=== PATIENT | female | born 1990 | race Caucasian/White ===

== ENCOUNTER → 2018-02-27 07:48 | Outpatient (CLI) | payer SELFPAY ==
--- NOTE | 2018-02-27 07:55 | US_ITS ---
STUDY: ULTRASOUND OF THE FEMALE PELVIS - COMPLETE REASON FOR EXAM: Female, 27 years old. Pelvic pain, history of prior LMP: 02/16/2018 TECHNIQUE: Transabdominal imaging initially performed with subsequent endovaginal imaging for better characterization of the endometrial complex. TECHNICAL QUALITY: Adequate. COMPARISON: None. FINDINGS: The uterus is anteverted and is in a midline position. The uterus measures 7.4 x 6.0 x 4.2 cm. Normal uterine cervix. The endometrium measures 4.0 mm in thickness, and is hyperechoic. There is no demonstrated endometrial mass. There is no demonstrated myometrial mass. I.U.D. - The patient does not have an I.U.D. The right ovary is visualized. The right ovary measures 2.6 x 3.0 x 2.1 cm. There are multiple follicles of the right ovary without a dominant cyst. There is no visualized right adnexal mass or complex lesion. There is normal arterial and normal venous vascularity. The left ovary is visualized. The left ovary measures 3.0 x 2.1 x 1.7 cm. There are multiple follicles of the left ovary without a dominant cyst. There is no visualized left adnexal mass or complex lesion. There is normal arterial and normal venous vascularity. There is minimal fluid in the cul-de-sac. There is a 1.5 x 1.1 x 1.2 cm triangular isoechoic solid-appearing structure in the posterior, inferior urinary bladder with no Doppler flow identified. US/Transvaginal Non- IMPRESSION: 1. 1.5 x 1.1 x 1.2 cm posterior, inferior urinary bladder wall nodule that could represent tumefactive debris (infectious/hemorrhagic debris) or localized urinary bladder wall thickening (neoplasm or localized cystitis). Correlation with urinalysis is suggested for initial evaluation. 2. No uterine fibroids or adnexal masses. Electronically Signed: Pradip Wright MD at 15:44 EDT , Service support ,
--- NOTE | 2018-02-27 07:55 | US_ITS ---
STUDY: ULTRASOUND OF THE FEMALE PELVIS - COMPLETE REASON FOR EXAM: Female, 27 years old. Pelvic pain, history of prior LMP: 02/16/2018 TECHNIQUE: Transabdominal imaging initially performed with subsequent endovaginal imaging for better characterization of the endometrial complex. TECHNICAL QUALITY: Adequate. COMPARISON: None. FINDINGS: The uterus is anteverted and is in a midline position. The uterus measures 7.4 x 6.0 x 4.2 cm. Normal uterine cervix. The endometrium measures 4.0 mm in thickness, and is hyperechoic. There is no demonstrated endometrial mass. There is no demonstrated myometrial mass. I.U.D. - The patient does not have an I.U.D. The right ovary is visualized. The right ovary measures 2.6 x 3.0 x 2.1 cm. There are multiple follicles of the right ovary without a dominant cyst. There is no visualized right adnexal mass or complex lesion. There is normal arterial and normal venous vascularity. The left ovary is visualized. The left ovary measures 3.0 x 2.1 x 1.7 cm. There are multiple follicles of the left ovary without a dominant cyst. There is no visualized left adnexal mass or complex lesion. There is normal arterial and normal venous vascularity. There is minimal fluid in the cul-de-sac. There is a 1.5 x 1.1 x 1.2 cm triangular isoechoic solid-appearing structure in the posterior, inferior urinary bladder with no Doppler flow identified. US/Pelvic (Non ) IMPRESSION: 1. 1.5 x 1.1 x 1.2 cm posterior, inferior urinary bladder wall nodule that could represent tumefactive debris (infectious/hemorrhagic debris) or localized urinary bladder wall thickening (neoplasm or localized cystitis). Correlation with urinalysis is suggested for initial evaluation. 2. No uterine fibroids or adnexal masses. Electronically Signed: Pradip Wright MD at 15:44 EDT , Service support ,
== END ==
PROVIDERS: Family Provider Family Medicine; PCP Family Medicine; Referring Provider Nurse Practitioner Women's Health; Visit Provider Nurse Practitioner Women's Health
DX: R10.2 Pelvic and perineal pain (principal)
CPT/HCPCS: 76830; 76856; 93976

== ENCOUNTER → 2018-02-28 18:18 | Outpatient (CLI) | payer SELFPAY ==
[2018-02-28 19:25] LABS: Color, Urine Yellow (Yellow); Glucose, Dipstick Normal (Normal); Ketone-Dipstick Negative (Negative); Leukocyte Esterase-Dipstick Negative /ul (Negative); Nitrite-Dipstick Negative (Negative); Occult Blood-Urine Negative /ul (Negative); Protein-Dipstick Negative (Negative); Specific Gravity, Urine 1.005 (1.002-1.030); Urine Bilirubin Dipstick Negative (Negative); Urine Clarity Sl. Cloudy (Clear); Urine Urobilinogen Normal (Normal); Urine pH 6.5 (5.0 - 8.0)
== END ==
PROVIDERS: Family Provider Family Medicine; PCP Family Medicine; Referring Provider Nurse Practitioner Women's Health; Visit Provider Nurse Practitioner Women's Health
DX: R10.2 Pelvic and perineal pain (principal); R30.0 Dysuria
CPT/HCPCS: 81002; 87086

== ENCOUNTER → 2018-04-29 12:45 | Outpatient (CLI) | payer SELFPAY ==
--- NOTE | 2018-04-29 12:48 | CT_ITS ---
STUDY: CT ABDOMEN AND PELVIS WITH CONTRAST REASON FOR EXAM: Female, 27 years old. Bladder nodule found on ultrasound. RADIATION DOSAGE (If Supplied By Facility): CTDIvol = ( 13.01 ) mGy, DLP = ( 984.24 ) mGycm TECHNIQUE: Transaxial images were obtained from the dome of the diaphragm to the symphysis pubis without oral contrast. 100CC ml of Isovue 300 contrast was administered. Sagittal and coronal images were reconstructed. Individualized dose optimization techniques were used for this CT. COMPARISON: Ultrasound dated February 27, 2018 FINDINGS: The visualized lung bases are unremarkable. The visualized portions of the heart are within normal limits. Normal liver. Normal gallbladder and extrahepatic biliary system. Normal spleen. Normal pancreas. Normal bilateral adrenal glands. Normal right kidney. The left kidney has a lobulated contour with focal cortical thinning, this appears chronic; there is a indeterminate low-attenuation focus within the upper pole the left kidney which may reflect an atypical cyst or a remnant of a duplicated collecting system. Normal visualized stomach. Normal small intestine. Normal colon. The appendix is visualized and appears normal. Normal abdominal aorta. Normal inferior vena cava. Normal retroperitoneum. Within the posterior urinary bladder there is a 1.0 x 1.1 cm filling defect (image 79 series 4). Normal abdominal wall. Normal osseous structures. CT/Abdomen/Pelvis WITH Contrast IMPRESSION: 1.0 x 1.1 cm filling defect within the posterior urinary bladder, recommend direct visualization for cannot exclude underlying neoplastic process. Chronic atrophic appearing left kidney with foci of cortical thinning. Electronically Signed: Maria Del Carmen Garcia MD at 8:31 EST Tel , Service support ,
--- OUTSIDE RECORDS SUMMARY | 2018-06-15 15:20 | XMS RPT_ITS ---
:1990 Author Organization OHIP Support Name Relationship Address Phone FELECIATRAVIS Unavailable [address] + [place] [address] UE Unavailable Unavailable Unavailable COMER, SANNA Unavailable [address] + [place] [address] TRAVIS EMMANUEL Unavailable [address] + [place] [address] UE Unavailable Unavailable Unavailable COMRE, SANNA Unavailable [address] + [place] [address] TRAVIS EMMANUEL Unavailable [address] + [place] [address] UE Unavailable Unavailable Unavailable COMER, SANNA Unavailable [address] + [place] [address] TRAVIS EMMANUEL Unavailable [address] + [place] [address] UE Unavailable Unavailable Unavailable COMER, SANNA Unavailable [address] + [place] [address] TRAVIS EMMANUEL Unavailable [address] + [place] [address] UE Unavailable Unavailable Unavailable COMER, SANNA Unavailable [address] + [place] [address] NOT GIVEN Unavailable Unavailable Unavailable TRAVIS EMMANUEL Unavailable Unavailable Unavailable COMER, SANNA Unavailable [address] + [place], [place] [id number] Care Team Providers Name Role Phone Narendra De La Torre Attending Unavailable Narendra De La Torre Referring Unavailable Violet Dickson Primary Care Unavailable Mari Fischer Attending Unavailable Violet Dickson Primary Care Unavailable Mari Fischer Referring Unavailable Dara Phillips Attending Unavailable Violet Dickson Referring Unavailable Mari Fischer Attending Unavailable Mari Fischer Referring Unavailable Violet Dickson Primary Care Unavailable Mari Fiscehr Attending Unavailable Violet Dickson Referring Unavailable GATO DICKSON MD Admitting Unavailable GATO DICKOSN MD Attending Unavailable GATO DICKSON MD Primary Care Unavailable GATO DICKSON MD Consulting Unavailable PROVIDER, UNKNOWN Consulting Unavailable PROVIDER, UNKNOWN Consulting Unavailable PROVIDER, UNKNOWN Consulting Unavailable MUTSCHELKNAUS, DORIS N.P. Attending Unavailable MUTSCHELEMIGDIO, DORIS N.P. Attending Unavailable MUTSCHELEMIGDIO, DORIS N.P. Attending Unavailable REJI PENG Attending Unavailable PROBLEMS PROBLEMS DATE TYPE CONDITION / CODE ATTENDING STATUS SOURCE 03/03/2018 Admitting Unknown / MUTSCHELKNAUS, Active [facility] diagnosis UNK(Unknown) DORIS N.P. Hospital Repository 02/28/2018 Unknown R30.0 - Dysuria / Marcanthony, Active [place] R30.0(ICD-10) [facility] Repository 03/10/2018 Unknown R10.2 - Pelvic CoffeyMari Active [place] and perineal pain [facility] / R10.2(ICD-10) Hospital Repository 12/19/2017 Admitting Generalized GATO DICKSON MD Active [facility] Diagnosis abdominal pain / [facility] R1084(ICD-10) Hospital Repository 12/19/2017 Principle Generalized GATO DICKSON MD Active [facility] [place] Diagnosis abdominal pain / [facility] R1084(ICD-10) Hospital Repository PROCEDURES PROCEDURES No Procedure Records FoundRESULTS RESULTS PROGRESS Observed: 05/22/2018 Status: COMPLETED Source: [place] 10:20 AM [facility] [place] REPOSITORY HNO ID: [id number] Author: Reji Peng Service: (none) Author Type: Physician Type: Progress Notes Filed: 05/22/2018 11:04 AM Note Text: H AND P Date: May 22, 2018 Chief Complaint: Patient presents with: Follow Up: Had CT done HPI: Mana Emmanuel is a 27 year old female. Patient is complaining of pain below her right breast radiating to her back pain is localized on the ribs in cartilage. Pain is worse with movement. She has had 2 HIDA scans that were normal and a CT scan which revealed no abnormality in the area. ALLERGIES Allergen Reactions - Pollen Itching PAST MEDICAL HISTORY Diagnosis Date - Abdominal pain - Asthma - Biliary dyskinesia - Dysmenorrhea PAST SURGICAL HISTORY Procedure Laterality Date - DELIVERY ONLY 12/25/2016 - REMOVAL OF TONSILS,<11 Y/O age 4 Tonsillectomy FAMILY HISTORY Problem Relation Age of Onset - None Mother - None Father - None Sister - Asthma Maternal Grandmother - other (Macular degeneration) Maternal Grandmother - other (colitis) Maternal Grandmother - Cancer Maternal Grandfather - Diabetes Paternal Grandmother - Heart Paternal Grandmother - Heart Paternal Grandfather Social History Marital status: Spouse name: Travis Years of education: Number of children: 0 Occupational History Occupation Employer Comment [employer] Social History Main Topics Smoking status: Never Smoker Smokeless tobacco: Never Used Alcohol use: No Drug use: No Sexual activity: Yes Partners with: Male control/protection: Pill Current Outpatient Prescriptions: traZODone (DESYREL) 50 mg tablet TAKE 1/2 TO 1 TABLET BY MOUTH 45 minutes BEFORE bedtime sertraline (ZOLOFT) 50 mg tablet Take 50 mg by mouth once daily. senna-docusate (MAURICE-COLACE) 8.6-50 mg per tablet No current facility-administered medications for this visit. Review of Systems Constitutional: Negative for appetite change, chills, fatigue, fever and unexpected weight change. Respiratory: Negative for cough, chest tightness, shortness of breath and wheezing. Cardiovascular: Negative for chest pain, palpitations and leg swelling. Gastrointestinal: Negative for abdominal pain, anal bleeding, blood in stool, constipation, diarrhea, nausea, rectal pain and vomiting. Ht 162.6 cm (5' 4) Wt 70.3 kg (155 lb) BMI 26.61 kg/m? Physical Exam Right inframammary crease and Costal margin is tender, abdomen itself is soft no Almanza sign No masses or hernias appreciated ASSESSMENT/PLAN: 1. Costochondritis - ICD9: 733.6, ICD10: M94.0 Patient was advised to stop wearing an underwire bras ,Try some anti-inflammatories, I would not recommend surgery, I do not think her symptoms are consistent with cholecystitis or biliary dyskinesia Reji Peng MD CNOV Observed: 05/22/2018 Status: COMPLETED Source: [place] 10:15 AM [facility] REPOSITORY Office Visit (GENUPD) MANA EMMANUEL ([id number]) 1990 F T Date Time Provider Department 05/22/18 10:15 AM REJI PENG During your visit today, we recorded the following information about you: Weight Height 70.3 kg 1.626 m Reji Peng MD 05/22/2018 11:04 AM Signed H AND P Date: May 22, 2018 Chief Complaint: Patient presents with: Follow Up: Had CT done HPI: Mana Emmanuel is a 27 year old female. Patient is complaining of pain below her right breast radiating to her back pain is localized on the ribs in cartilage. Pain is worse with movement. She has had 2 HIDA scans that were normal and a CT scan which revealed no abnormality in the area. ALLERGIES Allergen Reactions - Pollen Itching PAST MEDICAL HISTORY Diagnosis Date - Abdominal pain - Asthma - Biliary dyskinesia - Dysmenorrhea PAST SURGICAL HISTORY Procedure Laterality Date - DELIVERY ONLY 12/25/2016 - REMOVAL OF TONSILS,<11 Y/O age 4 Tonsillectomy FAMILY HISTORY Problem Relation Age of Onset - None Mother - None Father - None Sister - Asthma Maternal Grandmother - other (Macular degeneration) Maternal Grandmother - other (colitis) Maternal Grandmother - Cancer Maternal Grandfather - Diabetes Paternal Grandmother - Heart Paternal Grandmother - Heart Paternal Grandfather Social History Marital status: Spouse name: Travis Years of education: Number of children: 0 Occupational History Occupation Employer Comment [employer] Social History Main Topics Smoking status: Never Smoker Smokeless tobacco: Never Used Alcohol use: No Drug use: No Sexual activity: Yes Partners with: Male control/protection: Pill Current Outpatient Prescriptions: traZODone (DESYREL) 50 mg tablet TAKE 1/2 TO 1 TABLET BY MOUTH 45 minutes BEFORE bedtime sertraline (ZOLOFT) 50 mg tablet Take 50 mg by mouth once daily. senna-docusate (MAURICE-COLACE) 8.6-50 mg per tablet No current facility-administered medications for this visit. Review of Systems Constitutional: Negative for appetite change, chills, fatigue, fever and unexpected weight change. Respiratory: Negative for cough, chest tightness, shortness of breath and wheezing. Cardiovascular: Negative for chest pain, palpitations and leg swelling. Gastrointestinal: Negative for abdominal pain, anal bleeding, blood in stool, constipation, diarrhea, nausea, rectal pain and vomiting. Ht 162.6 cm (5' 4) Wt 70.3 kg (155 lb) BMI 26.61 kg/m? Physical Exam Right inframammary crease and Costal margin is tender, abdomen itself is soft no Almanza sign No masses or hernias appreciated ASSESSMENT/PLAN: 1. Costochondritis - ICD9: 733.6, ICD10: M94.0 Patient was advised to stop wearing an underwire bras ,Try some anti-inflammatories, I would not recommend surgery, I do not think her symptoms are consistent with cholecystitis or biliary dyskinesia Reji Peng MD Referring Provider: SELF [200] Allergies As of Date: 05/22/2018 Noted Allergy Reaction POLLEN 08/27/2012 9 - Itching Date Reviewed: 05/22/2018 Reviewed by: Reji Peng - Fully Assessed Reason for Visit: Follow Up [171] Cmt: Had CT done Visit Diagnosis:Costochondritis [M94.0] Prescriptions as of 05/22/2018 Sig: TRAZODONE 50 MG TABLET TAKE 1/2 TO 1 TABLET BY MOUTH* SERTRALINE 50 MG TABLET Take 50 mg by mouth once ann marie* SENNOSIDES 8.6 MG-DOCUSATE SO* Problem List As Of Date 05/22/2018 Noted Resolved Nausea [R11.0] 08/27/2012 Dysmenorrhea [N94.6] INVALID FOR*01/04/2017 Asthma [J45.909] 01/04/2017 Family history of defects [Z82.79] INVALID FOR*01/04/2017 More... Family history of cystic fibrosis [Z83.49] INVALID FOR*01/04/2017 More... Patient requested diagnostic testing [Z01.89] INVALID FOR*10/03/2016 More... Encounter for test, result positive [*INVALID FOR*05/29/2016 More... 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 Biliary dyskinesia [K82.8] Abdominal pain [R10.9] Costochondritis [M94.0] Medications Discontinued During This Encounter enteric contrast (will be provided w* 1 Ea* 0 04/28/2018 05/22/2018 Class: In Office Sig: For CT ABD/PEL W IVCON Routine order Administer, As Directed One Time Only, via Oral, Rectal, both Oral and Rectal, Enteric Tube, Stoma or Indwelling Catheter, Enteric Contrast as designated per enteric contrast guidelines Disc: Reason for discontinue is not on file. iv contrast (will be provided with r* 1 Ea* 0 04/28/2018 05/22/2018 Class: In Office Sig: CT ABD/PEL -Inject, intravenously, once for 1 dose.No IV access, insert saline lock prior to the beginning of sedation, infusion, injection of imaging exam. Discontinue saline lock post exam. If Pt. has a central line or IVAD, may access for administration according to line specific nursing protocol. Once exam is complete flush line and de-access according to line specific nursing protocol in the CT contrast administration guidelines link. Disc: Reason for discontinue is not on file. Encounter Status:Closed by REJI PENG MD on 05/22/18 CT ABD/PEL W CONTRAST Observed: 05/01/2018 Status: F Source: [place] 3:30 PM [facility] [place] RE[place]IT[place] [id number] Name: FELECIAHAYDEEMANA Phys: REJI PENG M.D. : [birth year] Age: 27 Sex: F Acct: [id number] Loc: RAD CT Exam Date: 05/01/18 Status: REG CLI Radiology No.: [id number] Unit Number: [id number] Exam # Type/Exam [id number] CT / CT ABD/PEL W CONTRAST CT abdomen and pelvis with enteric and IV contrast History: Nausea, right upper quadrant abdominal pain Comparison: None No osseous abnormality is identified. The lung bases are unremarkable. Areas of left renal scarring are present, and there is left renal atrophy. Minimal calyceal clubbing is evident at the upper pole as well. The findings are most compatible with left-sided reflux nephropathy. There is mild compensatory hypertrophy of the right kidney. The upper abdominal solid organs are otherwise unremarkable. There is no adenopathy, free air or free fluid seen. No GI tract abnormality seen. No additional contributory abnormality. Impression: #1 no acute process identified. 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 This exam was performed according to our departmental dose optimization program, and includes the following measures where applicable: automated exposure control, adjustment of the mAs and/or kVp according to patient size and/or exam, and an iterative reconstruction algorithm. Professional interpretation provided by [facility], [place] on [employer]-27. Thank you for this referral. <<Signature on File>> Reported By: PENNY HILLIARD M.D. Signed In Nova[employer] By: PENNY HILLIARD M.D. << Signature on File>> Reported By: PENNY HILLIARD M.D. Signed By: PENNY HILLIARD M.D. Tests performed at: [address] [address] ABDOMEN/PELVIS WITH Observed: 04/29/2018 Status: F Source: [place] CONTRAST 12:48 PM [facility] [place] REPOSITORY [facility] Imaging Services [address] [place] [id number] Abdomen/Pelvis WITH Contrast MR#: [id number] Acct: [id number] Name: MANA EMMANUEL Rep #: [id number] : 1990 F 27 From: Maria Del Carmen Garcia MD PCP: Violet Dickson MD Status: REG CLI Study: Abdomen/Pelvis WITH Contrast Date of Exam: 04/29/18 Exam# [id number] Ordering Dr: Narendra De La Torre MD STUDY: CT ABDOMEN AND PELVIS WITH CONTRAST REASON FOR EXAM: Female, 27 years old. Bladder nodule found on ultrasound. RADIATION DOSAGE (If Supplied By Facility): CTDIvol = ( 13.01 ) mGy, DLP = ( 984.24 ) mGycm TECHNIQUE: Transaxial images were obtained from the dome of the diaphragm to the symphysis pubis without oral contrast. 100CC ml of Isovue 300 contrast was administered. Sagittal and coronal images were reconstructed. Individualized dose optimization techniques were used for this CT. COMPARISON: Ultrasound dated February 27, 2018 FINDINGS: The visualized lung bases are unremarkable. The visualized portions of the heart are within normal limits. Normal liver. Normal gallbladder and extrahepatic biliary system. Normal spleen. Normal pancreas. Normal bilateral adrenal glands. Normal right kidney. The left kidney has a lobulated contour with focal cortical thinning, this appears chronic; there is a indeterminate low-attenuation focus within the upper pole the left kidney which may reflect an atypical cyst or a remnant of a duplicated collecting system. Normal visualized stomach. Normal small intestine. Normal colon. The appendix is visualized and appears normal. Normal abdominal aorta. Normal inferior vena cava. Normal retroperitoneum. Within the posterior urinary bladder there is a 1.0 x 1.1 cm filling defect (image 79 series 4). Normal abdominal wall. Normal osseous structures. CT/Abdomen/Pelvis WITH Contrast IMPRESSION: 1.0 x 1.1 cm filling defect within the posterior urinary bladder, recommend direct visualization for cannot exclude underlying neoplastic process. Chronic atrophic appearing left kidney with foci of cortical thinning. Electronically Signed: Maria Del Carmen Garcia MD at 8:31 EST Tel , Service support , CC: Violet Dickson MD; Narendra De La Torre MD Chemistry Technician: Signed CNOV Observed: 04/24/2018 Status: COMPLETED Source: [place] 11:00 AM [facility] REPOSITORY Office Visit (GENUPD) MANA EMMANUEL ([id number]) 1990 F T Date Time Provider Department 12/6/18 11:00 AM REJI PENG During your visit today, we recorded the following information about you: Weight Height 70.3 kg 1.626 m Reji Peng MD 04/28/2018 5:30 PM Signed H AND P Date: April 24, 2018 Chief Complaint: Patient presents with: Consult: Had EGD at [facility] normal , then 2 hida scans, referred by Dr. Contreras HPI: Mana Emmanuel is a 27 year old female. Patient has had multiple upper GI symptoms including abdominal pain in the right upper quadrant and this has been occurring on a daily basis for 6 months now getting worse she has had persistent nausea and vomiting She had an ultrasound that was negative an EGD that was negative she also has had fatty food intolerance she had a HIDA scan 2 months ago which revealed ejection fraction of 84% and a repeat the repeat HIDA scan which revealed an ejection fraction of 46% she did have pain and symptoms were reproduced with CCK she has been treated with proton- pump inhibitor and add antacids with no relief. ALLERGIES Allergen Reactions - Pollen Itching PAST MEDICAL HISTORY Diagnosis Date - Asthma - Dysmenorrhea PAST SURGICAL HISTORY Procedure Laterality Date - DELIVERY ONLY 12/25/2016 - REMOVAL OF TONSILS,<11 Y/O age 4 Tonsillectomy FAMILY HISTORY Problem Relation Age of Onset - None Mother - None Father - None Sister - Asthma Maternal Grandmother - other (Macular degeneration) Maternal Grandmother - other (colitis) Maternal Grandmother - Cancer Maternal Grandfather - Diabetes Paternal Grandmother - Heart Paternal Grandmother - Heart Paternal Grandfather Social History Marital status: Spouse name: Travis Years of education: Number of children: 0 Occupational History Occupation Employer Comment customer service [employer] Social History Main Topics Smoking status: Never Smoker Smokeless tobacco: Never Used Alcohol use: No Drug use: No Sexual activity: Yes Partners with: Male control/protection: Pill Current Outpatient Prescriptions: traZODone (DESYREL) 50 mg tablet TAKE 1/2 TO 1 TABLET BY MOUTH 45 minutes BEFORE bedtime sertraline (ZOLOFT) 50 mg tablet Take 50 mg by mouth once daily. senna-docusate (MAURICE-COLACE) 8.6-50 mg per tablet Norethindrone, Contraceptive, (ORTHO MICRONOR) 0.35 mg tablet Take 1 tablet by mouth once daily. (Patient not taking: Reported on 04/24/2018 ) ferrous sulfate (IRON, FERROUS SULFATE,) 325 mg (65 mg iron) tablet Take 325 mg by mouth daily with breakfast. Hiumyrxp-Md-Bux-Fe-FA ( VITAMIN) tab Take 1 tablet by mouth. fluticasone-salmeterol (ADVAIR DISKUS) 100-50 mcg/dose dsdv Inhale 1 Puff as instructed twice daily. Levocetirizine (XYZAL) 2.5 mg/5 mL ORAL solution Take one(1) tablet daily at bedtime. No current facility-administered medications for this visit. Review of Systems Constitutional: Negative for appetite change, chills, fatigue, fever and unexpected weight change. Respiratory: Negative for cough, chest tightness, shortness of breath and wheezing. Cardiovascular: Negative for chest pain, palpitations and leg swelling. Gastrointestinal: Negative for abdominal pain, anal bleeding, blood in stool, constipation, diarrhea, nausea, rectal pain and vomiting. Ht 162.6 cm (5' 4) Wt 70.3 kg (155 lb) BMI 26.61 kg/m? Physical Exam Constitutional: She is oriented to person, place, and time. Neck: No tracheal tenderness present. No thyroid mass present. Cardiovascular: Normal rate, regular rhythm and normal heart sounds. No murmur heard. Pulmonary/Chest: Effort normal and breath sounds normal. Abdominal: Soft. There is no tenderness. Mild right upper quadrant tenderness Musculoskeletal: She exhibits no tenderness. Lymphadenopathy: She has no axillary adenopathy. Neurological: She is alert and oriented to person, place, and time. No sensory deficit. Gait normal. Skin: No lesion noted. ASSESSMENT/PLAN: 1. Biliary dyskinesia - ICD9: 575.8, ICD10: K82.8 I discussed laparoscopic cholecystectomy I would estimate about 75% chance that the patient's symptoms may improve post cholecystectomy but there is certainly no guarantee 2. Right upper quadrant abdominal pain - ICD9: 789.01, ICD10: R10.11 - CT ABD/PEL W IVCON - IV CONTRAST (RADIOLOGY PROCEDURE) - ENTERIC CONTRAST (RADIOLOGY PROCEDURE) 3. Nausea - ICD9: 787.02, ICD10: R11.0 - CT ABD/PEL W IVCON - IV CONTRAST (RADIOLOGY PROCEDURE) - ENTERIC CONTRAST (RADIOLOGY PROCEDURE) Reji Peng MD Referring Provider: GATO DICKSON [[id number]] Allergies As of Date: 04/24/2018 Noted Allergy Reaction POLLEN 08/27/2012 9 - Itching Date Reviewed: 04/24/2018 Reviewed by: Reji Peng - Fully Assessed Reason for Visit: Consult [173] Cmt: Had EGD at [facility] normal , then 2 hida scans, referred by Dr. Contreras Reason For Visit History Recorded Visit Diagnoses:Biliary dyskinesia [K82.8] Right upper quadrant abdominal pain [R10.11] Nausea [R11.0] Order(s):CT ABD/PEL W IVCON [[id number]] Order #: [id number] FUTURE iv contrast (will be provided with radiology test)CT ABD/PEL -Inject, intravenously, once for 1 dose.No IV access, insert saline lock prior to the beginning of sedation, infusion, injection of imaging exam. Discontinue saline lock post exam. If Pt. has a central line or IVAD, may access for administration according to line specific nursing protocol. Once exam is complete flush line and de- access according to line specific nursing protocol in the CT contrast administration guidelines link.Disp: 1 EachRfl: 0 enteric contrast (will be provided with radiology test)For CT ABD/PEL W IVCON Routine order Administer, As Directed One Time Only, via Oral, Rectal, both Oral and Rectal, Enteric Tube, Stoma or Indwelling Catheter, Enteric Contrast as designated per enteric contrast guidelinesDisp: 1 EachRfl: 0 Prescriptions as of 04/24/2018 Sig: TRAZODONE 50 MG TABLET TAKE 1/2 TO 1 TABLET BY MOUTH* SERTRALINE 50 MG TABLET Take 50 mg by mouth once ann marie* SENNOSIDES 8.6 MG-DOCUSATE SO* IV CONTRAST (RADIOLOGY PROCED* CT ABD/PEL -Inject, intraveno* ENTERIC CONTRAST (RADIOLOGY P* For CT ABD/PEL W IVCON Routin* Problem List As Of Date 04/24/2018 Noted Resolved Nausea [R11.0] 08/27/2012 Dysmenorrhea [N94.6] INVALID FOR*01/04/2017 Asthma [J45.909] 01/04/2017 Family history of defects [Z82.79] INVALID FOR*01/04/2017 More... Family history of cystic fibrosis [Z83.49] INVALID FOR*01/04/2017 More... Patient requested diagnostic testing [Z01.89] INVALID FOR*10/03/2016 More... Encounter for test, result positive [*INVALID FOR*05/29/2016 More... 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 Prescriptions ordered this encounter Disp Refills Start End IV CONTRAST (RADIOLOGY PROCEDURE) 1 Ea* 0 04/28/2018 Class: In Office Sig: CT ABD/PEL -Inject, intravenously, once for 1 dose.No IV access, insert saline lock prior to the beginning of sedation, infusion, injection of imaging exam. Discontinue saline lock post exam. If Pt. has a central line or IVAD, may access for administration according to line specific nursing protocol. Once exam is complete flush line and de-access according to line specific nursing protocol in the CT contrast administration guidelines link. ENTERIC CONTRAST (RADIOLOGY PROCEDUR* 1 Ea* 0 04/28/2018 Class: In Office Sig: For CT ABD/PEL W IVCON Routine order Administer, As Directed One Time Only, via Oral, Rectal, both Oral and Rectal, Enteric Tube, Stoma or Indwelling Catheter, Enteric Contrast as designated per enteric contrast guidelines Medications Discontinued During This Encounter Fohcstat-Po-Dfg-Fe-FA (PREN* 04/24/2018 Class: Historical Med Route: ORAL Sig: Take 1 tablet by mouth. Disc: Reason for discontinue is not on file. Norethindrone, Contraceptive, (ORTHO* 3 Pa* 2 03/05/2017 04/24/2018 Route: ORAL Sig: Take 1 tablet by mouth once daily. Patient not taking: Reported on 04/24/2018 Disc: Reason for discontinue is not on file. Levocetirizine (XYZAL) 2.5 mg/5 mL O* 12 06/01/2010 04/24/2018 Class: Med Update Route: ORAL Sig: Take one(1) tablet daily at bedtime. Disc: Reason for discontinue is not on file. fluticasone-salmeterol (ADVAIR DISKU* 04/24/2018 Class: Historical Med Route: INHALATION Sig: Inhale 1 Puff as instructed twice daily. Disc: Reason for discontinue is not on file. ferrous sulfate (IRON, FERROUS SULFA* 04/24/2018 Class: Historical Med Route: ORAL Sig: Take 325 mg by mouth daily with breakfast. Disc: Reason for discontinue is not on file. Disposition: Return in about 2 weeks (around 05/08/2018). Follow-up and Disposition History Recorded Encounter Status:Closed by REJI PENG MD on 04/28/18 PROGRESS Observed: 04/24/2018 Status: COMPLETED Source: [place] 9:14 AM [facility] REPOSITORY HNO ID: [id number] Author: Reji Peng Service: (none) Author Type: Physician Type: Progress Notes Filed: 04/28/2018 5:30 PM Note Text: H AND P Date: April 24, 2018 Chief Complaint: Patient presents with: Consult: Had EGD at [facility] normal , then 2 hida scans, referred by Dr. Contreras HPI: Mana Emmanuel is a 27 year old female. Patient has had multiple upper GI symptoms including abdominal pain in the right upper quadrant and this has been occurring on a daily basis for 6 months now getting worse she has had persistent nausea and vomiting She had an ultrasound that was negative an EGD that was negative she also has had fatty food intolerance she had a HIDA scan 2 months ago which revealed ejection fraction of 84% and a repeat the repeat HIDA scan which revealed an ejection fraction of 46% she did have pain and symptoms were reproduced with CCK she has been treated with proton-pump inhibitor and add antacids with no relief. ALLERGIES Allergen Reactions - Pollen Itching PAST MEDICAL HISTORY Diagnosis Date - Asthma - Dysmenorrhea PAST SURGICAL HISTORY Procedure Laterality Date - DELIVERY ONLY 12/25/2016 - REMOVAL OF TONSILS,<11 Y/O age 4 Tonsillectomy FAMILY HISTORY Problem Relation Age of Onset - None Mother - None Father - None Sister - Asthma Maternal Grandmother - other (Macular degeneration) Maternal Grandmother - other (colitis) Maternal Grandmother - Cancer Maternal Grandfather - Diabetes Paternal Grandmother - Heart Paternal Grandmother - Heart Paternal Grandfather Social History Marital status: Spouse name: Travis Years of education: Number of children: 0 Occupational History Occupation Employer Comment customer service [employer] Social History Main Topics Smoking status: Never Smoker Smokeless tobacco: Never Used Alcohol use: No Drug use: No Sexual activity: Yes Partners with: Male control/protection: Pill Current Outpatient Prescriptions: traZODone (DESYREL) 50 mg tablet TAKE 1/2 TO 1 TABLET BY MOUTH 45 minutes BEFORE bedtime sertraline (ZOLOFT) 50 mg tablet Take 50 mg by mouth once daily. senna-docusate (MAURICE-COLACE) 8.6-50 mg per tablet Norethindrone, Contraceptive, (ORTHO MICRONOR) 0.35 mg tablet Take 1 tablet by mouth once daily. (Patient not taking: Reported on 04/24/2018 ) ferrous sulfate (IRON, FERROUS SULFATE,) 325 mg (65 mg iron) tablet Take 325 mg by mouth daily with breakfast. Kdmswksv-Iu-Lbu-Fe-FA ( VITAMIN) tab Take 1 tablet by mouth. fluticasone-salmeterol (ADVAIR DISKUS) 100-50 mcg/dose dsdv Inhale 1 Puff as instructed twice daily. Levocetirizine (XYZAL) 2.5 mg/5 mL ORAL solution Take one(1) tablet daily at bedtime. No current facility-administered medications for this visit. Review of Systems Constitutional: Negative for appetite change, chills, fatigue, fever and unexpected weight change. Respiratory: Negative for cough, chest tightness, shortness of breath and wheezing. Cardiovascular: Negative for chest pain, palpitations and leg swelling. Gastrointestinal: Negative for abdominal pain, anal bleeding, blood in stool, constipation, diarrhea, nausea, rectal pain and vomiting. Ht 162.6 cm (5' 4) Wt 70.3 kg (155 lb) BMI 26.61 kg/m? Physical Exam Constitutional: She is oriented to person, place, and time. Neck: No tracheal tenderness present. No thyroid mass present. Cardiovascular: Normal rate, regular rhythm and normal heart sounds. No murmur heard. Pulmonary/Chest: Effort normal and breath sounds normal. Abdominal: Soft. There is no tenderness. Mild right upper quadrant tenderness Musculoskeletal: She exhibits no tenderness. Lymphadenopathy: She has no axillary adenopathy. Neurological: She is alert and oriented to person, place, and time. No sensory deficit. Gait normal. Skin: No lesion noted. ASSESSMENT/PLAN: 1. Biliary dyskinesia - ICD9: 575.8, ICD10: K82.8 I discussed laparoscopic cholecystectomy I would estimate about 75% chance that the patient's symptoms may improve post cholecystectomy but there is certainly no guarantee 2. Right upper quadrant abdominal pain - ICD9: 789.01, ICD10: R10.11 - CT ABD/PEL W IVCON - IV CONTRAST (RADIOLOGY PROCEDURE) - ENTERIC CONTRAST (RADIOLOGY PROCEDURE) 3. Nausea - ICD9: 787.02, ICD10: R11.0 - CT ABD/PEL W IVCON - IV CONTRAST (RADIOLOGY PROCEDURE) - ENTERIC CONTRAST (RADIOLOGY PROCEDURE) Reji Peng MD NM HIDA SCAN WITH Observed: 04/11/2018 Status: F Source: [place] 12:30 PM [facility] REPOSITORY [facility] [address] [place], [place] [address] Name: MANA EMMANUEL Phys: DORIS DAO NKarmaPKarma : [birth year] Age: 27 Sex: F Acct: [id number] Loc: RAD NM Exam Date: 04/11/18 Status: REG CLI Radiology No.: [id number] Unit Number: [id number] Exam # Type/Exam [id number] NM / NM HIDA SCAN WITH INTERVENTION NM HEPATOBILIARY Scan with fatty meal stimulation Clinical Statement: Right upper quadrant abdominal pain Comparison: 03/03/18 Technique: Radiopharmaceutical: Tc-99m Mebrofenin Dose: 6.5 mCi IV Dynamic anterior imaging of the liver Fatty meal stimulation with 8 oz of Ensure Plus (CCK not available due to national shortage) 60 minute additional dynamic study and GBEF calculation Report: There is prompt normal hepatic uptake. No apparent focal cold defect is seen in the liver. The biliary tree, common bile duct, gallbladder, and small bowel are all visualized within the normal time range. The gallbladder contracts adequately to fatty meal stimulation. The calculated gallbladder ejection fraction is 46 percent (normal = or > than 35%). IMPRESSION: Normal gallbladder filling. The gallbladder ejection fraction is 46 percent, which is within normal limits, but below the mean (70%) and has worsened since the prior study of 03/01/18 (previously 84 percent). Typically, most normal studies show ejection fraction greater than 50%, but the ejection fraction between 35% and 50% is still defined as the lower limits of normal. Depending on symptom progression, another interval followup study may be considered to demonstrate further worsening and possible gallbladder dyskinesia. Professional interpretation provided by [facility], [place] on RAC-PC-65. Thank you for this referral. <<Signature on File>> Reported By: SHERIF HER D.O. Signed In NovaPro By: SHERIF HER D.O. << Signature on File>> Reported By: SHERIF HER D.O. Signed By: SHERIF HER D.O. Tests performed at: [place] [address] NM HIDA SCAN WITH Observed: 03/03/2018 Status: F Source: [place] INTERVENTION 7:00 AM [facility] REPOSITORY [place] [address] Name: MANA EMMANUEL Phys: DORIS DAO N.PKarma : [birth year] Age: 27 Sex: F Acct: [id number] Loc: RAD NM Exam Date: 03/03/18 Status: REG [facility] Radiology No.: [id number] Unit Number: [id number] Exam # Type/Exam [id number] NM / NM HIDA SCAN WITH INTERVENTION NM HEPATOBILIARY Scan with Fatty Meal stimulation Clinical Statement: Abdominal pain Comparison: None available Technique: Radiopharmaceutical: Tc-99m Mebrofenin Dose: 6.2 mCi IV Multiple planar views of the liver for 60 minutes Fatty Meal Stimulation with Ensure Plus 8 oz 30 minute dynamic study and GBEF calculation Report: There is prompt normal hepatic uptake. No apparent focal cold defect is seen in the liver. The biliary tree, common bile duct, gallbladder, and small bowel are all visualized within the normal time range. The gallbladder contracts normally to fatty meal stimulation. The calculated gallbladder ejection fraction is 84% (normal = or > than 33%). IMPRESSION: Normal examination. The cystic duct is patent, which essentially excludes the diagnosis of acute cholecystitis. There is normal gallbladder contractility. Professional interpretation provided by [facility], [place] on RAC-PC-49. Thank you for this referral. <<Signature on File>> Reported By: ANEL SULTANA M.D. Signed In NovaPro By: ANEL SULTANA M.D. << Signature on File>> Reported By: ANEL SULTANA M.D. Signed By: ANEL SULTANA M.D. Tests performed at: [place] [id number] OFFICE VISIT REPORT Observed: 03/02/2018 Status: F Source: [place] 6:15 AM [facility] [place] [address] OFFICE VISIT Date of Service: 02/28/18 MR#: [id number] Acct: [id number] Patient: MANA EMMANUEL Rep #: [id number] : 1990 Provider: Dara Phillips MD Age/Sex: 27/F Location: [facility] Status: Signed Intake Vital Signs02/28/18 Height 5 ft 5 in 02/28/18 Weight: 155 lb 6 oz 02/28/18 Body Mass Index (BMI) 25.8 Intake Visit Reasons: uti? Chief Complaint: UTI Manager Non Profit Required: No Allergies No Known Allergies Allergy (Verified 02/13/18 11:23) Medications docusate sodium 100 mg capsule 100 mg PO DAILY 02/13/18 [History Confirmed 02/28/18] omeprazole magnesium 20 mg tablet,delayed release 20 mg PO DAILY 02/13/18 [History Confirmed 02/28/18] ondansetron HCl 4 mg tablet 4 mg PO BID-TID PRN 02/13/18 [History Confirmed 02/28/18] sertraline 50 mg tablet 50 mg PO DAILY 02/13/18 [History Confirmed 02/28/18] trazodone 50 mg tablet 50 mg PO DAILY 02/13/18 [History Confirmed 02/28/18] sulfamethoxazole 800 mg-trimethoprim 160 mg tablet 1 tab PO BID 3 Days #6 tab 02/28/18 [Rx Confirmed 02/28/18] Is last menstrual period known: No Post menopausal: No Patient : No Results BMSUA Office Urine Color Straw Last Edit by Alexandra Bolden on 02/28/18 15:29 Office Urine Clarity Clear Last Edit by Alexandra Bolden on 02/28/18 15:29 Assessment AND Plan Orders Orders: Medications New: 03/02/18 0615 <Electronically signed by Dara Phillips MD> Date Dara Marcanthony MD Cosign Signature: Date (if applicable) CC: URINALYSIS, ROUTINE Collected: 02/28/2018 Status: F Source: [place] (DIPSTICK) 12:00 AM [facility] REPOSITORY Order Comment: How was Urine Obtained? ROLL FORGER TO SPECIFY TYPE CODE TESTS RESULT OUT OF RANGE REFERENCE UNITS LAB L400.3000 Yellow COLOR Normal Yellow LAB L400.3050 Clear Normal CLARITY Sl. Cloudy LAB L400.3200 Normal mg/dl Normal GLUCOSE, UR Normal LAB L400.3300 Negative mg/dL Normal BILIRUBIN URINE Negative LAB L400.3400 Negative mg/dl Normal KETONE UR Negative LAB L400.3465 1.002-1.030 Normal SP.GR. DIPSTX 1.005 LAB L400.3550 5.0 - 8.0 pH UR Normal 6.5 LAB L400.3600 Negative mg/dl PROT Normal DIPSTX Negative LAB L400.3700 Normal mg/dl Normal UROBILI Normal LAB L400.3750 Negative Normal NITRITE UR Negative LAB L400.3780 Negative /ul Normal OCCULT BLOOD-UR Negative LAB L400.3800 Negative /ul LEUK Normal ESTERASE Negative Performed By: #### L400.2010 #### [facility] [address] [facility]. [place], [place], [address] Observed: 02/28/2018 Status: F Source: [place] CULTURE, URINE 12:00 AM [facility] REPOSITORY Urine Culture Culture exhibits no growth. Performed By: #### M100.0650 #### [facility] [address] [facility] [place], [place], [address] TRANSVAGINAL Observed: 02/27/2018 Status: F Source: [place] NON- 7:55 AM [facility] REPOSITORY [facility] Imaging Services [address] [address] Transvaginal Non- MR#: [id number] Acct: [id number] Name: MANA EMMANUEL Rep #: [id number] : 1990 F 27 From: Pradip Wright MD PCP: Violet Dickson MD Status: REG CLI Study: Transvaginal Non- Date of Exam: 02/27/18 Exam# [id number] Ordering Dr: Mari Fischer DONKEY DOCTOR-C STUDY: ULTRASOUND OF THE FEMALE PELVIS - COMPLETE REASON FOR EXAM: Female, 27 years old. Pelvic pain, history of prior LMP: 02/16/2018 TECHNIQUE: Transabdominal imaging initially performed with subsequent endovaginal imaging for better characterization of the endometrial complex. TECHNICAL QUALITY: Adequate. COMPARISON: None. FINDINGS: The uterus is anteverted and is in a midline position. The uterus measures 7.4 x 6.0 x 4.2 cm. Normal uterine cervix. The endometrium measures 4.0 mm in thickness, and is hyperechoic. There is no demonstrated endometrial mass. There is no demonstrated myometrial mass. I.U.D. - The patient does not have an I.U.D. The right ovary is visualized. The right ovary measures 2.6 x 3.0 x 2.1 cm. There are multiple follicles of the right ovary without a dominant cyst. There is no visualized right adnexal mass or complex lesion. There is normal arterial and normal venous vascularity. The left ovary is visualized. The left ovary measures 3.0 x 2.1 x 1.7 cm. There are multiple follicles of the left ovary without a dominant cyst. There is no visualized left adnexal mass or complex lesion. There is normal arterial and normal venous vascularity. There is minimal fluid in the cul-de-sac. There is a 1.5 x 1.1 x 1.2 cm triangular isoechoic solid-appearing structure in the posterior, inferior urinary bladder with no Doppler flow identified. US/Transvaginal Non- IMPRESSION: 1. 1.5 x 1.1 x 1.2 cm posterior, inferior urinary bladder wall nodule that could represent tumefactive debris (infectious/hemorrhagic debris) or localized urinary bladder wall thickening (neoplasm or localized cystitis). Correlation with urinalysis is suggested for initial evaluation. 2. No uterine fibroids or adnexal masses. Electronically Signed: Pradip Wright MD at 15:44 EDT , Service support , CC: ANA Fischer; Violet Dickson MD Chemistry Technician: Signed PELVIC (NON ) Observed: 02/27/2018 Status: F Source: [place] 7:55 AM [facility] REPOSITORY [facility] Imaging Services [address] [place] [address] Pelvic (Non ) MR#: [id number] Acct: [id number] Name: MANA EMMANUEL Rep #: [id number] : 1990 F 27 From: Pradip Wright MD PCP: Violet Dickson MD Status: REG CLI Study: Pelvic (Non ) Date of Exam: 02/27/18 Exam# [id number] Ordering Dr: Mari Fischer DONKEY DOCTOR-C STUDY: ULTRASOUND OF THE FEMALE PELVIS - COMPLETE REASON FOR EXAM: Female, 27 years old. Pelvic pain, history of prior LMP: 02/16/2018 TECHNIQUE: Transabdominal imaging initially performed with subsequent endovaginal imaging for better characterization of the endometrial complex. TECHNICAL QUALITY: Adequate. COMPARISON: None. FINDINGS: The uterus is anteverted and is in a midline position. The uterus measures 7.4 x 6.0 x 4.2 cm. Normal uterine cervix. The endometrium measures 4.0 mm in thickness, and is hyperechoic. There is no demonstrated endometrial mass. There is no demonstrated myometrial mass. I.U.D. - The patient does not have an I.U.D. The right ovary is visualized. The right ovary measures 2.6 x 3.0 x 2.1 cm. There are multiple follicles of the right ovary without a dominant cyst. There is no visualized right adnexal mass or complex lesion. There is normal arterial and normal venous vascularity. The left ovary is visualized. The left ovary measures 3.0 x 2.1 x 1.7 cm. There are multiple follicles of the left ovary without a dominant cyst. There is no visualized left adnexal mass or complex lesion. There is normal arterial and normal venous vascularity. There is minimal fluid in the cul-de-sac. There is a 1.5 x 1.1 x 1.2 cm triangular isoechoic solid-appearing structure in the posterior, inferior urinary bladder with no Doppler flow identified. US/Pelvic (Non ) IMPRESSION: 1. 1.5 x 1.1 x 1.2 cm posterior, inferior urinary bladder wall nodule that could represent tumefactive debris (infectious/hemorrhagic debris) or localized urinary bladder wall thickening (neoplasm or localized cystitis). Correlation with urinalysis is suggested for initial evaluation. 2. No uterine fibroids or adnexal masses. Electronically Signed: Pradip Wright MD at 15:44 EDT , Service support , CC: ANA Fischer; Violet Dickson MD Chemistry Technician: Signed CMP Collected: 02/26/2018 Status: F Source: [facility] 12:00 AM HOSPITAL REPOSITORY TYPE CODE TESTS RESULT OUT OF RANGE REFERENCE UNITS LAB L100.0060 74-106 mg/dL GLUCOSE Normal 88 LAB L100.0110 6-20 mg/dL BUN Normal 13 LAB L100.0131 0.50-0.90 mg/dL Normal CREATININE 0.70 LAB L100.0140 8.6-10.0 mg/dL CALCIUM Normal 9.7 LAB L100.0150 135-145 mmol/L SODIUM Normal 140 LAB L100.0160 3.5-5.0 mmol/L Normal POTASSIUM 4.3 LAB L100.0170 98-107 mmol/L CHLORIDE Normal 103 LAB L100.0180 22-29 mmol/L TCO2 Normal 26 LAB L100.0185 15-22 mmol/L ANION Normal GAP 15.3 LAB L100.0200 6.4-8.3 g/dL TOTAL Normal PROTEIN 7.1 LAB L100.0210 3.5-5.2 g/dL ALBUMIN Normal 5.0 LAB L100.0220 0.2-1.2 mg/dL TOTAL Normal BILIRUBIN 0.6 LAB L100.0240 5-32 U/L AST Normal 17 LAB L100.0250 5-33 U/L ALT Normal 5 LAB L100.0260 35-105 U/L ALK. Normal PHOS 73 LAB L100.0262 1.5-4.5 g/dL Normal GLOBULIN,CALC 2.1 LAB L100.0264 1.1-2.5 A:G Normal RATIO 2.38 LAB L100.0274 eGFR Normal nonAFR Shreya > 60 ml/Min/1.73m 2 LAB L100.0275 eGFR if Normal AFR SHREYA > 60 ml/min/1.73m 2 Result Comment: eGFR >= 60 Indicates normal kidney function. * eGFR IS AN ESTIMATE * (AFR SHREYA = ) (non-AFR AM = NON-) MDRD calculation used in the eGFR should not be used to dose medications. For further limitations of the eGFR please refer to the Physician Website or the National Kidney Disease Education Program website (www.nkdep.nih.gov). Performed By: #### L100.0005, L100.0340, L100.0350 #### [facility] [address] [place] [address] AMYLASE Collected: 02/26/2018 Status: F Source: [place] 12:00 [facility] REPOSITORY TYPE CODE TESTS RESULT OUT OF RANGE REFERENCE UNITS LAB L100.0340 28-100 U/L Normal AMYLASE 62 Performed By: #### L100.0005, L100.0340, L100.0350 #### [facility] [address] [place] [address] LIPASE Collected: 02/26/2018 Status: F Source: [facility] 12:00 AM HOSPITAL REPOSITORY TYPE CODE TESTS RESULT OUT OF RANGE REFERENCE UNITS LAB L100.0350 13-60 U/L Normal LIPASE 32 Performed By: #### L100.0005, L100.0340, L100.0350 #### [facility] [address] [place] [address] CBC Collected: 02/26/2018 Status: F Source: [facility] 12:00 AM HOSPITAL REPOSITORY TYPE CODE TESTS RESULT OUT OF RANGE REFERENCE UNITS LAB L200.0100 4.5-10.0 x10(3) Normal WBC 6.1 LAB L200.0200 3.30-5.00 x10(6) Normal RBC 4.45 LAB L200.0210 12.0-16.0 g/dL Normal HGB 13.7 LAB L200.0220 36.0-48.0 % Normal HCT 40.6 LAB L200.0230 80.0-99.0 fl Normal MCV 91.1 LAB L200.0240 28.5-32.9 pg Normal MCH 30.7 LAB L200.0250 33.0-36.0 g/dL Normal MCHC 33.7 LAB L200.0260 12.5-15.7 % Normal RDW 12.9 LAB L200.0270 150-450 X10(3) Normal PLT 245 LAB L200.0290 7.5-9.5 fl Normal MPV 9.4 LAB L200.0300 45.0-73.0 % Normal NEUT% 58.1 LAB L200.0310 16.0-48.0 % Normal LYMPH% 35.2 LAB L200.0320 4.3-11.2 % Normal MONO% 5.1 LAB L200.0330 0.5-4.9 % Normal EOS% 0.8 LAB L200.0340 0.0-1.0 % Normal BASO% 0.8 LAB L200.0350 1.40-6.50 x10(3) Normal NEUT# 3.50 LAB L200.0360 1.00-3.50 x10(3) Normal LYMPH# 2.10 LAB L200.0370 0.30-0.80 x10(3) Normal MONO# 0.30 LAB L200.0380 0.00-0.54 x10(3) Normal EOS# 0.10 LAB L200.0390 0.00-0.10 x10(3) Normal BASO# 0.00 Performed By: #### L200.0010 #### [facility] [address] [address] MANAGER ENTRY OFFICE VISIT Observed: 02/13/2018 Status: F Source: [place] REPORT 11:56 AM [facility] [place] [address] [place] [address] OFFICE VISIT Date of Service: 02/13/18 MR#: [id number] Acct: [id number] Name: MANA EMMANUEL Rep #: [id number] : 1990 Provider: ANA Fischer Age/Sex: 27/F Location: [facility] Status: Signed Intake Vital Signs02/13/18 Height 5 ft 5 in 02/13/18 Weight: 158 lb 02/13/18 Body Mass Index (BMI) 26.2 02/13/18 Blood Pressure 122/84 H Intake Visit Reasons: DISCUSS ONGOING PELVIC PAIN Manager Non Profit Required: No Is patient in pain?: Yes Pain scale (1-10): 2 Allergies No Known Allergies Allergy (Verified 02/13/18 11:23) Medications Al hyd-Mg tr-alg ac-sod bicarb 80 mg-14.2 mg chewable tablet tab PO tab 02/13/18 [History Confirmed 02/13/18] cephalexin 500 mg capsule 500 mg PO BID 02/13/18 [History Confirmed 02/13/18] docusate sodium 100 mg capsule 100 mg PO DAILY 02/13/18 [History Confirmed 02/13/18] omeprazole magnesium 20 mg tablet,delayed release 20 mg PO DAILY 02/13/18 [History Confirmed 02/13/18] ondansetron HCl 4 mg tablet 4 mg PO BID-TID PRN 02/13/18 [History Confirmed 02/13/18] sertraline 50 mg tablet 50 mg PO DAILY 02/13/18 [History Confirmed 02/13/18] trazodone 50 mg tablet 50 mg PO DAILY 02/13/18 [History Confirmed 02/13/18] Is last menstrual period known: Yes Last Menstral Period: 01/18/18 Post menopausal: No Patient : No PFSH Medical History Insomnia (Acute) Acid reflux (Acute) Depression (Acute) Surgical History History of tonsillectomy (Resolved) S/P (Resolved) Family History Grandmother Diabetes Breast cancer Grandfather Diabetes Myocardial infarction Cancer Uncle Myocardial infarction Father Diabetes Other Cystic fibrosis Social History Smoking Status: Never smoker alcohol intake: current details: occasionally substance use type: does not use caffeine: No what type of physical activity do you participate in: none seatbelt use: always do you feel safe at home: Yes additional social history: - Travis- efw-suhl Patient is stay at home mom HPI DISCUSS ONGOING PELVIC PAIN : Details: MANA EMMANUEL is a 27 year old who presents for low pelvic pain X 2 months. She has seen PCP and acupressurist. Patient had seen me 2 year ago at [facility]. She did have baby last year delivered CS for breech by Dr. Barcenas. She is using condoms for contraception. Menses are regular but heavier since pain started. Female Reproductive History Last Menstral Period: 01/18/18 Pregancy History 1 Elective abortions Hx Para 1 Spontaneous abortions Past Pregnancies Del. DateName GA/Weeks Outcome Route Bth WeighInfant GeLabor LgtAnesthesiDel LocatProvider FOB t n h a n Delivery Date: 12/25/16 On 02/13/18 @ 11:32 [employer] Few weeks of high blood pressure during . Baby breech ROS Const Constitutional: Reports system reviewed and no additional complaints, except as docu GI GI: Denies abdominal pain or change in bowel habits Exam General: bladder normal to palpation External Female Exam: normal external appearance, normal appearance of the urethra Urethra: normal appearance of the urethra Speculum Exam - Vagina: normal appearance of the vagina, normal vaginal discharge, nontender, no lesions Speculum Exam - Cervix: normal appearance of the cervix, other (smooth, nonfriable) Bimanual Exam- Vagina AND Uterus: bladder normal to palpation, uterine size normal, uterine shape normal, uterine mobility normal, uterus tender (upper anterior side) Bimanual Exam- Adnexa, other: no adnexal masses, adnexal tenderness on the right Assessment AND Plan Problems 1. Pelvic pain in female R10.2 Plan Ultrasound Would consider OCP if ovarian cyst confirmed. RTO prn Orders Orders: Coding Level of Care Code Off vis,est,level 3 Diagnoses Pelvic pain in female R10.2 02/13/18 1156 <Electronically signed by Mari RODRIGUEZ> Date Mari RODRIGUEZ Cosigner Signature: Date (if applicable) CC: RUQ (GB/PANCREAS) Observed: 12/19/2017 Status: F Source: [facility] 8:44 AM [place] [address] Patient: MANA EMMANUEL Phone#: : [phone] Age: 27 Gender: F Pt. Type: Out Account: [id number] Location: Ordering: GATO DICKSON Exam Date: 12/19/2017/8:15 Family Phys: Charge Code: 379457 Physician: [place] Order #: [id number] DLP Dose#: PROCEDURE: RUQ (GB) ULTRASOUND COMPARISON: None. INDICATIONS: Epigastric Pain FINDINGS: LIVER: Normal. Normal size and echotexture. No significant masses. BILIARY: Normal appearing gallbladder. Common bile duct diameter 6.2 mm. and is mildly dilated. PANCREAS: Normal. No visible mass, abnormal atrophy, or ductal dilatation. RIGHT KIDNEY: Normal. No mass or obstruction. OTHER: Negative. CONCLUSION: 1. The common bile duct is mildly dilated at 6.2 mm. There is no evidence of intraductal calculi. DICTATED BY: MEERA RING MD ON 12/19/2017 AT 8:56 APPROVED BY: MEERA RING MD ON 12/19/2017 AT 8:56 ALLERGIES ALLERGIES DATE TYPE / CODE NAME / CODE REACTION SEVERITY SOURCE 02/13/2018 Drug No Known Unknown [facility] Allergy/4160 Allergies/F00 Hospital 62886(SNOMED [id number](RXNOR Repository CT) M) ENCOUNTERS ENCOUNTERS ADMIT/DISCHARGE ACCOUNT ADMITTING ENCOUNTER LOCATION SOURCE NUMBER CLASS 05/01/2018 [id number] Ambulatory UNIBuilding:[place] [address] [facility] Repository 04/29/2018 [id number] Ambulatory [place] [facility] ing:CT Repository 04/11/2018 [id number] Ambulatory UNIBuilding:R [place] 1 AD [facility] Hospital Repository 03/03/2018 [id number] Ambulatory UNIBuilding:R [place] 6 AD [facility] Hospital Repository 02/28/2018 [id number] Ambulatory [place] 1 [facility] ing:LABSPEC Repository 02/28/2018/ [id number] Ambulatory BMSBuilding:B [place] 8 3 [place] Repository 02/27/2018 [id number] Ambulatory [place] 4 [facility] ing:OPUS Repository 02/26/2018 [id number] Ambulatory OUTREACHBuild [place] 1 ing:NPT [facility] Repository 02/13/2018/ [id number] Ambulatory BMSBuilding:B [place] 8 5 [facility] Repository 12/19/2017/ [id number] GATO DICKSON [facility] Repository PAYERS PAYERS ENCOUNTER GUARANTOR PAYER SUBSCRIBER SOURCE 05/01/2018 MANA Primary [facility]3359 Insurance:SELF PAY [address], Number: Effective [place] [id number]: Date: () 04/29/2018 MANA Alarcon Primary [facility]3359 Insurance:SELF PAY [address] [address]Ooa: Number: Effective Repository Date:2018-04-17 () 04/11/2018 [facility]:SELF [facility] [address] Number: Effective [place] [id number]: Date: () 03/03/2018 [facility] [id number] Insurance:SELF PAY [address], Number: Effective [place] [address]Txi: Date: () 02/28/2018 MANA E Primary NOT GIVENUNK [place] [id number] TR Insurance:SELF PAY [address] [place] [address]Qfe: Number: Effective Repository Date:2018-02-28 () 02/28/2018 MANA E Primary NOT GIVENUNK [place] [id number] TR Insurance:SELF PAY [address] [place] [address]Bit: Number: Effective Repository Date:2018-02-28 () 02/27/2018 MANA E Primary Insurance:[facility] MANA Alarcon [place] [id number] TR PACKAGE PLANPolicy SCHROCKDOB: [address], Number: [id number] [address]Jki: [id number] Repository Date:2018-02-13 () 02/27/2018 Secondary NOT GIVENUNK [place] Insurance:SELF PAY [facility] Number: Effective Repository Date:2018-02-13 02/26/2018 [facility] [id number] Insurance:SELF PAY [address], Number: Effective [place] [address]Egr: Date: () 02/13/2018 MANA E Primary NOT GIVENUNK [place] [id number] Insurance:SELF PAY [address], Number: Effective Repository [place] [address]Pbo: Date:2018-02-13 () 12/19/2017 MANA E Primary MANA Goodson SCHROTIMOTHYDOB: Insurance:RADIOLOGY SCHROCKDOB: [facility] [id number] PACKAGEPolicy Number: [id number] [facility] TR Effective Date: Repository [address] [place] [id number]: [place] [id number] ()
== END ==
PROVIDERS: Family Provider Family Medicine; PCP Family Medicine; Referring Provider Urology; Visit Provider Urology
DX: Q62.63 Anomalous implantation of ureter (principal)
CPT/HCPCS: 74177; Q9967

== ENCOUNTER → 2019-07-02 | Outpatient (CLI) | payer SELFPAY ==
[2019-07-02 13:02] VITALS: BMI 25.8
[2019-07-02 16:55] LABS: Amphetamine Urine VISTA NEGATIVE (<1000 ng/mL); Barbiturate Urine VISTA NEGATIVE (< 200 ng/mL); Benzodiazepine Urine VISTA NEGATIVE (< 200 ng/mL); Cocaine Urine VISTA NEGATIVE (< 300 ng/mL); Ecstacy Urine VISTA NEGATIVE (< 500 ng/mL); Methadone Urine VISTA NEGATIVE (< 300 ng/mL); PCP Urine VISTA NEGATIVE (< 25 ng/mL); THC Urine VISTA NEGATIVE (< 50 ng/mL); Vista UDS pH Range 6
[2019-07-02 19:50] LABS: Chlamydia Trachomatis by PCR Negative (Negative); Neisserai gonorrhoeae by PCR Negative (Negative); Probe Check PASS; Sample Adequacy Control PASS; Specimen Processing Control PASS
[2019-07-07 15:18] LABS: HPV Reflexed? NOT INDICATED
== END | disposition home or self-care (01) ==
LOC: LABSPEC 15:49
PROVIDERS: PCP Family Medicine; Referring Provider Obstetrics & Gynecology; Visit Provider Obstetrics & Gynecology
DX: Z12.4 Encounter for screening for malignant neoplasm of cervix (principal); Z34.80 Encounter for supervision of other normal pregnancy, unspecified trimester
CPT/HCPCS: 80307; 87086; 87088; 87491; 87591; 88175; G0145

== ENCOUNTER → 2019-07-31 14:16 | Outpatient (CLI) | payer SELFPAY ==
[2019-07-31 13:49] VITALS: BMI 25.8
[2019-07-31 15:35] LABS: Absolute Lymphocyte Count 2.26 X10^3/uL (0.83-4.51); Absolute Neutrophil Count 7.3 X10^3/uL (2.0-7.7); Basophil# 0.04 X10^3/uL; Basophil% 0.4 % (0-1); Eosinophil# 0.05 X10^3/uL; Eosinophils% 0.5 % (0-5); Hematocrit 34.5 % (37-47); Hemoglobin 11.5 g/dL (12.0-15.0); Lymphocyte # 2.26 X10^3/ul (4.0); Lymphocyte % 21.9 % (19-41); Mean Corp Hgb Conc 33.3 g/dL (32-36); Mean Corpuscular Hgb 31.1 pg (27.0-32.0); Mean Corpuscular Volume 93.2 fL (81-99); Mean Platelet Vol. 11.6 fl (6.2-12.0); Monocyte# 0.52 X10^3/uL; NRBC Flagged by Analyzer 0 % (0-5); Neutrophil # 7.31 X10^3/uL (2.7-7.7); Platelet Count 207 K/mm3 (150-450); RBC Distribution Width CV 13.4 % (11.6-14.6); RBC Distribution Width SD 45.5 fl (35.1-43.9); White Blood Count 10.3 K/mm3 (4.4-11.0)
[2019-08-03 11:31] LABS: HIV - WCH Non-Reactive (Nonreactive); Hepatitis B Surface Antigen Non-Reactive (Nonreactive); Hepatitis C Antibody Non-Reactive (Nonreactive); Rubella IgG 199.7 IU/mL
[2019-08-06 02:25] LABS: Rapid Plasmin Reagin (RPR) NONREACTIVE (NONREACTIVE)
== END ==
PROVIDERS: PCP Family Medicine; Referring Provider Obstetrics & Gynecology; Visit Provider Obstetrics & Gynecology
DX: Z34.80 Encounter for supervision of other normal pregnancy, unspecified trimester (principal)
CPT/HCPCS: 36415; 85025; 86592; 86703; 86762; 86803; 86850; 86900; 86901; 87340

== ENCOUNTER → 2019-09-04 08:27 | Outpatient (CLI) | payer SELFPAY ==
[2019-07-02 13:02] VITALS: BMI 25.8
[2019-07-31 13:49] VITALS: BMI 25.8
--- NOTE | 2019-09-04 08:28 | US_ITS ---
STUDY: SECOND AND THIRD TRIMESTER OBSTETRICAL ULTRASOUND REASON FOR EXAM: Female, 29 years old. Anatomy screening. LMP: April 20, 2019. TECHNIQUE: The TECHNICAL QUALITY: Adequate. PRIOR ULTRASOUND: None. FINDINGS: There is a single intrauterine fetus. The fetus is in a variable presentation. There is demonstrated cardiac activity with a heart rate of 147 bpm. There is a normal amniotic fluid volume. The largest amniotic fluid pocket measures 4.3 cm. The placenta is right lateral with a marginal previa. There are Grade 0 placental changes. The cervix measures 3.26 cm in length. The bilateral adnexal regions are normal. BIOMETRY: BPD: 4.7 cm: 20 weeks, 1 days HC: 17.25 cm: 19 weeks, 5 days AC: 15.63 cm: 20 weeks, 5 days FL: 3.15 cm: 19 weeks, 5 days CI: 78.88 FL/BPD: 67 FL/HC: 18.26 FL/AC: 20.15 HC/AC: 1.10 age by current US: 20 weeks, 0 days. NATALI by current US: January 22, 2020. Estimated weight: 343 grams, +/- 51 grams, 82 %. Age by LMP: 19 weeks, 4 days. NATALI by LMP: January 25, 2020. ANATOMY: Gender: Female Cranium: Normal lateral ventricles. Normal choroid plexus. Normal cerebellum. Normal cisterna magna. Normal face, nose and lips. Chest: Normal 4-chamber heart. Abdomen/Pelvis: Normal diaphragm. Normal stomach. Normal abdominal wall. Normal cord insertion. Normal 3 vessel cord. Normal kidneys. Normal bladder. Spine: Normal cervical spine. Normal thoracic spine. Normal lumbar spine. Normal sacrum. Extremities: Normal bilateral upper extremities. Normal bilateral lower extremities. US/OB Anatomy Scan IMPRESSION: 1. Live single intrauterine at 20 weeks, 0 days. NATALI is January 22, 2020. 2. EFW of 343 g. 3. Adequate amniotic fluid. 4. Right lateral grade 0 placenta is marginal previa. 5. Variable presentation. 6. No visualized anatomic abnormality. Electronically Signed: Norbert Chris DO at 21:30 EDT Tel [phone], Service support ,
== END ==
PROVIDERS: PCP Family Medicine; Referring Provider Obstetrics & Gynecology; Visit Provider Obstetrics & Gynecology
DX: Z34.80 Encounter for supervision of other normal pregnancy, unspecified trimester (principal)
CPT/HCPCS: 76805; 76817

== ENCOUNTER → 2019-09-28 12:06 | Outpatient (CLI) | payer SELFPAY ==
[2019-09-28 11:03] VITALS: BMI 25.8
[2019-09-28 12:43] LABS: Hematocrit 31.3 % (37-47); Hemoglobin 10.3 g/dL (12.0-15.0); Mean Corp Hgb Conc 32.9 g/dL (32-36); Mean Corpuscular Volume 97.2 fL (81-99); Mean Platelet Vol. 10.8 fl (6.2-12.0); POSITIVE COUNT YES; POSITIVE MORPHOLOGY YES; Platelet Count 184 K/mm3 (150-450); RBC Distribution Width SD 49.4 fl (35.1-43.9); Red Blood Count 3.22 M/mm3 (4.2-5.4); White Blood Count 11.9 K/mm3 (4.4-11.0)
[2019-09-28 12:44] LABS: Differential Indicated MANUAL DIFF
[2019-09-28 13:03] LABS: ALB/GLOB Ratio 0.8 RATIO (0.9-2.4); AST(SGOT) 17 U/L (15-37); Alanine Aminotransfer ALT/SGPT 17 U/L (13-56); Alkaline Phosphatase 55 U/L (45-117); Anion Gap 5 (5-15); BUN 8 mg/dL (7-18); BUN/Creat Ratio 16.1 RATIO (10-20); Calcium,Total 9.1 mg/dL (8.5-10.1); Chloride 108 mmol/L (98-107); EST Glomerular Filtration Rate 155 mL/min (>60); Est Glom Filt Rate - Afr Amer 187 mL/min (>60); Globulin 3.6 g/dL (2.2-4.2); Glucose 96 mg/dL (74-106); Potassium 4.1 mmol/L (3.5-5.1); Protein, Total 6.6 g/dL (6.4-8.2); Sodium Level 139 mmol/L (136-145)
[2019-09-28 13:18] LABS: Eosinophil 1 % (0-5); Lymphocyte 15 % (19-41); Metamyelocyte 2 % (0-1); Monocyte 7 % (0-10); Neutrophil-Band 2 % (0-5); Neutrophil-Segmented 73 % (47-70); Total Cells Counted 100 (MANUAL DIFF)
[2019-09-28 13:19] LABS: Anisocytosis 1+; Platelet Estimate ADEQUATE (ADEQ); Red Cell Morphology N CHROM NORMAL (NORM C&C)
[2019-09-28 13:21] LABS: Absolute Lymphocyte Count 1.79 X10^3/uL (0.83-4.51); Absolute Neutrophil Count 8.9 X10^3/uL (2.0-7.7)
[2019-09-28 14:00] LABS: Protein, Urine (Random) < 6.0 mg/dL (<11.9)
[2019-09-29 10:57] LABS: Pathologist Review Reviewed
--- OUTSIDE RECORDS SUMMARY | 2020-03-01 08:32 | XMS RPT_ITS | CCD ---
:1990 External Reference #:[id number] Author Organization [facility] Care Team Providers Name Role Phone DORIS DAO N.P. Unavailable Unavailable MUTSCHELKNAUS, N.P. Unavailable Unavailable MUTSCHELKNAUS, N.P. Unavailable Unavailable Shannon PENG Unavailable Unavailable MD RANDOLPH Admitting Unavailable MD RANDOLPH Attending Unavailable MD RANDOLPH Primary Care Unavailable MD RANDOLPH Consulting Unavailable PROVIDER Consulting Unavailable PROVIDER Consulting Unavailable PROVIDER Consulting Unavailable RANDOLPH Admitting Unavailable RANDOLPH Attending Unavailable RANDOLPH Primary Care Unavailable MD RANDOLPH Consulting Unavailable PROVIDER Consulting Unavailable PROVIDER Consulting Unavailable PROVIDER Consulting Unavailable RANDOLPH Admitting Unavailable RANDOLPH Attending Unavailable MD RANDOLPH Referring Unavailable RANDOLPH Primary Care Unavailable MD RANDOLPH Consulting Unavailable PROVIDER Consulting Unavailable PROVIDER Consulting Unavailable PROVIDER Consulting Unavailable Problems Category Problem Name Status Date Location Abdominal pain Abdominal pain Active 12-19-2017 - [facility] ([id number]) Unclassified Unknown / UNK(Unknown) Active 03-03-2018 - [facility] ([id number]) Results Result Name Value Range Unit Interpretation Flag Date Location urine on 2018-07-07 EXTERNAL QC DONE? YES Normal 07-07-2018 [facility] ([id number]) Comment: Performed By: #### [id number] ## ## [facility],[address] [place] [address] HCG.beta subunit NEGATIVE NEGATIVE Normal 07-07-2018 [facility] ( test) [facility] ([id number]) Comment: Performed By: #### [id number] ## ## [facility],[address] [place] [address] INTERNAL QC PASS Normal 07-07-2018 [facility] ([id number]) Comment: Performed By: #### [id number] ## ## [facility],[address] [place], [place] [id number] chest 2 views on 08-07-[address] [facility] Normal 06-27-19 [facility] [address] [place], [place] [address] ([id number]) Patient: MANA EMMANUEL Phone#: : 1990 Age: 27 Gender: F Pt. Type: OP Account: [id number] Location: Ordering: JOSSE DICKSON Exam Date: 06/26/2018/12:31 Family Phys: Charge Code: [id number] Physician: [place] Order #: [id number] DLP Dose#: PROCEDURE: X-RAY CHEST 2 VIEWS COMPARISON: None. INDICATIONS: Abdominal pain FINDINGS: LUNGS: Normal. No significant pulmonary parenchymal abnormal ities. VASCULATURE: Normal. Unremarkable pulmonary vasculature. CARDIAC: Normal. No cardiac silhouette abnormality or cardio megaly. MEDIASTINUM: Normal. No visible mass or adenopathy. PLEURA: Normal. No effusion or pleural thickening. BONES: Normal. No fracture or visible bony lesion. OTHER: Negative. CONCLUSION: No acute disease. Dictated by: Meera Ring MD on 06/26/2018 at 12:49 Approved by: Meera Ring MD on 06/26/2018 at 12:49 progress on 2018-05 Protein mass HNO ID: [id number]: Reji Shannon No rmal 05-22-2018 [facility] ZemisService: (none)Author Type: Clinic PhysicianType: Progress NotesFiled: Norton 05/22/2018 11:04 AMNote Text:H AND ([id number]) PDate: May 22, 2018Chief Complaint: Patient presents with:Follow Up: Had CT doneHPI:Mana Emmanuel is a 27 year old female. Patient is complaining of painbelow her right breast radiating to her back pain is localized on the ribsin cartilage. Pain is worse with movement. She has had 2 HIDA scans thatwere normal and a CT scan which revealed no abnormality in the area.ALLERGIESAllergen Reactions- Pollen ItchingPAST MEDICAL HISTORYDiagnosis Date- Abdominal pain- Asthma- Biliary dyskinesia- DysmenorrheaPAST SURGICAL HISTORYProcedure Laterality Date- DELIVERY ONLY 12/25/2016- REMOVAL OF TONSILS,<11 Y/O age 4 TonsillectomyFAMILY HISTORYProblem Relation Age of Onset- None Mother- None Father- None Sister- Asthma Maternal Grandmother- other (Macular degeneration) Maternal Grandmother- other (colitis) Maternal Grandmother- Cancer Maternal Grandfather- Diabetes Paternal Grandmother- Heart Paternal Grandmother- Heart Paternal GrandfatherSocial History Marital status: Spouse name: Travis Years of education: Number of children: 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 [employer] History Main Topics Smoking status: Never Smoker Smokeless tobacco: Never Used Alcohol use: No Drug use: No Sexual activity: Yes Partners with: Male control/protection: PillCurrent Outpatient Prescriptions:traZODone (DESYREL) 50 mg tablet TAKE 1/2 TO 1 TABLET BY MOUTH 45 minutesBEFORE bedtimesertraline (ZOLOFT) 50 mg tablet Take 50 mg by mouth once daily.senna-docusate (MAURICE-COLACE) 8.6-50 mg per tabletNo current facility-administered medications for this visit.Review of SystemsConstitutional: Negative for appetite change, chills, fatigue, fever andunexpected weight change.Respiratory: Negative for cough, chest tightness, shortness of breath andwheezing.Cardiovascular: Negative for chest pain, palpitations and leg swelling.Gastrointestinal: Negative for abdominal pain, anal bleeding, blood instool, constipation, diarrhea, nausea, rectal pain and vomiting.Ht 162.6 cm (5' 4) Wt 70.3 kg (155 lb) BMI 26.61 kg/m?Physical ExamRight inframammary crease and Costal margin is tender, abdomen itself issoft no Almanza sign No masses or hernias appreciatedASSESSMENT/PLAN:1. Costochondritis - ICD9: 733.6, ICD10: M94.0Patient was advised to stop wearing an underwire bras ,Try someanti-inflammatories, I would not recommend surgery, I do not think hersymptoms are consistent with cholecystitis or biliary dyskinesiaJozaina Peng MD cnov on 2018-05-22 CNOV Office Visit Normal 05-22-2018 [facility] (GENUPD) --------MANA EMMANUEL ([id number]) 1990 F CHTD ate Time Provider Department05/22/18 10:15 AM REJI PENG During [place] your visit today, we recorde d the following information about you: Weight Height 70.3 kg 1.626 mJoseph ([id number]) Shannon Peng MD 05/22/2018 11:04 A M SignedAlec AND PDate: May 22, 2018Chief Complaint: Patient presents with:Follow Up: Had CT doneH PI:Mana Emmanuel is a 27 year old female. Patient is complaining of pain belowher right breast radiat ing to her back pain is localized on the ribs incartilage. Pain is worse with movement. She has had 2 HIDA scans that werenormal and a CT scan which revealed no abnormality in the area.ALLERGIESAllergen R eactions- Pollen ItchingPAST MEDICAL HISTORYDiagnosis Date- Abdominal pain- Asthma- Biliary dyskinesia- DysmenorrheaPAST SURGICAL HISTORYProcedure Laterality Date- DELIVERY ONLY 12/25/2016- RE MOVAL OF TONSILS,<11 Y/O age 4 TonsillectomyFAMILY HISTORYProblem Relation Age of Onset- None Mother- N one Father- None Sister- Asthma Maternal Grandmother- other (Macular degeneration) Maternal Grand mother- other (colitis) Maternal Grandmother- Cancer Maternal Grandfather- Diabetes Paternal Grandmothe r- Heart Paternal Grandmother- Heart Paternal GrandfatherSocial History Marital status: Spou se name: Travis Years of education: Number of children: 0Occupational HistoryOccupation Employer C ommentcustomer service [employer] History Main Topics Smoking status: Never Smoker Smokele ss tobacco: Never Used Alcohol use: No Drug use: No Sexual activity: Yes Partners with: Male co ntrol/protection: PillCurrent Outpatient Prescriptions:traZODone (DESYREL) 50 mg tablet TAKE 1/2 TO 1 T ABLET BY MOUTH 45 minutesBEFORE bedtimesertraline (ZOLOFT) 50 mg tablet Take 50 mg by mouth once ramos ly.senna-docusate (MAURICE-COLACE) 8.6-50 mg per tabletNo current facility-administered medica tions for this visit.Review of SystemsConstitutional: Negative for appetite change, chills, fatigue, fev er andunexpected weight change.Respiratory: Negative for cough, chest tightness, shortness of triny th andwheezing.Cardiovascular: Negative for chest pain, palpitations and leg swelling.Gastrointestina l: Negative for abdominal pain, anal bleeding, blood in stool,constipation, diarrhea, nausea, rectal viral n and vomiting.Ht 162.6 cm (5' 4) Wt 70.3 kg (155 lb) BMI 26.61 kg/m?Physical ExamRight infr amammary crease and Costal margin is tender, abdomen itself is softno Almanza sign No masses or her nias appreciatedASSESSMENT/PLAN:1. Costochondritis - ICD9: 733.6, ICD10: M94.0Patient was advised to stop wearing an underwire bras ,Try someanti- inflammatories, I would not recommend surgery, I do not think hersymptoms are consistent with cholecystitis or biliary dyskinesiaJozaina Peng MD Referring Provider: SELF [[id number]]Allergies As of Date: 05/22/2018 Noted Allergy ReactionPOLLEN 08/27 9 - ItchingDate Reviewed: 05/22/2018Reviewed by: Reji Peng - Fully AssessedReason for Vis it: Follow Up [171] Cmt: Had CT doneVisit Diagnosis:Costochondritis [M94.0]Prescriptions as of 0 05/22/2018 Sig: TRAZODONE 50 MG TABLET TAKE 1/2 TO 1 TABLET BY MOUTH* SERTRALINE 50 MG TABLET Take 50 mg by mouth once ann marie* SENNOSIDES 8.6 MG- DOCUSATE SO*Problem List As Of Date 05/22/2018 Noted Resolv ed Nausea [R11.0] 08/27/2012 Dysmenorrhea [N94.6] INVALID FOR*01/04/2017 Asthma [J45.909] 01/04/2017 Family history of defects [Z82.79] INVALID FOR*01/04/2017 More... Family history of cystic fib rosis [Z83.49] INVALID FOR*01/04/2017 More... Patient requested diagnostic testing [Z01.89] INVALID FOR *10/03/2016 More... Encounter for test, result positive [*INVALID FOR*05/29/2016 More... Cysti c fibrosis carrier in first trimester, ant*INVALID FOR*01/04/2017 More... Biliary dyskinesia [K82.8] A bdominal pain [R10.9] Costochondritis [M94.0]Medications Discontinued During This Encounter enteri c contrast (will be provided w* 1 Ea* 0 04/28/2018 05/22/2018 Class: In Office Sig: For CT ABD/PEL W IVCON Routine order Administer, As Directed One Time Only, via Oral, Rectal, both Oral and Rectal , Enteric Tube, Stoma or Indwelling Catheter, Enteric Contrast as designated per enteric contr ast guidelines Disc: Reason for discontinue is not on file. iv contrast (will be provided with r* 1 Ea* 0 04/28/2018 05/22/2018 Class: In Office Sig: CT ABD/PEL -Inject, intravenously, once for 1 do se.No IV access, insert saline lock prior to the beginning of sedation, infusion, injection of imagi ng exam. Discontinue saline lock post exam. If Pt. has a central line or IVAD, may access for adminis tration according to line specific nursing protocol. Once exam is complete flush line and de-access acc ording to line specific nursing protocol in the CT contrast administration guidelines link. Disc: Reaso n for discontinue is not on file. Status:Closed by REJI PENG MD on 05/22/18 ct abd/pel w contrast on 2018-05-01 CT ABD/PEL W [facility] Drea l 05-01-2018 Replaced By [facility] CONTRAST [id number] [facility] ([id number]) [place] [id number]: Janine EMMANUEL: REJI PENG M.D.: [birth year] Age: 27 Sex: FAcct: [id number] Loc: RAD CTExam Date: 05/01/18 Status: REG CLIRadiology No.: [id number] Number: [id number] # [id number] CT / CT ABD/PEL W CONTRASTCT abdomen and pelvis with enteric and IV contrastHistory: Nausea, right upper quadrant abdominal painComparison: NoneNo osseous abnormality is identified. The lung bases are unremarkable. Areasof left renal scarring are present, and there is left renal atrophy. Minimalcalyceal clubbing is evident at the upper pole as well. The findings are mostcompatible with left-sided reflux nephropathy. There is mild compensatoryhypertrophy of the right kidney. The upper abdominal solid organs areotherwise unremarkable. There is no adenopathy, free air or free fluid seen.No GI tract abnormality seen. No additional contributory abnormality.Impression: #1 no acute process identified. 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 << Signature on File>> Reported By: PENNY HILLIARD M.D. Signed By: PENNY HILLIARD M.D.Tests performed at:[address] [phone] progress on 2018-04 Protein mass HNO ID: [id number]: Reji Ortega No [facility] 04-24-2018 [facility] ZemisService: (none)Author Type: Clinic PhysicianType: Progress NotesFiled: Norton 04/28/2018 5:30 PMNote Text:H AND ([id number]) PDate: April 24, 2018Chief Complaint: Patient presents with:Consult: Had EGD at [facility] normal , then 2 hida scans, referred by :Mana Emmanuel is a 27 year old female. Patient has had multiple upperGI symptoms including abdominal pain in the right upper quadrant and thishas been occurring on a daily basis for 6 months now getting worse she hashad persistent nausea and vomiting She had an ultrasound that was negativean EGD that was negative she also has had fatty food intolerance she had aHIDA scan 2 months ago which revealed ejection fraction of 84% and arepeat the repeat HIDA scan which revealed an ejection fraction of 46% shedid have pain and symptoms were reproduced with CCK she has been treatedwith proton-pump inhibitor and add antacids with no relief.ALLERGIESAllergen Reactions- Pollen ItchingPAST MEDICAL HISTORYDiagnosis Date- Asthma- DysmenorrheaPAST SURGICAL HISTORYProcedure Laterality Date- DELIVERY ONLY 12/25/2016- REMOVAL OF TONSILS,<11 Y/O age 4 TonsillectomyFAMILY HISTORYProblem Relation Age of Onset- None Mother- None Father- None Sister- Asthma Maternal Grandmother- other (Macular degeneration) Maternal Grandmother- other (colitis) Maternal Grandmother- Cancer Maternal Grandfather- Diabetes Paternal Grandmother- Heart Paternal Grandmother- Heart Paternal GrandfatherSocial History Marital status: Spouse name: Travis Years of education: Number of children: 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 (Patient not taking: Reported on 04/24/2018)ferrous sulfate (IRON, FERROUS SULFATE,) 325 mg (65 mg iron) tablet [id number] mg by mouth daily with breakfast. Aeuonbuq-Pt-Hic-Fe-FA ( VITAMIN) tab Take 1 tablet bymouth.fluticasone-salmeterol (ADVAIR DISKUS) 100-50 mcg/dose dsdv Inhale 1 Puffas instructed twice daily.Levocetirizine (XYZAL) 2.5 mg/5 mL ORAL solution Take one(1) tablet dailyat bedtime.No current facility-administered medications for this visit.Review of SystemsConstitutional: Negative for appetite change, chills, fatigue, fever andunexpected weight change.Respiratory: Negative for cough, chest tightness, shortness of breath andwheezing.Cardiovascular: Negative for chest pain, palpitations and leg swelling.Gastrointestinal: Negative for abdominal pain, anal bleeding, blood instool, constipation, diarrhea, nausea, rectal pain and vomiting.Ht 162.6 cm (5' 4) Wt 70.3 kg (155 lb) BMI 26.61 kg/m?Physical ExamConstitutional: She is oriented to person, place, and time.Neck: No tracheal tenderness present. No thyroid mass present.Cardiovascular: Normal rate, regular rhythm and normal heart sounds.No murmur heard.Pulmonary/Chest: Effort normal and breath sounds normal.Abdominal: Soft. There is no tenderness.Mild right upper quadrant tendernessMusculoskeletal: She exhibits no tenderness.Lymphadenopathy: She has no axillary adenopathy.Neurological: She is alert and oriented to person, place, and time. Nosensory deficit. Gait normal.Skin: No lesion noted.ASSESSMENT/PLAN:1. Biliary dyskinesia - ICD9: 575.8, ICD10: K82.8I discussed laparoscopic cholecystectomy I would estimate about 75% chancethat the patient's symptoms may improve post cholecystectomy but there iscertainly no guarantee2. Right upper quadrant abdominal pain - ICD9: 789.01, ICD10: R10.11- CT ABD/PEL W IVCON- IV CONTRAST (RADIOLOGY PROCEDURE)- ENTERIC CONTRAST (RADIOLOGY PROCEDURE)3. Nausea - ICD9: 787.02, ICD10: R11.0- CT ABD/PEL W IVCON- IV CONTRAST (RADIOLOGY PROCEDURE)- ENTERIC CONTRAST (RADIOLOGY PROCEDURE)Reji Peng MD cnov on 2018-04-24 CNOV Office Visit Normal 04-24-2018 [facility] (GENUPD) --------MANA EMMANUEL ([id number]) 1990 F CHTDate Time Provider Cvzumbyldd63/6/18 11:00 AM REJI PENG During your visit today, we recorded the following information about you: Weight Height 70.3 kg 1.626 (68600) Michael Peng MD 04/28/20 5:30 PM SignedH AND PDate: April 24, 2018Chief Complaint: Patient presents with:Consult: Brionna DAS at [facility] normal , then 2 hida scans, referred by Dr. Prajapati:Mana Emmanuel is a 27 year old fem michaela. Patient has had multiple upper GIsymptoms including abdominal pain in the right upper quadrant and this has beenoccurring on a daily basis for 6 months now getting worse she has hadpersistent nausea and vomiting She had an ultrasound that was negative an EGDthat was negative she also has had fatty food intolerance she had a HIDA scan 2months ago which revealed ejection fraction of 84% and a repeat the repeat HIDAscan which revealed an ejection fraction of 46% she did have pain and symptomswere r eproduced with CCK she has been treated with proton-pump inhibitor andadd antacids with no relief.SHADI RGIESAllergen Reactions- Pollen ItchingPAST MEDICAL HISTORYDiagnosis Date- Asthma- DysmenorrheaPAST FAMILIA GICAL HISTORYProcedure Laterality Date- DELIVERY ONLY 12/25/2016- REMOVAL OF TONSILS,<11 Y/O a ge 4 TonsillectomyFAMILY HISTORYProblem Relation Age of Onset- None Mother- None Father- None Sister- As thma Maternal Grandmother- other (Macular degeneration) Maternal Grandmother- other (colitis) Maternal Grandmother- Cancer Maternal Grandfather- Diabetes Paternal Grandmother- Heart Paternal Grandmother- Heart Paternal GrandfatherSocial History Marital status: Spouse name: Travis Noel ears of education: Number of children: 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 (Patient not taking: Reported on 04/24/2018)ferrous sulfate (I MAXIMO, FERROUS SULFATE,) 325 mg (65 mg iron) tablet Take 325 mgby mouth daily with breakfast. Mult cigf-Hl-Pre-Fe-FA ( VITAMIN) tab Take 1 tablet by mouth.fluticasone-salmeterol (ADVAIR DISKUS) 100-50 mcg/dose dsdv Inhale 1 Puff asinstructed twice daily.Levocetirizine (XYZAL) 2.5 mg/5 mL ORAL solution Take one(1) tablet daily atbedtime.No current facility-administered medica tions for this visit.Review of SystemsConstitutional: Negative for appetite change, chills, fatigue, fev er andunexpected weight change.Respiratory: Negative for cough, chest tightness, shortness of triny th andwheezing.Cardiovascular: Negative for chest pain, palpitations and leg swelling.Gastrointestina l: Negative for abdominal pain, anal bleeding, blood in stool,constipation, diarrhea, nausea, rectal viral n and vomiting.Ht 162.6 cm (5' 4) Wt 70.3 kg (155 lb) BMI 26.61 kg/m?Physical ExamConstituti onal: She is oriented to person, place, and time.Neck: No tracheal tenderness present. No thyro id mass present.Cardiovascular: Normal rate, regular rhythm and normal heart sounds.No murmur heard .Pulmonary/Chest: Effort normal and breath sounds normal.Abdominal: Soft. There is no tenderness.Mild right upper quadrant tendernessMusculoskeletal: She exhibits no tenderness.Lymphadenopathy: She has no axillary adenopathy.Neurological: She is alert and oriented to person, place, and time. No sensorydeficit. Gait normal.Skin: No lesion noted.ASSESSMENT/PLAN:1. Biliary dyskinesia - ICD9: 5 75.8, ICD10: K82.8I discussed laparoscopic cholecystectomy I would estimate about 75% chance thatthe pat ient's symptoms may improve post cholecystectomy but there is certainlyno guarantee2. Right upper quad rant abdominal pain - ICD9: 789.01, ICD10: R10.11- CT ABD/PEL W IVCON- IV CONTRAST (RADIOLOGY PROCEDUR E)- ENTERIC CONTRAST (RADIOLOGY PROCEDURE)3. Nausea - ICD9: 787.02, ICD10: R11.0- CT ABD/PEL W IVCON- I V CONTRAST (RADIOLOGY PROCEDURE)- ENTERIC CONTRAST (RADIOLOGY PROCEDURE)Reji Peng MD Referring Provider: GATO DICKSON [[id number]]Allergies As of Date: 04/24/2018 Noted Allergy Mckittrick ctionPOLLEN 08/27/2012 9 - ItchingDate Reviewed: 04/24/2018Reviewed by: Reji Peng - Savi Spicer for Visit: Consult [173] Cmt: Had EGD at [facility] normal , then 2 hida scans, referred by Dr. Chan For Visit History RecordedVisit Diagnoses:Biliary dyskinesia [K82.8] Right upper quadrant abdominal pain [R10.11] Nausea [R11.0]Order(s):CT ABD/PEL W IVCON [[id number]] Order #: [id number] 6 FUTURE iv contrast (will be provided with radiology test)CT ABD/PEL -Inject, intravenously, once for 1 dose.No IV access, insert saline lock prior to the beginning of sedation, infusion, injectio n of imaging exam. Discontinue saline lock post exam. If Pt. has a central line or IVAD, may access for administration according to line specific nursing protocol. Once exam is complete flush line and de-a ccess according to line specific nursing protocol in the CT contrast administration guidelines aida nk.Disp: 1 EachRfl: 0 enteric contrast (will be provided with radiology test)For CT ABD/PEL W IVCON Routine order Administer, As Directed One Time Only, via Oral, Rectal, both Oral and Rectal, Enteric Tub e, Stoma or Indwelling Catheter, Enteric Contrast as designated per enteric contrast guidelinesDisp: 1 E achRfl: 0Prescriptions as of 04/24/2018 Sig: TRAZODONE 50 MG TABLET TAKE 1/2 TO 1 TABLET BY MOUTH* SE RTRALINE 50 MG TABLET Take 50 mg by mouth once ann marie* SENNOSIDES 8.6 MG-DOCUSATE SO* IV CONTRAST (RADIOLOGY PROCED* CT ABD/PEL -Inject, intraveno* ENTERIC CONTRAST (RADIOLOGY P* For CT ABD/PEL W IVCON Routin*Problem List As Of Date 04/24/2018 Noted Resolved Nausea [R11.0] 08/27/2012 Dysmenorr hea [N94.6] INVALID FOR*01/04/2017 Asthma [J45.909] 01/04/2017 Family history of defects [Z8 2.79] INVALID FOR*01/04/2017 More... Family history of cystic fibrosis [Z83.49] INVALID FOR* 017 More... Patient requested diagnostic testing [Z01.89] INVALID FOR*10/03/2016 More... Encou nter for test, result positive [*INVALID FOR*05/29/2016 More... Cystic fibrosis carrier in f irst trimester, ant*INVALID FOR*01/04/2017 More...Prescriptions ordered this encounter Disp Refills Start End IV CONTRAST (RADIOLOGY PROCEDURE) 1 Ea* 0 04/28/2018 Class: In Office Sig: CT ABD/PEL -Inje ct, intravenously, once for 1 dose.No IV access, insert saline lock prior to the beginning of sedation , infusion, injection of imaging exam. Discontinue saline lock post exam. If Pt. has a central line or IVAD, may access for administration according to line specific nursing protocol. Once exam is compl ete flush line and de-access according to line specific nursing protocol in the CT contrast administrati on guidelines link. ENTERIC CONTRAST (RADIOLOGY PROCEDUR* 1 Ea* 0 04/28/2018 Class: In Office Sig: For CT ABD/PEL W IVCON Routine order Administer, As Directed One Time Only, via Oral, Rectal, both Oral and Rectal, Enteric Tube, Stoma or Indwelling Catheter, Enteric Contrast as designated per e nteric contrast guidelinesMedications Discontinued During This Encounter Iztorviy-Jl-Xoe-Fe- FA (PREN* 04/24/2018 Class: Historical Med Route: ORAL Sig: Take 1 tablet by mouth. Disc: Reason for disc ontinue is not on file. Norethindrone, Contraceptive, (ORTHO* 3 Pa* 2 03/05/2017 04/24/2018 Route: ORAL Sig: Take 1 tablet by mouth once daily. Patient not taking: Reported on 04/24/2018 Disc: Reason fo r discontinue is not on file. Levocetirizine (XYZAL) 2.5 mg/5 mL O* 12 06/01/2010 04/24/2018 Class: M ed Update Route: ORAL Sig: Take one(1) tablet daily at bedtime. Disc: Reason for discontinue is no t on file. fluticasone-salmeterol (ADVAIR DISKU* 04/24/2018 Class: Historical Med Route: INHALA TION Sig: Inhale 1 Puff as instructed twice daily. Disc: Reason for discontinue is not on file. ferrous sulfate (IRON, FERROUS SULFA* 04/24/2018 Class: Historical Med Route: ORAL Sig: Take 325 mg by mouth daily with breakfast. Disc: Reason for discontinue is not on file.Disposition: Return in about 2 weeks (around 05/08/2018).Follow-up and Disposition History RecordedEncounter Number: [id number] Status:Closed by REJI PENG MD on 04/28/18 nm hida scan with intervention on 2018-04-11 NM HIDA SCAN [facility] 04-11-2018 [place] WITH [address] INTERVENTION [id number]: Janine EMMANUEL: [facility]OR[facility] NDanny: 89 ([id number]) Age: 27 Sex: FAcct: [id number] Loc: RAD NMExam Date: 04/11/18 Status: REG CLIRadiology No.: [id number] Number: [id number] # Type/[id number] NM / NM HIDA SCAN WITH INTERVENTIONNM HEPATOBILIARY Scan with fatty meal stimulationClinical Statement: Right upper quadrant abdominal painComparison: 03/03/18Technique:Radiopharmaceutical: Tc-99m Mebrofenin Dose: 6.5 mCi IVDynamic anterior imaging of the liverFatty meal stimulation with 8 oz of Ensure Plus (CCK not available due tonational shortage)60 minute additional dynamic study and GBEF calculationReport: There is prompt normal hepatic uptake. No apparent focal cold defectis seen in the liver. The biliary tree, common bile duct, gallbladder, andsmall bowel are all visualized within the normal time range. The gallbladdercontracts adequately to fatty meal stimulation. The calculated gallbladderejection fraction is 46 percent (normal = or > than 35%).IMPRESSION:Normal gallbladder filling.The gallbladder ejection fraction is 46 percent, which is within normallimits, but below the mean (70%) and has worsened since the prior study of03/01/18 (previously 84 percent). Typically, most normal studies show ejectionfraction greater than 50%, but the ejection fraction between 35% and 50% isstill defined as the lower limits of normal. Depending on symptom progression,another interval followup study may be considered to demonstrate furtherworsening and possible gallbladder dyskinesia.Professional interpretation provided by [facility] [place] [address].Thank you for this referral.< >Reported By: SHERIF HER D.O.Signed In NovaPro By: SHERIF HER D.O. << Signature on File>> Reported By: SHERIF HER D.O. Signed By: SHERIF HER D.O.Tests performed at:[address] [phone] nm hida scan with intervention on 2018-03-03 NM HIDA SCAN [facility] D[place] 03-03-[address] [place] INTERVENTION [id number]: Janine EMMANUEL: [facility] N.P.: 89 ([id number]) Age: 27 Sex: FAcct: [id number] Loc: RAD NMExam Date: 03/03/18 Status: REG CLIRadiology No.: [id number] Number: [id number] # Type/[id number] NM / NM HIDA SCAN WITH INTERVENTIONNM HEPATOBILIARY Scan with Fatty Meal stimulationClinical Statement: Abdominal painComparison: None availableTechnique:Radiopharmaceutical: Tc-99m Mebrofenin Dose: 6.2 mCi IVMultiple planar views of the liver for 60 minutesFatty Meal Stimulation with Ensure Plus 8 oz30 minute dynamic study and GBEF calculationReport: There is prompt normal hepatic uptake. No apparent focal cold defectis seen in the liver. The biliary tree, common bile duct, gallbladder, andsmall bowel are all visualized within the normal time range. The gallbladdercontracts normally to fatty meal stimulation. The calculated gallbladderejection fraction is 84% (normal = or > than 33%).IMPRESSION: Normal examination. The cystic duct is patent, which essentiallyexcludes the diagnosis of acute cholecystitis. There is normal gallbladdercontractility.Professional interpretation provided by [facility].Thank you for this referral.< >Reported By: ANEL SULTANA M.D.Signed In NovaPro By: ANEL SULTANA M.D. << Signature on File>> Reported By: ANEL SULTANA M.D. Signed By: ANEL SULTANA M.D.Tests performed at:[address] [phone] lipase on 2018-02-17 0 Lipase enzyme act/vol 32 13-60 U/L Normal 02-27-20 [facility] (58750) Comment: Performed By: #### L100.0005 , L100.0340, L100.0350 ####ML - [id number] [place] [address] cmp on 2018-02-26 A:G RATIO 2.38 1.1-2.5 Normal 02-26-2018 Count includes the [facility] (38559) Comment: Performed By: #### L100.0005 , L100.0340, L100.0350 ####ML - [facility] ANKUOGMREY459 [place] [address] Albumin mass conc 5.0 3.5-5.2 g/dL Normal 02-26-2018 [facility] (08830) Comment: Performed By: #### L100.0005 , L100.0340, L100.0350 #### - [id number] [place] [address] ALK. PHOS 73 35-105 U/L Normal 02-26-2018 Count includes the [facility] (30807) Comment: Performed By: #### L100.0005 , L100.0340, L100.0350 ####[facility] FWJEVERUNK462 [place] [address] ALT enzyme act/vol 5 5-33 U/L Normal 02-26-2018 [facility] (17208) Comment: Performed By: #### L100.0005 , L100.0340, L100.0350 ####[facility] JFQBWYPDCO501 [place] [address] Anion gap 3 molar conc 15.3 15-22 mmol/L Normal [address] [place] [address] ([address]) Comment: Performed By: #### L100.0005 , L100.0340, L100.0350 ####[facility] K[address] [place] [address] [place] [address] AST enzyme act/vol 17 5-32 U/L Normal 02-26-2018 [facility] (18279) Comment: Performed By: #### L100.0005 , L100.0340, L100.0350 ####[facility] JMBXFNOQRK822 [facility] [place] [address] Bilirubin Ql (U) 0.6 0.2-1.2 mg/dL Normal 02-26-2018 [facility] (54552) Comment: Performed By: #### L100.0005 , L100.0340, L100.0350 ####ML - [id number] [place] [address] Calcium mass conc 9.7 8.6-10.0 mg/dL Normal 02-26-2018 [facility] (46761) Comment: Performed By: #### L100.0005 , L100.0340, L100.0350 ####[facility] PZSDMUAMUX561 [place] [address] Chloride molar conc 103 98-107 mmol/L Normal 02-26-2018 [facility] (48639) Comment: Performed By: #### L100.0005 , L100.0340, L100.0350 #### - ZCJXKWAQZQ032 [place] [address] Creatinine mass conc 0.70 0.50-0.90 mg/dL Normal 8 [facility] (98506) Comment: Performed By: #### L100.0005 , L100.0340, L100.0350 ####[facility] DXKVNKFDIZ598 [place] [address] eGFR if AFR SHREYA > 60 ml/min/1.73m2 Normal 02-26 [facility] (31041) Comment: Result Comment: eGFR >= 60 I ndicates normal kidney function. * eGFR IS AN ESTIMATE * (AFR SHREYA = KARLIE N IVORIAN) (non-AFR AM = NON-) MDRD calculation used in the eGFR should not be used to dose medications. For further limitations of the e GFR please refer to the Physician Website or the National Kidney Disease Education Program website (www.nkdep.nih.gov). Performed By: #### L100.0005 , L100.0340, L100.0350 ####[facility] PTNDZJUNTP890 [place] [address] eGFR nonAFR Shreya > 60 ml/Min/1.73m2 Normal 02-26 [facility] (79472) Comment: Performed By: #### L100.0005 , L100.0340, L100.0350 ####[facility] EDQZELKBSD048 [place] [address] Globulin Calculated mass 2.1 1.5-4.5 g/dL Normal 02-26 [facility] conc (S) (62377) Comment: Performed By: #### L100.0005 , L100.0340, L100.0350 ####[facility] WMPZSUMQTR994 [place] [address] Glucose mass conc 88 74-106 mg/dL Normal 02-26-2018 [facility] (57300) Comment: Performed By: #### L100.0005 , L100.0340, L100.0350 ####ML - MQXLGALZGH608 [facility] [place] [address] Potassium molar conc 4.3 3.5-5.0 mmol/L Normal [address] [place] [address] (51180) Comment: Performed By: #### L100.0005 , L100.0340, L100.0350 ####ML - XLAXZZQVNT577 [place] [address] Protein mass conc 7.1 6.4-8.3 g/dL Normal 02-26-2018 [facility] (68888) Comment: Performed By: #### L100.0005 , L100.0340, L100.0350 ####ML - RVBLAXDYYZ[address] [place] [address] [place] [address] Sodium molar conc 140 135-145 mmol/L Normal 02-26-2018 [facility] (23781) Comment: Performed By: #### L100.0005 , L100.0340, L100.0350 ####ML - ZDAVSDOGGL496 [facility] [place] [address] TCO2 26 22-29 mmol/L Normal 02-26-2018 Count includes the [facility] (90079) Comment: Performed By: #### L100.0005 , L100.0340, L100.0350 ####ML - WOXESADUIZ795 [facility] [place] [address] Urea nitrogen mass conc 13 6-20 mg/dL Normal 2017 [facility] (93930) Comment: Performed By: #### L100.0005 , L100.0340, L100.0350 ####ML - DXFQSWBWKA748 [place] [address] cbc on 2018-02-26 Basophils Auto #/vol 0.00 0.00-0.10 x10(3) Normal [address] [place] [address] ([facility]) [facility] ( 91294) Comment: Performed By: #### L200.0010 ####[facility] QRLYBSBUYZ[address] [place] [address] Basophils/100 WBC Auto (d) 0.8 0.0-1.0 % Normal 1 [facility] (16619) Comment: Performed By: #### L200.0010 ####[facility] NRFAOBCKFK[address] [place] [address] Eosinophils Auto #/vol 0.10 0.00-0.54 x10(3) Normal [address] [place] [address] ([facility]) [facility] ( 24736) Comment: Performed By: #### L200.0010 ####[address] [address] Eosinophils/100 WBC Auto (d) 0.8 0.5-4.9 % Normal 02-26-2018 [facility] ( 87317) Comment: Performed By: #### L200.0010 ####ML [address] [address] Erythrocyte distribution 12.9 12.5-15.7 % Normal 02-26 Replaced By [facility] width Auto Ratio ([facility]) [facility] (82907) Comment: Performed By: #### L200.0010 ####[address] [address] Hematocrit Auto Volume 40.6 36.0-48.0 % Normal [address] [place] [address] Fraction ([facility]) (0000 0) Comment: Performed By: #### L200.0010 ####[facility] R[address] [place] [address] Hemoglobin mass conc 13.7 12.0-16.0 g/dL Normal [address] [place] [address] ([facility]) [facility] ( 14490) Comment: Performed By: #### L200.0010 ####[facility] GPLXPXEBLI[address] [place] [address] Lymphocytes Auto #/vol 2.10 1.00-3.50 x10(3) Normal 018 [facility] ( 21356) Comment: Performed By: #### L200.0010 ####ML [facility] [id number] [place] [address] Lymphocytes/100 WBC Auto 35.2 16.0-48.0 % Normal 02-26 Replaced By [facility] ([facility] ( 18637) Comment: Performed By: #### L200.0010 ####ML [facility] [address] [place] [address] MCH Auto Entitic mass 30.7 28.5-32.9 pg Normal 02-27-20 18 [facility] (RBC) (64179) Comment: Performed By: #### L200.0010 ####ML - QWEAXCOIFQ[address] [place] [address] MCHC Auto mass conc 33.7 33.0-36.0 g/dL Normal 02-26-2018 [facility] (RBC) (93422) Comment: Performed By: #### L200.0010 ####ML [facility] HVMBFGQPPV[address] [place] [address]42 MCV Auto Entitic volume 91.1 80.0-99.0 fl Normal 2017 [facility] (RBC) (42982) Comment: Performed By: #### L200.0010 ####ML - QWFJPVHPRQ[address] [place] [address] Monocytes Auto #/vol 0.30 0.30-0.80 x10(3) Normal 8 Replaced By [facility] ([facility]) [facility] ( 53240) Comment: Performed By: #### L200.0010 ####ML [facility] FDX[address]KEQ[address] [place] [address] Monocytes/100 WBC Auto ([facility]) 5.1 4.3-11.2 % Normal 1 [facility] (41461) Comment: Performed By: #### L200.0010 ####ML - CNYGWLLEEA[address] [place] [address] Neutrophils Auto #/vol 3.50 1.40-6.50 x10(3) Normal [address] [place] [address] ( 27756) Comment: Performed By: #### L200.0010 ####[facility] HCMKRDRJTQ[address] [place] [address] Neutrophils/100 WBC Auto 58.1 45.0-73.0 % Normal 02-26 [facility] ( 05543) Comment: Performed By: #### L200.0010 ####[address] [address] Platelet mean volume Auto 9.4 7.5-9.5 fl Normal 02-17 [facility] Entitic volume ([facility]) (18272) Comment: Performed By: #### L200.0010 ####[address] [address] Platelets Auto #/vol 245 150-450 X10(3) Normal 8 [facility] ([facility]) (21258) Comment: Performed By: #### L200.0010 ####[address] [address] RBC Auto #/vol (d) 4.45 3.30-5.00 x10(6) Normal 8 [facility] (48627) Comment: Performed By: #### L200.0010 ####[facility] LDQQLYEZEN[address] [place] [address] WBC Auto #/vol ([facility]) 6.1 4.5-10.0 x10(3) Normal [address] [place] [address] (41141) Comment: Performed By: #### L200.0010 ####[facility] DSVBUPKPLO[address] [place] [address]451 amylase on Amylase enzyme act/vol 62 28-100 U/L Normal [address] [place] [address] (13308) Comment: Performed By: #### L100.0005 , L100.0340, L100.0350 ####[facility] IKOZQMEKNL[address] [place] [address] us ruq (gb/pancreas) on 2017-12-19 RUQ (GB/PANCREAS) [facility] Normal 0 12-19-2017 [facility]ital [address] [address] ([id number]) Patient: MANA EMMANUEL Phone#: : 1990 Age: 27 Gender: F Pt. Type: Out Account: [id number] Location: Ordering: [facility] Exam Date: 12/19/2017/8:15 Family Phys: Charge Code: 037760 Physician: [place] Order #: [id number] DLP Dose#: PROCEDURE: RUQ (GB) ULTRASOUND COMPARISON: None. INDICATIONS: Epigastric Pain FINDINGS: LIVER: Normal. Normal size and echotexture. No significant m asses. BILIARY: Normal appearing ga llbladder. Common bile duct diameter 6.2 mm. and is mildly dilated. PANCREAS: Normal. No visible mass, abnormal atrophy, or duct al dilatation. RIGHT KIDNEY: Normal. No mass or obstruction. OTHER: Negative. CONCLUSION: 1. The common bile duct is m ildly dilated at 6.2 mm. There is no evidence of intraductal calculi. DICTATED BY: MEERA RING MD ON 12/19/2017 AT 8:56 APPROVED BY: MEERA RING MD ON 12/19/2017 AT 8:56 Encounters Date Type Reason Provider Location 02-26-2018 Patient encounter DORIS N.P. Facility:[facility] MUTSCHELKNAUS 07-07-2018 - Patient encounter JOSSE Whitmore omerene 07-07-2018 procedure RANDOLPH HOSKINS MD [facility] JOSSE HOSKINS [facility] (14474) [place] UNKNOWN PROVIDER UNKNOWN PROVIDER UNKNOWN PROVIDER 06-26-2018 - Patient encounter JOSSE Whitmore omerene 06-26-2018 procedure RANDOLPH HOSKINS MD [facility] (000 00) UNKNOWN PROVIDER UNKNOWN PROVIDER UNKNOWN PROVIDER 05-01-2018 Patient encounter REJI PENG Facility :[facility] procedure 04-11-2018 Patient encounter DORIS N.P. Facility:[facility] procedure MUTSCHELKNAUS 03-03-2018 Patient encounter Abdominal pain DORIS N.P. Facility :[facility] procedure MUTSCHELKNAUS 12-19-2017 - Patient encounter Generalized GATO Abadmel Goodson 12-19-2017 procedure abdominal pain [place] [facility] ([address]) UNKNOWN PROVIDER UNKNOWN PROVIDER UNKNOWN PROVIDER Payers Payer Name Policy Number Location [employer] [place] ([id number]) SELF PAY INSURANCE Replaced By [facility] ([id number]) [id number] Replaced By [facility] ([id number]) [id number] Replaced By [facility] ital ([id number]) [id number] [facility] ital ([id number]) [id number] [facility] ([phone]) [id number] [place] (39922) [id number] [place] (72493) The following information is from the original human readable contentNo Payer Records Found Summary Purpose Family History No Family History Records FoundNo Family History Records FoundNo Family History Records FoundNo Family History Records Found Advance Directives No Advanced Directives Records FoundNo Advanced Directives Records FoundNo Advanced Directives Records FoundNo Advanced Directives Records Found Additional Source Comments FOR RECORDS PERTAINING TO PATIENTS WHO ARE OR HAVE BEEN ENROLLED IN A CHEMICAL DEPENDENCY/SUBSTANCE ABUSE PROGRAM, SOME INFORMATION MAY BE OMITTED. This clinical summary was aggregated from multiple sources. Caution should be exercised in using it in the provision of clinical care. This summary normalizes information from multiple sources, and as a consequence, information in this document may materially changethe coding, format and clinical context of patient data. In addition, data may be omittedin some cases. CLINICAL DECISIONS SHOULD BE BASED ON THE PRIMARY CLINICAL RECORDS. [facility] provides no warranty or guarantee of the accuracy or completeness of information in this document. UNRECOGNIZED CONTENT PROVIDED BELOW FOR UNRECOGNIZED SECTION INFORMATION SOURCE DATE CREATED AUTHOR AUTHOR'S ORGANIZATIO N 04/08/2018 [facility] ital DATE CREATED AUTHOR AUTHOR'S ORGANIZATIO N 05/12/2018 [facility] ital DATE CREATED AUTHOR AUTHOR'S ORGANIZATIO N 05/22/2018 [facility] DATE CREATED AUTHOR AUTHOR'S ORGANIZATIO N 07/08/2018 [place]
== END ==
PROVIDERS: PCP Family Medicine; Referring Provider Obstetrics & Gynecology; Visit Provider Obstetrics & Gynecology
DX: O16.2 Unspecified maternal hypertension, second trimester (principal); Z3A.00 Weeks of gestation of pregnancy not specified
CPT/HCPCS: 36415; 80053; 82570; 84156; 85025

== ENCOUNTER 2019-10-08 10:50 | Outpatient (CLI) | payer SELFPAY ==
[2019-09-28 11:03] VITALS: BMI 25.8
--- NOTE | 2019-10-08 11:10 | US_ITS ---
STUDY: SECOND AND THIRD TRIMESTER OBSTETRICAL ULTRASOUND - LIMITED REASON FOR EXAM: Female, 29 years old. Spotting. LMP: 04/20/2019 PRIOR ULTRASOUND: 09/04/2019 TECHNIQUE: Transabdominal ultrasound evaluation was performed. FINDINGS: There is a single intrauterine fetus. The fetus is in an transverse lie with the head on the maternal left side. There is demonstrated cardiac activity with a heart rate of 155 bpm. There is a normal amniotic fluid volume. The placenta is right lateral. Again noted is marginal previa. There is no evidence of placental abruption. The cervix measures 3.2 cm and is closed. US/OB Limited (No Biometrics) IMPRESSION: Single live intrauterine gestation. No evidence of placental abruption. Electronically Signed: Mikey Carnes, at 12:51 EDT Tel , Service support ,
[2019-10-08] MEDS: Lactated Ringers 1,000 ML 999 ML IV (11:25)
[2019-10-08 11:33] VITALS: BMI 32.5
[2019-10-08 11:42] LABS: Absolute Lymphocyte Count 1.53 X10^3/uL (0.83-4.51); Absolute Neutrophil Count 6.8 X10^3/uL (2.0-7.7); Basophil# 0.03 X10^3/uL; Basophil% 0.3 % (0-1); Eosinophil# 0.06 X10^3/uL; Eosinophils% 0.6 % (0-5); Hematocrit 30.8 % (37-47); Lymphocyte # 1.53 X10^3/ul (4.0); Lymphocyte % 16.5 % (19-41); Mean Corp Hgb Conc 32.5 g/dL (32-36); Mean Corpuscular Hgb 31.5 pg (27.0-32.0); Mean Corpuscular Volume 97.2 fL (81-99); Mean Platelet Vol. 10.8 fl (6.2-12.0); Monocyte# 0.39 X10^3/uL; Monocyte% 4.2 % (0-10); NRBC Flagged by Analyzer 0 % (0-5); Neutrophil # 6.79 X10^3/uL (2.7-7.7); Neutrophil % 73.4 % (47-70); Platelet Count 173 K/mm3 (150-450); RBC Distribution Width CV 14.3 % (11.6-14.6); RBC Distribution Width SD 50.5 fl (35.1-43.9); Red Blood Count 3.17 M/mm3 (4.2-5.4); White Blood Count 9.3 K/mm3 (4.4-11.0)
[2019-10-08 12:09] LABS: Fibrinogen 481 mg/dl (203-444)
--- NOTE | 2019-10-10 23:43 | OB.TRI.PN ---
Progress Notes Date of Service: 10/08/19 Progress Note: patient seen for spotting, repeat US shows no new significant abnormality, bloodwork WNL FHT present bloo type positive dc home labor and bleeding precautions vaginal bleeding in Laboratory Studies: Laboratory Tests 10/08/19 10/08/19 10/08/19 Range/Units 11:25 11:25 11:25 WBC 9.3 (4.4-11.0) K/mm3 RBC 3.17 L (4.2-5.4) M/mm3 Hgb 10.0 L (12.0-15.0) g/dL Hct 30.8 L (37-47) % MCV 97.2 (81-99) fL MCH 31.5 (27.0-32.0) pg MCHC 32.5 (32-36) g/dL RDW Std Deviation 50.5 H (35.1-43.9) fl RDW Coeff of Sebas 14.3 (11.6-14.6) % Plt Count 173 (150-450) K/mm3 MPV 10.8 (6.2-12.0) fl Immature Gran % (Auto) 5.000 H (0.0-0.9) % Neut % (Auto) 73.4 H (47-70) % Lymph % (Auto) 16.5 L (19-41) % Throckmorton % (Auto) 4.2 (0-10) % Eos % (Auto) 0.6 (0-5) % Baso % (Auto) 0.3 (0-1) % Absolute Neuts (auto) 6.8 (2.0-7.7) X10^3/uL Absolute Lymphs (auto) 1.53 (0.83-4.51) X10^3/uL Nucleated RBC % 0 (0-5) % Fibrinogen 481 H (203-444) mg/dl Blood Type O POSITIVE Antibody Screen NEGATIVE Multi Select Codes - Urinary/Genital Urinary/Genital CPT Codes: No Charge
--- OUTSIDE RECORDS SUMMARY | 2020-03-01 15:19 | XMS RPT_ITS | CCD ---
:1990 External Reference #:[id number] Author Organization [facility] Care Team Providers Name Role Phone [...] Abdominal pain Abdominal pain Active 12-19-2017 - [facility] (25533) Unclassified Unknown / UNK(Unknown) Active 03-03-2018 - [facility] (20177) Results Result Name Value Range Unit Interpretation Flag Date Location urine on 2018-07-07 EXTERNAL QC DONE? YES Normal 07-07-2018 [facility] (40448) Comment: Performed By: #### [id number] ## ## [facility],[address] [place] [address] HCG.beta subunit NEGATIVE NEGATIVE Normal 07-07-2018 [facility] ( test) [facility] (67959) Comment: Performed By: #### [id number] ## ## [facility],[address] [place] [address] INTERNAL QC PASS Normal 07-07-2018 [facility] (00378) Comment: Performed By: #### [id number] ## ## [facility],[address] [place], [place] [address] chest 2 views on 08-07-07 CHEST 2 VIEWS [facility] Normal 06-27-19 [facility] [address] [place], [place] [address] ([address]) Patient: MANA EMMANUEL Phone#: : 1990 Age: 27 Gender: F Pt. Type: OP Account: [id number] Location: Ordering: JOSSE DICKSON Exam Date: 06/26/2018/12:31 Family Phys: Charge Code: 917082 Physician: Terry Order #: [id number] DLP Dose#: PROCEDURE: X-RAY CHEST 2 VIEWS [...] progress on 2018-05 Protein mass HNO ID: [id number]: Reji Shannon No rmal [facility]-22-2018 [facility]Author Type: Clinic PhysicianType: Progress NotesFiled: [place] 05/22/2018 11:04 AMNote Text:H AND ([id number]) PDate: May 22, 2018Chief Complaint: Patient presents [...] Normal 05-22-2018 [facility] (GENUPD) --------MANA EMMANUEL ([id number]) 1990 F CHTD ate Time Provider Department05/22/18 10:15 AM REJI PENG During [place] your visit today, we recorde d the following information about you: Weight Height 70.3 kg 1.626 mJoseph (71047) Shannon Peng MD 05/22/2018 11:04 A M [...] w contrast on 2018-05-01 CT ABD/PEL W [facility] Drea l 05-01-2018 [facility] CONTRAST [id number] [facility] (33285) [place] [address]Nkxo: Janine EMMANUEL: REJI PENG M.D.: [birth year] Age: 27 Sex: FAcct: [id number] Loc: RAD CTExam Date: 05/01/18 Status: REG CLIRadiology No.: [id number] Number: [id number] # Type/[id number] CT / CT ABD/PEL W CONTRASTCT abdomen [...] algorithm.Professional interpretation provided by [facility] [place] [address].Thank you for this referral.< >Reported By: PENNY HILLIARD M.D.Signed In NovaPro By: PENNY HILLIARD M.D. << Signature on File>> Reported By: PENNY HILLIARD M.D. Signed By: PENNY HILLIARD M.D.Tests performed at:[address] [phone] progress on 2018-04 Protein mass HNO ID: [id number]: Reji Ortega No [facility] 04-24-2018 [facility] (none)Author Type: Clinic PhysicianType: Progress NotesFiled: [place] 04/28/2018 5:30 PMNote Text:H AND ([id number]) PDate: April 24, 2018Chief Complaint: Patient presents with:Consult: Had EGD at [facility] normal , then 2 hida scans, referred [...] Paternal GrandfatherSocial History Marital status: Spouse name: Travsi Years of education: Number of children: 0Occupational [...] SULFATE,) 325 mg (65 mg iron) tablet Flrj268 mg by mouth daily with breakfast. Uoykscsm-Bs-Fav-Fe-FA ( VITAMIN) tab Take 1 tablet bymouth.fluticasone-salmeterol [...] Normal 04-24-2018 [facility] (GENUPD) --------MANA EMMANUEL ([id number]) 1990 F CHTDate Time Provider Ytjxzoxgzg14/6/18 11:00 AM REJI PENG During your visit today, we recorded the following information about you: Weight Height 70.3 kg 1.626 (01835) Michael Peng MD 04/28/20 5:30 PM SignedH AND PDate: April 24, 2018Chief Complaint: Patient presents with:Consult: Brionna DAS at [facility] normal , then 2 hida scans, referred [...] 325 mgby mouth daily with breakfast. Mult qmsg-Nk-Egw-Fe-FA ( VITAMIN) tab Take 1 tablet by [...] PROCEDURE)Reji Peng MD Referring Provider: GATO DICKSON [[id number]]Allergies As of Date: 04/24/2018 Noted Allergy [place] ctionPOLLEN 08/27/2012 9 - ItchingDate Reviewed: 04/24/2018Reviewed by: Reji Peng - Savi Spicer for Visit: Consult [173] Cmt: Had EGD at [facility] normal , then 2 hida scans, referred by Dr. Chan For Visit History RecordedVisit Diagnoses:Biliary dyskinesia [K82.8] Right upper quadrant abdominal pain [R10.11] Nausea [R11.0]Order(s):CT ABD/PEL W IVCON [7844131] Order #: [id number] FUTURE iv contrast (will be provided [...] nteric contrast guidelinesMedications Discontinued During This Encounter Icklrddq-Gw-Rpt-Fe- FA (PREN* 04/24/2018 Class: Historical Med Route: [...] 05/08/2018).Follow-up and Disposition History RecordedEncounter Number: [id number] Status:Closed by REJI PENG MD on 04/28/18 nm hida scan with intervention on 2018-04-11 NM HIDA SCAN [facility] 04-11-2018 [facility] [address] INTERVENTION [address]Hcgi: Janine [facility]MMANUEL: [facility] Center[facility]ORIS NDanny: [birth year] ([id number]) Age: 27 Sex: FAcct: [id number] Loc: RAD NMExam Date: 04/11/18 Status: REG CLIRadiology No.: [id number] Number: [id number] # Type/[id number] NM / NM HIDA SCAN WITH INTERVENTIONNM [...] dyskinesia.Professional interpretation provided by [facility] [place] [address].Thank you for this referral.< >Reported By: SHERIF HER D.O.Signed In NovaPro By: SHERIF HER D.O. << Signature on File>> Reported By: SHERIF HER D.O. Signed By: SHERIF HER D.O.Tests performed at:[address] [phone] nm hida scan with intervention on 2018-03-03 NM HIDA SCAN [facility] Drea 03-03-[address] [place] INTERVENTION [address]Vdwb: Janine EMMANUEL: [facility] Center[facility]IS N.P.: [birth year] ([id number]) Age: 27 Sex: FAcct: [id number] Loc: RAD NMExam Date: 03/03/18 Status: REG CLIRadiology No.: [id number] Number: [id number] # Type/[id number] NM / NM HIDA SCAN WITH INTERVENTIONNM [...] gallbladdercontractility.Professional interpretation provided by [facility].Thank you for this referral.< >Reported By: ANEL SULTANA M.D.Signed In NovaPro By: ANEL SULTANA M.D. << Signature on File>> Reported By: ANEL SULTANA M.D. Signed By: ANEL SULTANA M.D.Tests performed at:[address] [phone] lipase on 2018-02-17 0 Lipase enzyme act/vol 32 13-60 U/L Normal 02-27-20 [facility] (98553) Comment: Performed By: #### L100.0005 , L100.0340, L100.0350 ####ML - AWOYKQHHFP[address] [place] [address] cmp on 2018-02-26 A:G RATIO 2.38 1.1-2.5 Normal 02-26-2018 [facility] (19923) Comment: Performed By: #### L100.0005 , L100.0340, L100.0350 ####ML - UH MLOWOFZJBY065 [place] [address] Albumin mass conc 5.0 3.5-5.2 g/dL Normal 02-26-2018 [facility] (32871) Comment: Performed By: #### L100.0005 , L100.0340, L100.0350 #### - UXFBWUCEGL253 [facility] [place] [address] ALK. PHOS 73 35-105 U/L Normal 02-26-2018 [facility] (93885) Comment: Performed By: #### L100.0005 , L100.0340, L100.0350 ####[facility] HSQZSDCOKW190 [facility] [place] [address] ALT enzyme act/vol 5 5-33 U/L Normal 02-26-2018 [facility] (54836) Comment: Performed By: #### L100.0005 , L100.0340, L100.0350 ####[facility] TGJUHSHRIK154 [place] [address] Anion gap 3 molar conc 15.3 15-22 mmol/L Normal [address] [place] [address] (45381) Comment: Performed By: #### L100.0005 , L100.0340, L100.0350 ####[facility] AGT[address]YINPA[address] [place] [address] [place] [address] AST enzyme act/vol 17 5-32 U/L Normal 02-26-2018 [facility] (87181) Comment: Performed By: #### L100.0005 , L100.0340, L100.0350 ####[facility] EVKJTGBHQT336 [place] [address] Bilirubin Ql (U) 0.6 0.2-1.2 mg/dL Normal 02-26-2018 [facility] (99878) Comment: Performed By: #### L100.0005 , L100.0340, L100.0350 ####ML - EHJNPZODMA052 [facility] [place] [address] Calcium mass conc 9.7 8.6-10.0 mg/dL Normal 02-26-2018 [facility] (89929) Comment: Performed By: #### L100.0005 , L100.0340, L100.0350 ####[facility] SQTIWDHSWU985 [place] [address] Chloride molar conc 103 98-107 mmol/L Normal 02-26-2018 [facility] (46921) Comment: Performed By: #### L100.0005 , L100.0340, L100.0350 #### - UUIQFBOWVO293 [place] [address] Creatinine mass conc 0.70 0.50-0.90 mg/dL Normal 8 [facility] (85820) Comment: Performed By: #### L100.0005 , L100.0340, L100.0350 ####[facility] GNZINWNDHI907 [place] [address] eGFR if AFR SHREYA > 60 ml/min/1.73m2 Normal 02-26 [facility] (55883) Comment: Result Comment: eGFR >= 60 I ndicates normal kidney function. * eGFR IS AN ESTIMATE * (AFR SHREYA = KARLIE N IRAQI) (non-AFR AM = NON-) MDRD calculation used in the eGFR should not be used to dose medications. For further limitations of the e GFR please refer to the Physician Website or the National Kidney Disease Education Program website (www.nkdep.nih.gov). Performed By: #### L100.0005 , L100.0340, L100.0350 ####[facility] CTBGGKTGHT483 [place] [address] eGFR nonAFR Shreya > 60 ml/Min/1.73m2 Normal 02-26 [facility] (91584) Comment: Performed By: #### L100.0005 , L100.0340, L100.0350 ####[facility] XTIHDXIEAN248 [place] [address] Globulin Calculated mass 2.1 1.5-4.5 g/dL Normal 02-26 [facility] conc (S) (30235) Comment: Performed By: #### L100.0005 , L100.0340, L100.0350 ####[facility] ASHEBFBTJM641 [facility] [address] Glucose mass conc 88 74-106 mg/dL Normal 02-26-2018 [facility] (65061) Comment: Performed By: #### L100.0005 , L100.0340, L100.0350 ####ML - GLWCEWJKJI556 [place] [address] Potassium molar conc 4.3 3.5-5.0 mmol/L Normal [address] [place] [address] (85118) Comment: Performed By: #### L100.0005 , L100.0340, L100.0350 ####ML - JVBSJFLAJZ634 [place] [address] Protein mass conc 7.1 6.4-8.3 g/dL Normal 02-26-2018 [facility] (89443) Comment: Performed By: #### L100.0005 , L100.0340, L100.0350 ####ML - MJVKUMHZBY[address] [place] [address] [place] [address] Sodium molar conc 140 135-145 mmol/L Normal 02-26-2018 [facility] (26226) Comment: Performed By: #### L100.0005 , L100.0340, L100.0350 ####ML - EIWRMQVUAT616 [place] [address] TCO2 26 22-29 mmol/L Normal 02-26-2018 [facility] (31521) Comment: Performed By: #### L100.0005 , L100.0340, L100.0350 ####ML - ZIJOFVGODT635 [place] [address] Urea nitrogen mass conc 13 6-20 mg/dL Normal 2017 [facility] (42619) Comment: Performed By: #### L100.0005 , L100.0340, L100.0350 ####ML - CPBMSOQZDN110 [place] [address] cbc on 2018-02-26 Basophils Auto #/vol 0.00 0.00-0.10 x10(3) Normal [address] [place] [address] ([facility]) [facility] ( 96108) Comment: Performed By: #### L200.0010 ####[facility] CODFZQMBOX[address] [place] [address] Basophils/100 WBC Auto (d) 0.8 0.0-1.0 % Normal 1 [facility] (88458) Comment: Performed By: #### L200.0010 ####[facility] JDQOFBBKZW[address] [place] [address] Eosinophils Auto #/vol 0.10 0.00-0.54 x10(3) Normal [address] [place] [address] ([facility]) [facility] ( 54069) Comment: Performed By: #### L200.0010 ####[address] [address] Eosinophils/100 WBC Auto (d) 0.8 0.5-4.9 % Normal 02-26-2018 [facility] ( 57420) Comment: Performed By: #### L200.0010 ####ML [address] [address] Erythrocyte distribution 12.9 12.5-15.7 % Normal 02-26 [facility] width Auto Ratio ([facility]) [facility] (71406) Comment: Performed By: #### L200.0010 ####[address] [address] Hematocrit Auto Volume 40.6 36.0-48.0 % Normal [address] [place] [address] Fraction ([facility]) (0000 0) Comment: Performed By: #### L200.0010 ####[facility] XVV[address]CS[address] [place] [address] Hemoglobin mass conc 13.7 12.0-16.0 g/dL Normal [address] [place] [address] ([facility]) [facility] ( 63088) Comment: Performed By: #### L200.0010 ####[facility] GBTQXWMUDS[address] [place] [address] Lymphocytes Auto #/vol 2.10 1.00-3.50 x10(3) Normal 018 [facility] ( 67370) Comment: Performed By: #### L200.0010 ####ML [facility] PEVIDDBRYB218 [place] [address] Lymphocytes/100 WBC Auto 35.2 16.0-48.0 % Normal 02-26 [facility] ([facility] ( 65770) Comment: Performed By: #### L200.0010 ####ML [facility] KRICZKFPYU[address] [place] [address] MCH Auto Entitic mass 30.7 28.5-32.9 pg Normal 02-27-20 18 [facility] (RBC) (72152) Comment: Performed By: #### L200.0010 ####ML - UBFXBLONVA[address] [place] [address] MCHC Auto mass conc 33.7 33.0-36.0 g/dL Normal 02-26-2018 [facility] (RBC) (73005) Comment: Performed By: #### L200.0010 ####ML [facility] UHPLCYJWGV[address] [place] [address] MCV Auto Entitic volume 91.1 80.0-99.0 fl Normal 2017 [facility] (RBC) (69307) Comment: Performed By: #### L200.0010 ####ML - ZGAERPYYLF[address] [place] [address] Monocytes Auto #/vol 0.30 0.30-0.80 x10(3) Normal 8 [facility] ([facility]) [facility] ( 88913) Comment: Performed By: #### L200.0010 ####ML [facility] LSPFVIBCGY[address] [place] [address] Monocytes/100 WBC Auto ([facility]) 5.1 4.3-11.2 % Normal 1 [facility] (03868) Comment: Performed By: #### L200.0010 ####ML - IIGBWQGQVN[address] [place] [address] Neutrophils Auto #/vol 3.50 1.40-6.50 x10(3) Normal [address] [place] [address] ( 93803) Comment: Performed By: #### L200.0010 ####[facility] JQUMZDXGUK[address] [place] [address] Neutrophils/100 WBC Auto 58.1 45.0-73.0 % Normal 02-26 [facility] ( 55461) Comment: Performed By: #### L200.0010 ####[address] [address] Platelet mean volume Auto 9.4 7.5-9.5 fl Normal 02-17 [facility] Entitic volume ([facility]) (43450) Comment: Performed By: #### L200.0010 ####[address] [address] Platelets Auto #/vol 245 150-450 X10(3) Normal 8 [facility] ([facility]) (02634) Comment: Performed By: #### L200.0010 ####[address] [address] RBC Auto #/vol (d) 4.45 3.30-5.00 x10(6) Normal 8 [facility] (37243) Comment: Performed By: #### L200.0010 ####[facility] NDUFJHKPTT[address] [place] [address] WBC Auto #/vol ([facility]) 6.1 4.5-10.0 x10(3) Normal [address] [place] [address] (10206) Comment: Performed By: #### L200.0010 ####[facility] SYTPWLGTUP[address] [place] [address] amylase on Amylase enzyme act/vol 62 28-100 U/L Normal [address] [place] [address] (60485) Comment: Performed By: #### L100.0005 , L100.0340, L100.0350 ####[facility] NWYWJELBLZ[address] [place] [address] us ruq (gb/pancreas) on 2017-12-19 RUQ (GB/PANCREAS) [facility] Normal 0 12-19-2017 [facility]ital [address] [place] [address] ([address]) Patient: MANA EMMANUEL Phone#: : 1990 Age: 27 Gender: F Pt. Type: Out Account: [id number] Location: Ordering: [facility] Exam Date: 12/19/2017/8:15 Family Phys: Charge Code: [id number] Physician: Terry Order #: [id number] DLP Dose#: PROCEDURE: RUQ (GB) ULTRASOUND COMPARISON: [...] Provider Location 02-26-2018 Patient encounter DORIS N.P. Facility:[facility] MUTSCHELKNAUS 07-07-2018 - Patient encounter JOSSE Whitmore omerene 07-07-2018 procedure RANDOLPH HOSKINS MD [facility] JOSSE HOSKINS [facility] (37335) JACKSON UNKNOWN PROVIDER UNKNOWN PROVIDER UNKNOWN PROVIDER 06-26-2018 - Patient encounter JOSSE Whitmore omerene 06-26-2018 procedure RANDOLPH HOSKINS MD [facility] (000 00) UNKNOWN PROVIDER UNKNOWN PROVIDER UNKNOWN PROVIDER 05-01-2018 Patient encounter REJI PENG [facility] procedure 04-11-2018 Patient encounter DORIS N.P. Facility:[facility] procedure MUTSCHELKNAUS 03-03-2018 Patient encounter Abdominal pain DORIS N.P. Facility :[facility] procedure MUTSCHELKNAUS 12-19-2017 - Patient encounter Generalized GATO Abadmel Goodson 12-19-2017 procedure abdominal pain MD [facility] DICK[facility] in (06713) UNKNOWN PROVIDER UNKNOWN PROVIDER UNKNOWN PROVIDER Payers Payer Name Policy Number Location RADIOLOGY PACKAGE [facility] ([id number]) SELF PAY INSURANCE [facility] ([id number]) [id number] [facility] ([id number]) [id number] [facility] ([id number]) [id number] [facility] ital ([id number]) [id number] [facility] ([id number]) [id number] [facility] ([id number]) [id number] [facility] (13615) The following information is from the original [...] BE BASED ON THE PRIMARY CLINICAL RECORDS. [facility] provides no warranty or guarantee of the accuracy or completeness of information in this document. UNRECOGNIZED CONTENT PROVIDED BELOW FOR UNRECOGNIZED SECTION INFORMATION SOURCE DATE CREATED AUTHOR AUTHOR'S ORGANIZATIO N 04/08/2018 [facility] ital DATE CREATED AUTHOR AUTHOR'S ORGANIZATIO N 05/12/2018 [facility] ital DATE CREATED AUTHOR AUTHOR'S ORGANIZATIO N 05/22/2018 [facility] DATE CREATED AUTHOR AUTHOR'S ORGANIZATIO N 07/08/2018 [facility]
== END 2019-10-08 12:50 | disposition home or self-care (01) ==
LOC: WPOUT 11:08 → OBT 11:10
PROVIDERS: PCP Family Medicine; Referring Provider Obstetrics & Gynecology; Visit Provider Obstetrics & Gynecology
DX: O46.90 Antepartum hemorrhage, unspecified, unspecified trimester (principal)
CPT/HCPCS: 96360; 59025; 59050; 76815; 76817; 85025; 85384; 86850; 86900; 86901; 99218; J7120; G0378

== ENCOUNTER → 2019-10-26 13:07 | Outpatient (CLI) | payer SELFPAY ==
[2019-10-15 12:23] VITALS: BMI 32.5
[2019-10-26 13:43] LABS: Absolute Lymphocyte Count 1.65 X10^3/uL (0.83-4.51); Absolute Neutrophil Count 7.2 X10^3/uL (2.0-7.7); Basophil# 0.03 X10^3/uL; Basophil% 0.3 % (0-1); Eosinophil# 0.08 X10^3/uL; Eosinophils% 0.8 % (0-5); Hematocrit 30.5 % (37-47); Lymphocyte # 1.65 X10^3/ul (4.0); Lymphocyte % 16.5 % (19-41); Mean Corp Hgb Conc 32.8 g/dL (32-36); Mean Corpuscular Hgb 31.6 pg (27.0-32.0); Mean Corpuscular Volume 96.5 fL (81-99); Mean Platelet Vol. 10.8 fl (6.2-12.0); Monocyte# 0.49 X10^3/uL; Monocyte% 4.9 % (0-10); NRBC Flagged by Analyzer 0 % (0-5); Neutrophil # 7.18 X10^3/uL (2.7-7.7); POSITIVE COUNT YES; POSITIVE MORPHOLOGY YES; Platelet Count 177 K/mm3 (150-450); RBC Distribution Width CV 14.5 % (11.6-14.6); RBC Distribution Width SD 50.1 fl (35.1-43.9); Red Blood Count 3.16 M/mm3 (4.2-5.4)
[2019-10-26 13:57] LABS: Glucose Challenge Gest 1H 50g 125 mg/dL (70-140)
[2019-10-26 14:15] LABS: Differential Indicated SCAN CRITERIA MET
--- OUTSIDE RECORDS SUMMARY | 2020-03-06 09:39 | XMS RPT_ITS | CCD ---
:1990 External Reference #:[id number] Author Organization [facility] Care Team Providers Name Role Phone DORIS [...] Abdominal pain Abdominal pain Active 12-19-2017 - [facility] ([id number]) Unclassified Unknown / UNK(Unknown) Active 03-03-2018 - Replaced By [facility] (51925) Results Result Name Value Range Unit Interpretation Flag Date Location urine on 2018-07-07 EXTERNAL QC DONE? YES Normal 07-07-2018 [facility] ([id number]) Comment: Performed By: #### [id number] ## ## [facility],[address] [place] [address] HCG.beta subunit NEGATIVE NEGATIVE Normal 07-07-2018 [facility] ( test) [facility] (19596) Comment: Performed By: #### [id number] ## ## [facility],[address] [place] [address] INTERNAL QC PASS Normal 07-07-2018 [facility] (71808) Comment: Performed By: #### [id number] ## ## [facility],[address] [place], [place] [id number] chest 2 views on 08-07-07 CHEST 2 VIEWS [facility] Normal 06-27-19 [facility] [address] [place], [place] [address] ([id number]) Patient: MANA EMMANUEL Phone#: : 1990 Age: 27 Gender: F Pt. Type: OP Account: [id number] Location: Ordering: JOSSE DICKSON Exam Date: 06/26/2018/12:31 Family Phys: Charge Code: 629723 Physician: Colbert Order #: [id number] DLP Dose#: PROCEDURE: X-RAY CHEST 2 VIEWS [...] progress on 2018-05 Protein mass HNO ID: [id number]: Reji Shannon No rmal 05-22-2018 [facility] ZemisService: (none)Author Type: Clinic PhysicianType: Progress NotesFiled: [place] 05/22/2018 11:04 AMNote Text:H AND ([id number]) PDate: May 22, 2018Chief Complaint: Patient presents [...] Normal 05-22-2018 [facility] and (GENUPD) --------MANA EMMANUEL ([id number]) 1990 F CHTD ate Time Provider Department05/22/18 10:15 AM REJI PENG During [place] your visit today, we recorde d the following information about you: Weight Height 70.3 kg 1.626 mJoseph ([id number]) Shannon Peng MD 05/22/2018 11:04 A M [...] w contrast on 2018-05-01 CT ABD/PEL W Drea l 05-01-2018 [facility] CONTRAST [id number] [facility] (77594) [place] [address]Hxjb: Janine EMMANUEL: REJI PENG M.D.: [birth year] Age: 27 Sex: FAcct: [id number] Loc: RAD CTExam Date: 05/01/18 Status: REG CLIRadiology No.: [id number] Number: [id number] # Type/[id number] CT / CT ABD/PEL W CONTRASTCT abdomen [...] algorithm.Professional interpretation provided by [facility] [place] [address].Thank you for this referral.< >Reported By: PENNY HILLIARD M.D.Signed In NovaPro By: PENNY HILLIARD M.D. << Signature on File>> Reported By: PENNY HILLIARD M.D. Signed By: PENNY HILLIARD M.D.Tests performed at:[address] [phone] progress on 2018-04 Protein mass HNO ID: [id number]: Reji Ortega No [facility] 04-24-2018 [facility] ZemisService: (none)Author Type: Clinic PhysicianType: Progress NotesFiled: [place] 04/28/2018 5:30 PMNote Text:H AND ([id number]) PDate: April 24, 2018Chief Complaint: Patient presents with:Consult: Had EGD at [facility] normal , then 2 hida scans, [...] SULFATE,) 325 mg (65 mg iron) tablet [id number] mg by mouth daily with breakfast. Axkvluag-Iq-Blh-Fe-FA ( VITAMIN) tab Take 1 tablet bymouth.fluticasone-salmeterol [...] Normal 04-24-2018 [facility] (GENUPD) --------MANA EMMANUEL ([id number]) 1990 F CHTDate Time Provider Nyjjtqedqm58/6/18 11:00 AM REJI PENG During your visit today, we recorded the following information about you: Weight Height 70.3 kg 1.626 ([id number]) Michael Peng MD 04/28/20 5:30 PM SignedH AND PDate: April 24, 2018Chief Complaint: Patient presents with:Consult: Brionna DAS at [facility] normal , then 2 hida scans, [...] 325 mgby mouth daily with breakfast. Mult ilct-Jx-Vro-Fe-FA ( VITAMIN) tab Take 1 tablet by [...] PROCEDURE)Reji Peng MD Referring Provider: GATO DICKSON [[id number]]Allergies As of Date: 04/24/2018 Noted Allergy [place] ctionPOLLEN 08/27/2012 9 - ItchingDate Reviewed: 04/24/2018Reviewed by: Reji Peng - Savi Spicer for Visit: Consult [173] Cmt: Had EGD at [facility] normal , then 2 hida scans, referred by Dr. Chan For Visit History RecordedVisit Diagnoses:Biliary dyskinesia [K82.8] Right upper quadrant abdominal pain [R10.11] Nausea [R11.0]Order(s):CT ABD/PEL W IVCON [2105523] Order #: [id number] FUTURE iv contrast (will be provided [...] nteric contrast guidelinesMedications Discontinued During This Encounter Kamxyovs-Ah-Tbd-Fe- FA (PREN* 04/24/2018 Class: Historical Med Route: [...] 05/08/2018).Follow-up and Disposition History RecordedEncounter Number: [id number] Status:Closed by REJI PENG MD on 04/28/18 nm hida scan with intervention on 2018-04-11 NM HIDA SCAN [facility] 04-11-2018 [place] WITH [address] INTERVENTION [id number]: Janine EMMANUEL[facility] MontgomeryGEMDORIS NDanny: [birth year] ([id number]) Age: 27 Sex: FAcct: [id number] Loc: RAD NMExam Date: 04/11/18 Status: REG CLIRadiology No.: [id number] Number: [id number] # Type/[id number] NM / NM HIDA SCAN WITH INTERVENTIONNM [...] dyskinesia.Professional interpretation provided by [facility] [place] [address].Thank you for this referral.< >Reported By: SHERIF HER D.O.Signed In NovaPro By: SHERIF HER D.O. << Signature on File>> Reported By: SHERIF HER D.O. Signed By: SHERIF HER D.O.Tests performed at:[address] [phone] nm hida scan with intervention on 2018-03-03 NM HIDA SCAN Drea 03-03-[address] [place] INTERVENTION [address]Lqku: Janine EMMANUEL: [facility] MontgomeryDORIS N.P.: [birth year] ([id number]) Age: 27 Sex: FAcct: [id number] Loc: RAD NMExam Date: 03/03/18 Status: REG CLIRadiology No.: [id number] Number: [id number] # Type/[id number] NM / NM HIDA SCAN WITH INTERVENTIONNM [...] gallbladdercontractility.Professional interpretation provided by [facility].Thank you for this referral.< >Reported By: ANEL SULTANA M.D.Signed In NovaPro By: ANEL SULTANA M.D. << Signature on File>> Reported By: ANEL SULTANA M.D. Signed By: ANEL SULTANA M.D.Tests performed at:[address] [phone] lipase on 2018-02-17 0 Lipase enzyme act/vol 32 13-60 U/L Normal 02-27-20 Replaced By [facility] (97018) Comment: Performed By: #### L100.0005 , L100.0340, L100.0350 ####ML - RATNAGUX[address] [place] [address] cmp on 2018-02-26 A:G RATIO 2.38 1.1-2.5 Normal 02-26-2018 [facility] (12097) Comment: Performed By: #### L100.0005 , L100.0340, L100.0350 ####ML - UH WRNOHXDAMR039 [place] [address] Albumin mass conc 5.0 3.5-5.2 g/dL Normal 02-26-2018 [facility] (23689) Comment: Performed By: #### L100.0005 , L100.0340, L100.0350 #### - JFWBILKBCR[address] [place] [address] ALK. PHOS 73 35-105 U/L Normal 02-26-2018 [facility] (21336) Comment: Performed By: #### L100.0005 , L100.0340, L100.0350 ####[facility] MAGNGHQEOC[address] [place] [address] ALT enzyme act/vol 5 5-33 U/L Normal 02-26-2018 Replaced By [facility] (79661) Comment: Performed By: #### L100.0005 , L100.0340, L100.0350 ####[facility] ABHUFLAURP011 [place] [address] Anion gap 3 molar conc 15.3 15-22 mmol/L Normal [address] [place] [address] (17603) Comment: Performed By: #### L100.0005 , L100.0340, L100.0350 ####[facility] LAKFGPVPD[address] [place] [address] [place] [address] AST enzyme act/vol 17 5-32 U/L Normal 02-26-2018 Replaced By [facility] (26634) Comment: Performed By: #### L100.0005 , L100.0340, L100.0350 ####[facility] XDLYYUQPGQ020 [place] [address] Bilirubin Ql (U) 0.6 0.2-1.2 mg/dL Normal 02-26-2018 [facility] (13523) Comment: Performed By: #### L100.0005 , L100.0340, L100.0350 ####ML - DOOFYHTGCM[address] [place] [address] Calcium mass conc 9.7 8.6-10.0 mg/dL Normal 02-26-2018 [facility] (39207) Comment: Performed By: #### L100.0005 , L100.0340, L100.0350 ####[facility] MIOFFSUIRT627 [place] [address] Chloride molar conc 103 98-107 mmol/L Normal 02-26-2018 Replaced By [facility] (63913) Comment: Performed By: #### L100.0005 , L100.0340, L100.0350 #### - BCMQKVSLGU761 [place] [address] Creatinine mass conc 0.70 0.50-0.90 mg/dL Normal 8 Replaced By [facility] (74239) Comment: Performed By: #### L100.0005 , L100.0340, L100.0350 ####[facility] AQBUWYZRUE068 [place] [address] eGFR if AFR SHREYA > 60 ml/min/1.73m2 Normal 02-26 Replaced By [facility] (39620) Comment: Result Comment: eGFR >= 60 I ndicates normal kidney function. * eGFR IS AN ESTIMATE * (AFR SHREYA = KARLIE N GUINEAN) (non-AFR AM = NON-) MDRD calculation used in the eGFR should not be used to dose medications. For further limitations of the e GFR please refer to the Physician Website or the National Kidney Disease Education Program website (www.nkdep.nih.gov). Performed By: #### L100.0005 , L100.0340, L100.0350 ####[facility] ULWWQUIKSF165 [place] [address] eGFR nonAFR Shreya > 60 ml/Min/1.73m2 Normal 02-26 Replaced By [facility] (49169) Comment: Performed By: #### L100.0005 , L100.0340, L100.0350 ####[facility] CHKVWGFBGE983 [place] [address] Globulin Calculated mass 2.1 1.5-4.5 g/dL Normal 02-26 Replaced By [facility] conc (S) (08600) Comment: Performed By: #### L100.0005 , L100.0340, L100.0350 ####[facility] XDWWOIXUAY[address] [place] [address] Glucose mass conc 88 74-106 mg/dL Normal 02-26-2018 [facility] (82108) Comment: Performed By: #### L100.0005 , L100.0340, L100.0350 ####ML - JPADKEITBY808 [place] [address] Potassium molar conc 4.3 3.5-5.0 mmol/L Normal [address] [place] [address] (09143) Comment: Performed By: #### L100.0005 , L100.0340, L100.0350 ####ML - SMOJLOLQAN441 [place] [address] Protein mass conc 7.1 6.4-8.3 g/dL Normal 02-26-2018 [facility] (87798) Comment: Performed By: #### L100.0005 , L100.0340, L100.0350 ####ML - YRRRSLVAPB[address] [place] [address] [place] [address] Sodium molar conc 140 135-145 mmol/L Normal 02-26-2018 [facility] (58702) Comment: Performed By: #### L100.0005 , L100.0340, L100.0350 ####ML - UHOUGQILWP504 [place] [address] TCO2 26 22-29 mmol/L Normal 02-26-2018 [facility] (82053) Comment: Performed By: #### L100.0005 , L100.0340, L100.0350 ####ML - NFJYNBTHOR014 [place] [address] Urea nitrogen mass conc 13 6-20 mg/dL Normal 2017 Replaced By [facility] (05031) Comment: Performed By: #### L100.0005 , L100.0340, L100.0350 ####ML - HJIBGECVWN830 [place] [address] cbc on 2018-02-26 Basophils Auto #/vol 0.00 0.00-0.10 x10(3) Normal [address] [place] [address] ([facility]) [facility] ( 38468) Comment: Performed By: #### L200.0010 ####[facility] GMVPIYBUL[address] [place] [address] Basophils/100 WBC Auto (d) 0.8 0.0-1.0 % Normal 1 Replaced By [facility] (48768) Comment: Performed By: #### L200.0010 ####[facility] R[address]ZQ[address] [place] [address] Eosinophils Auto #/vol 0.10 0.00-0.54 x10(3) Normal [address] [place] [address] ([facility]) [facility] ( 80326) Comment: Performed By: #### L200.0010 ####[address] [address] Eosinophils/100 WBC Auto (d) 0.8 0.5-4.9 % Normal 02-26-2018 Replaced By [facility] ( 79131) Comment: Performed By: #### L200.0010 ####ML [address] [address] Erythrocyte distribution 12.9 12.5-15.7 % Normal 02-26 [facility] width Auto Ratio ([facility]) [facility] (57201) Comment: Performed By: #### L200.0010 ####[address] [address] Hematocrit Auto Volume 40.6 36.0-48.0 % Normal [address] [place] [address] Fraction ([facility]) (0000 0) Comment: Performed By: #### L200.0010 ####[facility] F[address]QMRR[address] [place] [address] Hemoglobin mass conc 13.7 12.0-16.0 g/dL Normal [address] [place] [address] ([facility]) [facility] ( 45240) Comment: Performed By: #### L200.0010 ####[facility] PQETLPSIFL[address] [place] [address] Lymphocytes Auto #/vol 2.10 1.00-3.50 x10(3) Normal 018 [facility] ( 28803) Comment: Performed By: #### L200.0010 ####ML [facility] YKMPANTGNI532 [place] [address] Lymphocytes/100 WBC Auto 35.2 16.0-48.0 % Normal 02-26 [facility] ([facility] ( 47966) Comment: Performed By: #### L200.0010 ####ML [facility] JHICQDES[address] [place] [address] MCH Auto Entitic mass 30.7 28.5-32.9 pg Normal 02-27-20 18 Replaced By [facility] (RBC) (88199) Comment: Performed By: #### L200.0010 ####ML - YKUUIHUHMD[address] [place] [address] MCHC Auto mass conc 33.7 33.0-36.0 g/dL Normal 02-26-2018 Replaced By [facility] (RBC) (38664) Comment: Performed By: #### L200.0010 ####ML [facility] R[address]OSWUAGQ[address] [place] [address] MCV Auto Entitic volume 91.1 80.0-99.0 fl Normal 2017 Replaced By [facility] (RBC) (55305) Comment: Performed By: #### L200.0010 ####ML - SACVHCZKAZ[address] [place] [address] Monocytes Auto #/vol 0.30 0.30-0.80 x10(3) Normal 8 [facility] ([facility]) [facility] ( 24755) Comment: Performed By: #### L200.0010 ####ML [facility] MXKOKXVZKR[address] [place] [address] Monocytes/100 WBC Auto ([facility]) 5.1 4.3-11.2 % Normal 1 Replaced By [facility] (14984) Comment: Performed By: #### L200.0010 ####ML - ULYYZCNADV[address] [place] [address] Neutrophils Auto #/vol 3.50 1.40-6.50 x10(3) Normal [address] [place] [address] ( 03868) Comment: Performed By: #### L200.0010 ####[facility] L[address] [place] [address] Neutrophils/100 WBC Auto 58.1 45.0-73.0 % Normal 02-26 [facility] ( 85170) Comment: Performed By: #### L200.0010 ####[address] [address] Platelet mean volume Auto 9.4 7.5-9.5 fl Normal 02-17 Replaced By [facility] Entitic volume ([facility]) (09135) Comment: Performed By: #### L200.0010 ####[address] [address] Platelets Auto #/vol 245 150-450 X10(3) Normal 8 Replaced By [facility] ([facility]) (61966) Comment: Performed By: #### L200.0010 ####[address] [address] RBC Auto #/vol (d) 4.45 3.30-5.00 x10(6) Normal 8 Replaced By [facility] (16455) Comment: Performed By: #### L200.0010 ####[facility] DU[address]LD[address] [place] [address] WBC Auto #/vol ([facility]) 6.1 4.5-10.0 x10(3) Normal [address] [place] [address] (55521) Comment: Performed By: #### L200.0010 ####[facility] VIWPXQWIX[address] [place] [address] amylase on Amylase enzyme act/vol 62 28-100 U/L Normal [address] [place] [address] (65679) Comment: Performed By: #### L100.0005 , L100.0340, L100.0350 ####[facility] T[address]ID[address] [place] [address] us ruq (gb/pancreas) on 2017-12-19 RUQ (GB/PANCREAS) [facility] Normal 0 12-19-2017 [facility] ospital [address] [place] [address] ([id number]) Patient: MANA EMMANUEL Phone#: : 1990 Age: 27 Gender: F Pt. Type: Out Account: [id number] Location: Ordering: [facility] Exam Date: 12/19/2017/8:15 Family Phys: Charge Code: [id number] Physician: Colbert Order #: [id number] DLP Dose#: PROCEDURE: RUQ (GB) ULTRASOUND COMPARISON: [...] Provider Location 02-26-2018 Patient encounter DORIS N.P. Facility:[facility] MUTSCHELKNAUS 07-07-2018 - Patient encounter JOSSE Whitmore omerene 07-07-2018 procedure RANDOLPH HOSKINS MD [facility] JOSSE HOSKINS [facility] (19369) [employer] UNKNOWN PROVIDER UNKNOWN PROVIDER UNKNOWN PROVIDER 06-26-2018 - Patient encounter JOSSE Whitmore omerene 06-26-2018 procedure RANDOLPH HOSKINS MD [facility] (000 00) UNKNOWN PROVIDER UNKNOWN PROVIDER UNKNOWN PROVIDER 05-01-2018 Patient encounter REJI PENG [facility] procedure 04-11-2018 Patient encounter DORIS N.P. Facility:[facility] procedure MUTSCHELKNAUS 03-03-2018 Patient encounter Abdominal pain DORIS N.P. Facility :[facility] procedure MUTSCHELKNAUS 12-19-2017 - Patient encounter Generalized GATO Abadmel Goodson 12-19-2017 procedure abdominal pain [place] [facility]OLPH [facility]ICK[facility] (59720) UNKNOWN PROVIDER UNKNOWN PROVIDER UNKNOWN PROVIDER Payers Payer Name Policy Number Location [employer] [facility] ([id number]) SELF PAY INSURANCE [facility] ([id number]) [id number] [facility] ([id number]) [id number] [facility] ([id number]) [id number] [facility] ([id number]) [id number] [facility] ([id number]) [id number] [facility] (29795) [id number] [facility] (86099) The following information is from the original [...] BE BASED ON THE PRIMARY CLINICAL RECORDS. [facility] provides no warranty or guarantee of the accuracy or completeness of information in this document. UNRECOGNIZED CONTENT PROVIDED BELOW FOR UNRECOGNIZED SECTION INFORMATION SOURCE DATE CREATED AUTHOR AUTHOR'S ORGANIZATIO N 04/08/2018 [facility] ital DATE CREATED AUTHOR AUTHOR'S ORGANIZATIO N 05/12/2018 [facility] ital DATE CREATED AUTHOR AUTHOR'S ORGANIZATIO N 05/22/2018 [facility] DATE CREATED AUTHOR AUTHOR'S ORGANIZATIO N 07/08/2018 [facility]
== END ==
PROVIDERS: PCP Family Medicine; Referring Provider Obstetrics & Gynecology; Visit Provider Obstetrics & Gynecology
DX: Z34.80 Encounter for supervision of other normal pregnancy, unspecified trimester (principal)
CPT/HCPCS: 36415; 82950; 85025

== ENCOUNTER → 2019-10-28 13:28 | Outpatient (CLI) | payer SELFPAY ==
[2019-10-26 13:23] VITALS: BMI 32.5
[2019-10-28 13:39] VITALS: BP 134/61; PULSE 104; RESP 16; TEMP 36.6; O2SAT 96; BMI 33.3
[2019-10-28] MEDS: 0.9% NaCl Peripheral Flush Adult/Peds IV (13:43)
[2019-10-28] MEDS: 0.9% NaCl IVPB Med Flush (250 mL) 15 ML IV (13:46)
[2019-10-28 16:00] VITALS: BP 127/67; PULSE 78; RESP 16; TEMP 36.6; O2SAT 100
--- OUTSIDE RECORDS SUMMARY | 2020-03-06 11:09 | XMS RPT_ITS | CCD ---
:1990 External Reference #:[id number] Author Organization [facility] Care Team Providers Name Role Phone [...] pain Active 12-19-2017 - [facility] (78813) Unclassified Unknown / UNK(Unknown) Active 03-03-2018 - [facility] (70948) Results Result Name Value Range Unit Interpretation Flag Date Location urine on 2018-07-07 EXTERNAL QC DONE? YES Normal 07-07-2018 [facility] (22206) Comment: Performed By: #### [id number] ## ## [facility],[address] [place] [address] HCG.beta subunit NEGATIVE NEGATIVE Normal 07-07-2018 [facility] ( test) [facility] (66106) Comment: Performed By: #### [id number] ## ## [facility],[address] [place] [address] INTERNAL QC PASS Normal 07-07-2018 [facility] (75926) Comment: Performed By: #### [id number] ## ## [facility],[address] [place], [place] [id number] chest 2 views on 08-07-07 CHEST 2 VIEWS [facility] Normal 06-27-19 [facility] [address] [place], [place] [address] ([id number]) Patient: MANA EMMANUEL Phone#: : 1990 Age: 27 Gender: F Pt. Type: OP Account: [id number] Location: Ordering: JOSSE DICKSON Exam Date: 06/26/2018/12:31 Family Phys: Charge Code: 610547 Physician: Bracken Order #: [id number] DLP Dose#: PROCEDURE: X-RAY CHEST 2 VIEWS [...] progress on 2018-05 Protein mass HNO ID: [id number]: Reji Shannon No rmal 05-22-2018 [facility] ZemisService: (none)Author Type: Clinic PhysicianType: Progress NotesFiled: Stanley 05/22/2018 11:04 AMNote Text:H AND ([id number]) PDate: May 22, 2018Chief Complaint: Patient presents with:Follow Up: Had CT doneHPI:Maan Emmanuel is a 27 year old female. [...] Normal 05-22-2018 [facility] (GENUPD) --------MANA EMMANUEL ([id number]) 1990 F CHTD ate Time Provider Department05/22/18 10:15 AM REJI PENG During [place] your visit today, we recorde d the following information about you: Weight Height 70.3 kg 1.626 mJoseph (45980) Shannon Peng MD 05/22/2018 11:04 A M [...] is not on file. Status:Closed by REJI PNEG MD on 05/22/18 ct abd/pel w contrast on 2018-05-01 CT ABD/PEL W [facility] Drea l 05-01-2018 [facility] CONTRAST [id number] [facility] ([id number]) [place] [address]Jqzl: Janine EMMANUEL: REJI PENG M.D.: [birth year] Age: 27 Sex: FAcct: [id number] Loc: RAD CTExam Date: 05/01/18 Status: REG CLIRadiology No.: [id number] Number: [id number] # Type/[id number] CT / CT ABD/PEL W CONTRASTCT abdomen [...] algorithm.Professional interpretation provided by [facility] [place] [address].Thank you for this referral.< >Reported By: PENNY HILLIARD M.D.Signed In NovaPro By: PENNY HILLIARD M.D. << Signature on File>> Reported By: PENNY HILLIARD M.D. Signed By: PENNY HILLIARD M.D.Tests performed at:[address] [phone] progress on 2018-04 Protein mass HNO ID: [id number]: Reji Ortega No [facility] 04-24-2018 [facility] ZemisService: (none)Author Type: Clinic PhysicianType: Progress NotesFiled: Stanley 04/28/2018 5:30 PMNote Text:H AND ([id number]) PDate: April 24, 2018Chief Complaint: Patient presents with:Consult: Had EGD at [facility] normal , then 2 hida scans, referred [...] SULFATE,) 325 mg (65 mg iron) tablet Ikvx416 mg by mouth daily with breakfast. Hhdjjuvf-Db-Hvu-Fe-FA ( VITAMIN) tab Take 1 tablet bymouth.fluticasone-salmeterol [...] Normal 04-24-2018 [facility] (GENUPD) --------MANA EMMANUEL ([id number]) 1990 F CHTDate Time Provider Ssemwxicof38/6/18 11:00 AM REJI PENG During your visit today, we recorded the following information about you: Weight Height 70.3 kg 1.626 (78667) Michael Peng MD 04/28/20 5:30 PM SignedH AND PDate: April 24, 2018Chief Complaint: Patient presents with:Consult: Brionna DAS at [facility] normal , then 2 hida scans, referred [...] 325 mgby mouth daily with breakfast. Mult btjo-Bw-Qol-Fe-FA ( VITAMIN) tab Take 1 tablet by [...] PROCEDURE)Reji Peng MD Referring Provider: GATO DICKSON [[id number]]Allergies As of Date: 04/24/2018 Noted Allergy [place] ctionPOLLEN 08/27/2012 9 - ItchingDate Reviewed: 04/24/2018Reviewed by: Reji Peng - Savi Spicer for Visit: Consult [173] Cmt: Had EGD at [facility] normal , then 2 hida scans, referred by Dr. Chan For Visit History RecordedVisit Diagnoses:Biliary dyskinesia [K82.8] Right upper quadrant abdominal pain [R10.11] Nausea [R11.0]Order(s):CT ABD/PEL W IVCON [[id number]] Order #: [id number] FUTURE iv contrast (will be provided [...] nteric contrast guidelinesMedications Discontinued During This Encounter Nmgsehtv-Nf-Bct-Fe- FA (PREN* 04/24/2018 Class: Historical Med Route: [...] 05/08/2018).Follow-up and Disposition History RecordedEncounter Number: [id number] Status:Closed by REJI PENG MD on 04/28/18 nm hida scan with intervention on 2018-04-11 NM HIDA SCAN [facility] 04-11-2018 Holder WITH [address] INTERVENTION [address]Lwew: Janine EMMANUEL: [facility] NDanny: [birth year] ([id number]) Age: 27 Sex: FAcct: [id number] Loc: RAD NMExam Date: 04/11/18 Status: REG CLIRadiology No.: [id number] Number: [id number] # Type/[id number] NM / NM HIDA SCAN WITH INTERVENTIONNM [...] dyskinesia.Professional interpretation provided by [facility] [place] [address].Thank you for this referral.< >Reported By: SHERIF HER D.O.Signed In NovaPro By: SHERIF HER D.O. << Signature on File>> Reported By: SHERIF HER D.O. Signed By: SHERIF HER D.O.Tests performed at:[address] [phone] nm hida scan with intervention on 2018-03-03 NM HIDA SCAN [facility] Drea 03-03-[address] [facility] INTERVENTION [id number]: Janine EMMANUEL: [facility] [birth year] ([id number]) Age: 27 Sex: FAcct: [id number] Loc: RAD NMExam Date: 03/03/18 Status: REG CLIRadiology No.: [id number] Number: [id number] # Type/[id number] NM / NM HIDA SCAN WITH INTERVENTIONNM [...] gallbladdercontractility.Professional interpretation provided by [facility].Thank you for this referral.< >Reported By: ANEL SULTANA M.D.Signed In NovaPro By: ANEL SULTANA M.D. << Signature on File>> Reported By: ANEL SULTANA M.D. Signed By: ANEL SULTANA M.D.Tests performed at:[address] [phone] lipase on 2018-02-17 0 Lipase enzyme act/vol 32 13-60 U/L Normal 02-27-20 [facility] (31308) Comment: Performed By: #### L100.0005 , L100.0340, L100.0350 ####ML - GPHEBTQXFK[address] [place] [address] cmp on 2018-02-26 A:G RATIO 2.38 1.1-2.5 Normal 02-26-2018 [facility] (68695) Comment: Performed By: #### L100.0005 , L100.0340, L100.0350 ####ML - UH EEAKYTDZCJ783 [place] [address] Albumin mass conc 5.0 3.5-5.2 g/dL Normal 02-26-2018 [facility] (26202) Comment: Performed By: #### L100.0005 , L100.0340, L100.0350 #### - IIERMDOWRX861 [facility] [place] [address] ALK. PHOS 73 35-105 U/L Normal 02-26-2018 [facility] (79643) Comment: Performed By: #### L100.0005 , L100.0340, L100.0350 ####[facility] DVGUAFCNIB141 [facility] [place] [address] ALT enzyme act/vol 5 5-33 U/L Normal 02-26-2018 [facility] (02360) Comment: Performed By: #### L100.0005 , L100.0340, L100.0350 ####[facility] PGJAHFURMN109 [place] [address] Anion gap 3 molar conc 15.3 15-22 mmol/L Normal [address] [place] [address] ([address]91) Comment: Performed By: #### L100.0005 , L100.0340, L100.0350 ####[facility] MBRCOBYYIY[address] [place] [address] [place] [address] AST enzyme act/vol 17 5-32 U/L Normal 02-26-2018 [facility] (59126) Comment: Performed By: #### L100.0005 , L100.0340, L100.0350 ####[facility] XQALNAUCJW871 [facility] [place] [address] Bilirubin Ql (U) 0.6 0.2-1.2 mg/dL Normal 02-26-2018 [facility] (97634) Comment: Performed By: #### L100.0005 , L100.0340, L100.0350 ####ML - NFNGOAFYQK706 [facility] [place] [address] Calcium mass conc 9.7 8.6-10.0 mg/dL Normal 02-26-2018 [facility] (44987) Comment: Performed By: #### L100.0005 , L100.0340, L100.0350 ####[facility] EMWYPABNTI512 [place] [address] Chloride molar conc 103 98-107 mmol/L Normal 02-26-2018 [facility] (09562) Comment: Performed By: #### L100.0005 , L100.0340, L100.0350 #### - WHRZENRQGX748 [place] [address] Creatinine mass conc 0.70 0.50-0.90 mg/dL Normal 8 [facility] (94038) Comment: Performed By: #### L100.0005 , L100.0340, L100.0350 ####[facility] RCLKOPMIWP628 [place] [address] eGFR if AFR SHREYA > 60 ml/min/1.73m2 Normal 02-26 [facility] (20279) Comment: Result Comment: eGFR >= 60 I ndicates normal kidney function. * eGFR IS AN ESTIMATE * (AFR SHREYA = KARLIE N NICARAGUAN) (non-AFR AM = NON-) MDRD calculation used in the eGFR should not be used to dose medications. For further limitations of the e GFR please refer to the Physician Website or the National Kidney Disease Education Program website (www.nkdep.nih.gov). Performed By: #### L100.0005 , L100.0340, L100.0350 ####[facility] ZOURZESDZZ363 [place] [address] eGFR nonAFR Shreya > 60 ml/Min/1.73m2 Normal 02-26 [facility] (42606) Comment: Performed By: #### L100.0005 , L100.0340, L100.0350 ####[facility] CKAAVKPHWX710 [place] [address] Globulin Calculated mass 2.1 1.5-4.5 g/dL Normal 02-26 [facility] conc (S) (31805) Comment: Performed By: #### L100.0005 , L100.0340, L100.0350 ####[facility] TQLALTCKAE024 [facility] [address] Glucose mass conc 88 74-106 mg/dL Normal 02-26-2018 [facility] (53287) Comment: Performed By: #### L100.0005 , L100.0340, L100.0350 ####ML - APZLNMJQCD416 [facility] [place] [address] Potassium molar conc 4.3 3.5-5.0 mmol/L Normal [address] [place] [address] (33261) Comment: Performed By: #### L100.0005 , L100.0340, L100.0350 ####ML - IVYMENJHBD715 [place] [address] Protein mass conc 7.1 6.4-8.3 g/dL Normal 02-26-2018 [facility] (03154) Comment: Performed By: #### L100.0005 , L100.0340, L100.0350 ####ML - QIUJAMACDH[address] [place] [address] [place] [address] Sodium molar conc 140 135-145 mmol/L Normal 02-26-2018 [facility] (54619) Comment: Performed By: #### L100.0005 , L100.0340, L100.0350 ####ML - CIGTGOBDVV455 [facility] [place] [address] TCO2 26 22-29 mmol/L Normal 02-26-2018 [facility] (71236) Comment: Performed By: #### L100.0005 , L100.0340, L100.0350 ####ML - DFTODVJIEA507 [facility] [place] [address] Urea nitrogen mass conc 13 6-20 mg/dL Normal 2017 [facility] (41457) Comment: Performed By: #### L100.0005 , L100.0340, L100.0350 ####ML - ERXTLDIQTG433 [place] [address] cbc on 2018-02-26 Basophils Auto #/vol 0.00 0.00-0.10 x10(3) Normal [address] [place] [address] ([facility]) [facility] ( 52920) Comment: Performed By: #### L200.0010 ####[facility] RGJCWUPBDS[address] [place] [address] Basophils/100 WBC Auto (d) 0.8 0.0-1.0 % Normal 1 [facility] (98509) Comment: Performed By: #### L200.0010 ####[facility] KMGDENXETI[address] [place] [address] Eosinophils Auto #/vol 0.10 0.00-0.54 x10(3) Normal [address] [place] [address] ([facility]) [facility] ( 40125) Comment: Performed By: #### L200.0010 ####[address] [address] Eosinophils/100 WBC Auto (d) 0.8 0.5-4.9 % Normal 02-26-2018 [facility] ( 10766) Comment: Performed By: #### L200.0010 ####ML [address] [address] Erythrocyte distribution 12.9 12.5-15.7 % Normal 02-26 [facility] width Auto Ratio (RBC) Hospital (37418) Comment: Performed By: #### L200.0010 ####[address] [address] Hematocrit Auto Volume 40.6 36.0-48.0 % Normal [address] [place] [address] Fraction ([facility]) (0000 0) Comment: Performed By: #### L200.0010 ####[facility] NUYMFGLUHG[address] [place] [address] Hemoglobin mass conc 13.7 12.0-16.0 g/dL Normal [address] [place] [address] ([facility]) [facility] ( 89709) Comment: Performed By: #### L200.0010 ####[facility] VSNHJAWZUV[address] [place] [address] Lymphocytes Auto #/vol 2.10 1.00-3.50 x10(3) Normal 018 [facility] ( 37985) Comment: Performed By: #### L200.0010 ####ML [facility] JMAAOQIJQD313 [place] [address] Lymphocytes/100 WBC Auto 35.2 16.0-48.0 % Normal 02-26 [facility] ([facility] ( 47038) Comment: Performed By: #### L200.0010 ####ML [facility] WPZUUPRMNX[address] [place] [address] MCH Auto Entitic mass 30.7 28.5-32.9 pg Normal 02-27-20 18 [facility] (RBC) (07795) Comment: Performed By: #### L200.0010 ####ML - ARBSDWFPIN[address] [place] [address] MCHC Auto mass conc 33.7 33.0-36.0 g/dL Normal 02-26-2018 [facility] (RBC) (73911) Comment: Performed By: #### L200.0010 ####ML [facility] DXKMKCUDHT[address] [place] [address] MCV Auto Entitic volume 91.1 80.0-99.0 fl Normal 2017 [facility] (RBC) (87741) Comment: Performed By: #### L200.0010 ####ML - WWRBJBMAHP[address] [place] [address] Monocytes Auto #/vol 0.30 0.30-0.80 x10(3) Normal 8 [facility] ([facility]) [facility] ( 92151) Comment: Performed By: #### L200.0010 ####ML [facility] VXLSMZCJFR[address] [place] [address] Monocytes/100 WBC Auto ([facility]) 5.1 4.3-11.2 % Normal 1 [facility] (23919) Comment: Performed By: #### L200.0010 ####ML - HPLUSCFEBM[address] [place] [address] Neutrophils Auto #/vol 3.50 1.40-6.50 x10(3) Normal [address] [place] [address] ( [address]164) Comment: Performed By: #### L200.0010 ####[facility] VLOIIWYPVK[address] [place] [address] Neutrophils/100 WBC Auto 58.1 45.0-73.0 % Normal 02-26 [facility] ( 35088) Comment: Performed By: #### L200.0010 ####[address] [address] Platelet mean volume Auto 9.4 7.5-9.5 fl Normal 02-17 [facility] Entitic volume ([facility]) (58144) Comment: Performed By: #### L200.0010 ####[address] [address] Platelets Auto #/vol 245 150-450 X10(3) Normal 8 [facility] ([facility]) (40015) Comment: Performed By: #### L200.0010 ####[address] [address] RBC Auto #/vol (d) 4.45 3.30-5.00 x10(6) Normal 8 [facility] (75628) Comment: Performed By: #### L200.0010 ####[facility] OFRGOSHKNM[address] [place] [address] WBC Auto #/vol ([facility]) 6.1 4.5-10.0 x10(3) Normal [address] [place] [address] (06215) Comment: Performed By: #### L200.0010 ####[facility] UQPDMNZFZG[address] [place] [address] amylase on Amylase enzyme act/vol 62 28-100 U/L Normal [address] [place] [address] (78069) Comment: Performed By: #### L100.0005 , L100.0340, L100.0350 ####[facility] EOPYRSCETQ[address] [place] [address] us ruq (gb/pancreas) on 2017-12-19 RUQ (GB/PANCREAS) [facility] Normal 0 12-19-2017 [facility]spital [address] [place] [address] ([address]) Patient: MANA EMMANUEL Phone#: : 1990 Age: 27 Gender: F Pt. Type: Out Account: [id number] Location: Ordering: [facility] Exam Date: 12/19/2017/8:15 Family Phys: Charge Code: [id number] Physician: Bracken Order #: [id number] DLP Dose#: PROCEDURE: RUQ (GB) ULTRASOUND COMPARISON: [...] Provider Location 02-26-2018 Patient encounter DORIS N.P. Facility:[facility] MUTSCHELKNAUS 07-07-2018 - Patient encounter JOSSE Whitmore omerene 07-07-2018 procedure RANDOLPH HOSKINS MD [facility] JOSSE HOSKINS [facility] (71395) [place] UNKNOWN PROVIDER UNKNOWN PROVIDER UNKNOWN PROVIDER 06-26-2018 - Patient encounter JOSSE Whitmore omerene 06-26-2018 procedure RANDOLPH HOSKINS MD [facility] (000 00) UNKNOWN PROVIDER UNKNOWN PROVIDER UNKNOWN PROVIDER 05-01-2018 Patient encounter REJI PENG Facility :[facility] procedure 04-11-2018 Patient encounter DORIS N.P. Facility:[facility] procedure MUTSCHELKNAUS 03-03-2018 Patient encounter Abdominal pain DORIS N.P. Facility :[facility] procedure MUTSCHELKNAUS 12-19-2017 - Patient encounter Generalized GTAO Abadmle Goodson 12-19-2017 procedure abdominal pain MD [facility]OLPH DICKSON [facility] (05409) UNKNOWN PROVIDER UNKNOWN PROVIDER UNKNOWN PROVIDER Payers Payer Name Policy Number Location [employer] [facility] ([id number]) SELF PAY INSURANCE [facility] ([id number]) [id number] [facility] ([id number]) [id number] [facility] ([id number]) [id number] [facility] ital ([id number]) [id number] [facility] ([id number]) [id number] [facility] ([id number]) [id number] [facility] (95293) The following information is from the original [...] BE BASED ON THE PRIMARY CLINICAL RECORDS. [facility] provides no warranty or guarantee of the accuracy or completeness of information in this document. UNRECOGNIZED CONTENT PROVIDED BELOW FOR UNRECOGNIZED SECTION INFORMATION SOURCE DATE CREATED AUTHOR AUTHOR'S ORGANIZATIO N 04/08/2018 [facility] ital DATE CREATED AUTHOR AUTHOR'S ORGANIZATIO N 05/12/2018 [facility] ital DATE CREATED AUTHOR AUTHOR'S ORGANIZATIO N 05/22/2018 [facility] DATE CREATED AUTHOR AUTHOR'S ORGANIZATIO N 07/08/2018 [facility]
== END ==
PROVIDERS: PCP Family Medicine; Referring Provider Obstetrics & Gynecology; Visit Provider Obstetrics & Gynecology
DX: O99.019 Anemia complicating pregnancy, unspecified trimester (principal); Z3A.00 Weeks of gestation of pregnancy not specified
CPT/HCPCS: 96365; 96366; J1756; J7050; A4216

== ENCOUNTER → 2019-11-04 13:25 | Outpatient (CLI) | payer SELFPAY ==
[2019-10-26 13:23] VITALS: BMI 32.5
[2019-10-28 13:39] VITALS: BMI 33.3
[2019-11-04] MEDS: 0.9% NaCl Peripheral Flush Adult/Peds IV (14:03)
[2019-11-04] MEDS: 0.9% NaCl IVPB Med Flush (250 mL) 15 ML IV (14:04)
[2019-11-04 14:05] VITALS: BP 128/69; PULSE 103; RESP 16; TEMP 36.8; O2SAT 98; BMI 33.3
[2019-11-04 15:55] VITALS: BP 113/60; PULSE 104
--- OUTSIDE RECORDS SUMMARY | 2020-03-06 15:12 | XMS RPT_ITS | CCD ---
:1990 External Reference #:[id number] Author Organization [facility] Care [...] Abdominal pain Abdominal pain Active 12-19-2017 - [facility] (86602) Unclassified Unknown / UNK(Unknown) Active 03-03-2018 - [facility] (83596) Results Result Name Value Range Unit Interpretation Flag Date Location urine on 2018-07-07 EXTERNAL QC DONE? YES Normal 07-07-2018 [facility] (86499) Comment: Performed By: #### [id number] ## ## [facility],[address] [place] [address] HCG.beta subunit NEGATIVE NEGATIVE Normal 07-07-2018 [facility] ( test) [facility] (99033) Comment: Performed By: #### [id number] ## ## [facility],[address] [place] [address] INTERNAL QC PASS Normal 07-07-2018 [facility] (57020) Comment: Performed By: #### [id number] ## ## [facility],[address] [place], [place] [id number] chest 2 views on 08-07-07 CHEST 2 VIEWS [facility] Normal 06-27-19 [facility] [address] [place], [place] [address] ([id number]) Patient: MANA EMMANUEL Phone#: : 1990 Age: 27 Gender: F Pt. Type: OP Account: [id number] Location: Ordering: JOSSE DICKSON Exam Date: 06/26/2018/12:31 Family Phys: Charge Code: 574333 Physician: [place] Order #: [id number] DLP Dose#: PROCEDURE: X-RAY CHEST 2 VIEWS [...] progress on 2018-05 Protein mass HNO ID: [id number]: Reji Shannon No rmal 05-22-2018 [facility] ZemisService: (none)Author Type: Clinic PhysicianType: Progress NotesFiled: [place] 05/22/2018 11:04 AMNote Text:H AND ([id number]) PDate: May 22, 2018Chief Complaint: Patient presents [...] Normal 05-22-2018 [facility] and (GENUPD) --------MANA EMMANUEL ([id number]) 1990 F CHTD ate Time Provider Department05/22/18 10:15 AM REJI PENG During [place] your visit today, we recorde d the following information about you: Weight Height 70.3 kg 1.626 mJoseph (12849) Shannon Peng MD 05/22/2018 11:04 A M [...] w contrast on 2018-05-01 CT ABD/PEL W [facility] Drea l 05-01-2018 [facility] CONTRAST [id number] [facility] ([id number]) [place] [address]Ydme: Janine EMMANUEL: REJI PENG M.D.: [birth year] Age: 27 Sex: FAcct: [id number] Loc: RAD CTExam Date: 05/01/18 Status: REG CLIRadiology No.: [id number] Number: [id number] # Type/[id number] CT / CT ABD/PEL W CONTRASTCT abdomen [...] algorithm.Professional interpretation provided by [facility] [place] [address].Thank you for this referral.< >Reported By: PENNY HILLIARD M.D.Signed In NovaPro By: PENNY HILLIARD M.D. << Signature on File>> Reported By: PENNY HILLIARD M.D. Signed By: PENNY HILLIARD M.D.Tests performed at:[address] [phone] progress on 2018-04 Protein mass HNO ID: [id number]: Reji Ortega No [facility] 04-24-2018 [facility] ZemisService: (none)Author Type: Clinic PhysicianType: Progress NotesFiled: [place] 04/28/2018 5:30 PMNote Text:H AND ([id number]) PDate: April 24, 2018Chief Complaint: Patient presents with:Consult: Had EGD at [facility] normal , then 2 hida scans, referred [...] SULFATE,) 325 mg (65 mg iron) tablet Qscl595 mg by mouth daily with breakfast. Ascfrtfg-Fk-Spc-Fe-FA ( VITAMIN) tab Take 1 tablet bymouth.fluticasone-salmeterol [...] Normal 04-24-2018 [facility] (GENUPD) --------MANA EMMANUEL ([id number]) 1990 F CHTDate Time Provider Ukcajjzkju02/6/18 11:00 AM REJI PENG During your visit today, we recorded the following information about you: Weight Height 70.3 kg 1.626 (86405) Michael Peng MD 04/28/20 5:30 PM SignedH AND PDate: April 24, 2018Chief Complaint: Patient presents with:Consult: Brionna DAS at [facility] normal , then 2 hida scans, referred [...] 325 mgby mouth daily with breakfast. Mult yhcr-Xj-Tlv-Fe-FA ( VITAMIN) tab Take 1 tablet by [...] PROCEDURE)Reji Peng MD Referring Provider: GATO DICKSON [[id number]]Allergies As of Date: 04/24/2018 Noted Allergy Buford ctionPOLLEN 08/27/2012 9 - ItchingDate Reviewed: 04/24/2018Reviewed by: Reji Peng - Savi Spicer for Visit: Consult [173] Cmt: Had EGD at [facility] normal , then 2 hida scans, referred by Dr. Chan For Visit History RecordedVisit Diagnoses:Biliary dyskinesia [K82.8] Right upper quadrant abdominal pain [R10.11] Nausea [R11.0]Order(s):CT ABD/PEL W IVCON [0912614] Order #: [id number] FUTURE iv contrast (will be provided [...] nteric contrast guidelinesMedications Discontinued During This Encounter Mvitjldq-Rx-Iqq-Fe- FA (PREN* 04/24/2018 Class: Historical Med Route: [...] 05/08/2018).Follow-up and Disposition History RecordedEncounter Number: [id number] Status:Closed by REJI PENG MD on 04/28/18 nm hida scan with intervention on 2018-04-11 NM HIDA SCAN [facility] 04-11-2018 [place] WITH [address] INTERVENTION [address]Lupq: Janine EMMANUEL: [facility] HospitalGEMDORIS NDanny: [birth year] ([id number]) Age: 27 Sex: FAcct: [id number] Loc: RAD NMExam Date: 04/11/18 Status: REG CLIRadiology No.: [id number] Number: [id number] # Type/[id number] NM / NM HIDA SCAN WITH INTERVENTIONNM [...] dyskinesia.Professional interpretation provided by [facility] [place] [address].Thank you for this referral.< >Reported By: SHERIF HER D.O.Signed In NovaPro By: SHERIF HER D.O. << Signature on File>> Reported By: SHERIF HER D.O. Signed By: SHERIF HER D.O.Tests performed at:[address] [phone] nm hida scan with intervention on 2018-03-03 NM HIDA SCAN [facility] Drea 03-03-[address] [place] INTERVENTION [address]Rqpj: Janine EMMANUEL: [facility] HospitalDORIS N.P.: [birth year] ([id number]) Age: 27 Sex: FAcct: [id number] Loc: RAD NMExam Date: 03/03/18 Status: REG CLIRadiology No.: [id number] Number: [id number] # Type/[id number] NM / NM HIDA SCAN WITH INTERVENTIONNM [...] gallbladdercontractility.Professional interpretation provided by [facility].Thank you for this referral.< >Reported By: ANEL SULTANA M.D.Signed In NovaPro By: ANEL SULTANA M.D. << Signature on File>> Reported By: ANEL SULTANA M.D. Signed By: ANEL SULTANA M.D.Tests performed at:[address] [phone] lipase on 2018-02-17 0 Lipase enzyme act/vol 32 13-60 U/L Normal 02-27-20 [facility] (52114) Comment: Performed By: #### L100.0005 , L100.0340, L100.0350 ####ML - SZAUZYFTFB[address] [place] [address] cmp on 2018-02-26 A:G RATIO 2.38 1.1-2.5 Normal 02-26-2018 [facility] (69750) Comment: Performed By: #### L100.0005 , L100.0340, L100.0350 ####ML - [facility] OYSSCAYUVV905 [place] [address] Albumin mass conc 5.0 3.5-5.2 g/dL Normal 02-26-2018 [facility] (77595) Comment: Performed By: #### L100.0005 , L100.0340, L100.0350 #### - CRYNXXSBPG199 [facility] [address] ALK. PHOS 73 35-105 U/L Normal 02-26-2018 [facility] (41633) Comment: Performed By: #### L100.0005 , L100.0340, L100.0350 ####[facility] MVRFGGENFI801 [place] [address] ALT enzyme act/vol 5 5-33 U/L Normal 02-26-2018 [facility] (05641) Comment: Performed By: #### L100.0005 , L100.0340, L100.0350 ####[facility] ETIBGZBZWT326 [place] [address] Anion gap 3 molar conc 15.3 15-22 mmol/L Normal [address] [place] [address] (33980) Comment: Performed By: #### L100.0005 , L100.0340, L100.0350 ####[facility] IDXDDXVCS[address] [place] [address] [place] [address] AST enzyme act/vol 17 5-32 U/L Normal 02-26-2018 [facility] (09751) Comment: Performed By: #### L100.0005 , L100.0340, L100.0350 ####[facility] XLYERLDGDJ503 [place] [address] Bilirubin Ql (U) 0.6 0.2-1.2 mg/dL Normal 02-26-2018 [facility] (85687) Comment: Performed By: #### L100.0005 , L100.0340, L100.0350 ####ML - LOXMLOCKFE968 [place] [address] Calcium mass conc 9.7 8.6-10.0 mg/dL Normal 02-26-2018 [facility] (00935) Comment: Performed By: #### L100.0005 , L100.0340, L100.0350 ####[facility] DGWUSJBUVK513 [place] [address] Chloride molar conc 103 98-107 mmol/L Normal 02-26-2018 [facility] (71609) Comment: Performed By: #### L100.0005 , L100.0340, L100.0350 #### - HWMMXMOZMT053 [place] [address] Creatinine mass conc 0.70 0.50-0.90 mg/dL Normal 8 [facility] (29963) Comment: Performed By: #### L100.0005 , L100.0340, L100.0350 ####[facility] JODLBQQFTM741 [place] [address] eGFR if AFR SHREYA > 60 ml/min/1.73m2 Normal 02-26 [facility] (35081) Comment: Result Comment: eGFR >= 60 I ndicates normal kidney function. * eGFR IS AN ESTIMATE * (AFR SHREYA = KARLIE N [place]) (non-AFR AM = NON-) MDRD calculation used in the eGFR should not be used to dose medications. For further limitations of the e GFR please refer to the Physician Website or the National Kidney Disease Education Program website (www.nkdep.nih.gov). Performed By: #### L100.0005 , L100.0340, L100.0350 ####[facility] BNEBDNHIHV965 [place] [address] eGFR nonAFR Shreya > 60 ml/Min/1.73m2 Normal 02-26 [facility] (79433) Comment: Performed By: #### L100.0005 , L100.0340, L100.0350 ####[facility] ANGYAGJMYT813 [place] [address] Globulin Calculated mass 2.1 1.5-4.5 g/dL Normal 02-26 [facility] conc (S) (13239) Comment: Performed By: #### L100.0005 , L100.0340, L100.0350 ####[facility] CAQCYMSPXG872 [place] [address] Glucose mass conc 88 74-106 mg/dL Normal 02-26-2018 [facility] (71907) Comment: Performed By: #### L100.0005 , L100.0340, L100.0350 ####ML - WJDUEKXEFC329 [place] [address] Potassium molar conc 4.3 3.5-5.0 mmol/L Normal [address] [place] [address] (65953) Comment: Performed By: #### L100.0005 , L100.0340, L100.0350 ####ML - RMWCVUYPSP349 [place] [address] Protein mass conc 7.1 6.4-8.3 g/dL Normal 02-26-2018 [facility] (17091) Comment: Performed By: #### L100.0005 , L100.0340, L100.0350 ####ML - CZPONFTVIL[address] [place] [address] [place] [address] Sodium molar conc 140 135-145 mmol/L Normal 02-26-2018 [facility] (91752) Comment: Performed By: #### L100.0005 , L100.0340, L100.0350 ####ML - TDVMESANSE100 [place] [address] TCO2 26 22-29 mmol/L Normal 02-26-2018 [facility] (66749) Comment: Performed By: #### L100.0005 , L100.0340, L100.0350 ####ML - YYNOPAFSEY652 [place] [address] Urea nitrogen mass conc 13 6-20 mg/dL Normal 2017 [facility] (52964) Comment: Performed By: #### L100.0005 , L100.0340, L100.0350 ####ML - LPCKPCAIWF037 [place] [address] cbc on 2018-02-26 Basophils Auto #/vol 0.00 0.00-0.10 x10(3) Normal [address] [place] [address] ([facility]) [facility] ( 55782) Comment: Performed By: #### L200.0010 ####[facility] CPSDASJS[address] [place] [address] Basophils/100 WBC Auto (d) 0.8 0.0-1.0 % Normal 1 [facility] (68419) Comment: Performed By: #### L200.0010 ####[facility] WSOSAWNJMM[address] [place] [address] Eosinophils Auto #/vol 0.10 0.00-0.54 x10(3) Normal [address] [place] [address] ([facility]) [facility] ( 24891) Comment: Performed By: #### L200.0010 ####[address] [address] Eosinophils/100 WBC Auto (d) 0.8 0.5-4.9 % Normal 02-26-2018 [facility] ( 42600) Comment: Performed By: #### L200.0010 ####ML [address] [address] Erythrocyte distribution 12.9 12.5-15.7 % Normal 02-26 [facility] width Auto Ratio (RBC) Hospital (13652) Comment: Performed By: #### L200.0010 ####[address] [address] Hematocrit Auto Volume 40.6 36.0-48.0 % Normal [address] [place] [address] Fraction ([facility]) (0000 0) Comment: Performed By: #### L200.0010 ####[facility] LABBRJQXUE[address] [place] [address] Hemoglobin mass conc 13.7 12.0-16.0 g/dL Normal [address] [place] [address] ([facility]) [facility] ( 93505) Comment: Performed By: #### L200.0010 ####[facility] EILYZFGRZM[address] [place] [address] Lymphocytes Auto #/vol 2.10 1.00-3.50 x10(3) Normal 018 [facility] ( 44268) Comment: Performed By: #### L200.0010 ####ML [facility] NHATJYWSHV883 [place] [address] Lymphocytes/100 WBC Auto 35.2 16.0-48.0 % Normal 02-26 [facility] ([facility] ( 86516) Comment: Performed By: #### L200.0010 ####ML [facility] UDGVTTNRWC[address] [place] [address] MCH Auto Entitic mass 30.7 28.5-32.9 pg Normal 02-27-20 18 [facility] (RBC) (32755) Comment: Performed By: #### L200.0010 ####ML - PGWIHUMZTF[address] [place] [address] MCHC Auto mass conc 33.7 33.0-36.0 g/dL Normal 02-26-2018 [facility] (RBC) (45833) Comment: Performed By: #### L200.0010 ####ML [facility] IRGCMDMCXO[address] [place] [address]65 MCV Auto Entitic volume 91.1 80.0-99.0 fl Normal 2017 [facility] (RBC) (31148) Comment: Performed By: #### L200.0010 ####ML - EAQWGLSRDR04[address] [place] [address] Monocytes Auto #/vol 0.30 0.30-0.80 x10(3) Normal 8 [facility] ([facility]) [facility] ( 41952) Comment: Performed By: #### L200.0010 ####ML [facility] JWDRELCLMK[address] [place] [address] Monocytes/100 WBC Auto ([facility]) 5.1 4.3-11.2 % Normal 1 [facility] (97796) Comment: Performed By: #### L200.0010 ####ML - RVMXLQXFRO[address] [place] [address] Neutrophils Auto #/vol 3.50 1.40-6.50 x10(3) Normal [address] [place] [address] ( 50896) Comment: Performed By: #### L200.0010 ####[facility] CNLBXJSQPM[address] [place] [address] Neutrophils/100 WBC Auto 58.1 45.0-73.0 % Normal 02-26 [facility] ( 11833) Comment: Performed By: #### L200.0010 ####[address] [address] Platelet mean volume Auto 9.4 7.5-9.5 fl Normal 02-17 [facility] Entitic volume ([facility]) (81229) Comment: Performed By: #### L200.0010 ####[address] [address] Platelets Auto #/vol 245 150-450 X10(3) Normal 8 [facility] ([facility]) (21644) Comment: Performed By: #### L200.0010 ####[address] [address] RBC Auto #/vol (d) 4.45 3.30-5.00 x10(6) Normal 8 [facility] (82491) Comment: Performed By: #### L200.0010 ####[facility] O[address]FEJECIQH[address] [place] [address] WBC Auto #/vol ([facility]) 6.1 4.5-10.0 x10(3) Normal [address] [place] [address] (58165) Comment: Performed By: #### L200.0010 ####[facility] CJQBCKPIRW[address] [place] [address] amylase on Amylase enzyme act/vol 62 28-100 U/L Normal [address] [place] [address] (94789) Comment: Performed By: #### L100.0005 , L100.0340, L100.0350 ####[facility] KMRVOMRQ[address] [place] [address] us ruq (gb/pancreas) on 2017-12-19 RUQ (GB/PANCREAS) [facility] Normal 0 12-19-2017 [facility]ital [address] [place] [address] ([address]) Patient: MANA EMMANUEL Phone#: : 1990 Age: 27 Gender: F Pt. Type: Out Account: [id number] Location: Ordering: [facility] Exam Date: 12/19/2017/8:15 Family Phys: Charge Code: [id number] Physician: [place] Order #: [id number] DLP Dose#: PROCEDURE: RUQ (GB) ULTRASOUND COMPARISON: [...] Provider Location 02-26-2018 Patient encounter DORIS N.P. Facility:[facility] MUTSCHELKNAUS 07-07-2018 - Patient encounter JOSSE Whitmore omerene 07-07-2018 procedure RANDOLPH HOSKINS MD [facility] JOSSE HOSKINS [facility] (60164) [place] UNKNOWN PROVIDER UNKNOWN PROVIDER UNKNOWN PROVIDER 06-26-2018 - Patient encounter JOSSE [place] omerene 06-26-2018 procedure RANDOLPH HOSKINS MD [facility] (000 00) UNKNOWN PROVIDER UNKNOWN PROVIDER UNKNOWN PROVIDER 05-01-2018 Patient encounter REJI PENG Facility :[facility] procedure 04-11-2018 Patient encounter DORIS N.P. Facility:[facility] procedure MUTSCHELKNAUS 03-03-2018 Patient encounter Abdominal pain DORIS N.P. Facility :[facility] procedure MUTSCHELKNAUS 12-19-2017 - Patient encounter Generalized GATO Abadmel Goodson 12-19-2017 procedure abdominal pain [place] [facility] [place] [facility] [place] ([address]957) UNKNOWN PROVIDER UNKNOWN PROVIDER UNKNOWN PROVIDER Payers Payer Name Policy Number Location RADIOLOGY PACKAGE [facility] ([id number]) SELF PAY INSURANCE [facility] ([id number]) [id number] [facility] ([id number]) [id number] [facility] ([id number]) [id number] [facility] ([id number]) [id number] [facility] ([id number]) [id number] [facility] ([id number]) [id number] [facility] (75948) The following information is from the original [...] BE BASED ON THE PRIMARY CLINICAL RECORDS. [facility] provides no warranty or guarantee of the accuracy or completeness of information in this document. UNRECOGNIZED CONTENT PROVIDED BELOW FOR UNRECOGNIZED SECTION INFORMATION SOURCE DATE CREATED AUTHOR AUTHOR'S ORGANIZATIO N 04/08/2018 [facility] DATE CREATED AUTHOR AUTHOR'S ORGANIZATIO N 05/12/2018 [facility] DATE CREATED AUTHOR AUTHOR'S ORGANIZATIO N 05/22/2018 [facility] DATE CREATED AUTHOR AUTHOR'S ORGANIZATIO N 07/08/2018 [facility]
== END ==
PROVIDERS: PCP Family Medicine; Referring Provider Obstetrics & Gynecology; Visit Provider Obstetrics & Gynecology
DX: O99.019 Anemia complicating pregnancy, unspecified trimester (principal)
CPT/HCPCS: 96365; 96366; J1756; J7050; A4216

== ENCOUNTER → 2019-11-11 11:43 | Outpatient (CLI) | payer SELFPAY ==
[2019-10-26 13:23] VITALS: BMI 32.5
[2019-11-11 11:26] VITALS: BMI 33.3
[2019-11-11 12:16] LABS: Hematocrit 31.6 % (37-47); Hemoglobin 10.3 g/dL (12.0-15.0); Mean Corp Hgb Conc 32.6 g/dL (32-36); Mean Corpuscular Hgb 32.2 pg (27.0-32.0); Mean Corpuscular Volume 98.8 fL (81-99); Mean Platelet Vol. 10.4 fl (6.2-12.0); POSITIVE COUNT YES; POSITIVE MORPHOLOGY YES; Platelet Count 161 K/mm3 (150-450); RBC Distribution Width CV 15.3 % (11.6-14.6); RBC Distribution Width SD 54.3 fl (35.1-43.9); White Blood Count 11.1 K/mm3 (4.4-11.0)
[2019-11-11 12:17] LABS: Differential Indicated MANUAL DIFF
[2019-11-11 12:19] LABS: Protein, Urine (Random) 6.1 mg/dL (<11.9); Protein:Creat Ratio 191 mg/g CRE (0-200)
[2019-11-11 12:28] LABS: ALB/GLOB Ratio 0.8 RATIO (0.9-2.4); AST(SGOT) 11 U/L (15-37); Alanine Aminotransfer ALT/SGPT 12 U/L (13-56); Albumin, Serum 2.9 g/dL (3.2-5.0); Alkaline Phosphatase 68 U/L (45-117); Anion Gap 6 (5-15); BUN 7 mg/dL (7-18); BUN/Creat Ratio 12.9 RATIO (10-20); Chloride 106 mmol/L (98-107); Creatinine, Serum 0.54 mg/dL (0.55-1.02); EST Glomerular Filtration Rate 140 mL/min (>60); Est Glom Filt Rate - Afr Amer 169 mL/min (>60); Globulin 3.6 g/dL (2.2-4.2); Glucose 82 mg/dL (74-106); Potassium 4.1 mmol/L (3.5-5.1); Protein, Total 6.5 g/dL (6.4-8.2); Sodium Level 138 mmol/L (136-145)
[2019-11-11 13:03] LABS: Eosinophil 1 % (0-5); Lymphocyte 19 % (19-41); Metamyelocyte 2 % (0-1); Monocyte 4 % (0-10); Neutrophil-Segmented 74 % (47-70); Platelet Estimate ADEQUATE (ADEQ); Red Cell Morphology NORM C+C NORMAL (NORM C&C); Total Cells Counted 100 (MANUAL DIFF)
[2019-11-11 13:04] LABS: Absolute Neutrophil Count 8.1 X10^3/uL (2.0-7.7)
[2019-11-11] MEDS: 0.9% NaCl Peripheral Flush Adult/Peds IV (13:29)
[2019-11-11] MEDS: 0.9% NaCl IVPB Med Flush (250 mL) 15 ML IV (13:29)
[2019-11-11 13:31] VITALS: BP 129/67; PULSE 109; RESP 16; TEMP 36.6; O2SAT 99; BMI 33.3
[2019-11-11 15:43] VITALS: BP 128/70; TEMP 36.6
[2019-11-12 11:08] LABS: Pathologist Review Reviewed
== END ==
PROVIDERS: Nurse Practitioner Women's Health; PCP Family Medicine; Referring Provider Obstetrics & Gynecology; Visit Provider Obstetrics & Gynecology
DX: O99.019 Anemia complicating pregnancy, unspecified trimester (principal); Z3A.00 Weeks of gestation of pregnancy not specified
CPT/HCPCS: 96365; 96366; 36415; 80053; 82570; 84156; 85025; J1756; J7050; A4216

== ENCOUNTER → 2019-12-11 11:24 | Outpatient (CLI) | payer SELFPAY ==
[2019-12-11 11:14] VITALS: BMI 33.6
[2019-12-11 11:45] LABS: Absolute Lymphocyte Count 1.52 X10^3/uL (0.83-4.51); Absolute Neutrophil Count 6.3 X10^3/uL (2.0-7.7); Basophil# 0.03 X10^3/uL; Basophil% 0.3 % (0-1); Eosinophil# 0.05 X10^3/uL; Eosinophils% 0.6 % (0-5); Hematocrit 33.6 % (37-47); Hemoglobin 11.2 g/dL (12.0-15.0); Lymphocyte # 1.52 X10^3/ul (4.0); Lymphocyte % 17.3 % (19-41); Mean Corp Hgb Conc 33.3 g/dL (32-36); Mean Corpuscular Hgb 32.4 pg (27.0-32.0); Mean Corpuscular Volume 97.1 fL (81-99); Mean Platelet Vol. 10.9 fl (6.2-12.0); Monocyte% 6.8 % (0-10); NRBC Flagged by Analyzer 0 % (0-5); Neutrophil % 71.5 % (47-70); Platelet Count 156 K/mm3 (150-450); RBC Distribution Width SD 52.3 fl (35.1-43.9); Red Blood Count 3.46 M/mm3 (4.2-5.4); White Blood Count 8.8 K/mm3 (4.4-11.0)
== END ==
PROVIDERS: PCP Family Medicine; Referring Provider Obstetrics & Gynecology; Visit Provider Obstetrics & Gynecology
DX: O99.019 Anemia complicating pregnancy, unspecified trimester (principal); Z3A.00 Weeks of gestation of pregnancy not specified
CPT/HCPCS: 36415; 85025

== ENCOUNTER → 2020-01-08 | Outpatient (CLI) | payer SELFPAY ==
[2020-01-08 10:43] VITALS: BMI 33.6
== END | disposition home or self-care (01) ==
LOC: LABSPEC 15:05
PROVIDERS: PCP Family Medicine; Referring Provider Obstetrics & Gynecology; Visit Provider Obstetrics & Gynecology
DX: Z34.80 Encounter for supervision of other normal pregnancy, unspecified trimester (principal)
CPT/HCPCS: 87077; 87081; 87186

== ENCOUNTER → 2020-01-22 17:37 | Outpatient (CLI) | payer SELFPAY ==
[2020-01-22 11:03] VITALS: BMI 33.6
== END ==
PROVIDERS: PCP Family Medicine; Referring Provider Obstetrics & Gynecology; Visit Provider Obstetrics & Gynecology
DX: Z11.59 Encounter for screening for other viral diseases (principal)
CPT/HCPCS: 87635; C9803; U0003

== ENCOUNTER 2020-01-24 08:15 | Inpatient (IN) | payer SELFPAY ==
[2019-07-02 13:02] VITALS: BMI 25.8
[2019-10-08 11:02] VITALS: BP 134/74; PULSE 113; TEMP 36.6; O2SAT 98
[2020-01-22 11:03] VITALS: BMI 33.6
[2020-01-24] VITALS (51 sets, daily range): BP systolic 113–180; BP diastolic 57–90; PULSE 71–218; RESP 16; TEMP 36.8–37.3; O2SAT 97–100; BMI 34.7
[2020-01-24] MEDS: Lactated Ringers 1,000 ML 50 ML IV (08:35)
[2020-01-24] MEDS: Lactated Ringers 500 ML 999 ML IV ×2 (08:40→15:23)
[2020-01-24 08:55] LABS: Absolute Lymphocyte Count 1.37 X10^3/uL (0.83-4.51); Absolute Neutrophil Count 8.4 X10^3/uL (2.0-7.7); Basophil# 0.03 X10^3/uL; Basophil% 0.3 % (0-1); Eosinophil# 0.03 X10^3/uL; Eosinophils% 0.3 % (0-5); Hematocrit 37.5 % (37-47); Hemoglobin 12.7 g/dL (12.0-15.0); Lymphocyte # 1.37 X10^3/ul (4.0); Mean Corp Hgb Conc 33.9 g/dL (32-36); Mean Corpuscular Volume 94.5 fL (81-99); Mean Platelet Vol. 11.9 fl (6.2-12.0); Monocyte# 0.54 X10^3/uL; Monocyte% 5.1 % (0-10); NRBC Flagged by Analyzer 0 % (0-5); Neutrophil # 8.43 X10^3/uL (2.7-7.7); Neutrophil % 80.3 % (47-70); Platelet Count 167 K/mm3 (150-450); RBC Distribution Width CV 13.6 % (11.6-14.6); RBC Distribution Width SD 46.9 fl (35.1-43.9); Red Blood Count 3.97 M/mm3 (4.2-5.4); White Blood Count 10.5 K/mm3 (4.4-11.0)
[2020-01-24] MEDS: fentaNYL-bupivacaine (epidural) 100 ML BAG EPIDURAL ×2 (09:40→14:09)
--- NOTE | 2020-01-24 10:19 | HP.PCM_ITS ---
- Problem List (1) Depression Status: Acute Comment: on Zoloft in the past. asymptomatic. (2) Family history of cleft lip and palate Status: Acute Comment: Both sides. nl anatomy scan (3) GBS (group B Streptococcus carrier), +RV culture, currently Status: Acute Comment: plan PCN in labor (4) H/O section Status: Acute Comment: 71% chance success. plan TOLAC. h/o cs for breech. (5) Status: Acute Qualifiers: Weeks of gestation: 38 weeks Qualified Code(s): Z3A.38 - 38 weeks gestation of Comment: CF carrier, FOB negative. declines genetic and NTD screening. Anatomy US normal (6) Supervision of other normal Status: Acute Comment: PRR NATALI 01/25/20 surprise PC Emersyn Travis (7) White coat syndrome with high blood pressure but without hypertension Status: Acute Comment: have patient lay on exam table for 5 mins before taking blood pressure. nl bps at home. History and Physical Date of Admission: 01/24/20 Intake Vital Signs 01/22/20 BMI 33.6 01/22/20 Height 5 ft 5 in 01/22/20 Weight: 207 lb 01/22/20 BMI 34.4 01/22/20 BP 134/88 H Intake Visit Reasons: 38 WK OB Chief Complaint: est ob Vat Overhauler Required: No Is patient in pain?: No Allergies No Known Allergies Allergy (Verified 01/22/20 10:55) Medications promethazine 12.5 mg tablet 12.5 mg PO Q6H PRN #60 tab 06/17/19 [Rx Confirmed 01/22/20] multivitamin no.47-iron fum 27 mg-folate no.1 1 mg-dha 300 mg capsule 1 cap PO DAILY 07/02/19 [History Confirmed 01/22/20] ondansetron HCl 4 mg tablet 4 mg PO Q4H #60 tab 07/31/19 [Rx Confirmed 01/22/20] blood pressure test kit-medium See Rx Instructions .ROUTE .MEDSUPPLY #1 ea 09/28/19 [Rx Confirmed 01/22/20] famotidine 20 mg tablet 20 mg PO DAILY #30 tab 09/28/19 [Rx Confirmed 01/22/20] Last Menstral Period: 04/20/19 Zika: Zika virus screening: Negative : No PFSH PFSH Medical History Depression (Acute) Acid reflux (Acute) Insomnia (Acute) Surgical History FH: cholecystectomy (Acute) History of tonsillectomy (Resolved) S/P (Resolved) Family History Grandmother Diabetes Breast cancer Grandfather Diabetes Myocardial infarction Cancer Uncle Myocardial infarction Father Diabetes Other Cystic fibrosis Social History (Updated 01/22/20 @ 11:[address] Dara Phillips MD) adopted: No household members: family housing: house number of children: 1 current occupation: homemaker pets and animals: Yes sexually active: Yes Smoking Status: Never smoker second hand exposure: No alcohol intake: current alcohol intake frequency: holidays/special occasions only details: occasionally substance use type: does not use caffeine: No what type of physical activity do you participate in: none seatbelt use: always do you feel safe at home: Yes additional social history: - [place]- [employer] Patient is stay at home mom Pregancy History 2 Elective abortions Hx Para 1 Spontaneous abortions Hx # Term Pregnancies Ectopic pregnancies Hx # Pregnancies Multiple births # of living children Past Pregnancies Del. Date Name GA/Weeks Outcome Route Bth Weight Gen Labor Lgth Anesthesia Del Locatn Provider FOB 12/25/16 Emersyn 39 live - full term 7lbs 4oz Female spinal [facility] Dr. Jay Robles Delivery Date: 12/25/16 On 02/13/18 @ 11:32 [employer] Few weeks of high blood pressure during . Baby breech HPI 38 WK OB: Details: MANA IZQUIERDO is a 29 year old who presents at 39 and 6 in active labor desiring a trial of labor after . Patient is requesting epidural now. She has had bloody discharge with questionable loss of fluid but no obvious rupture of membranes. OB Visit NATALI Calculator Estimated Delivery Date Method Current WG Current Estimate 01/25/20 LMP (Certain) 39w 4d Expected Delivery Route/Plan tolac patient counseled regarding risks/benefits of trial of labor versus repeat . ACOG and uptodate education given to patient. 71 % likelihood of success per calculator TOLAC consent form signed: signed12/10 Labor Preferences- labor support person: Travis pain management options preferred: open to it but prefers minimal intervention, open to touch, massage, talking. cut cord/dad catch: maybe : yes PP control planned: pill discussed possible routes of delivery and associated risks: discussed possible delivery modalities and possible indications for each including R/B/A of , VAVD, and CS. questions answered. special requests: [] Specific Issue/Plans flu vaccine: given tdap vaccine: given rhogam: na LARC form signed: yes movement and labor precautions reviewed. Problem list reviewed and updated with the most current plan of care details and appropriate orders placed. Relevant counseling for the gestational age provided. Continue routine care and follow up unless otherwise noted in visit notes/problem list details Initial Weight: 175 lb Date EGA Weight BP Urine Prot Glucose FHR FuHt Pres Dilation Effaced St Visit Note 07/31/19 14w 4d 183 lb 8 oz (+8 lb 8 oz) 126/78 Negative Negative 145 SM- still nausea- adding zofran 09/28/19 23w 0d 194 lb 4 oz (+19 lb 4 oz) 142/72 Negative Negative 145 SM- no vb lof good fm no regular ctx. 10/15/19 25w 3d 197 lb (+22 lb) 138/86 Negative Negative 150 SM- no vb since evaluation. fu us scheduled SM- no vb since evaluation. fu us scheduled if needed, unclear if still previa 10/26/19 27w 0d 199 lb 8 oz (+24 lb 8 oz) 138/70 Negative Negative 145 28 SM- no vb lof SM- no vb lof, no previa, will not need repeta US. cbc gct discussed anemia treatment. tdap 11/11/19 29w 2d 201 lb 2 oz (+26 lb 2 oz) 138/74 Negative Negative 154 30 MH-No Vb, LOF, CTX. Had headache yesterday that responded to tylenol. Good FM. States home BPs WNL. Pre E labs. BP check with [facility] in 2 days. 11/27/19 31w 4d 202 lb (+27 lb) 138/78 Negative Negative 145 33 SM- no vb lof good fm no regular ctx 12/11/19 33w 4d 204 lb (+29 lb) 132/78 Negative Negative 140 34 SM- no vb lof good fm no regular ctx 12/21/19 35w 0d 206 lb (+31 lb) 114/80 Negative Negative 145 35 Cephalic SM- no vb lof good fm no regular ctx 01/08/20 37w 4d 206 lb (+31 lb) Negative Negative 140 37 Cephalic SM- no vb lof good fm no regular ctx 01/14/20 38w 3d 206 lb 6 oz (+31 lb 6 oz) 138/80 Negative Negative 140 39 Cephalic 0 50 40 -3 GP - no VB, LOF, DFM. Irr egular contractions. Discussed recommendation for delivery by 41 weeks. Still desires TOLAC. 01/22/20 39w 4d 207 lb (+32 lb) 134/88 Negative Negative 140 39 Cephalic 1.5 70 -3 SM- no vb lof good fm no regular SM- no vb lof good fm no regular ctx. discussed IOL if favorable at 41 weeks ACOG First Trimester First Trimester: Discussed Diagnostics Diagnostics Diagnostics Hgb 11.2 g/dL (12.0-15.0) L 12/11/19 Hct 33.6 % (37-47) L 12/11/19 Details: HIV: Urine Culture: Sequential Screen: NIPT Screen: ROS Const Reports system reviewed and no additional complaints, except as documented Card Reports system reviewed and no additional complaints, except as documented Resp Reports system reviewed and no additional complaints, except as documented GI Reports system reviewed and no additional complaints, except as documented, Reports nausea Reports system reviewed and no additional complaints, except as documented Musc Reports system reviewed and no additional complaints, except as documented all other systems reviewed and negative Exam Const General: cooperative, healthy appearing, comfortable [facility] Head: normal to inspection Nose: external nose normal Face and sinus: normal facial exam Neck Neck: normal visual inspection, full ROM, no lymphadenopathy Thyroid: thyroid normal Chest Chest palpation & inspection: normal inspection of the chest Resp Effort & Inspection: normal respiratory effort GI Inspection: normal to inspection Palpation: soft, other (gravid uterus) Other: infant vertex and appropriate size for gestational age Other: Cervical Exam: bloody show Extrem General: pedal edema Results POC Urinalysis 2 Dip (Clinic) Office Urine Glucose Negative Last Edit by Alexandra Bolden on 01/22/20 11:0 0 Office Urine Protein Negative Last Edit by Alexandra Bolden on 01/22/20 11:0 0 Assessment & Plan Assessment & Plan Problems 1. White coat syndrome with high blood pressure but without hypertension R03.0 have patient lay on exam table for 5 mins before taking blood pressure. nl bps at home. 2. H/O section Z98.891 71% chance success. plan TOLAC. h/o cs for breech. 3. Family history of cleft lip and palate Z82.79 Both sides. nl anatomy scan 4. 38 weeks gestation of Z3A.38 CF carrier, FOB negative. declines genetic and NTD screening. Anatomy US normal 5. Depression F32.9 on Zoloft in the past. asymptomatic. 6. Supervision of other normal Z34.80 PRR NATALI 01/25/20 surprise MARTA Wilson Travis Patient presents IAL, plan expectant management for , [pitocin/AROM if needed]. Pain management: [plans epidural]. GBS plan penicillin Management of any complications: [none] I have reviewed the [facility] and made any clinically relevant updates.
[2020-01-24] MEDS: Lactated Ringers 1,000 ML 200 ML IV (13:07)
[2020-01-24] MEDS: Oxytocin 30 units/NS 500 ml 30 UNITS/500 ML IV.SOLN IV (13:15)
--- NOTE | 2020-01-24 15:26 | PCM.OPRPT ---
Problem List (1) Depression Status: Acute Comment: on Zoloft in the past. asymptomatic. (2) Family history of cleft lip and palate Status: Acute Comment: Both sides. nl anatomy scan (3) GBS (group B Streptococcus carrier), +RV culture, currently Status: Acute Comment: plan PCN in labor (4) H/O section Status: Acute Comment: 71% chance success. plan TOLAC. h/o cs for breech. (5) Status: Acute Qualifiers: Weeks of gestation: 38 weeks Qualified Code(s): Z3A.38 - 38 weeks gestation of Comment: CF carrier, FOB negative. declines genetic and NTD screening. Anatomy US normal (6) Supervision of other normal Status: Acute Comment: PRR NATALI 01/25/20 surprise PC Emersyn Travis (7) White coat syndrome with high blood pressure but without hypertension Status: Acute Comment: have patient lay on exam table for 5 mins before taking blood pressure. nl bps at home. Vaginal Delivery Maternal Presentation: Active Labor ial tolac 39w6d Amniotic Fluid Description: Thick meconium Final NATALI: 01/25/20 Gestational age: 40 Weeks and 0 Days Date of Procedure: 01/24/20 Pre-Operative Diagnosis: tolac ial Post-Operative Diagnosis: same Surgery/ Procedure Performed: Spontaneous Vaginal Delivery Type of Anesthesia: Epidural Description of Procedure: Patient began pushing and delivered the head in the CASSIE presentation. The head was delivered atraumatically. The anterior and posterior shoulders delivered without complication followed by the rest of the infant and the infant was placed on the maternal abdomen. Delayed cord clamping was employed for approximately 60 seconds. Cord was clamped and cut and gentle traction was applied to the cord and the placenta delivered spontaneously immediately following it was noted to be intact with three-vessel cord. The perineum and vagina were inspected and noted to have a second-degree perineal laceration repaired in the usual fashion with 3-0 vicryl rapide and then it continued bleeding was noted and upon inspection a small anterior cervical laceration was noted which was repaired with 2 interrupted stitches of 2-0 Vicryl.. EBL was 400 cc. Patient and infant tolerated delivery well. Placental Delivery Description: Spontaneous Placenta Disposition: [facility] Estimated Blood Loss: 400 Infant A gender: Female Episiotomy Description: None Laceration: Perineal Extension/lac, Cervical Extension/lac, 2nd degree Medications given after delivery: IV Pitocin Complications: None Multi Select Codes - Urinary/Genital Urinary/Genital CPT Codes: 02877 delivery [facility]
[2020-01-24] MEDS: Oxytocin 30 units/NS 500 ml 30 UNITS/500 ML IV.SOLN 334 UNITS IV (15:48)
[2020-01-24] MEDS: Methylergonovine 0.2 MG/ML Ampul IM (15:56)
[2020-01-24] MEDS: Ondansetron 4 MG/2 ML Vial IV (17:29)
[2020-01-24] MEDS: 0.9% Saline Lock 10 ML Syringe IV (18:35)
--- NOTE | 2020-01-24 19:03 | NURSING ---
Dr Phillips notified of pt blood pressure running 140/60's with the last 2 being 152/85 and 157/90. Stated she has white coat syndrome and to continue to monitor her pressures. Pt voices that that is true my pressure where always elevated in the office but fine at home
[2020-01-24] MEDS: Naproxen 250 MG Tablet 500 MG PO (20:58)
[2020-01-25 03:44] VITALS: BP 119/68; PULSE 75
[2020-01-25 03:45] VITALS: BP 119/68; PULSE 75; RESP 18; TEMP 36.1
[2020-01-25] MEDS: Acetaminophen 500 MG Tablet 1000 MG PO (04:00)
[2020-01-25 07:47] VITALS: BP 122/76; PULSE 78
[2020-01-25 08:00] VITALS: BP 122/76; PULSE 78; RESP 15; TEMP 36.6
--- NOTE | 2020-01-25 12:12 | DCINST_ITS ---
Discharge Diet: No Restrictions Discharge Activity: Return to Normal Activity, May not drive while taking narcotic pain medications., May Shower May resume sexual activity in: 4-6 weeks Call your doctor if your incision/area has: Continuous Slow Oozing, Sudden Increased Bleeding, Increased Pain/ Swelling, Increased Redness, Foul Smelling Discharge Additional Instructions: If you experience any of the following, contact your healthcare provider. * Bleeding that soaks a pad every hour for 2 hours * Fever 100.4 or higher * Unrelieved incision or abdominal pain * Swelling, redness, discharge or bleeding from your incision or episiotomy site * Your incision begins to separate * Problems urinating (including inability to urinate or burning while urinating). * Visual changes * Severe headache * Flu-like symptoms * Pain or redness in one of both of your breasts * Pain, warmth, tenderness or swelling in your legs, especially the calf area * Frequent nausea and vomiting * Symptoms of depression or anxiety If you experience any of the following, call 911 or go to the nearest Emergency Room. * Chest pain * Problems breathing * Seizure activity * Partial or complete paralysis of a body part, slurred speech, weakness or drooping of the face, or a sudden inability to walk or hold your balance Allergies/Adverse Reactions: Allergies No Known Allergies Allergy (Verified 01/24/20 07:45) Medications to take at Discharge multivitamin no.47-iron fum 27 mg-folate no.1 1 mg-dha 300 mg capsule 1 cap PO DAILY 07/02/19 famotidine 20 mg tablet 20 mg PO DAILY #30 tab 09/28/19 Ferrous Sulfate [Iron] 325 mg PO DAILY 01/24/20 Naproxen [Naprosyn] 250 - 500 mg PO Q8H PRN PRN #30 tab 01/25/20 Oxycodone HCl/Acetaminophen [Percocet 5-325] 1 - 2 tab PO Q6H PRN PRN 7 Days #15 tab 01/25/20 The following prescriptions were given: Naproxen [Naprosyn] 250 - 500 mg PO Q8H PRN PRN #30 tab PRN Reason: MILD PAIN Prescription Printed Oxycodone HCl/Acetaminophen [Percocet 5-325] 1 - 2 tab PO Q6H PRN PRN 7 Days #15 tab PRN Reason: Pain Prescription Printed Please Follow Up With: Dara Phillips MD - [phone] When: Call to make an appointment with your doctor in 6 weeks. If you had elevated Blood pressure or 4th degree laceration you will need to be seen in 2 weeks. Primary Care Physician: Violet Mao MD [Primary Care Provider] - Test Results: Test results from this visit will be discussed in further detail at your follow- up appointment, if applicable.
[2020-01-25 12:16] VITALS: BP 120/58; PULSE 93; RESP 15; TEMP 36.9
[2020-01-25 12:37] VITALS: BP 120/58; PULSE 93
[2020-01-25] MEDS: Naproxen 250 MG Tablet 500 MG PO (13:53)
== END 2020-01-25 14:00 | disposition home or self-care (01) | DRG 768 ==
LOC: WPOUT 08:32 → WP 08:32
PROVIDERS: Admitting Provider Obstetrics & Gynecology; PCP Family Medicine; Visit Provider Obstetrics & Gynecology
DX: O34.219 Maternal care for unspecified type scar from previous cesarean delivery (principal); O99.824 Streptococcus B carrier state complicating childbirth; O71.3 Obstetric laceration of cervix; O70.1 Second degree perineal laceration during delivery; O77.0 Labor and delivery complicated by meconium in amniotic fluid; O99.52 Diseases of the respiratory system complicating childbirth; J45.909 Unspecified asthma, uncomplicated; K21.9 Gastro-esophageal reflux disease without esophagitis; R03.0 Elevated blood-pressure reading, without diagnosis of hypertension; Z3A.39 39 weeks gestation of pregnancy; Z37.0 Single live birth
CPT/HCPCS: 59025; 59050; 85025; 86850; 86900; 86901; 99218; J7120; A4216; G0378; J2405

== ENCOUNTER 2021-04-28 16:04 | Outpatient (CLI) | payer MEDICARE, SELFPAY ==
[2021-04-28 16:26] VITALS: BP 121/75; PULSE 84; RESP 18; TEMP 36.6; O2SAT 98; BMI 27.4
[2021-04-28] MEDS: 0.9% Saline Lock 10 ML Syringe IV (16:30)
[2021-04-28 17:18] VITALS: BP 108/61; PULSE 71; RESP 16; TEMP 37.1; O2SAT 99
[2021-04-28 18:07] VITALS: BP 116/68; PULSE 78; RESP 16; TEMP 37.2; O2SAT 100
== END 2021-04-28 18:18 | disposition home or self-care (01) ==
LOC: MS3OUT 16:04 → MS3 16:05
PROVIDERS: PCP Family Medicine; Referring Provider Nurse Practitioner Adult Health; Visit Provider Nurse Practitioner Adult Health
DX: Z23 Encounter for immunization (principal); U07.1 COVID-19
CPT/HCPCS: J7050; M0245; Q0245; A4216

== ENCOUNTER → 2022-04-06 | Outpatient (CLI) | payer SELFPAY ==
[2022-04-15 09:54] LABS: HPV APTIMA, High Risk Negative (Negative)
== END | disposition home or self-care (01) ==
PROVIDERS: PCP Family Medicine; Referring Provider Obstetrics & Gynecology; Visit Provider Obstetrics & Gynecology
DX: Z12.4 Encounter for screening for malignant neoplasm of cervix (principal)
CPT/HCPCS: 87624; 88175; G0145

== ENCOUNTER → 2023-05-01 | Outpatient (CLI) | payer OTHER, SELFPAY ==
--- NOTE | 2023-05-01 14:23 | US_ITS ---
STUDY: ULTRASOUND OF THE FEMALE PELVIS - COMPLETE REASON FOR EXAM: Female, 32 years old. dysmenorrhea -- PAINFUL HEAVY PERIODS -- MID PELVIC PAIN LMP: 04/24/2023 TECHNIQUE: Transabdominal and Transvaginal TECHNICAL QUALITY: Adequate. COMPARISON: None. FINDINGS: The uterus is retroverted and is in a midline position. The uterus measures 8.6 x 6.8 x 3.7 cm. Normal uterine cervix. The endometrium measures 9 mm in thickness, and is hyperechoic. There is no demonstrated endometrial mass. There is no demonstrated myometrial mass. I.U.D. - The patient does not have an I.U.D. The right ovary is visualized. The right ovary measures 3.8 x 2.9 x 2.5 cm. There is no right ovarian cyst or ovarian mass. There is no visualized right adnexal mass or complex lesion. There is normal arterial and normal venous vascularity. The left ovary is visualized. The left ovary measures 3.2 x 3.0 x 1.9 cm. There is no left ovarian cyst or ovarian mass. There is no visualized left adnexal mass or complex lesion. There is normal arterial and normal venous vascularity. There is no fluid in the cul-de-sac. The pre void volume of the bladder was 957 ml. The post void volume of the bladder was ml. There is a 1.4 cm echogenic focus in the left side of the base of bladder near the ureteral vesicle junction worrisome for mass. Cystoscopy would be useful. Polycystic ovary disease: No. US/Pelvic w/ Transvaginal IMPRESSION: Normal female pelvis. Suspect small bladder mass near the left ureterovesical junction and correlation with cystoscopy would be useful. Electronically Signed: Beka Kendrick MD at 22:43 EST ,
== END | disposition home or self-care (01) ==
PROVIDERS: PCP Family Medicine; Referring Provider Obstetrics & Gynecology; Visit Provider Obstetrics & Gynecology
DX: N94.6 Dysmenorrhea, unspecified (principal); N92.0 Excessive and frequent menstruation with regular cycle
CPT/HCPCS: 76830; 76856

== ENCOUNTER → 2024-02-21 | Outpatient (CLI) | payer OTHER, SELFPAY ==
[2024-02-26 19:07] LABS: PROLACTIN 14.4 ng/mL (4.8-33.4); Testosterone Free 0.4 pg/mL (0.0-4.2)
== END | disposition home or self-care (01) ==
LOC: LAB 10:03
PROVIDERS: PCP Family Medicine; Referring Provider Nurse Practitioner Women's Health; Visit Provider Nurse Practitioner Women's Health
DX: N97.9 Female infertility, unspecified (principal)
CPT/HCPCS: 82627; 84146; 84402; 84443; 82626

== ENCOUNTER → 2024-03-10 | Outpatient (CLI) | payer OTHER, SELFPAY ==
--- OUTSIDE RECORDS SUMMARY | 2024-03-10 11:53 | XMS RPT_ITS | CCD ---
Author Organization [facility] Care Team Providers Care Unhairer Name Role Phone MUTSCHELKNAUS, DORIS N.P. Unavailable Unav ailable MUTSCHELKNAUS, DORIS N.P. Unavailable Unav ailable MUTSCHELKNAUS, DORIS N.P. Unavailable Unav ailable JARADS, REJI N Unavailable Unavailable Jennifer FLORES Admitting Unavailable Jennifer FLORES Primary Care Unavailable Jennifer FLORES Attending Unavailable GATO DICKSON MD Admitting Unavailable GATO DICKSON MD Primary Care Unavailable GATO DICKSON MD Consulting Unavailable GATO DICKSON MD Attending Unavailable PROVIDER, UNKNOWN Consulting Unavailable PROVIDER, UNKNOWN Consulting Unavailable PROVIDER, UNKNOWN Consulting Unavailable SANJUANITA ROMAN, ARTHUR Tipton Unavailable [phone] [place] Unavailable Unavailable PENNY PIERCE Unavailable TATIANA GLYNN Unavailable GASTROENTEROLOGY, GENERAL Unavailable Ayaka GANN MD, ARDEN Alarcon Unavailable Ramona Duran RN Unavailable Unavailable BLANCA ROMAN, CONCEPCIÓN Sanchez Unavailable ALKA GRAHAM, ROBERT Unavailable Unavailable DANY JAMESON Unavailable Unavailable SARAH SOFT SUGAR SUPERVISOR-C, WILBER Otto Unavailable [phone] Jennifer FLORES MD Unavailable Dara Hill Unavailable Unavailable CLARA DICKSON Unavailable Unavailable RANDOLPH BURNS-SINAN, MICHAEL Rodriguez Unavailable Lyubov Dickson Unavailable Unavailable Karlene DICKSON MD Unavailable Irina Artis Unavailable Unavailable Yadira Way Unavailable Unavailable Marga Emmanuel Unavailable Unavailable KRIS CARMONA Unavailable Unavailable Dionne Flores Unavailable Unavailable Romi GRAHAM, Obdulia Unavailable Unavaila ELDA Nazario Unavailable Unavailable Clover GRAHAM, Kassy Unavailable Unavailable COMERCED RAMIREZELLE Unavailable Unavailable Unavailable Unavailable Medications Current Medications Medication Drug Class(es) Dates Sig (Normalized) Sig (Original) azithromycin 250 mg oral tablet (20 sources) Macrolide Antimicrobial Start: 02-01-2024 azithromycin 250 mg tablet ; 2 (two) Tablets on day one then 1 daily for 4 days for 5 days Quantity: 6 {Tablet} Refills: 0 Ordered: 01-Feb-2024 MD ARTHUR GANN Start: 01-Feb-2024 Comments: medication to be dispensed in office Start: 01-15-2023 End: 01-20-2023 azithromycin 250 mg tablet ; 2 (two) Tablets on day one then 1 daily for 4 days for 5 days Quantity: 6 {Tablet} Refills: 0 Ordered: 19-Feb-2023 SHAMAR DICKSON Start: 15-Jan-2023 End: 20-Jan-2023 Status: Inactive Comments: medication to be dispensed in office Start: 01-26-2022 End: 01-31-2022 Azithromycin 250 MG Oral Tab let ; 2 (two) Tablets on day one then 1 daily for 4 days for 5 days Quantity: 6 {Tablet} Refills: 0 Ordered: 02-Feb-2022 MD ARTHUR GANN Start: 26-Jan-2022 End: 31-Jan-2022 Status: Inactive Comments: medication to be dispensed in office Start: 04-25-2021 End: 04-30-2021 Azithromycin 250 MG Oral Tab let ; 2 (two) Tablet on day one, then 1 tablet daily for 4 days for 5 days Quantity: 6 {Tablet} Refills: 0 Ordered: 17-Oct-2021 MD Karlene DICKSON Start: 25-Apr-2021 End: 30-Apr-2021 Status: Inactive Start: 06-03-2020 End: 08-04-2020 Azithromycin 250 MG Oral Tab let ; 2 x 1 then 1 x 4 Tablet daily for 0 days Quantity: 6 {Tablet} Refills: 0 Ordered: 04-Aug-2020 GLADYS Galo Start: 03-Jun-2020 End: 04-Aug-2020 Status: Inactive Comments: take two tablets day one and then one tablet daily for 4 days Comment on above: medication to be dis pensed in office take two tablets day one and then one tablet daily for 4 days sertraline 25 mg oral tablet (12 sources) Serotonin Reuptake Inhibitor Start: 07-09-2023 sertraline 25 mg tablet ; 1 (one) Tablet daily for 30 days Quantity: 30 {Tablet} Refills: 11 Ordered: 09-Jul-2023 SHAMAR DICKSON Start: 09-Jul-2023 Start: 01-01-2023 sertraline 25 mg tablet ; 1 (one) Tablet daily for 30 days Quantity: 30 {Tablet} Refills: 11 Ordered: 01-Jan-2023 SHAMAR DICKSON Start: 01-Jan-2023 Start: 09-30-2018 End: 10-20-2018 take 1 tablet by mouth once daily, then take 0.5 tablet by mouth once daily, then take 0.5 tablet by mouth every other day Sertraline HCl 25 MG Oral Tablet ; 1 (one) Tablet daily for 20 days Quantity: 14 {Tablet} Refills: 0 Ordered: 30-Sep-2018 MD Karlene DICKSON Start: 30-Sep-2018 End: 20-Oct-2018 Status: Inactive Comments: 1 pill daily for 3 days then 1/2 pill daily for 3 days then 1/2 pill every other day Comment on above: 1 pill daily for 3 d ays then 1/2 pill daily for 3 days then 1/2 pill every other day Completed/Discontinued Medications Medication Drug Class(es) Dates Sig (Normalized) Sig (Original) acetaminophen 300 mg / codeine phosphate 30 mg oral tablet (6 sources) Opioid Agonist Start: 06-24-2012 End: 06-29-2012 take 1 tablet by mouth every six hours as needed for cough ACETAMINOPHEN-COD EINE #3, 300-30MG (Oral Tablet) ; 1 (one) Tablet every six hours, as needed for cough for 5 days Quantity: 15 {Tablet} Refills: 0 Ordered: 02-Jul-2012 MD Karlene DICKSON Start: 24-Jun-2012 End: 29-Jun-2012 Status: Inactive Comments: Medication taken as needed. Comment on above: Medication taken as needed. acetaminophen 325 mg / HYDROcodone bitartrate 5 mg oral tablet (6 sources) Opioid Agonist Start: 01-25-2015 End: 02-01-2015 take 1-2 tablets by mouth every four hours as needed HYDROCODONE-ACETA MINOPHEN, 5-325MG (Oral Tablet) ; 1-2 Tablet Tablet every four hours, as needed for 7 days Quantity: 30 {Tablet} Refills: 0 Ordered: 17-May-2015 GLADYS Duran Start: 25-Jan-2015 End: 01-Feb-2015 Status: Inactive Comments: Medication taken as needed. Comment on above: Medication taken as needed. [id number] 200 actuat albuterol 0.09 mg/actuat metered dose inhaler (6 sources) beta2-Adrenergic Agonist Start: 01-01-2023 End: 01-31-2023 albuterol sulfate HFA 90 mcg/actuation aerosol inhaler ; 2 (two) Puff every 4- 6 hours prn wheezing for 30 days Quantity: 1 {Each} Refills: 0 Ordered: 01-Jan-2023 SHAMAR DICKSON Start: 01-Jan-2023 End: 31-Jan-2023 Status: Inactive Comments: Please dispense the most cost-effective albuterol HFA Comment on above: Please dispense the most cost-effective albuterol HFA amoxicillin 500 mg oral capsule (20 sources) Penicillin-class Antibacterial Start: 04-06-2023 End: 04-13-2023 amoxicillin 500 mg capsule ; 1 (one) Capsule three times daily for 7 days Quantity: 21 {Capsule} Refills: 0 Ordered: 23-Apr-2023 MD ARTHUR GANN Start: 06-Apr-2023 End: 13-Apr-2023 Status: Inactive Comments: medication to be dispensed in office Start: 11-12-2022 End: 11-22-2022 amoxicillin 500 mg capsule ; 1 (one) Tablet three times daily for 10 days Quantity: 30 {Capsule} Refills: 0 Ordered: 27-Dec-2022 SHAMAR DICKSON Start: 12-Nov-2022 End: 22-Nov-2022 Status: Inactive Comments: medication to be dispensed in office Start: 02-01-2021 End: 02-08-2021 take 1 capsule by mouth three times daily Amoxicillin 500 MG Oral Capsule ; 1 (one) Capsule three times daily for 7 days Quantity: 21 {Capsule} Refills: 0 Ordered: 13-Mar-2021 MD Karlene DICKSON Start: 01-Feb-2021 End: 08-Feb-2021 Status: Inactive Start: 02-26-2019 End: 03-05-2019 take 1 capsule by mouth three times daily Amoxicillin 500 MG Oral Capsule ; 1 (one) Capsule three times daily for 7 days Quantity: 21 {Capsule} Refills: 0 Ordered: 05-Mar-2019 MD ARTHUR GANN Start: 26-Feb-2019 End: 05-Mar-2019 Status: Inactive Start: 10-05-2016 End: 10-12-2016 take 1 capsule by mouth three times daily Amoxicillin 500 MG Oral Capsule ; 1 (one) Capsule three times daily for 7 days Quantity: 21 {Capsule} Refills: 0 Ordered: 28-Dec-2016 MD ARTHUR GANN Start: 05-Oct-2016 End: 12-Oct-2016 Status: Inactive Comment on above: medication to be dis pensed in office amoxicillin 875 mg / clavulanate 125 mg oral tablet (20 sources) Penicillin-class Antibacterial Start: End: take 1 tablet by mouth twice daily amoxicillin-pot clavulanate 875-125 mg oral tablet ; 1 (one) tablet two times daily for 7 days Quantity: 14 {Tablet} Refills: 0 Ordered: 05-Sep-2022 JOSÉ ANTONIO SMITH Start: 16-Aug-2022 End: 23-Aug-2022 Status: Inactive Start: 02-02-2022 End: 02-09-2022 take 1 tablet by mouth twice daily Amoxicillin-Pot Clavulanate 875-125 MG Oral Tablet ; 1 Tablet two times daily for 7 days Quantity: 14 {Tablet} Refills: 0 Ordered: 04-Apr-2022 MD ARTHUR GANN Start: 02-Feb-2022 End: 09-Feb-2022 Status: Inactive Start: 10-17-2021 End: 10-27-2021 take 1 tablet by mouth twice daily Amoxicillin-Pot Clavulanate 875-125 MG Oral Tablet ; 1 (one) Tablet bid for 10 days Quantity: 20 {Tablet} Refills: 0 Ordered: 27-Oct-2021 MD Jennifer FLORES Start: 17-Oct-2021 End: 27-Oct-2021 Status: Inactive Start: 03-05-2019 End: 03-12-2019 take 1 tablet by mouth twice daily Augmentin 500-125 MG Oral Tablet ; 1 (one) Tablet two times daily for 7 days Quantity: 14 {Tablet} Refills: 0 Ordered: 08-May-2019 MD SANJUANITA ARTHUR Danuta Start: 05-Mar-2019 End: 12-Mar-2019 Status: Inactive Start: 02-09-2014 End: 02-19-2014 take 1 tablet by mouth twice daily AUGMENTIN, 875-125MG (Oral Tablet) ; 1 (one) Tablet bid for 10 days Quantity: 20 {Tablet} Refills: 0 Ordered: 17-May-2014 MD Jennifer FLORES Start: 09-Feb-2014 End: 19-Feb-2014 Status: Inactive amylase [id number] unt / lipase [id number] unt / protease [id number] unt delayed release oral capsule (6 sources) Start: 03-27-2010 End: 12-25-2010 take 8 capsules by mouth three times daily CREON, [id number] (Oral Capsule Delayed Release Particles) ; [address] Part three times daily for 14 days Quantity: 30 {Capsule_DR_Part} Refills: 3 Ordered: 25-Dec-2010 GLADYS Llanos Start: 27-Mar-2010 End: 25-Dec-2010 Status: Inactive benzonatate 200 mg oral capsule (6 sources) Non-narcotic Antitussive Start: 12-06-2014 End: 12-16-2014 take 1 capsule by mouth every eight hours as needed for cough BENZONATATE, 200MG (Oral Capsule) ; 1 (one) Capsule every 8 hours prn cough for 10 days Quantity: 30 {Capsule} Refills: 0 Ordered: 25-Jan-2015 MD Jennifer FLORES Start: 06-Dec-2014 End: 16-Dec-2014 Status: Inactive bifidobacterium animalis [id number] unt / lactobacillus acidophilus [id number] unt oral capsule (6 sources) Probiotic Oral Capsule Status: Inactive calcium polycarbophil 625 mg oral tablet (6 sources) take 2 tablets by mouth once daily FiberCon 625 MG Oral Tablet ; 2 daily (625 MG) Status: Inactive cefprozil 500 mg oral tablet (6 sources) Cephalosporin Antibacterial Start: 05-02-2023 End: 05-12-2023 cefproziL 500 mg tablet ; 1 (one) tablet bid for 10 days Quantity: 20 {Tablet} Refills: 0 Ordered: 02-Jul-2023 MD Jennifer FLORES Start: 02-May-2023 End: 12-May-2023 Status: Inactive cetirizine hydrochloride 10 mg oral tablet (6 sources) Histamine-1 Receptor Antagonist ZyrTEC Allergy 10 MG Oral Tablet ; as needed (10 MG) Status: Inactive Comments: Medication taken as needed. Comment on above: Medication taken as needed. codeine phosphate 2 mg/ml / guaiFENesin 20 mg/ml oral solution (6 sources) Opioid Agonist Start: 12-06-2014 End: 12-11-2014 take 1 [tsp_us] by mouth every four to six hours as needed GUAIFENESIN AC, 100-10MG/5ML (Oral Syrup) ; 1 (one) Teaspoon every four to six hours, as needed for 5 days Quantity: 4 {Ounce} Refills: 0 Ordered: 06-Dec-2014 MD Jennifer FLORES Start: 06-Dec-2014 End: 11-Dec-2014 Status: Inactive Comments: Medication taken as needed. Do not take while driving Comment on above: Medication taken as needed. Do not take while driving dicyclomine hydrochloride 20 mg oral tablet (6 sources) Anticholinergic Start: 2010 End: 12-25-2010 take 1 tablet by mouth every six hours as needed BENTYL, 20MG (Oral Tablet) ; 1 Tablet every six hours, as needed for 0 days Quantity: 30 {Tablet} Refills: 1 Ordered: 25-Dec-2010 GLADYS Llanos Start: 17-Aug-2010 End: 25-Dec-2010 Status: Inactive Comments: Medication taken as needed. Comment on above: Medication taken as needed. doxycycline hyclate 100 mg oral capsule (6 sources) Tetracycline-class Drug Start: 04-23-2023 End: 04-30-2023 doxycycline hyclate 100 mg capsule ; 1 (one) Capsule two times daily with meals for 7 days Quantity: 14 {Capsule} Refills: 0 Ordered: 23-Apr-2023 MD ARTHUR GANN Start: 23-Apr-2023 End: 30-Apr-2023 Status: Inactive Ergocalciferol (6 sources) Provitamin D2 Compound Vitamin D Status: Inactive erythromycin 0.005 mg/mg ophthalmic ointment (6 sources) Macrolide, Macrolide Antimicrobial Start: 11-16-2022 End: 11-23-2022 erythromycin 5 mg/gram (0.5 %) eye ointment ; 1 (one) application(s) two times daily for 7 days Quantity: 1 {Each} Refills: 0 Ordered: 27-Dec-2022 SHAMAR DICKSON Start: 16-Nov-2022 End: 23-Nov-2022 Status: Inactive Ethinyl Estradiol / Ferrous fumarate / Norethindrone (6 sources) Estrogen MINASTRIN 24 FE, 1-20MG-MCG(24) (Oral Tablet Chewable) ; 1 daily (1-20 MG-MCG(24)) Status: Inactive ferrous sulfate 325 mg oral tablet (6 sources) take 1 tablet by mouth once daily Ferrous Sulfate 325 (65 Fe) MG Oral Tablet ; 1 daily (325 (65 Fe) MG) Status: Inactive 24 hr fexofenadine hydrochloride 180 mg / pseudoephedrine hydrochloride 240 mg extended release oral tablet (6 sources) alpha-Adrenergic Agonist, Histamine-1 Receptor Antagonist Start: 02-08-2011 End: 08-09-2011 take 180-240 mg by mouth every twenty-four hours DAVON-D ALLERGY & CONGESTION, 180-240MG (Oral Tablet Extended Release 24 Hour) ; 1 Tablet ER 24HR Daily for 0 days Quantity: 10 {Tablet_ER_24HR} Refills: 2 Ordered: 09-Aug-2011 GLADYS Llanos Start: 08-Feb-2011 End: 09-Aug-2011 Status: Inactive fluticasone propionate 0.05 mg/actuat metered dose nasal spray (6 sources) Corticosteroid Start: 08-16-2022 End: 08-30-2022 Flonase Allergy Relief 50 mcg/actuation intranasal spray, suspension ; 1 (one) spray two times daily for 14 days Quantity: 1 {Each} Refills: 0 Ordered: 05-Sep-2022 JOSÉ ANTONIO SMITH Start: 16-Aug-2022 End: 30-Aug-2022 Status: Inactive 12 hr guaiFENesin 600 mg extended release oral tablet (6 sources) Start: 08-16-2022 End: 08-23-2022 take 1 tablet by mouth twice daily Mucinex 600 mg oral Tablet,Extended Release 12 hr ; 1 (one) tablet two times daily for 7 days Quantity: 14 {Tablet} Refills: 0 Ordered: 05-Sep-2022 JOSÉ ANTONIO SMITH Start: 16-Aug-2022 End: 23-Aug-2022 Status: Inactive 12 hr guaiFENesin 600 mg / pseudoephedrine hydrochloride 60 mg extended release oral tablet (12 sources) alpha-Adrenergic Agonist Start: 02-26-2019 End: 05-08-2019 Mucinex D 60-600 MG Oral Tablet Extended Release 12 Hour ; 1 (one) Tablet two times daily, as needed for 0 days Quantity: 18 {Tablet} Refills: 0 Ordered: 08-May-2019 GLADYS Llanos Start: 26-Feb-2019 End: 08-May-2019 Status: Inactive Comments: Medication taken as needed. Start: 05-25-2013 End: 09-23-2013 MUCINEX D, 120-1200MG (Oral Tablet Extended Release 12 Hour) ; 1 (one) Tablet ER 12HR two times daily, as needed for 7 days Quantity: 14 {Tablet_ER_12HR} Refills: 1 Ordered: 23-Sep-2013 ELDA BACON Start: 25-May-2013 End: 23-Sep-2013 Status: Inactive Comments: Medication taken as needed. Comment on above: Medication taken as needed. homatropine methylbromide 0.3 mg/ml / HYDROcodone bitartrate 1 mg/ml oral solution (6 sources) Opioid Agonist, Cholinergic Muscarinic Agonist Start: 05-25-19 14 End: 09-24-19 14 take 1 [tsp_us] by mouth every four hours as needed HYDROCODONE-HOMATROPI NE, 5-1.5MG/5ML (Oral Syrup) ; 1 (one) tsp at night as needed, may repeat after 4 hours if needed for 0 days Quantity: 4 {oz} Refills: 0 Ordered: 23-Sep-2013 ELDA BACON Start: 25-May-2013 End: 23-Sep-2013 Status: Inactive Comments: Medication taken as needed. DO NOT TAKE WHILE DRIVING Comment on above: Medication taken as needed. DO NOT TAKE WHILE DRIVING levocetirizine dihydrochloride 5 mg oral tablet (6 sources) Histamine-1 Receptor Antagonist Start: 05-10-20 16 End: 02-06-20 17 take 1 tablet by mouth once daily Xyzal 5 MG Oral Tablet ; 1 Tablet daily for 90 days Quantity: 90 {Tablet} Refills: 3 Ordered: 05-Feb-2017 DANY JAMESON Start: 10-May-2016 End: 05-Feb-2017 Status: Inactive Comments: [place] Comment on above: [place]to Multi Vitamin Daily Oral Tablet (6 sources) take 1 tablet by mouth once daily Multi Vitamin Daily Oral Tablet ; 1 (one) daily Status: Inactive naproxen 500 mg oral tablet (6 sources) Nonsteroidal Anti-inflammatory Drug Start: 01-26-20 15 End: 07-24-19 17 take 1 tablet by mouth twice daily Naproxen 500 MG Oral Tablet ; 1 (one) Tablet Tablet two times daily for 14 days Quantity: 28 {Tablet} Refills: 2 Ordered: 23-Jul-2016 GLADYS Duran Start: 25-Jan-2015 End: 23-Jul-2016 Status: Inactive omeprazole 20 mg delayed release oral tablet (6 sources) Proton Pump Inhibitor take 1 tablet by mouth once daily PRILOSEC OTC, 20MG (Oral Tablet Delayed Release) ; 1 Daily (20 MG) Status: Inactive ondansetron 4 mg disintegrating oral tablet (12 sources) Serotonin-3 Receptor Antagonist Start: 03-25-20 18 End: 02-27-20 19 take 1 tablet by mouth every eight hours as needed Zofran ODT 4 MG Oral Tablet Disintegrating ; 1 (one) Tablet Disperse every eight hours, as needed for 0 days Quantity: 12 {Tablet} Refills: 1 Ordered: 25-Mar-2018 GLADYS Llanos Start: 25-Mar-2018 End: 26-Feb-2019 Status: Discontinued Comments: Medication taken as needed. This order discontinued per [facility]. take 1 tablet by imelda th every four hours as needed for nausea Zofran 4 MG Oral Tablet ; 1 q 4 hrs prn nausea (4 MG) Status: Inactive Comment on above: Medication taken as needed. This order discontinued per [facility]. oseltamivir 75 mg oral capsule (6 sources) Neuraminidase Inhibitor Start: 05-08-20 End: 08-11-19 20 take 1 capsule by mouth twice daily Oseltamivir Phosphate 75 MG Oral Capsule ; 1 (one) Capsule two times daily for 0 days Quantity: 10 {Capsule} Refills: 0 Ordered: 11-Aug-2019 GLADYS Duran Start: 08-May-2019 End: 11-Aug-2019 Status: Inactive pantoprazole 40 mg delayed release oral tablet (6 sources) Proton Pump Inhibitor Start: 03-27-20 10 End: 12-26-19 11 take 1 tablet by mouth once daily PROTONIX, 40MG (Oral Tablet Delayed Release) ; 1 (one) Tablet DR daily for 14 days Quantity: 14 {Tablet_DR} Refills: 12 Ordered: 25-Dec-2010 GLADYS Llanos Start: 27-Mar-2010 End: 25-Dec-2010 Status: Inactive predniSONE 10 mg oral tablet (20 sources) Start: 01-03-20 End: 01-15-20 predniSONE 10 mg tablet ; 4 Tablets days 1,2,3; 3 tablets days 4,5,6: 2 tablets days 7,8,9: 1 tablet days 10,11,12 for 12 days Quantity: 30 {Tablet} Refills: 0 Ordered: 15-Jan-2024 JOSÉ ANTONIO SMITH Start: 03-Jan-2024 End: 15-Jan-2024 Status: Inactive Comments: Take with food. Start: 09-05-2022 End: 09-17-2022 predniSONE 10 mg tablet ; 4 Tablets days 1,2,3; 3 tablets days 4,5,6: 2 tablets days 7,8,9: 1 tablet days 10,11,12 for 12 days Quantity: 30 {Tablet} Refills: 0 Ordered: 18-Sep-2022 JOSÉ ANTONIO SMITH Start: 05-Sep-2022 End: 17-Sep-2022 Status: Inactive Comments: Take with food.medication to be dispensed in office Start: 08-04-2020 End: 08-16-2020 predniSONE 10 MG Oral Tablet ; 4 Tablets days 1,2,3; 3 tablets days 4,5,6: 2 tablets days 7,8,9: 1 tablet days 10,11,12 for 12 days Quantity: 30 {Tablet} Refills: 0 Ordered: 14-Sep-2020 MD ARTHUR GNAN Start: 04-Aug-2020 End: 16-Aug-2020 Status: Inactive Comments: Take with food.medication to be dispensed in office Start: 03-29-2020 End: 04-10-2020 take 6 tablets by mouth once daily predniSONE 10 MG Oral Tablet ; 6 Tablets days 1,2,3; 4 tablets days 4,5,6; 2 tablets days 7,8,9; 1 tablet days 10,11,12. for 12 days Quantity: 40 {Tablet} Refills: 0 Ordered: 13-Apr-2020 MD Jennifer FLORES Start: 29-Mar-2020 End: 10-Apr-2020 Status: Inactive Comments: Take with food.medication to be dispensed in office Start: 10-29-2011 End: 06-24-2012 PREDNISONE (UVALDO), 10MG (Oral Tablet) ; 1 Tablet D1-3=4tab D4-6=3tab; D7-9=2tab; N33-90=1ydc for 0 days Quantity: 30 {Tablet} Refills: 0 Ordered: 24-Jun-2012 GLADYS Llanos Start: 29-Oct-2011 End: 24-Jun-2012 Status: Inactive Comments: Days 1,2,3 = 4 tabs daily; Days 4, 5, 6 = 3 tabs daily; Days 7, 8, 9 = 2 tabs daily; Days 10,11,12 = 1 tab dailyMASTS BE Comment on above: Days 1,2,3 = 4 tabs daily; Days 4, 5, 6 = 3 tabs daily; Days 7, 8, 9 = 2 tabs daily; Days 10,11,12 = 1 tab dailyMASTS BE Take with food.medic ation to be dispensed in office Take with food. Formula Oral Tablet (6 sources) take 1 tablet by mouth once daily Formula Oral Tablet ; 1 daily Status: Inactive Vitamin 27 mg iron- 0.8 mg oral tablet (6 sources) Vitamin 27 mg iron- 0.8 mg oral tablet ; 1 daily (27 mg iron- 0.8 mg) Status: Inactive Comments: OTC Comment on above: OTC /Iron Oral Tablet (6 sources) take 1 tablet by mouth once daily /Iron Oral Tablet ; 1 daily Status: Inactive Probiotic 20 billion cell oral capsule (6 sources) take 1 capsule by mouth once daily Probiotic 20 billion cell oral capsule ; 1 daily (20 billion ce) Status: Inactive Comments: OTC take 1 capsule by mouth once ramos ly Probiotic 20 billion cell oral capsule ; 1 daily (20 billion ce) Comments: OTC Comment on above: OTC promethazine hydrochloride 25 mg oral tablet (12 sources) Phenothiazine Start: 03-24-2011 End: 08-09-2011 take 1 tablet by mouth every six hours for nausea PROMETHAZINE HCL, 25MG (Oral Tablet) ; 1 (one) Tablet every six hours as need for nausea for 3 days Quantity: 12 {Tablet} Refills: 1 Ordered: 09-Aug-2011 GLADYS Llanos Start: 24-Mar-2011 End: 09-Aug-2011 Status: Inactive take 1 tablet by imelda th every six hours as needed for nausea Phenergan 12.5 MG Oral Tablet ; 1 q6 hrs prn nausea (12.5 MG) Status: Inactive Comments: Comment on above: traZODone hydrochloride 50 mg oral tablet (6 sources) Serotonin Reuptake Inhibitor Start: 07-30-19 End: 05-08-20 traZODone HCl 50 MG Oral Tablet ; 1/2-1 Tablet Tablet 45 min before bed for 30 days Quantity: 30 {Tablet} Refills: 2 Ordered: 08-May-2019 GLADYS Llanos Start: 29-Jul-2018 End: 08-May-2019 Status: Inactive triamcinolone acetonide 5 mg/ml topical cream (6 sources) Corticosteroid Start: 03-13-20 End: 10-18-19 Triamcinolone Acetonide 0.5 % External Cream ; 1 (one) Application bid to affected areas for 10 days Quantity: 80 {Gram} Refills: 2 Ordered: 17-Oct-2021 GLADYS Galo Start: 13-Mar-2021 End: 17-Oct-2021 Status: Inactive Zeke-Fit Left Wrist Splint Miscellaneous (6 sources) Start: 12-23-19 End: 03-11-20 20 Zeke-Fit Left Wrist Splint Miscellaneous ; 1 (one) Misc daily for 90 days Quantity: 1 {Each} Refills: 0 Ordered: 11-Mar-2020 GLADYS Llanos Start: 23-Dec-2019 End: 11-Mar-2020 Status: Inactive zolpidem tartrate 5 mg oral tablet (6 sources) gamma-Aminobutyric Acid-ergic Agonist Start: 06-07-19 12 End: 09-05-19 12 take 1 tablet by mouth at bedtime AMBIEN, 5MG (Oral Tablet) ; 1 Tablet at bedtime for 90 days Quantity: 90 {Tablet} Refills: 0 Ordered: 07-Jun-2011 MD ARDEN GANN Start: 07-Jun-2011 End: 05-Sep-2011 Status: Inactive Comments: rx to [facility] Comment on above: rx to [facility] Problems Active Problems Problem Classification Problem Date Documented Da te Episodic/Chronic Abdominal pain (20 sources) Abdominal pain; Translations: [Generalized abdominal pain] Onset: 03-03-2018 05-27-2018 Episodic Acute bronchitis (12 sources) Acute bronchitis 08-09-2011 Episodic Administrative/social admission (20 sources) Patient encounter status; Translations: [Counseling, unspecified] 01-15-2023 Episodic Allergic reactions (20 sources) Contact dermatitis due to plants; Translations: [Unspecified contact dermatitis due to plants, except food] 09-05-2022 Episodic Asthma (20 sources) Exacerbation of intermittent asthma; Translations: [Mild intermittent asthma with (acute) exacerbation] 01-15-2023 Chronic Chronic obstructive pulmonary disease and bronchiectasis (20 sources) Bronchitis; Translations: [Bronchitis, not specified as acute or chronic] 01-15-2023 Episodic Gastrointestinal hemorrhage (6 sources) Rectal hemorrhage; Translations: [Hemorrhage of anus and rectum] 02-05-2017 Episodic Hemorrhoids (6 sources) Prolapsed hemorrhoids; Translations: [Other hemorrhoids] 08-11-2019 Episodic Immunizations and screening for infectious disease (20 sources) Needs influenza immunization; Translations: [Encounter for immunization] 05-25-2019 Episodic Inflammation; infection of eye (except that caused by tuberculosis or sexually transmitteddisease) (6 sources) Acute conjunctivitis of right eye; Translations: [Unspecified acute conjunctivitis, right eye] 11-16-2022 Episodic Influenza (6 sources) Influenza due to Influenza A virus; Translations: [Influenza due to other identified influenza virus with other respiratory manifestations] 05-08-2019 Episodic Intestinal infection (12 sources) Viral gastroenteritis; Translations: [Viral intestinal infection, unspecified] 03-25-2018 Episodic Malaise and fatigue (6 sources) Fatigue; Translations: [Other fatigue] 07-24-2022 Episodic Miscellaneous mental health disorders (18 sources) depression; Translations: [ depression] 09-14-2020 Episodic Mood disorders (20 sources) Depressive disorder; Translations: [Depressive disorder, not elsewhere classified] 01-15-2023 Chronic Comment on above: does not want to com e off anytime soon. Nausea and vomiting (6 sources) Nausea; Translations: [Nausea] 01-07-2018 Episodic Noninfectious gastroenteritis (6 sources) Other and unspecified noninfectious gastroenteritis and colitis 03-24-2011 Episodic Other connective tissue disease (6 sources) Medial epicondylitis of right humerus; Translations: [Medial epicondylitis, right elbow] 08-04-2020 Episodic Other disorders of stomach and duodenum (6 sources) Indigestion; Translations: [Functional dyspepsia] 03-27-2010 Episodic Other ear and sense organ disorders (10 sources) Bilateral earache; Translations: [Otalgia, bilateral] 05-02-2023 Episodic Other lower respiratory disease (18 sources) Cough; Translations: [Cough] 04-25-2021 Episodic Other nervous system disorders (6 sources) Carpal tunnel syndrome of left wrist; Translations: [Carpal tunnel syndrome, left upper limb] 12-23-2019 Chronic Other nervous system disorders (6 sources) Carpal tunnel syndrome of right wrist; Translations: [Carpal tunnel syndrome, right upper limb] 12-23-2019 Chronic Other non-traumatic joint disorders (6 sources) Pain in right knee; Translations: [Pain in joint, lower leg] 08-04-2020 Episodic Other skin disorders (12 sources) Eruption; Translations: [Rash and other nonspecific skin eruption] 04-15-2020 Episodic Other upper respiratory disease (20 sources) Allergic rhinitis, cause unspecified 10-05-2016 Chronic Other upper respiratory disease (20 sources) Allergic rhinitis due to pollen; Translations: [Allergic rhinitis due to pollen] 05-21-2012 Chronic Other upper respiratory infections (20 sources) Chronic sinusitis; Translations: [Chronic sinusitis, unspecified] 01-15-2023 Chronic Other upper respiratory infections (20 sources) Acute bacterial sinusitis; Translations: [Acute sinusitis, unspecified] 05-02-2023 Episodic Otitis media and related conditions (12 sources) Otitis media of left ear; Translations: [Otitis media, unspecified, left ear] 11-12-2022 Episodic Residual codes; unclassified (20 sources) Insomnia; Translations: [Insomnia, unspecified] 01-15-2023 Episodic Residual codes; unclassified (6 sources) Gestation period, 21 weeks; Translations: [21 weeks gestation of ] 09-21-2019 Episodic Spondylosis; intervertebral disc disorders; other back problems (12 sources) Backache; Translations: [Dorsalgia, unspecified] 01-28-2015 Episodic Unclassified (1 source) Unknown / UNK(Unknown) Onset: 03-03-2018 Past or Other Problems Problem Classification Problem Date Documented Da te Episodic/Chronic Asthma (6 sources) Asthma 10-05-2016 Headache; including migraine (6 sources) Headache; including migraine 08-16-2022 Mood disorders (20 sources) Mood disorders 01-01-2023 Unclassified (6 sources) !Patient notification of lab results - Dr. Flores. The test(s) that you had done were/was blood work. The results of your testing were normal . You should call our office if you have any questions (If you would like to see your lab or test results, please sign up for our patient portal so you can view these online from your computer, tablet, or smartphone. If we don't already have your email address, for security reasons we require that to be given to our assayer in person. Once we have your email address, we can send you simple instructions to create an account. Then you can access lab and test results as well as summaries of your visits online. The site is secure so no one else will see your health information. You can also request appointments and refills and send medical messages from the portal. We are excited to have this new technology and hope you will try it out.). 05-06-2023 Unclassified (6 sources) Ear pain - Note for Ear pain : Seen 04/16 by [facility] for sinobronchitis. RX amoxicillin for 7 days. Had ear pain at the time. No relief. Given doxycycline rx x2 and each time stops medication, ear pain returns. Has been off meds for 2-3 days. Ear pain increasing and feels chest congestion. Slight cough, nonproductive. 05-02-2023 Unclassified (6 sources) Cough - The onset of the cough has been acute. The cough is characterized as moist. The symptoms have been associated with body aches, headache, runny nose and sore throat, while the symptoms have not been associated with fever. Note for Cough : both ears are painful and chest feels tight. Symptoms started 2 weeks ago and have gotten worse. 04-06-2023 Unclassified (6 sources) Sinusitis - Note for Sinusitis : RN, cough, stuffy head, green snot, ST. Gradual onset, worse yesterday. Children have similar symptoms. Little relief w/ Mucinex. 01-15-2023 Unclassified (4 sources) [ADDITIONAL REASON] Wheezing - Note for Wheezing : Pt uses an inhaler for the wheezing as needed 01-01-2023 Unclassified (6 sources) Sore throat - The sore throat has been occurring for 4 days. The symptoms have been associated with chills, ear pain, fever and swelling of neck glands, while the symptoms have not been associated with cough, runny nose or sinus pain. Note for Sore throat : Also has fatigue and body aches. 11-12-2022 Unclassified (6 sources) Rash - The onset of the rash has been acute and has been occurring for 3 days. The patient was possibly exposed while other: in head. It spread to the neck and the upper extremity. There has been associated itching. 09-05-2022 Unclassified (6 sources) !Patient notification of lab results - Dr. Dickson. Note for !Patient notification of lab results : Mana, your labs looked great. So no obvious reason with those for your fatigue. So I would recommend that next step would be to experiment with the two meds you are on that can both cause fatigue. I assume you may have tried off the Zyrtec for a few days already to see how that worked. If that didn't work then let me know if you want to try to switch your sertraline to something else. I think it would be worth a try. 07-25-2022 Unclassified (6 sources) Fatigue - Symptoms include fatigue, weakness, poor sleep and myalgias (Muscles feel heavy), while symptoms do not include anxiety or depressed mood. Note for Fatigue : No days of crying. Has energy. Would like Blood Work 07-24-2022 Unclassified (6 sources) Cough - Note for Cough : Pt started 3 days ago with body aches, fatigue, fever, weakness, headache and cough. She also has a little sore throat. No sinus pressure or runny nose. She took 2 covid tests that were negative. She is feeling better now. She did have an asthma attack the day before symptoms started. 01-26-2022 Unclassified (6 sources) Cough - The onset of the cough has been acute and has been occurring for 10 days. The symptoms have been associated with runny nose (green drainage) and sore throat, while the symptoms have not been associated with headache. Note for Cough : Pt does have seasonal allergies. She is also having knee surgery in 2 weeks. 10-17-2021 Unclassified (6 sources) Cough - The onset of the cough has been acute and has been occurring for 6 days ( tested + for Covid, assumes she has same diagnosis.). Note for Cough : Sinus congestion, drainage. Productive cough - green phlegm. Low grade fever few days ago. 04-24-2021 Unclassified (6 sources) Depressive Disorders - The last clinic visit was 6 month(s) ago. Note for Depressive disorders : feeling good. 01-27-2021 Unclassified (3 sources) Arm pain - The onset of the arm pain has been acute and has been occurring for 3 weeks. Note for Arm pain : Pain is located in her right elbow area and then her forearm and had feel numb and tingle. No injury. 08-04-2020 Unclassified (3 sources) [ADDITIONAL REASON] Leg pain - The onset of the leg pain has been acute and has been occurring for 5 days. The leg pain involves the right leg. Note for Leg pain : Pt was walking and started having pain and a popping feeling in her right knee. Pain is mostly behind her knee. She is wearing a brace and has to limp. Her right calf is also starting to hurt. 08-04-2020 Unclassified (6 sources) Rash - The onset of the rash has been sudden. The rash is characterized as red and raised above the skin. Note for Rash : Was seen here 3 weeks ago and was given Prednisone. Rash went away and came back 3 days after stopping Prednisone. Now has rash on left foot, left arm and up into left armpit. 04-15-2020 Unclassified (6 sources) Rash - The onset of the rash has been acute and has been occurring in a persistent pattern for 2 weeks. The course has been increasing. The rash is characterized as red and raised above the skin. The rash was first seen on the lower extremity (top of left foot). It spread to the upper extremity (hands) and the lower extremity (right foot). There has been associated itching. 03-29-2020 Unclassified (3 sources) [ADDITIONAL REASON] Immunization - Immunizations discussed with patient/ parent: yes. Influenza immunization was given. An immunization information sheet was provided. 03-11-2020 Unclassified (6 sources) Carpal Tunnel Syndrome - This occurs in both wrists. The patient is right hand dominant. Symptoms include hand tingling, hand numbness and hand weakness. The pain radiates to the right forearm. The patient describes the pain as sharp and dull. Onset was 1 month(s) ago. Note for Carpal tunnel syndrome : Pt is 35 weeks gestation of . 12-23-2019 Unclassified (6 sources) Asthma, Follow-up - The patient's long-term asthma pattern may be classified as intermittent. Onset of symptoms was 2 day(s) ago. Onset followed an environmental change (sitting at a camp fire). Note for Follow-up for asthma : pt has hx of asthma. Has used Albuterol and proair in the past. Nothing recent. Pt is 22 weeks . Here for exam. 09-21-2019 Unclassified (6 sources) Rectal Pain - Note for Anal pain : Had very hard bowel movement last night. Now feels like intestine is outside rectum. Concerned about prolapse. Denies bleeding with bowel movement. Is 16 weeks LMP 04/20/2019 and EDC 01/23/2020. Seeing Dr. Fenton in [place] 08-11-2019 Unclassified (15 sources) Immunization - Immunizations discussed with patient/ parent: yes. Influenza immunization was given. An immunization information sheet was provided. 05-25-2019 Unclassified (6 sources) Sore throat - The onset of the sore throat has been acute and has been occurring in a persistent pattern for 3 days. The symptoms have been associated with chills, cough, fever and sinus pain. 05-08-2019 Unclassified (6 sources) Runny Nose.. - Symptoms include nasal drainage, sore throat and cough. Onset was 4 day(s) ago. 02-26-2019 Unclassified (4 sources) [ADDITIONAL REASON] Abdominal pain - Note for Abdominal pain : Intermittant, sharp abdominal pain. Lasts few seconds. Does not associate with eating. Had some constipation, releif w/ OTC stool softner. Occasional nausea, relieved by zofran. 02-11-2018 Unclassified (4 sources) Nausea - Note for Nausea : Almost constant, worse after eating. Denies abdominal pain. No constipation or diarrhea. 01-07-2018 Unclassified (6 sources) !Patient notification of lab results - [facility]. Note for !Patient notification of lab results : Mana, your labs and ultrasound all looked good. Since I am not sure what is causing your discomfort, if you are still having it I would like for you to see a machine try out setter. If you would like to do that, please call us and give is the OK to set that up for you.Let us know if you have any questions. 12-27-2017 Unclassified (6 sources) !Patient notification of lab results - [facility]. Note for !Patient notification of lab results : Mana, your labs look normal. We will let you know when we get your ultrasound results back. 12-13-2017 Unclassified (6 sources) Abdominal pain - The abdominal pain has been occurring for 10 days. The abdominal pain is described as being located in the periumbilical area (radiates through entire abdomen). The symptoms have been associated with bloating and nausea. Note for Abdominal pain : Found that she had hiatal hernia 02/2017. Has had colonoscopy and EGD. 12-11-2017 Unclassified (6 sources) Bloody stools - The bloody stools have been occurring in an intermittent pattern for 3 weeks. The bloody stools are characterized as blood mixed in stools (bright blood noted on stool and toilet tissue.). Note for Bloody stools : Using Preperation H twice daily. 02-05-2017 Unclassified (6 sources) Nausea - Symptoms include nausea and abdominal pain. Symptom onset was 5 day(s) ago. The patient describes this as worsening. Associated symptoms include diarrhea (with mucous) and headache. Note for Nausea : LMP 02/26/2016 EDC 12/29/2016 Seeing [facility] 07-23-2016 Unclassified (6 sources) Back Pain - Note for Back pain : Is feeling better. Less pain 01-28-2015 Unclassified (6 sources) Back Pain - Symptoms are located in the midline lower back. The pain radiates to the shoulder and arm (right). Onset was 1 day(s) ago. Note for Back pain : Right hand feels like its sleeping. 01-25-2015 Unclassified (6 sources) Sinusitis - The onset of the sinusitis has been acute and has been occurring in a persistent pattern for 1 week. There has been associated cough, nasal stuffiness, runny nose and sore throat. Note for Sinusitis : pt exposed to strep at work place. Here for exam. 12-06-2014 Unclassified (6 sources) Sinus pain - The onset of the sinus pain has been acute and has been occurring for 3 days. It is characterized as a pressure sensation. There has been associated cough (dry), runny nose and sore throat. Note for Sinus pain : Here for exam. 02-09-2014 Unclassified (6 sources) cough - The cough has been occurring for 1 week. The cough is characterized as productive of purulent sputum. The symptoms have been associated with hoarseness, runny nose (green) and sore throat, while the symptoms have not been associated with chest pain (some tightness) or dyspnea. 09-23-2013 Unclassified (6 sources) INJECTION - medication name(s): gardasil. 07-07-2013 Unclassified (6 sources) cough - The onset of the cough has been acute and has been occurring in a persistent pattern for 2 weeks (worse x 2 days.). The course has been increasing. The symptoms have been associated with runny nose and sore throat. Note for cough : . 05-25-2013 Unclassified (20 sources) Allergy shot - The patient was give the allergy desensitization injection in the left shoulder. 04-08-2013 Unclassified (20 sources) INJECTION - The patient was give the allergy desensitization injection in the right shoulder. 04-02-2013 Unclassified (20 sources) Allergy shot - The patient was give the allergy desensitization injection in the right shoulder. 03-11-2013 Unclassified (4 sources) [ADDITIONAL REASON] INJECTION - medication name(s): Gardasil. Note for INJECTION : Pt brought own med in. 03-04-2013 Unclassified (20 sources) INJECTION - The patient was give the allergy desensitization injection in the left shoulder. 02-18-2013 Unclassified (6 sources) Allergy shot - Note for Allergy shot : right arm 02-11-2013 Unclassified (6 sources) Allergy shot - The patient was given kenalog in the left shoulder (upper arm, SQ). 01-14-2013 Unclassified (4 sources) [ADDITIONAL REASON] Immunization - Gardasil was given. An immunization information sheet was provided. 12-31-2012 Unclassified (4 sources) cough - The onset of the cough has been acute and has been occurring in a persistent pattern for 4 days. The cough is characterized as dry. The symptoms have been associated with runny nose and sore throat. 06-24-2012 Unclassified (6 sources) [ADDITIONAL REASON] Allergy shot - The patient was give the allergy desensitization injection in the right shoulder. 06-24-2012 Unclassified (6 sources) cough - The onset of the cough has been acute and has been occurring for 1 week. The course has been increasing. The symptoms have been associated with sore throat. Note for cough : . 08-09-2011 Unclassified (6 sources) Abdominal pain - The abdominal pain has been occurring for 4 days. The abdominal pain is described as sharp pain and cramping. The abdominal pain is described as being located in the entire abdomen. The symptoms have been associated with diarrhea and nausea, while the symptoms have not been associated with vomiting. 03-24-2011 Unclassified (6 sources) cough - The onset of the cough has been acute and has been occurring for 4 days. The cough is characterized as dry. The symptoms have been associated with sore throat. Note for cough : . 02-08-2011 Unclassified (6 sources) Rash - The onset of the rash has been acute and has been occurring for 3 weeks. The rash is characterized as red. The rash was first seen on the upper extremity (shoulders). Note for Rash : . 12-25-2010 Unclassified (6 sources) Patient notification of lab results - Dr. Gann. The test(s) that you had done were/was a HIDA scan. The results of your testing were normal Please note that we have included copies of your results. 05-16-2010 Unclassified (6 sources) Patient notification of lab results - Dr. Gann. The test(s) that you had done were/was a Gallbladder uLTRASOUND. The results of your testing were normal 04-24-2010 Unclassified (6 sources) Patient notification of lab results - Dr. Gann. The test(s) that you had done were/was a celiac disease blood tests were normal. . Please call our office to schedule an appointment for additional testing (Should schedule recheck Gallbladder Ultrasound and HIDA scan like you had in the past. If they are still negative, schedule referral to machine try out setter.). 04-21-2010 Unclassified (6 sources) Patient notification of lab results - Dr. Gann. The test(s) that you had done were/was blood work. The results of your testing were normal for you and any medical condition(s) that you may have. Please continue your current medication(s) and therapy (Remainder of tests should be back later i n week.) and note that we have included copies of your results. 04-18-2010 Unclassified (6 sources) Routine Check - Note for Routine Check : stomach 03-27-2010 Unclassified (2 sources) Abdominal pain - Note for Abdominal pain : Intermittant, sharp abdominal pain. Lasts few seconds. Does not associate with eating. Had some constipation, releif w/ OTC stool softner. Occasional nausea, relieved by zofran. 02-11-2018 Unclassified (2 sources) [ADDITIONAL REASON] cough - The onset of the cough has been acute and has been occurring in a persistent pattern for 4 days. The cough is characterized as dry. The symptoms have been associated with runny nose and sore throat. 06-24-2012 Unclassified (4 sources) Rash - The onset of the rash has been sudden and has been occurring for 1 week. The course has been increasing. The rash is characterized as red, weeping and raised above the skin. The rash was first seen on the lower extremity. It spread to the upper extremity and the lower extremity. There has been associated itching. 01-03-2024 Unclassified (2 sources) Wheezing - Note for Wheezing : Pt uses an inhaler for the wheezing as needed 01-01-2023 Unclassified (3 sources) Leg pain - The onset of the leg pain has been acute and has been occurring for 5 days. The leg pain involves the right leg. Note for Leg pain : Pt was walking and started having pain and a popping feeling in her right knee. Pain is mostly behind her knee. She is wearing a brace and has to limp. Her right calf is also starting to hurt. 08-04-2020 Unclassified (3 sources) [ADDITIONAL REASON] Arm pain - The onset of the arm pain has been acute and has been occurring for 3 weeks. Note for Arm pain : Pain is located in her right elbow area and then her forearm and had feel numb and tingle. No injury. 08-04-2020 Unclassified (2 sources) Immunization - Gardasil was given. An immunization information sheet was provided. 12-31-2012 Unclassified (2 sources) [ADDITIONAL REASON] Poison Stacy - Note for Rash : Pt finished TDP yesterday. This am noted reoccurrence right arm (antecubital area). 01-15-2024 Unclassified (2 sources) [ADDITIONAL REASON] Nausea - Note for Nausea : Almost constant, worse after eating. Denies abdominal pain. No constipation or diarrhea. 01-07-2018 Unclassified (2 sources) INJECTION - medication name(s): Gardasil. Note for INJECTION : Pt brought own med in. 03-04-2013 Unclassified (2 sources) [ADDITIONAL REASON] Allergy shot - The patient was give the allergy desensitization injection in the left shoulder. 03-04-2013 Unclassified (1 source) Cough - The onset of the cough has been acute and has been occurring in a persistent pattern for 1 week. The cough is characterized as moist. The symptoms have been associated with body aches and sore throat. 02-01-2024 Results Test Name Value Interpretation Reference Range Facility CBC + DIFFon 05-03-2023 Basophils/100 WBC (Bld) 1.0 % Normal 0.0 - 2.0 [facility] Comment on above: Performed By: #### 2 [id number] #### [facility],[address] [place], [place] [id number] CBC + DIFF Normal [facility] Comment on above: Result Comment: CBC- COMPLETE BLOOD COUNT Performed By: #### 2 [id number] #### [address] [address] CELL COUNT 100 Normal [facility] Comment on above: Performed By: #### 2 [id number] #### [facility],[address] [place] [id number] EO 3.0 % Normal 0.0 - 4.0 [facility] Comment on above: Performed By: #### 2 [id number] #### [facility],[address] [place] [address] Erythrocyte distribution width (RBC) [Ratio] 12.8 % Normal 12.0 - 15.6 [facility] Comment on above: Performed By: #### 2 [id number] #### [facility],[address] [place] [address] Hematocrit (Bld) [Volume fraction] 39.8 % Normal 34.0 - 46.0 [facility] Comment on above: Performed By: #### 2 [id number] #### [facility],[address] [place] [address] Hemoglobin (Bld) [Mass/Vol] 13.3 g/dL Normal 12.0 - 16.0 [facility] Comment on above: Performed By: #### 2 [id number] #### [facility],[address] [place] [address] Lymphocytes/100 WBC (Bld) 36 % Normal 20 - 40 [facility] Comment on above: Performed By: #### 2 [id number] #### [facility],[address] [place] [address] MANUAL DIFF SEE BELOW Normal [facility] Comment on above: Performed By: #### 2 [id number] #### [facility],[address] [place], [place] [id number] MCH (RBC) [Entitic mass] 30 pg Normal 27 - 33 [facility] Comment on above: Performed By: #### 2 [id number] #### [facility],[address] [place], [place] [id number] MCHC 34 X10 3 Normal 32 - 36 [facility] Comment on above: Performed By: #### 2 [id number] #### [facility],[address] [place], [place] [id number] MCV (RBC) [Entitic vol] 88 fL Normal 80 - 99 [facility] Comment on above: Performed By: #### 2 [id number] #### [facility],[address] [place] [id number] MONOS 6 % Normal 0 - 8 [facility] Comment on above: Performed By: #### 2 [id number] #### [facility],[address] [place] [id number] Morphology Duc (Bld) [Interp] SEE BELOW Normal [facility] Comment on above: Performed By: #### 2 [id number] #### [facility],[address] [place] [id number] PLATELET 269 [id number] Normal 150 - 450 [facility] Comment on above: Performed By: #### 2 [id number] #### [facility],[address] [place] [id number] Platelet mean volume (Bld) [Entitic vol] 9.2 fL Normal 6.6 - 10.5 [facility] Comment on above: Result Comment: AUTO MATED DIFFERENTIAL Performed By: #### 2 [id number] #### [facility],[address] [place] [address] 20221 RBC 4.52 x 10EE6/UL Normal 4.10 - 5.30 [facility] Comment on above: Performed By: #### 2 [id number] #### [facility],[address] [place] [address] 67043 SEGS 54 % Normal 50 - 70 [facility] Comment on above: Performed By: #### 2 [id number] #### [facility],[address] [place] [address] 13463 WBC 7.6 x 10EE3/UL Normal 4.5 - 10.8 [facility] Comment on above: Performed By: #### 2 72982 #### [facility],[address] [place] [address] 45848 Other FEW GIANT PLATELETS Normal [facility] Comment on above: Result Comment: {CD] Performed By: #### 2 [id number] #### [facility],[address] [place] [address] Laboratory - Hematology and Cell countson 05-02-2023 Basophils/100 WBC (Bld) 1.0 % Normal 0.0 - 2.0 % [facility], [facility].; [email or web address] Erythrocyte distribution width (RBC) [Ratio] 12.8 % Normal 12.0 - 15.6 % [facility], [facility].; [place] [facility], Inc. Hematocrit (Bld) [Volume fraction] 39.8 % Normal 34.0 - 46.0 % [facility], Inc.; [facility] Hemoglobin (Bld) [Mass/Vol] 13.3 g/dL Normal 12.0 - 16.0 g/dL [facility], [facility].; [place] [employer] [facility], [facility] Lymphocytes/100 WBC (Bld) 36 % Normal 20 - 40 % [facility], [facility].; [email or web address] [place] - [facility], [facility] MCH (RBC) [Entitic mass] 30 pg Normal 27 - 33 pg [facility], [employer] [place] [facility], [facility] MCHC (RBC) [Mass/Vol] 34 {X10_3} Normal 32 - 36 {X10_3} [facility], [facility].; [employer] - [facility], [facility] MCV (RBC) [Entitic vol] 88 fL Normal 80 - 99 fL [facility], [facility].; [employer] - [facility] Morphology Duc (Bld) [Interp] SEE BELOW Normal [facility].; [employer] - [facility], Inc[facility] Platelet mean volume (Bld) [Entitic vol] 9.2 fL Normal 6.6 - 10.5 fL [facility], [facility].; [employer] - [facility] Platelets (Bld) [#/Vol] 269 {x10EE3/UL} Normal 150 - 450 {x10EE3/UL} [facility], [facility].; [employer] [facility] RBC (Bld) [#/Vol] 4.52 {x_10EE6/UL} Normal 4.10 - 5.30 {x_10EE6/UL} [facility], [employer].; [facility], [employer]. WBC (Bld) [#/Vol] 7.6 {x_10EE3/UL} Normal 4.5 - 10.8 {x_10EE3/UL} [facility], [employer].; [facility], [employer]. No Panel Informationon 05-02 CBC + DIFF Normal [facility].; [facility], [employer]. CELL COUNT 100 Normal [facility].; [facility], [employer]. EO 3.0 % Normal 0.0 - 4.0 % [facility].; [place] [employer] [facility], [employer]. MANUAL DIFF SEE BELOW Normal [facility].; [place] [employer] [facility], [employer]. MONOS 6 % Normal 0 - 8 % [facility].; [facility], [employer]. SEGS 54 % Normal 50 - 70 % [facility].; [facility], [employer]. Other FEW GIANT PLATELETS Normal [facility].; [facility], [employer]. Laboratory - Microbiology an d Antimicrobial susceptibilityon 11-12-2022 FLUAV Ag IA Ql (Throat) Negative Normal [facility].; [facility], [facility] Heterophile Ab LA Ql (S) Negative Normal [facility].; [employer] [facility], [employer]. S. pneumoniae Ag LA Ql (Unsp spec) Negative Normal [facility], [employer].; [employer] [place] [employer] [facility], Inc[facility] SARS-CoV-2 (COVID-19) RNA NEVAEH+probe Ql (Unsp spec) Negative Normal [facility].; [facility] [place] [employer] [facility], Inc[facility] CBC + DIFFon 07-25-2022 Baso # 0.07 x10EE3/UL Normal 0.00 - 0.10 [facility] Comment on above: Performed By: #### 2 [id number] #### [facility],[address] [place] [address] 62591 Basophils/100 WBC (Bld) 1.0 % Normal 0.0 - 2.0 [facility] Comment on above: Performed By: #### 2 39785 #### [facility],[address] [place] [address] CBC + DIFF Normal [facility] Comment on above: Result Comment: CBC- COMPLETE BLOOD COUNT Performed By: #### 2 77266 #### [facility],[address] [place] [address] EO # 0.14 x10EE3/UL Normal 0.00 - 0.50 [facility] Comment on above: Performed By: #### 2 74858 #### [facility],[address] [place], [place] [id number] Eosinophils/100 WBC (Bld) 2.0 % Normal 0.0 - 7.0 [facility] Comment on above: Performed By: #### 2 99980 #### [facility],[address] [place] [address] Erythrocyte distribution width (RBC) [Ratio] 13.3 % Normal 12.0 - 15.6 [facility] Comment on above: Performed By: #### 2 43496 #### [facility],[address] [place] [address] Hematocrit (Bld) [Volume fraction] 38.7 % Normal 34.0 - 46.0 [facility] Comment on above: Performed By: #### 2 51017 #### [facility],[address] [place] [address] 21747 Hemoglobin (Bld) [Mass/Vol] 13.1 g/dL Normal 12.0 - 16.0 [facility] Comment on above: Performed By: #### 2 23351 #### [facility],[address] [place] [address] Lymph # 2.66 x10EE3/UL Normal 0.80 - 2.80 [facility] Comment on above: Performed By: #### 2 88943 #### [facility],[address] [place] [address] Lymphocytes/100 WBC (Bld) 38.0 % Normal 20.0 - 45.0 [facility] Comment on above: Performed By: #### 2 97794 #### [facility],[address] [place] [address] MANUAL DIFF N/A Normal [facility] Comment on above: Performed By: #### 2 89153 #### [facility],[address] [place] [address] MCH (RBC) [Entitic mass] 30 pg Normal 27 - 33 [facility] Comment on above: Performed By: #### 2 64037 #### [facility],[address] [place] [address] MCHC 34 X10 3 Normal 32 - 36 [facility] Comment on above: Performed By: #### 2 15929 #### [facility],[address] [place], [place] [id number] MCV (RBC) [Entitic vol] 90 fL Normal 80 - 99 [facility] Comment on above: Performed By: #### 2 80681 #### [facility],[address] [place] [address] [place] # 0.35 x10EE3/UL Normal 0.20 - 1.00 [facility] Comment on above: Performed By: #### 2 15245 #### [facility],[address] [place] [address] 95135 MONOS % 5.0 % Normal 0.0 - 10.0 [facility] Comment on above: Performed By: #### 2 15613 #### [facility],[address] [place] [address] 79418 Morphology Duc (Bld) [Interp] N/A Normal [facility] Comment on above: Performed By: #### 2 24331 #### [facility],[address] [place] [address] 39741 Neut # 3.78 x10EE3/UL Normal 1.50 - 7.10 [facility] Comment on above: Performed By: #### 2 90297 #### [facility],[address] [place] [address] 75418 Neutrophils/100 WBC (Bld) 54.0 % Normal 46.0 - 76.0 [facility] Comment on above: Performed By: #### 2 54029 #### [facility],[address] [place] [address] 69252 PLATELET 243 x10EE3/UL Normal 150 - 450 [facility] Comment on above: Performed By: #### 2 66565 #### [facility],[address] [place] [address] 97398 Platelet mean volume (Bld) [Entitic vol] 9.1 fL Normal 6.6 - 10.5 [facility] Comment on above: Result Comment: AUTO MATED DIFFERENTIAL Performed By: #### 2 60059 #### [facility],[address] [place] [address] 88695 RBC 4.31 x 10EE6/UL Normal 4.10 - 5.30 [facility] Comment on above: Performed By: #### 2 43602 #### [facility],[address] [place] [address] 50401 WBC 7.0 x 10EE3/UL Normal 4.5 - 10.8 [facility] Comment on above: Performed By: #### 2 90027 #### [facility],[address] [place] [address] 72228 CMP with eGFRon 07-25-2022 AGE 31 years Normal [facility] Comment on above: Performed By: #### 2 77823 #### [place] [address] Albumin [Mass/Vol] 4.7 g/dL Normal 3.4 - 5.0 g/dL [facility].; [facility], [facility] Comment on above: Performed By: #### 2 92940 #### [place] [address] Albumin/Globulin [Mass ratio] 1.8 {ratio} High 0.9 - 1.6 [facility] Comment on above: Performed By: #### 2 07452 #### [place] [address] ALK PHOS 80 U/L Normal 46 - 116 U/L [facility], [facility].; [facility], Inc[facility] Comment on above: Performed By: #### 2 12969 #### [place] [address] ALT [Catalytic activity/Vol] 21 U/L Normal 14 - 59 U/L [facility], [facility].; [facility], [facility] Comment on above: Performed By: #### 2 64444 #### [place] [address] Anion gap [Moles/Vol] 12 mmol/L Normal 10 - 20 mmol/L [facility], [facility].; [facility], [facility] Comment on above: Performed By: #### 2 83312 #### [place] [address] AST [Catalytic activity/Vol] 26 U/L Normal 13 - 39 U/L [facility], [facility].; [facility] Comment on above: Performed By: #### 2 50118 #### [place] [address] B/C RATIO 12 ratio Normal 0 - 30 [facility] Comment on above: Performed By: #### 2 88105 #### [place] [address] Bilirubin [Mass/Vol] 0.5 mg/dL Normal 0.2 - 1 .0 mg/dL [facility], [facility].; [facility], [facility] Comment on above: Performed By: #### 2 67496 #### [place] [address] Calcium [Mass/Vol] 9.1 mg/dL Normal 8.5 - 10. 1 mg/dL [facility].; [facility], [facility] Comment on above: Performed By: #### 2 42135 #### [place] [address] Chloride [Moles/Vol] 105 mmol/L Normal 98 - 10 7 mmol/L [facility].; [facility], [facility]. Comment on above: Performed By: #### 2 63228 #### [place] [address] CMP with eGFR Normal [facility] Comment on above: Result Comment: COMP REHENSIVE METABOLIC PANEL Performed By: #### 2 43674 #### [place] [address] CO2 [Moles/Vol] 28.7 mmol/L Normal 21.0 - 32.0 mmol/L [facility], [facility].; [facility] Comment on above: Performed By: #### 2 99481 #### [place] [address] Creatinine [Mass/Vol] 0.84 mg/dL Normal 0.55 - 1.02 mg/dL [facility], [facility].; [facility], [facility] Comment on above: Performed By: #### 2 69793 #### [address] [address] GFR/1.73 sq M.predicted among non-blacks MDRD (S/P/Bld) [Vol rate/Area] mL/min/{1.73_m2} Normal 60 - 999 [facility] Comment on above: Performed By: #### 2 09301 #### [address] [address] Result Comment: ACCO RDING TO THE NATIONAL KIDNEY DISEASE EDUCATION PROGRAM(NKDE), A NORMAL eGFR IS A VALUE GREATER THAN OR EQUAL TO 60 ML/MIN/1.73 SQ METERS. CHRONIC KIDNEY DISEASE: <60mL/MIN/1.73 SQ METERS KIDNEY FAILURE: <15mL/MIN/1.73 SQ METERS THIS TEST SHOULD ONLY BE USED FOR PATIENTS 18 YEARS OF AGE AND OLDER. Globulin (S) [Mass/Vol] 2.6 g/dL Normal 1.5 - 3.8 g/dL [facility], [facility].; [facility], [employer]. Comment on above: Performed By: #### 2 02622 #### [address] [address] Glucose [Mass/Vol] 92 mg/dL Normal 74 - 106 mg/dL [facility], [facility].; [facility], [employer]. Comment on above: Performed By: #### 2 37539 #### [address] [address] Potassium [Moles/Vol] 4.2 mmol/L Normal 3.5 - 5.1 mmol/L [facility], [facility].; [facility], [employer]. Comment on above: Performed By: #### 2 63436 #### [address] [address] Protein [Mass/Vol] 7.3 g/dL Normal 6.4 - 8.2 g/dL [facility], [facility].; [facility]. Comment on above: Performed By: #### 2 05903 #### [address] [address] Sodium [Moles/Vol] 141 mmol/L Normal 136 - 145 mmol/L [facility]; [facility] Comment on above: Performed By: #### 2 06159 #### [address] [address] Urea nitrogen [Mass/Vol] 10 mg/dL Normal 7 - 18 mg/dL [facility]; [facility]. Comment on above: Performed By: #### 2 13246 #### [address] [address] TSHon 07-25-2022 TSH Qn 2.61 m[IU]/L Normal 0.35 - 3.74 {uIU/ml} [facility].; [facility]. Comment on above: Performed By: #### 2 03309 #### [address] [address] VITAMIN D, 25 HYDROXYon VitD 36.70 ng/mL Normal 30.00 - 100 [facility] Comment on above: Result Comment: 25-O HD3 indicates both endogenous production and supplementation. 25-OHD2 is an indicator of exogenous sources, such as diet or supplementation. Therapy is based on measurement of Total 25-OHD, with levels <20 ng/mL indicative of Vitamin D deficiency, while levels between 20 ng/mL and 30 ng/mL suggest insufficiency. Optimal levels are >=30ng/mL. Vitamin D, 25-OH D3 Not Established Vitamin D, 25-OH D2 Not Established Performed By: #### 2 35165 #### [address] [address] Laboratory - Chemistry and C hemistry - challengeon 07-24-2022 25-hydroxyvitamin D3 [Mass/Vol] 36.70 ng/mL Normal 30.00 - 100 ng/mL [facility]; [facility] Albumin [Mass/Vol] 1.8 g/dL Abnormal 0.9 - 1.6 [facility]; [facility] ALT No additional P-5'-P [Catalytic activity/Vol] 21 U/L Normal 14 - 59 U/L [facility]; [facility] GFR/1.73 sq M.predicted among blacks MDRD (S/P/Bld) [Vol rate/Area] mL/min/{1.73_m2} Normal 60 - 999 {ML/MINUTE} [facility].; [facility] GFR/1.73 sq M.predicted MDRD (S/P/Bld) [Vol rate/Area] mL/min/{1.73_m2} Normal 60 - 999 {ML/MINUTE} [facility].; [facility] Urea nitrogen/Creatinine [Mass ratio] 12 {ratio} Normal 0 - 30 {ratio} [facility]; [facility] Laboratory - Hematology and Cell countson 07-24-2022 Basophils (Bld) [#/Vol] 0.07 {x10EE3/UL} Normal 0.00 - 0.10 {x10EE3/UL} [facility]; [facility], [facility] Basophils/100 WBC (Bld) 1.0 % Normal 0.0 - 2.0 % [facility]; [facility] Eosinophils (Bld) [#/Vol] 0.14 {x10EE3/UL} Normal 0.00 - 0.50 {x10EE3/UL} [facility]; [facility] Eosinophils/100 WBC (Bld) 2.0 % Normal 0.0 - 7.0 % [facility].; [facility], [facility] Erythrocyte distribution width (RBC) [Ratio] 13.3 % Normal 12.0 - 15.6 % [facility].; [facility], [facility] Hematocrit (Bld) [Volume fraction] 38.7 % Normal 34.0 - 46.0 % [facility].; [facility], [facility] Hemoglobin (Bld) [Mass/Vol] 13.1 g/dL Normal 12.0 - 16.0 g/dL [facility].; [facility], [facility] Lymphocytes (Bld) [#/Vol] 2.66 {x10EE3/UL} Normal 0.80 - 2.80 {x10EE3/UL} [facility], [facility].; [facility], [facility] Lymphocytes/100 WBC (Bld) 38.0 % Normal 20.0 - 45.0 % [facility].; [facility], [facility]. MCH (RBC) [Entitic mass] 30 pg Normal 27 - 33 pg [facility].; [facility], [facility]. MCHC (RBC) [Mass/Vol] 34 {X10_3} Normal 32 - 36 {X10_3} [facility], [facility].; [facility], [facility]. MCV (RBC) [Entitic vol] 90 fL Normal 80 - 99 fL [facility].; [facility], [facility]. Monocytes (Bld) [#/Vol] 0.35 {x10EE3/UL} Normal 0.20 - 1.00 {x10EE3/UL} [facility], [facility].; [facility], [facility]. Monocytes/100 WBC (Bld) 5.0 % Normal 0.0 - 10.0 % [facility], [facility].; [facility], [facility] Morphology Duc (Bld) [Interp] N/A Normal [facility], [facility].; [facility] Neutrophils (Bld) [#/Vol] 3.78 {x10EE3/UL} Normal 1.50 - 7.10 {x10EE3/UL} [facility], [facility].; [facility] Neutrophils/100 WBC (Bld) 54.0 % Normal 46.0 - 76.0 % [facility], [facility].; [facility] Platelet mean volume (Bld) [Entitic vol] 9.1 fL Normal 6.6 - 10.5 fL [facility].; [facility] Platelets (Bld) [#/Vol] 243 {x10EE3/UL} Normal 150 - 450 {x10EE3/UL} [facility].; [facility] RBC (Bld) [#/Vol] 4.31 {x_10EE6/UL} Normal 4.10 - 5.30 {x_10EE6/UL} [facility].; [facility] WBC (Bld) [#/Vol] 7.0 {x_10EE3/UL} Normal 4.5 - 10.8 {x_10EE3/UL} [facility].; [facility] No Panel Informationon 07-24 AGE 31 {years} Normal [facility].; [facility]. CBC + DIFF Normal [facility].; [email or web address] CMP with eGFR Normal [facility].; [facility] MANUAL DIFF N/A Normal [facility].; [facility] No Panel Informationon 04-06 ADEQ Comment Normal [facility].; [place] [facility]. Work Phone: COMM . [facility] [place]. Work Phone: COMMENT Comment [facility] [place]. Work Phone: DIAG Comment [facility].; [facility] [place]. Work Phone: HPV APTIMA, HR Negative [facility].; [facility] [place]. Work Phone: HPV Cheri Rfx Comment [facility].; [facility] [place]. Work Phone: PAPSMR Comment [facility].; [place] [employer] [facility]. Work Phone: PERFORM Comment [facility] Hospital[facility].; [employer] [facility]. Work Phone: Laboratory - Microbiology an d Antimicrobial susceptibilityon 10-26-2021 SARS-CoV-2 (COVID-19) RNA NEVAEH+probe Ql (Unsp spec) Negative [facility].; [employer] [facility]. Work Phone: No Panel Informationon 10-26 SEND TO IC? YES [facility].; [employer] [facility]. Work Phone: Coronavirus 2019on 1 COVID 19 Result [employer] Normal Negative for COVID19 (SARS CoV2) by PCR. [facility] Comment on above: Result Comment: Nega tive for This test was developed and its performance characteristics determined by [facility] [place]. This test has been authorized by FDA under an Emergency Use Authorization (EUA). This test has been validated in accordance with the FDA's Guidance Document Policy for Diagnostics Testing in Laboratories Certified to Perform High Complexity Testing under CLIA prior to Emergency use Authorization for Coronavirus Disease 2019 during the Public Health Emergency issued on July 18, 2019. COVID19 (SARS This test was developed and its performance characteristics determined by [facility]'s [facility] [place]. This test has been authorized by FDA under an Emergency Use Authorization (EUA). This test has been validated in accordance with the FDA's Guidance Document Policy for Diagnostics Testing in Laboratories Certified to Perform High Complexity Testing under CLIA prior to Emergency use Authorization for Coronavirus Disease 2019 during the Public Health Emergency issued on July 18, 2019. CoV2) by PCR. This test was developed and its performance characteristics determined by [facility] [place]. This test has been authorized by FDA under an Emergency Use Authorization (EUA). This test has been validated in accordance with the FDA's Guidance Document Policy for Diagnostics Testing in Laboratories Certified to Perform High Complexity Testing under CLIA prior to Emergency use Authorization for Coronavirus Disease 2019 during the Public Health Emergency issued on July 18, 2019. COVID 19 Source [employer] Normal [facility] Comment on above: Result Comment: Naso pharyngeal Corrected on 06/09 AT 0331: Previously reported as NASOPHARYNGEAL Swab Corrected on 06/09 AT 0331: Previously reported as NASOPHARYNGEAL Laboratory - Microbiology an d Antimicrobial susceptibilityon 06-07-2020 SARS-CoV-2 (COVID-19) RNA NEVAEH+probe Ql (Unsp spec) Nasopharyngeal Swab Normal [facility] [place] [facility]. Work Phone: SARS-CoV-2 (COVID-19) RNA NEVAEH+probe Ql (Unsp spec) Negative Normal [facility].; [facility], [place], [facility]. Work Phone: Laboratory - Blood bankon ABO and Rh group Nom (Bld) Blood group O Rh(D) positive Normal [facility].; [facility], [place], [facility]. Work Phone: Laboratory - Hematology and Cell countson 01-24-2020 Basophils/100 WBC (Bld) 0.3 % Normal 0 - 1 % [facility]; [facility] Work Phone: Eosinophils/100 WBC (Bld) 0.3 % Normal 0 - 5 % [facility]; [facility] Work Phone: Erythrocyte distribution width (RBC) [Ratio] 13.6 % Normal 11.6 - 14.6 % [facility]; [facility] Work Phone: Hematocrit (Bld) [Volume fraction] 37.5 % Normal 37 - 47 % [facility]; [facility] Work Phone: Hemoglobin (Bld) [Mass/Vol] 12.7 g/dL Normal 12.0 - 15.0 g/dL [facility]; [facility] Work Phone: Lymphocytes/100 WBC (Bld) 13.0 % Abnormal 19 - 41 % [facility]; [facility] Work Phone: MCH (RBC) [Entitic mass] 32.0 pg Normal 27.0 - 32.0 pg [facility]; [facility] Work Phone: MCHC (RBC) [Mass/Vol] 33.9 g/dL Normal 32 - 36 g/dL [facility]; [facility] Work Phone: MCV (RBC) [Entitic vol] 94.5 fL Normal 81 - 99 fL [facility]; [facility] Work Phone: Monocytes/100 WBC (Bld) 5.1 % Normal 0 - 10 % [facility]; [facility] Work Phone: Neutrophils/100 WBC (Bld) 80.3 % Abnormal 47 - 70 % [facility]; [facility] [place] [facility] Work Phone: Platelet mean volume (Bld) [Entitic vol] 11.9 fL Normal 6.2 - 12.0 fL [facility]; [facility] [place] [facility] Work Phone: Platelets (Bld) [#/Vol] 167 10*3/uL Normal 150 - 450 K/mm3 [facility]; [facility] [place] [facility] Work Phone: RBC (Bld) [#/Vol] 3.97 10*6/uL Abnormal 4.2 - 5.4 {M/mm3} [facility]; [facility] [place] [facility] Work Phone: WBC (Bld) [#/Vol] 10.5 10*3/uL Normal 4.4 - 11.0 K/mm3 [facility]; [facility] [place] [facility] Work Phone: No Panel Informationon 01-23 Absolute Lymph 1.37 {X10_3/uL} Normal 0.83 - 4.5 1 {X10_3/uL} [facility]; [facility] [place] [facility] Work Phone: Absolute Neut 8.4 {X10_3/uL} Abnormal 2.0 - 7.7 {X10_3/uL} [facility]; [facility] [place] [facility] Work Phone: IM GRAN % 1.000 % Abnormal 0.0 - 0.9 % [facility]; [facility] [place] [facility] Work Phone: NRBC, FLAGGED 0 % Normal 0 - 5 % [facility]; [facility] [place] [facility] Work Phone: RDW SD 46.9 fL Abnormal 35.1 - 43.9 fL [facility]; [facility] [place] [facility] Work Phone: Laboratory - Microbiology an d Antimicrobial susceptibilityon 01-22-2020 SARS-CoV-2 (COVID-19) RNA NEVAEH+probe Ql (Unsp spec) Not detected Normal [facility]; [facility] [place] [facility] Work Phone: Laboratory - Microbiology an d Antimicrobial susceptibilityon 01-08-2020 S. agalactiae Org specific cx Ql (Unsp spec) See Note Normal [facility]; [facility] [place] [facility] Work Phone: Laboratory - Hematology and Cell countson 12-11-2019 Basophils/100 WBC (Bld) 0.3 % Normal 0 - 1 % [facility]; [facility] [place] [facility] Work Phone: Eosinophils/100 WBC (Bld) 0.6 % Normal 0 - 5 % [facility]; [facility] [place] [facility] Work Phone: Erythrocyte distribution width (RBC) [Ratio] 15.0 % Abnormal 11.6 - 14.6 % [facility]; [facility] [place] [facility] Work Phone: Hematocrit (Bld) [Volume fraction] 33.6 % Abnormal 37 - 47 % [facility]; [facility] [place] [facility] Work Phone: Hemoglobin (Bld) [Mass/Vol] 11.2 g/dL Abnormal 12.0 - 15.0 g/dL [facility]; [facility] [place] [facility] Work Phone: Lymphocytes/100 WBC (Bld) 17.3 % Abnormal 19 - 41 % [facility]; [facility] [place] [facility] Work Phone: MCH (RBC) [Entitic mass] 32.4 pg Abnormal 27.0 - 32.0 pg [facility]; [facility] [place] [facility] Work Phone: MCHC (RBC) [Mass/Vol] 33.3 g/dL Normal 32 - 36 g/dL [facility]; [facility] [place] [facility] Work Phone: MCV (RBC) [Entitic vol] 97.1 fL Normal 81 - 99 fL [facility]; [facility] Work Phone: Monocytes/100 WBC (Bld) 6.8 % Normal 0 - 10 % [facility]; [facility] Work Phone: Neutrophils/100 WBC (Bld) 71.5 % Abnormal 47 - 70 % [facility]; [facility] [place] [facility] Work Phone: Platelet mean volume (Bld) [Entitic vol] 10.9 fL Normal 6.2 - 12.0 fL [facility]; [facility] [place] [facility] Work Phone: Platelets (Bld) [#/Vol] 156 10*3/uL Normal 150 - 450 K/mm3 [facility]; [facility] [place] [facility] Work Phone: RBC (Bld) [#/Vol] 3.46 10*6/uL Abnormal 4.2 - 5.4 {M/mm3} [facility]; [facility] [place] [facility]. Work Phone: WBC (Bld) [#/Vol] 8.8 10*3/uL Normal 4.4 - 11.0 K/mm3 [facility]; [facility] [place] [facility] Work Phone: No Panel Informationon 12-10 Absolute Lymph 1.52 {X10_3/uL} Normal 0.83 - 4.5 1 {X10_3/uL} [facility]; [facility] [place] [facility]. Work Phone: Absolute Neut 6.3 {X10_3/uL} Normal 2.0 - 7.7 {X10_3/uL} [facility]; [facility] [place], [facility]. Work Phone: IM GRAN % 3.500 % Abnormal 0.0 - 0.9 % [facility]; [facility] Work Phone: NRBC, FLAGGED 0 % Normal 0 - 5 % [facility]; [facility] Work Phone: RDW SD 52.3 fL Abnormal 35.1 - 43.9 fL [facility]; [facility] [place] [facility] Work Phone: Laboratory - Chemistry and C hemistry - challengeon 10-26-2019 Magnesium [Mass/Vol] 125 mg/dL Normal 70 - 14 0 mg/dL [facility]; [facility] [place], [facility]. Work Phone: Laboratory - Hematology and Cell countson 10-26-2019 Basophils/100 WBC (Bld) 0.3 % Normal 0 - 1 % [facility]; [facility] [place] [facility] Work Phone: Eosinophils/100 WBC (Bld) 0.8 % Normal 0 - 5 % [facility]; [facility] [place] [facility]. Work Phone: Erythrocyte distribution width (RBC) [Ratio] 14.5 % Normal 11.6 - 14.6 % [facility]; [facility] [place] [facility] Work Phone: Hematocrit (Bld) [Volume fraction] 30.5 % Abnormal 37 - 47 % [facility]; [facility] [place] [facility] Work Phone: Hemoglobin (Bld) [Mass/Vol] 10.0 g/dL Abnormal 12.0 - 15.0 g/dL [facility]; [facility] Work Phone: Lymphocytes/100 WBC (Bld) 16.5 % Abnormal 19 - 41 % [facility]; [facility] Work Phone: MCH (RBC) [Entitic mass] 31.6 pg Normal 27.0 - 32.0 pg [facility]; [facility] Work Phone: MCHC (RBC) [Mass/Vol] 32.8 g/dL Normal 32 - 36 g/dL [facility]; [facility] Work Phone: MCV (RBC) [Entitic vol] 96.5 fL Normal 81 - 99 fL [facility]; [facility] Work Phone: Monocytes/100 WBC (Bld) 4.9 % Normal 0 - 10 % [facility]; [facility] Work Phone: Neutrophils/100 WBC (Bld) 72.0 % Abnormal 47 - 70 % [facility]; [facility] Work Phone: Platelet mean volume (Bld) [Entitic vol] 10.8 fL Normal 6.2 - 12.0 fL [facility]; [facility], [place], [facility] Work Phone: Platelets (Bld) [#/Vol] 177 10*3/uL Normal 150 - 450 K/mm3 [facility]; [facility] Work Phone: RBC (Bld) [#/Vol] 3.16 10*6/uL Abnormal 4.2 - 5.4 {M/mm3} [facility]; [facility] [place]. Work Phone: WBC (Bld) [#/Vol] 10.0 10*3/uL Normal 4.4 - 11.0 K/mm3 [facility] [place]. Work Phone: No Panel Informationon 10-25 Absolute Lymph 1.65 {X10_3/uL} Normal 0.83 - 4.5 1 {X10_3/uL} [facility].; [facility] [place], [facility]. Work Phone: Absolute Neut 7.2 {X10_3/uL} Normal 2.0 - 7.7 {X10_3/uL} [facility].; [facility], [employer]. Work Phone: IM GRAN % 5.500 % Abnormal 0.0 - 0.9 % [facility]; [facility] [place] [facility]. Work Phone: NRBC, FLAGGED 0 % Normal 0 - 5 % [facility]; [facility] [place] [facility]. Work Phone: RDW SD 50.1 fL Abnormal 35.1 - 43.9 fL [facility]; [facility] [place] [facility]. Work Phone: Laboratory - Blood bankon ABO and Rh group Nom (Bld) Blood group O Rh(D) positive Normal [facility]; [employer] [facility]. Work Phone: Laboratory - Hematology and Cell countson 10-08-2019 Basophils/100 WBC (Bld) 0.3 % Normal 0 - 1 % [facility]; [employer] [facility]. Work Phone: Eosinophils/100 WBC (Bld) 0.6 % Normal 0 - 5 % [facility]; [facility] Work Phone: Erythrocyte distribution width (RBC) [Ratio] 14.3 % Normal 11.6 - 14.6 % [facility]; [facility] Work Phone: Hematocrit (Bld) [Volume fraction] 30.8 % Abnormal 37 - 47 % [facility]; [facility] Work Phone: Hemoglobin (Bld) [Mass/Vol] 10.0 g/dL Abnormal 12.0 - 15.0 g/dL [facility]; [facility] Work Phone: Lymphocytes/100 WBC (Bld) 16.5 % Abnormal 19 - 41 % [facility]; [facility] Work Phone: MCH (RBC) [Entitic mass] 31.5 pg Normal 27.0 - 32.0 pg [facility]; [facility] Work Phone: MCHC (RBC) [Mass/Vol] 32.5 g/dL Normal 32 - 36 g/dL [facility]; [facility] Work Phone: MCV (RBC) [Entitic vol] 97.2 fL Normal 81 - 99 fL [facility]; [facility] Work Phone: Monocytes/100 WBC (Bld) 4.2 % Normal 0 - 10 % [facility]; [facility] Work Phone: Neutrophils/100 WBC (Bld) 73.4 % Abnormal 47 - 70 % [facility]; [facility] [place] [facility] Work Phone: Platelet mean volume (Bld) [Entitic vol] 10.8 fL Normal 6.2 - 12.0 fL [facility].; [facility] [place], [facility]. Work Phone: Platelets (Bld) [#/Vol] 173 10*3/uL Normal 150 - 450 K/mm3 [facility]; [facility] [place] [facility]. Work Phone: RBC (Bld) [#/Vol] 3.17 10*6/uL Abnormal 4.2 - 5.4 {M/mm3} [facility].; [facility] [place] [facility]. Work Phone: WBC (Bld) [#/Vol] 9.3 10*3/uL Normal 4.4 - 11.0 K/mm3 [facility]; [facility] [place] [facility] Work Phone: No Panel Informationon 10-07 Absolute Lymph 1.53 {X10_3/uL} Normal 0.83 - 4.5 1 {X10_3/uL} [facility].; [facility] [place], [facility]. Work Phone: Absolute Neut 6.8 {X10_3/uL} Normal 2.0 - 7.7 {X10_3/uL} [facility].; [facility] [place], [facility]. Work Phone: FIB 481 mg/dL Abnormal 203 - 444 mg/dL [facility]; [facility] [place], [facility]. Work Phone: IM GRAN % 5.000 % Abnormal 0.0 - 0.9 % [facility]; [facility] [place], [facility]. Work Phone: NRBC, FLAGGED 0 % Normal 0 - 5 % [facility]; [facility] [place], [facility] Work Phone: RDW SD 50.5 fL Abnormal 35.1 - 43.9 fL [facility]; [facility] Work Phone: Laboratory - Chemistry and C hemistry - challengeon 09-28-2019 Albumin [Mass/Vol] 3.0 g/dL Abnormal 3.2 - 5.0 g/dL [facility]; [facility] Work Phone: Albumin/Globulin [Mass ratio] 0.8 {ratio} Abnormal 0.9 - 2.4 {RATIO} [facility]; [facility] Work Phone: ALT [Catalytic activity/Vol] 17 U/L Normal 13 - 56 U/L [facility]; [facility] Work Phone: AST [Catalytic activity/Vol] 17 U/L Normal 15 - 37 U/L [facility]; [facility] Work Phone: Bilirubin [Mass/Vol] 0.30 mg/dL Normal 0.20 - 1.00 mg/dL [facility]; [facility] Work Phone: Calcium [Mass/Vol] 9.1 mg/dL Normal 8.5 - 10. 1 mg/dL [facility]; [facility] Work Phone: Chloride [Moles/Vol] 108 mmol/L Abnormal 98 - 10 7 mmol/L [facility]; [facility] Work Phone: CO2 [Moles/Vol] 26.0 mmol/L Normal 21.0 - 32.0 mmol/L [facility]; [facility] [place], [facility] Work Phone: Creatinine [Mass/Vol] 0.50 mg/dL Abnormal 0.55 - 1.02 mg/dL [facility]; [facility] [place] [facility] Work Phone: Creatinine [Mass/Vol] 23.20 mg/dL Normal [facility]; [facility] [place] [facility] Work Phone: GFR/1.73 sq M.predicted among non-blacks MDRD (S/P/Bld) [Vol rate/Area] 155 mL/min/{1.73_m2} Normal [facility]; [facility] [place] [facility] Work Phone: Globulin (S) [Mass/Vol] 3.6 g/dL Normal 2.2 - 4.2 g/dL [facility]; [facility] [place] [facility] Work Phone: Glucose [Mass/Vol] 96 mg/dL Normal 74 - 106 mg/dL [facility]; [facility] [place] [facility] Work Phone: Potassium [Moles/Vol] 4.1 mmol/L Normal 3.5 - 5.1 mmol/L [facility]; [facility] [place] [facility] Work Phone: Sodium [Moles/Vol] 139 mmol/L Normal 136 - 145 mmol/L [facility]; [facility] [place] [facility] Work Phone: Urea nitrogen [Mass/Vol] 8 mg/dL Normal 7 - 18 mg/dL [facility]; [facility] [place] [facility] Work Phone: Laboratory - Hematology and Cell countson 09-28-2019 Band form neutrophils/100 WBC (Bld) 2 % Normal 0 - 5 % [facility]; [facility] [place] [facility] Work Phone: Eosinophils/100 WBC (Bld) 1 % Normal 0 - 5 % [facility]; [facility] [place] [facility] Work Phone: Erythrocyte distribution width (RBC) [Ratio] 14.0 % Normal 11.6 - 14.6 % [facility]; [facility] Work Phone: Hematocrit (Bld) [Volume fraction] 31.3 % Abnormal 37 - 47 % [facility]; [facility] Work Phone: Hemoglobin (Bld) [Mass/Vol] 10.3 g/dL Abnormal 12.0 - 15.0 g/dL [facility]; [facility] Work Phone: Lymphocytes/100 WBC (Bld) 15 % Abnormal 19 - 41 % [facility]; [facility] [place], [facility] Work Phone: MCH (RBC) [Entitic mass] 32.0 pg Normal 27.0 - 32.0 pg [facility]; [facility] [place] [facility] Work Phone: MCHC (RBC) [Mass/Vol] 32.9 g/dL Normal 32 - 36 g/dL [facility]; [facility] [place], [facility] Work Phone: MCV (RBC) [Entitic vol] 97.2 fL Normal 81 - 99 fL [facility]; [facility] [place] [facility] Work Phone: Monocytes/100 WBC (Bld) 7 % Normal 0 - 10 % [facility]; [facility] [place], [facility] Work Phone: Platelet mean volume (Bld) [Entitic vol] 10.8 fL Normal 6.2 - 12.0 fL [facility]; [facility] [place], [facility] Work Phone: Platelets (Bld) [#/Vol] 184 10*3/uL Normal 150 - 450 K/mm3 [facility]; [facility] Work Phone: RBC (Bld) [#/Vol] 3.22 10*6/uL Abnormal 4.2 - 5.4 {M/mm3} [facility]; [facility] [place]. Work Phone: WBC (Bld) [#/Vol] 11.9 10*3/uL Abnormal 4.4 - 11.0 K/mm3 [facility]; [employer] [facility]. Work Phone: No Panel Informationon 09-27 Absolute Lymph 1.79 {X10_3/uL} Normal 0.83 - 4.5 1 {X10_3/uL} [facility].; [employer] [facility]. Work Phone: Absolute Neut 8.9 {X10_3/uL} Abnormal 2.0 - 7.7 {X10_3/uL} [facility]; [employer] [facility]. Work Phone: ALK P 55 U/L Normal 45 - 117 U/L [facility]; [employer] [facility]. Work Phone: ANISO 1+ Normal [facility]; [facility] [place] [facility]. Work Phone: BUN/CRE 16.1 {RATIO} Normal 10 - 20 {RATIO} [facility]; [employer] [facility]. Work Phone: CELLS COUNTED 100 Normal [facility]; [employer] [facility]. Work Phone: EST GFR - AA 187 mL/min Normal [facility].; [facility] [place]. Work Phone: GAP 5 Normal 5 - 15 [facility]; [employer] [facility] Work Phone: [phone] META 2 % Abnormal 0 - 1 % [facility]; [facility] Work Phone: PATH REV Reviewed Normal [facility]; [facility] Work Phone: PLT EST ADEQUATE Normal [facility]; [facility] Work Phone: PROT:CRE RATIO Not performed Normal 0 - 200 {mg/g_CRE} [facility]; [facility] Work Phone: PROTEIN,UR.RAN. < 6.0 Normal [facility]; [facility] Work Phone: RDW SD 49.4 fL Abnormal 35.1 - 43.9 fL [facility]; [facility] Work Phone: RED CELL MORPH N CHROM Normal [facility]; [facility] Work Phone: SEGS 73 % Abnormal 47 - 70 % [facility]; [facility] Work Phone: T PROT 6.6 g/dL Normal 6.4 - 8.2 g/dL [facility]; [facility] Work Phone: Laboratory - Blood bankon ABO and Rh group Nom (Bld) Blood group O Rh(D) positive Normal [facility] [place]; [facility] Work Phone: Laboratory - Hematology and Cell countson 07-31-2019 Basophils/100 WBC (Bld) 0.4 % Normal 0 - 1 % [facility]; [facility] Work Phone: Eosinophils/100 WBC (Bld) 0.5 % Normal 0 - 5 % [facility] [place]; [facility] Work Phone: Erythrocyte distribution width (RBC) [Ratio] 13.4 % Normal 11.6 - 14.6 % [facility] [place]; [facility] Work Phone: Hematocrit (Bld) [Volume fraction] 34.5 % Abnormal 37 - 47 % [facility] [place]; [facility] Work Phone: Hemoglobin (Bld) [Mass/Vol] 11.5 g/dL Abnormal 12.0 - 15.0 g/dL [facility] [place]; [facility] [place], [facility] Work Phone: Lymphocytes/100 WBC (Bld) 21.9 % Normal 19 - 41 % [facility] [place]; [facility] Work Phone: MCH (RBC) [Entitic mass] 31.1 pg Normal 27.0 - 32.0 pg [facility] [place]; [facility]. Work Phone: MCHC (RBC) [Mass/Vol] 33.3 g/dL Normal 32 - 36 g/dL [facility] [place]; [facility] [place] [facility]. Work Phone: MCV (RBC) [Entitic vol] 93.2 fL Normal 81 - 99 fL [facility] [place]; [facility] [place], [facility] Work Phone: Monocytes/100 WBC (Bld) 5.0 % Normal 0 - 10 % [facility] [place]; [facility] [place], [facility] Work Phone: Neutrophils/100 WBC (Bld) 71.0 % Abnormal 47 - 70 % [facility] [place]; [facility] [place] Work Phone: Platelet mean volume (Bld) [Entitic vol] 11.6 fL Normal 6.2 - 12.0 fL [facility] [place]; [facility] Work Phone: Platelets (Bld) [#/Vol] 207 10*3/uL Normal 150 - 450 K/mm3 [facility] [place]; [facility] Work Phone: RBC (Bld) [#/Vol] 3.70 10*6/uL Abnormal 4.2 - 5.4 {M/mm3} [facility] [place]; [facility] Work Phone: WBC (Bld) [#/Vol] 10.3 10*3/uL Normal 4.4 - 11.0 K/mm3 [facility] [place]; [facility] Work Phone: Laboratory - Microbiology an d Antimicrobial susceptibilityon 07-31-2019 Reagin Ab RPR Ql (S) Non-Reactive Normal [facility]; [facility] Work Phone: No Panel Informationon 07-30 Absolute Lymph 2.26 {X10_3/uL} Normal 0.83 - 4.5 1 {X10_3/uL} [facility] [place]; [facility] Work Phone: Absolute Neut 7.3 {X10_3/uL} Normal 2.0 - 7.7 {X10_3/uL} [facility] [place]; [facility] Work Phone: HEPATITIS C AB Non-Reactive Normal [facility]; [facility] [place] Work Phone: HEPB Surface Ag Non-Reactive Normal [facility]; [facility] Work Phone: HIV - [facility] Non-Reactive [facility].; [facility] [place] Work Phone: IM GRAN % 1.200 % Abnormal 0.0 - 0.9 % [facility] [place]; [facility] [place] Work Phone: NRBC, FLAGGED 0 % Normal 0 - 5 % [facility] [place]; [facility] [place] [facility] Work Phone: RDW SD 45.5 fL Abnormal 35.1 - 43.9 fL [facility] [place]; [facility] [place] [facility] Work Phone: Rubella IgG 199.7 {IU/mL} [facility].; [facility] [place] Work Phone: Laboratory - Drug toxicology on 07-02-2019 Amphetamines Ql (U) Negative [facility]; [facility] [place] Work Phone: Cocaine Ql (U) Negative [facility].; [facility] [place] [facility]. Work Phone: Methadone Ql (U) Negative [facility].; [facility] [place] [facility]. Work Phone: Opiates Ql (U) Negative [facility].; [facility] [place] [facility]. Work Phone: Laboratory - Microbiology an d Antimicrobial susceptibilityon 07-02-2019 Bacteria identified Cx Nom (U) See Note [facility] [place] Work Phone: No Panel Informationon 07-02 ADEQ Comment [facility].; [facility] [place] Work Phone: BARBITIURATES Negative [facility].; [facility] [place], [facility]. Work Phone: BENZODIAZIPINE Negative [facility]; [facility] Work Phone: Chlam Trac PCR Negative [facility] [place], [facility]. Work Phone: COMM . [facility].; [facility]. Work Phone: DIAGN Comment [facility]; [facility] Work Phone: ECSTACY Negative [facility].; [facility] [place], [facility] Work Phone: HPV RFLX Comment [facility]; [facility]. Work Phone: NG by PCR Negative [facility]; [facility]. Work Phone: PAPSMR Comment [facility]; [facility]. Work Phone: PCP Negative [facility].; [facility] [place], [facility]. Work Phone: PERFORM Comment [facility]; [facility] Work Phone: TEST METHOD Comment [facility]; [facility] Work Phone: THC Negative [facility]; [facility] Work Phone: TO BE CONFIRMED [facility]; [facility] Work Phone: VISTA UDS PH 6 Normal [employer] Work Phone: Laboratory - Microbiology an d Antimicrobial susceptibilityon 05-08-2019 FLUAV Ag IA Ql (Throat) Negative Normal [employer] FLUAV Ag IA Ql (Throat) Positive Abnormal [employer]. No Panel Informationon 07-07 INTERNAL QC PASS Normal [employer] Work Phone: Observation duration YES Normal [employer]. Work Phone: UR Negative Normal [employer], [employer]. Work Phone: CNOVon 05-22-2018 CNOV Office Visit (GENUPD) MANA EMMANUEL ([id number]) 1990 [facility] Provider Department05/22/18 10:15 AM REJI PENG During your visit today, we recorded the following information about you: Weight Height 70.3 kg 1.626 Michael Peng MD 05/22/2018 11:04 AM SignedH AND PDate: May 22, 2018Chief Complaint: Patient presents with:Follow Up: Had CT doneHPI:Mana Emmanuel is a 27 year old female. Patient is complaining of pain belowher right breast radiating to her back pain [...] for cough, chest tightness, shortness of breath andwheezing.Cardiovascular : Negative for chest pain, palpitations and leg swelling.Gastrointestinal: Negative for abdominal pain, anal bleeding, blood in stool,constipation, diarrhea, nausea, rectal pain and vomiting.Ht 162.6 cm (5' 4 ) Wt 70.3 kg (155 lb) BMI 26.61 kg/m?Physical ExamRight inframammary crease and Costal margin is tender, abdomen itself is softno Almanza sign No masses or hernias appreciatedASSESSMENT/PLAN :1. Costochondritis - ICD9: 733.6, ICD10: M94.0Patient was advised to stop wearing an underwire bras ,Try someanti-inflammatories, I would not recommend surgery, I do not think hersymptoms are consistent with cholecystitis or biliary dyskinesiaJosechano Peng, [facility]PITALeferring Provider: SELF [200]Allergies As of Date: 05/22/2018 Noted Allergy ReactionPOLLEN 08/27/2012 9 - ItchingDate Reviewed: 05/22/2018Reviewed by: Reji Peng - Fully AssessedReason for Visit: Follow Up [171] Cmt: Had CT doneVisit Diagnosis:Costochondritis [M94.0]Prescriptions as of 05/22/2018 Sig: TRAZODONE 50 MG TABLET TAKE 1/2 TO 1 TABLET BY MOUTH* SERTRALINE 50 MG TABLET Take 50 mg by mouth once ann marie* SENNOSIDES 8.6 MG-DOCUSATE SO*Problem List As Of Date 05/22/2018 Noted Resolved [...] Biliary dyskinesia [K82.8] Abdominal pain [R10.9] Costochondritis [M94.0]Medications Discontinued During This Encounter enteric contrast (will [...] Reason for discontinue is not on file. Status:Closed by REJI PENG MD on 05/22/18 Normal [facility] PROGRESSon 05-22-2018 Protein mass conc HNO ID: [id number] thor: Reji WildsService: (none)Author Type: PhysicianType: Progress NotesFiled: 05/22/2018 11:04 AMNote Text:H AND PDate: May 22, 2018Chief Complaint: Patient [...] for cough, chest tightness, shortness of breath andwheezing.Cardiovascular : Negative for chest pain, palpitations and leg swelling.Gastrointestinal: Negative for abdominal pain, anal bleeding, blood instool, constipation, diarrhea, nausea, rectal pain and vomiting.Ht 162.6 cm (5' 4 ) Wt 70.3 kg (155 lb) BMI 26.61 kg/m?Physical ExamRight inframammary crease and Costal margin is tender, abdomen itself issoft no Almanza sign No masses or hernias appreciatedASSESSMENT/PLAN :1. Costochondritis - ICD9: 733.6, ICD10: M94.0Patient was advised to stop wearing an underwire bras ,Try someanti-inflammatories, I would not recommend surgery, I do not think hersymptoms are consistent with cholecystitis or biliary dyskinesiaJozaina Peng MD Normal [facility] CT ABD/PEL W CONTRASTon - CT ABD/PEL W CONTRAST [place] [id number]: Janine EMMANUEL: REJI PENG M.D.: [birth year] Age: 27 Sex: FAcct: [id number] Loc: RAD CTExam Date: 05/01/18 Status: REG CLIRadiology No.: [id number] Number: [id number] # Type/[id number] CT / CT ABD/PEL W CONTRASTCT abdomen [...] algorithm.Professional interpretation provided by [facility] [place] [address].Thank you for this referral.< >Reported By: PENNY HILLIARD M.D.Signed In NovaPro By: PENNY HILLIARD M.D. << Signature on File>> Reported By: PENNY HILLIARD M.D. Signed By: PENNY HILLIARD M.D.Tests performed at:[address] [phone] Normal [facility]2018 CNOV Office Visit (GENUPD) MANA EMMANUEL ([id number]) 1990 F CHTDate Time Provider Hycsqanlie59/6/18 11:00 AM REJI PENG During your visit today, we recorded the following information about you: Weight Height 70.3 kg 1.626 Michael Peng MD 04/28/2018 5:30 PM SignedH AND PDate: April 24, 2018Chief Complaint: Patient presents with:Consult: Had EGD at [facility] normal , then 2 hida scans, referred by Dr. Prajapati:Mana Eli Lien is a 27 year old female. Patient has had multiple upper GIsymptoms including [...] 46% she did have pain and symptomswere reproduced with CCK she has been treated with proton-pump inhibitor andadd antacids with no relief.ALLERGIESAllergen Reactions- Pollen ItchingPAST [...] MICRONOR) 0.35 mg tablet Take 1 tablet bymouth once daily. (Patient not taking: Reported on 04/24/2018)ferrous sulfate (IRON, FERROUS SULFATE,) 325 mg (65 mg iron) tablet Take 325 mgby mouth daily with breakfast. Loypnaxd-Ox-Owm-Fe-FA ( VITAMIN) tab Take 1 tablet by mouth.fluticasone-salmeter ol (ADVAIR DISKUS) 100-50 mcg/dose dsdv Inhale 1 Puff asinstructed twice daily.Levocetirizine (XYZAL) 2.5 mg/5 mL ORAL solution Take one(1) tablet daily atbedtime.No current facility-administered medications for this visit.Review of SystemsConstitutional: Negative for appetite change, chills, fatigue, fever andunexpected weight change.Respiratory: Negative for cough, chest tightness, shortness of breath andwheezing.Cardiovascular : Negative for chest pain, palpitations and leg swelling.Gastrointestinal: Negative for abdominal pain, anal bleeding, blood in stool,constipation, diarrhea, nausea, rectal pain and vomiting.Ht 162.6 cm (5' 4 ) Wt 70.3 kg (155 lb) BMI 26.61 kg/m?Physical ExamConstitutional: She is oriented to person, place, and time.Neck: No tracheal tenderness present. No thyroid mass present.Cardiovascular: Normal rate, regular rhythm and normal heart sounds.No murmur heard.Pulmonary/Chest: Effort normal and breath sounds normal.Abdominal: Soft. There is no tenderness.Mild right upper quadrant tendernessMusculoskeletal: She exhibits no tenderness.Lymphadenopathy : She has no axillary adenopathy.Neurological: She is alert and oriented to person, place, and time. No sensorydeficit. Gait normal.Skin: No lesion noted.ASSESSMENT/PLAN:1. Biliary dyskinesia - ICD9: 575.8, ICD10: K82.8I discussed laparoscopic cholecystectomy I would estimate about 75% chance thatthe patient's symptoms may improve post cholecystectomy but there is certainlyno guarantee2. Right upper quadrant abdominal pain - ICD9: 789.01, ICD10: R10.11- CT ABD/PEL W IVCON- IV CONTRAST (RADIOLOGY PROCEDURE)- ENTERIC CONTRAST (RADIOLOGY PROCEDURE)3. Nausea - ICD9: 787.02, ICD10: R11.0- CT ABD/PEL W IVCON- IV CONTRAST (RADIOLOGY PROCEDURE)- ENTERIC CONTRAST (RADIOLOGY PROCEDURE)Reji Peng, MDReferring Provider: GATO DICKSON [[id number]]Allergies As of Date: 04/24/2018 Noted Allergy ReactionPOLLEN 08/27/2012 9 - ItchingDate Reviewed: 04/24/2018Reviewed by: Reji Peng - Fully AssessedReason for Visit: Consult [173] Cmt: Had EGD at [facility] normal , then 2 hida scans, referred by Dr. Chan For Visit History RecordedVisit Diagnoses:Biliary dyskinesia [K82.8] Right upper quadrant abdominal pain [R10.11] Nausea [R11.0]Order(s):CT ABD/PEL W IVCON [[id number]] Order #: [id number] FUTURE iv contrast (will be provided with [...] designated per enteric contrast guidelinesDisp: 1 EachRfl: 0Prescriptions as of 04/24/2018 Sig: TRAZODONE 50 [...] fibrosis carrier in first trimester, ant*INVALID FOR*01/04/2017 More...Prescriptions ordered this encounter [...] Enteric Contrast as designated per enteric contrast guidelinesMedications Discontinued During This Encounter Ivgupvhm-Mf-Wty-Fe-FA (PREN* 04/24/2018 Class: Historical Med Route: ORAL [...] (around 05/08/2018).Follow-up and Disposition History RecordedEncounter Number: [id number] Status:Closed by REJI PENG MD on 04/28/18 Normal [facility] PROGRESSon 04-24-2018 Protein mass conc HNO ID: [id number] thor: Reji Yen: (none)Author Type: PhysicianType: Progress NotesFiled: 04/28/2018 5:30 PMNote Text:H AND PDate: April 24, 2018Chief Complaint: Patient presents with:Consult: Had EGD at [facility] normal , then 2 hida [...] SULFATE,) 325 mg (65 mg iron) tablet Ofaw648 mg by mouth daily with breakfast. Ybmsldzf-Um-Knw-Fe-FA ( VITAMIN) tab Take 1 tablet bymouth.fluticasone-salmet pankaj (ADVAIR DISKUS) 100-50 mcg/dose dsdv Inhale 1 Puffas instructed twice daily.Levocetirizine (XYZAL) 2.5 mg/5 mL ORAL solution Take one(1) tablet dailyat bedtime.No current facility-administered medications for this visit.Review of SystemsConstitutional: Negative for appetite change, chills, fatigue, fever andunexpected weight change.Respiratory: Negative for cough, chest tightness, shortness of breath andwheezing.Cardiovascular : Negative for chest pain, palpitations and leg swelling.Gastrointestinal: Negative for abdominal pain, anal bleeding, blood instool, constipation, diarrhea, nausea, rectal pain and vomiting.Ht 162.6 cm (5' 4 ) Wt 70.3 kg (155 lb) BMI 26.61 kg/m?Physical ExamConstitutional: She is oriented to person, place, and time.Neck: No tracheal tenderness present. No thyroid mass present.Cardiovascular: Normal rate, regular rhythm and normal heart sounds.No murmur heard.Pulmonary/Chest: Effort normal and breath sounds normal.Abdominal: Soft. There is no tenderness.Mild right upper quadrant tendernessMusculoskeletal: She exhibits no tenderness.Lymphadenopathy : She has no axillary adenopathy.Neurological: She is [...] PROCEDURE)- ENTERIC CONTRAST (RADIOLOGY PROCEDURE)Reji Peng MD Normal [facility] NM HIDA SCAN WITH INTERVENTI ONon 04-11-2018 NM HIDA SCAN WITH INTERVENTION [facility], [place] [address]Hpwt: MANA EMMANUELKishores: DORIS DAO Leonard: [birth year] Age: 27 Sex: FAcct: [id number] Loc: RAD NMExam Date: 04/11/18 Status: REG CLIRadiology No.: [id number] Number: [id number] # [id number] NM / NM HIDA SCAN WITH INTERVENTIONNM HEPATOBILIARY Scan with fatty meal stimulationClinical Statement: Right upper quadrant abdominal painComparison: 03/03/18Technique:Radiopha rmaceutical: Tc-99m Mebrofenin Dose: 6.5 mCi IVDynamic anterior [...] dyskinesia.Professional interpretation provided by [facility]-65.Thank you for this referral.< >Reported By: SHERIF HER D.O.Signed In NovaPro By: SHERIF HER D.O. << Signature on File>> Reported By: SHERIF HER D.O. Signed By: SHERIF HER D.O.Tests performed at:[address] [phone] Normal [facility] NM HIDA SCAN WITH INTERVENTI ONon 03-03-2018 NM HIDA SCAN WITH INTERVENTION [facility], [place] [address]Aeyn: Janine EMMANUEL: FELIBERTODORISALEX Valle: [birth year] Age: 27 Sex: FAcct: [id number] Loc: RAD NMExam Date: 03/03/18 Status: REG CLIRadiology No.: [id number] Number: [id number] # [id number] NM / NM HIDA SCAN WITH INTERVENTIONNM HEPATOBILIARY Scan with Fatty Meal stimulationClinical Statement: Abdominal painComparison: None availableTechnique:Radioph armaceutical: Tc-99m Mebrofenin Dose: 6.2 mCi IVMultiple planar [...] diagnosis of acute cholecystitis. There is normal gallbladdercontractility.P rofessional interpretation provided by [facility] RAC-PC-[id number].Thank you for this referral.< >Reported By: ANEL SULTANA M.D.Signed In NovaPro By: ANEL SULTANA M.D. << Signature on File>> Reported By: AENL SULTANA M.D. Signed By: ANEL SULTANA M.D.Tests performed at:[address] [phone] [facility] Laboratory - Microbiology an d Antimicrobial susceptibilityon 02-28-2018 Bacteria identified Cx Nom (U) See Note Normal [facility] [employer] [facility] Work Phone: Laboratory - Specimen inform ationon 02-28-2018 Clarity (U) Sl. Cloudy Normal [facility] [employer] [facility] Work Phone: Color (U) Yellow Normal [facility].; [employer] [facility] Work Phone: No Panel Informationon 02-28 BILIRUBIN URINE Negative Normal [facility].; [employer] [facility] Work Phone: GLUCOSE, UR Normal Normal [facility].; [employer] [facility] Work Phone: KETONE UR Negative Normal [facility].; [employer] [facility] Work Phone: LEUK ESTERASE Negative Normal [facility].; [employer] [facility] Work Phone: NITRITE UR Negative Normal [facility].; [employer] [facility] Work Phone: OCCULT BLOOD-UR Negative Normal [facility].; [employer] [facility] Work Phone: pH UR 6.5 Normal 5.0 - 8.0 [facility].; [employer] [facility] Work Phone: PROT DIPSTX Negative Normal [facility] Hospital[facility] Hospital[facility].; [employer] [facility] Work Phone: SP.GR. DIPSTX 1.005 Normal 1.002 - 1.030 [facility] Hospital[facility] HospitalMicro[facility].; [employer] [facility] Work Phone: UROBILI Normal Normal [facility] [employer]; [facility] Work Phone: AMYLASEon 02-26-2018 Amylase enzyme act/vol 62 U/L Normal 28-100 [facility] Comment on above: Performed By: #### L 100.0005, L100.0340, L100.0350 ####[address] [address] CBCon 02-26-2018 Basophils Auto #/vol (Bld) 0.00 x10(3) Normal 0.00-0.10 [facility] Comment on above: Performed By: #### L 200.0010 ####[address] [address] Basophils/100 WBC Auto (Bld) 0.8 % Normal 0.0-1.0 [facility] Comment on above: Performed By: #### L 200.0010 ####[address] [address] Eosinophils Auto #/vol (Bld) 0.10 x10(3) Normal 0.00-0.54 [facility] Comment on above: Performed By: #### L 200.0010 ####[address] [address] Eosinophils/100 WBC Auto (Bld) 0.8 % Normal 0.5-4.9 [facility] Comment on above: Performed By: #### L 200.0010 ####[address] [address] Erythrocyte distribution width Auto Ratio (RBC) 12.9 % Normal 12.5-15.7 [facility] Comment on above: Performed By: #### L 200.0010 ####[address] [address] Hematocrit Auto Volume Fraction (Bld) 40.6 % Normal 36.0-48.0 [facility] Comment on above: Performed By: #### L 200.0010 ####[address] [address] Hemoglobin mass conc (Bld) 13.7 g/dL Normal 12.0-16.0 [facility] Comment on above: Performed By: #### L 200.0010 ####ML [facility] [id number] [place] [address] Lymphocytes Auto #/vol (Bld) 2.10 x10(3) Normal 1.00-3.50 [facility] Comment on above: Performed By: #### L 200.0010 ####ML [address] [address] Lymphocytes/100 WBC Auto (Bld) 35.2 % Normal 16.0-48.0 [facility] Comment on above: Performed By: #### L 200.0010 ####ML [address] [address] MCH Auto Entitic mass (RBC) 30.7 pg Normal 28.5-32.9 [facility] Comment on above: Performed By: #### L 200.0010 ####ML [address] [address] MCHC Auto mass conc (RBC) 33.7 g/dL Normal 33.0-36.0 [facility] Comment on above: Performed By: #### L 200.0010 ####ML [address] [address] MCV Auto Entitic volume (RBC) 91.1 fL Normal 80.0-99.0 [facility] Comment on above: Performed By: #### L 200.0010 ####ML [address] [address] Monocytes Auto #/vol (Bld) 0.30 x10(3) Normal 0.30-0.80 [facility] Comment on above: Performed By: #### L 200.0010 ####ML [address] [address] Monocytes/100 WBC Auto (Bld) 5.1 % Normal 4.3-11.2 [facility] Comment on above: Performed By: #### L 200.0010 ####ML [address] [address] Neutrophils Auto #/vol (Bld) 3.50 x10(3) Normal 1.40-6.50 [facility] Comment on above: Performed By: #### L 200.0010 ####[address] [address] Neutrophils/100 WBC Auto (Bld) 58.1 % Normal 45.0-73.0 [facility] [facility] Comment on above: Performed By: #### L 200.0010 ####[address] [address] Platelet mean volume Auto Entitic volume (Bld) 9.4 fL Normal 7.5-9.5 [facility] Comment on above: Performed By: #### L 200.0010 ####ML [address] [address] Platelets Auto #/vol (Bld) 245 X10(3) Normal 150-450 [facility] Comment on above: Performed By: #### L 200.0010 ####[address] [address] RBC Auto #/vol (Bld) 4.45 x10(6) Normal 3.30-5.00 [facility] Comment on above: Performed By: #### L 200.0010 ####[address] [address] WBC Auto #/vol (Bld) 6.1 x10(3) Normal 4.5-10.0 [facility] Comment on above: Performed By: #### L 200.0010 ####[address] [address] CMPon 02-26-2018 A:G RATIO 2.38 Normal 1.1-2.5 [facility] Comment on above: Performed By: #### L 100.0005, L100.0340, L100.0350 ####[facility] [address] [place] [address] Albumin mass conc 5.0 g/dL Normal 3.5-5.2 [facility] Comment on above: Performed By: #### L 100.0005, L100.0340, L100.0350 #### - TIMEGKAYIP159 [place] [address] ALK. PHOS 73 U/L Normal 35-105 [facility] Comment on above: Performed By: #### L 100.0005, L100.0340, L100.0350 #### - [id number] [place] [address] ALT enzyme act/vol 5 U/L Normal 5-33 [facility] Comment on above: Performed By: #### L 100.0005, L100.0340, L100.0350 ####[facility] BAVEEIDQKG086 [place] [address] Anion gap 3 molar conc 15.3 mmol/L Normal 15-22 [facility] Comment on above: Performed By: #### L 100.0005, L100.0340, L100.0350 ####[facility] [address] [place] [address] AST enzyme act/vol 17 U/L Normal 5-32 [facility] Comment on above: Performed By: #### L 100.0005, L100.0340, L100.0350 ####[facility] WA[address] [place] [address] Bilirubin Ql (U) 0.6 mg/dL Normal 0.2-1.2 [facility] Comment on above: Performed By: #### L 100.0005, L100.0340, L100.0350 ####[facility] [address] [place] [address] Calcium mass conc 9.7 mg/dL Normal 8.6-10.0 [facility] Comment on above: Performed By: #### L 100.0005, L100.0340, L100.0350 ####[facility] L[address] [place] [address] Chloride molar conc 103 mmol/L Normal 98-107 [facility] Comment on above: Performed By: #### L 100.0005, L100.0340, L100.0350 ####[facility] [address] [place] [address] Creatinine mass conc 0.70 mg/dL Normal 0.50-0.90 [facility] Comment on above: Performed By: #### L 100.0005, L100.0340, L100.0350 ####[facility] NLPWFCEBLN560 [place] [address] eGFR if AFR FATOU > 60 ml/min/1.73m2 Normal [facility] Comment on above: Result Comment: eGFR >= 60 Indicates normal kidney function. * eGFR IS AN ESTIMATE * (AFR FATOU = ) (non-AFR AM = NON-) ____ MDRD calculation used in the eGFR should not be used to dose medications. For further limitations of the eGFR please refer to the Physician Website or the National Kidney Disease Education Program website (www.nkdep.nih.gov). Performed By: #### L 100.0005, L100.0340, L100.0350 ####[facility] LXSUQQKMZK723 [place] [address] eGFR nonAFR Fatou > 60 ml/Min/1.73m2 Normal [facility] Comment on above: Performed By: #### L 100.0005, L100.0340, L100.0350 ####[facility] WZFBLNXCCG587 [place] [address] Globulin Calculated mass conc (S) 2.1 g/dL Normal 1.5-4.5 [facility] Comment on above: Performed By: #### L 100.0005, L100.0340, L100.0350 ####[facility] UZRIPCGAWD105 [place] [address] Glucose mass conc 88 mg/dL Normal 74-106 [facility] Comment on above: Performed By: #### L 100.0005, L100.0340, L100.0350 ####[facility] MLPUDIASUN924 [place] [address] Potassium molar conc 4.3 mmol/L Normal 3.5-5.0 [facility] Comment on above: Performed By: #### L 100.0005, L100.0340, L100.0350 ####[facility] TBNQHVHLJQ222 [place] [address] Protein mass conc 7.1 g/dL Normal 6.4-8.3 [facility] Comment on above: Performed By: #### L 100.0005, L100.0340, L100.0350 ####ML - GKMLIYWWRB389 [place] [address] Sodium molar conc 140 mmol/L Normal 135-145 [facility] Comment on above: Performed By: #### L 100.0005, L100.0340, L100.0350 #### - [id number] [place] [address] TCO2 26 mmol/L Normal 22-29 [facility] Comment on above: Performed By: #### L 100.0005, L100.0340, L100.0350 ####ML - GDRQLZUEZS597 [place] [address] Urea nitrogen mass conc 13 mg/dL Normal 6-20 [facility] Comment on above: Performed By: #### L 100.0005, L100.0340, L100.0350 ####[facility] UCZINXBFLS743 [place] [address] LIPASEon 02-26-2018 Lipase enzyme act/vol 32 U/L Normal 13-60 [facility] Comment on above: Performed By: #### L 100.0005, L100.0340, L100.0350 ####[facility] CWOVKNYEKA366 [place] [address] Laboratory - Chemistry and C hemistry - challengeon 12-11-2017 Albumin BCP dye [Mass/Vol] 4.4 g/dL Normal 3.2 - 4.8 g/dL [facility] Albumin/Globulin [Mass ratio] 1.6 {ratio} Normal 0.9 - 1.6 {ratio} [facility]; [facility] ALP [Catalytic activity/Vol] 70 U/L Normal 38 - 126 U/L [facility]; [facility]. ALT No additional P-5'-P [Catalytic activity/Vol] 12 U/L Normal 10 - 49 U/L [facility]; [facility]. ALT With P-5'-P [Catalytic activity/Vol] 12 U/L Normal 10 - 49 U/L [facility]; [facility] Amylase [Catalytic activity/Vol] 60 U/L Normal 25 - 115 U/L [facility]; [facility]. AST [Catalytic activity/Vol] 16 U/L Normal 8 - 34 U/L [facility]; [facility]. AST With P-5'-P [Catalytic activity/Vol] 16 U/L Normal 8 - 34 U/L [facility].; [facility] Bilirubin [Mass/Vol] 0.6 mg/dL Normal 0.2 - 1 .2 mg/dL [facility]; [facility], [facility] Bilirubin Ql (U) Negative Normal [facility]; [facility] Calcium [Mass/Vol] 9.2 mg/dL Normal 8.4 - 10. 1 mg/dL [facility]; [facility], [facility] Chloride [Moles/Vol] 105 mmol/L Normal 98 - 11 0 meq/L [facility]; [facility], [facility] CO2 [Moles/Vol] 26 mmol/L Normal 22 - 32 meq/L [facility]; [facility] Creatinine [Mass/Vol] 0.77 mg/dL Normal 0.50 - 1.20 mg/dL [facility].; [facility]. GFR/1.73 sq M.predicted among blacks MDRD (S/P/Bld) [Vol rate/Area] mL/min/{1.73_m2} Normal [facility].; [facility] [place], [facility]. Work Phone: GFR/1.73 sq M.predicted among non-blacks MDRD (S/P/Bld) [Vol rate/Area] mL/min/{1.73_m2} Normal [facility].; [facility], [place] [facility]. Work Phone: Globulin (S) [Mass/Vol] 2.8 g/dL Normal 1.5 - 3.8 g/dL [facility].; [facility]. Glucose [Mass/Vol] 76 mg/dL Normal 70 - 110 mg/dL [facility].; [facility], [facility]. Ketones Ql (U) Negative Normal [facility].; [facility]. Lipase [Catalytic activity/Vol] 103 U/L Normal 73 - 393 U/L [facility].; [facility], [facility]. pH (U) 6.0 [pH] Normal [facility].; [facility], [facility]. Potassium [Moles/Vol] 5.0 mmol/L Normal 3.5 - 5.0 meq/L [facility].; [facility], [facility]. Protein [Mass/Vol] 7.2 g/dL Normal 6.0 - 8.5 g/dL [facility].; [facility], [facility]. Sodium [Moles/Vol] 140 mmol/L Normal 136 - 145 meq/L [facility].; [facility], [facility]. Specific gravity (U) [Rel density] 1.020 Normal [facility]; [facility] Urea nitrogen [Mass/Vol] 13.0 mg/dL Normal 8.0 - 22.0 mg/dL [facility]; [facility] Urea nitrogen/Creatinine [Mass ratio] 16.9 {ratio} Normal 10.0 - 22.0 {ratio} [facility]; [facility] Laboratory - Hematology and Cell countson 12-11-2017 Basophils (Bld) [#/Vol] 0.00 {10^3/mcL} Normal 0.00 - 0.27 {10^3/mcL} [facility]; [facility] [place] [facility] Work Phone: Basophils/100 WBC (Bld) 0.7 % Normal 0.0 - 2.5 % [facility]; [facility] [place] [facility] Work Phone: Eosinophils (Bld) [#/Vol] 0.10 {10^3/mcL} Normal 0.00 - 0.65 {10^3/mcL} [facility]; [facility] Work Phone: Eosinophils/100 WBC (Bld) 0.8 % Normal 0.0 - 6.0 % [facility]; [facility] [place] [facility] Work Phone: Erythrocyte distribution width (RBC) [Ratio] 13.5 % Normal 11.5 - 15.5 % [facility]; [facility] Hematocrit (Bld) [Volume fraction] 42.0 % Normal 34.0 - 46.0 % [facility]; [facility] Hemoglobin (Bld) [Mass/Vol] 14.1 g/dL Normal 12.0 - 16.0 g/dL [facility]; [facility] Hemoglobin Ql (U) Negative Normal [facility].; [facility] Lymphocytes (Bld) [#/Vol] 2.40 {10^3/mcL} Normal 0.90 - 4.32 {10^3/mcL} [facility].; [facility] [place], [facility] Work Phone: Lymphocytes/100 WBC (Bld) 34.2 % Normal 20.0 - 40.0 % [facility].; [facility] [place], [facility] Work Phone: MCH (RBC) [Entitic mass] 30.6 pg Normal 27.0 - 33.0 pg [facility]; [facility] MCHC (RBC) [Mass/Vol] 33.5 g/dL Normal 32.0 - 36.0 g/dL [facility].; [facility] MCV (RBC) [Entitic vol] 91.4 fL Normal 80.0 - 99.0 fL [facility]; [facility] Monocytes (Bld) [#/Vol] 0.30 {10^3/mcL} Normal 0.09 - 1.40 {10^3/mcL} [facility].; [facility] [place], [facility] Work Phone: Monocytes/100 WBC (Bld) 4.5 % Normal 2.0 - 13.0 % [facility].; [facility] [place], [facility]. Work Phone: Neutrophils (Bld) [#/Vol] 4.20 {10^3/mcL} Normal 2.25 - 8.10 {10^3/mcL} [facility].; [facility] [place], [facility]. Work Phone: Neutrophils/100 WBC (Bld) 59.8 % Normal 50.0 - 75.0 % [facility].; [facility] [employer] [facility] [employer]. Work Phone: Platelet mean volume (Bld) [Entitic vol] 9.6 fL Normal 6.6 - 10.5 fL [facility] [employer] [facility].; [facility] Platelets (Bld) [#/Vol] 250 {10^3/mcL} Normal 150 - 450 {10^3/mcL} [facility] [employer] [facility] Inc.; [facility] RBC (Bld) [#/Vol] 4.60 {10^6/mcL} Normal 4.10 - 5.30 {10^6/mcL} [employer]DS[employer] [facility] Inc.; [place] [employer] [facility] WBC (Bld) [#/Vol] 7.10 {10^3/mcL} Normal 4.50 - 10.80 {10^3/mcL} MDSave [facility] HospitalP[facility] Inc.; [place] [employer] [facility] Laboratory - Specimen inform ationon 12-11-2017 Appearance (U) CLEAR Normal [employer] [facility] [employer] [facility] [employer] [facility] Color (U) YELLOW Normal [facility] [employer].; [employer] [place] [employer] [facility] [employer] [facility] Laboratory - Urinalysison Glucose Test strip (U) [Mass/Vol] Negative Normal [facility] [employer].; [employer] [facility] [employer] [facility], [facility] Leukocyte esterase Test strip Ql (U) Negative Normal [employer] [place] [employer] [facility] [employer] Nitrite Ql (U) Negative Normal [employer] [facility] Inc.; [employer] [facility] [employer], [employer] Protein Ql (U) TRACE Abnormal [employer] [facility] [employer], [employer] No Panel Informationon 12-11 Electrolyte Balance 9.0 meq/L Normal 4.0 - 15 .0 meq/L [facility] [employer].; [employer] [facility] [employer] UA - ODOR Negative Normal [facility]; [facility] UA - UROBILIGEN 0.2 Normal [facility]; [facility] Laboratory - Hematology and Cell countson 12-26-2016 Erythrocyte distribution width (RBC) [Ratio] 14.2 % Normal 11.6 - 14.6 % [facility]; [facility] Work Phone: Hematocrit (Bld) [Volume fraction] 27.0 % Abnormal 37 - 47 % [facility]; [facility] Work Phone: Hemoglobin (Bld) [Mass/Vol] 8.9 g/dL Abnormal 12.0 - 15.0 g/dL [facility]; [facility] [place] [facility] Work Phone: MCH (RBC) [Entitic mass] 30.9 pg Normal 27.0 - 32.0 pg [facility]; [facility] [place] [facility] Work Phone: MCV (RBC) [Entitic vol] 93.8 fL Normal 81 - 99 fL [facility]; [facility] Work Phone: Platelet mean volume (Bld) [Entitic vol] 11.2 fL Normal 6.2 - 12.0 fL [facility]; [facility] [place]. Work Phone: Platelets (Bld) [#/Vol] 129 10*3/uL Abnormal 150 - 450 K/mm3 [facility]; [facility], [place] [facility]. Work Phone: RBC (Bld) [#/Vol] 2.88 10*6/uL Abnormal 4.2 - 5.4 {M/mm3} [facility]; [facility] [place] [facility] Work Phone: WBC (Bld) [#/Vol] 9.2 10*3/uL Normal 4.4 - 11.0 K/mm3 [facility] [employer] [facility]Joy[facility]; [facility], [place]. Work Phone: No Panel Informationon 12-26 MCHC 33.0 {g/gl} Normal 32 - 36 {g/gl} [facility]; [facility], [place]. Work Phone: RDW SD 48.7 fL Abnormal 35.1 - 43.9 fL [facility] [employer] [facility]Joy[facility]; [facility] [employer] [facility] Hospital[facility]. Work Phone: Laboratory - Blood bankon ABO and Rh group Nom (Bld) Blood group O Rh(D) positive Normal [facility] [employer] [facility] HospitalJoy[facility]; [facility] [employer] [facility] HospitalMicro[facility]. Work Phone: Laboratory - Hematology and Cell countson 12-25-2016 Basophils/100 WBC (Bld) 0.2 % Normal 0 - 1 % [facility]; [employer] [facility] [employer] [facility] Hospital[facility]. Work Phone: Eosinophils/100 WBC (Bld) 0.7 % Normal 0 - 5 % [facility]; [employer] [facility] [employer] [facility]. Work Phone: Erythrocyte distribution width (RBC) [Ratio] 14.2 % Normal 11.6 - 14.6 % [facility] [employer] [facility] HospitalJoy[facility]; [place] [employer] [facility] [employer] [facility]. Work Phone: Hematocrit (Bld) [Volume fraction] 34.9 % Abnormal 37 - 47 % [facility] [employer] [facility] HospitalJoy[facility]; [facility] [employer] [facility]. Work Phone: Hemoglobin (Bld) [Mass/Vol] 11.5 g/dL Abnormal 12.0 - 15.0 g/dL [facility] [employer] [facility] HospitalJoy[facility]; [place] [employer] [facility] [employer] [facility]. Work Phone: Lymphocytes/100 WBC (Bld) 21.0 % Normal 19 - 41 % [facility]; [facility] [place] [facility]. Work Phone: MCH (RBC) [Entitic mass] 30.7 pg Normal 27.0 - 32.0 pg [facility]; [facility] [place] [facility]. Work Phone: MCV (RBC) [Entitic vol] 93.3 fL Normal 81 - 99 fL [facility]; [facility] [place] [facility]. Work Phone: Monocytes/100 WBC (Bld) 5.5 % Normal 0 - 10 % [facility]; [facility] [place] [facility]. Work Phone: Neutrophils/100 WBC (Bld) 72.1 % Abnormal 47 - 70 % [facility]; [facility] [place] [facility]. Work Phone: Platelet mean volume (Bld) [Entitic vol] 11.5 fL Normal 6.2 - 12.0 fL [facility] HospitalJemstep; [facility] [place] [facility]. Work Phone: Platelets (Bld) [#/Vol] 168 10*3/uL Normal 150 - 450 K/mm3 [facility] CenterP[facility]Jemstep; [facility] [place] [facility]. Work Phone: RBC (Bld) [#/Vol] 3.74 10*6/uL Abnormal 4.2 - 5.4 {M/mm3} [facility]; [facility] [place] [facility]. Work Phone: WBC (Bld) [#/Vol] 8.8 10*3/uL Normal 4.4 - 11.0 K/mm3 [facility]; [facility] [place]. Work Phone: No Panel Informationon 12-25 Absolute Lymph 1.84 {X10_3/ul} Normal 0.83 - 4.5 1 {X10_3/ul} [facility] [employer] [facility] HospitalMicro[facility].; [employer] [facility] [employer]. Work Phone: Absolute Neut 6.3 {X10_3/uL} Normal 2.0 - 7.7 {X10_3/uL} [facility].; [employer] [facility] [employer]. Work Phone: IM GRAN % 0.500 % Normal 0.0 - 0.9 % [facility].; [employer] [facility] [employer]. Work Phone: MCHC 33.0 {g/gl} Normal 32 - 36 {g/gl} [facility].; [employer] [facility] [employer]. Work Phone: RDW SD 48.1 fL Abnormal 35.1 - 43.9 fL [facility] [employer] [facility] HospitalMicro[facility].; [employer] [facility] HospitalMicro[facility]. Work Phone: Laboratory - Microbiology an d Antimicrobial susceptibilityon 02-09-2014 S. pneumoniae Ag LA Ql (Unsp spec) Negative Normal [facility] [employer] [facility] HospitalMicro[facility].; [employer] [facility]Micro[facility]. Vital Signs Date Time Vital Sign Value Performing Clinician Rukhsana lowery 02-01-2024 10:02040 Body height 163.83 cm Obdulia Llanos RN [facility] [employer] [facility]Micro[facility].; [employer] [facility]. 02-01-2024 10:02-0400 Body mass index (BMI) [Ratio] 31.1 kg/m2 Obdulia Llanos RN [facility] [employer] [facility] HospitalMicro[facility].; [employer] [facility] [employer]. 02-01-2024 10:02-040 Body surface area Derived from formula 1.9 m2 Obdulia Llanos RN [facility] [employer] [facility] HospitalMicro[facility].; [employer] [facility], [employer]. 02-01-2024 10:020400 Body temperature 97.6 [degF] Obdulia Llanos RN [facility] [employer] [facility] HospitalMicro[facility].; [employer] [facility] [facility]. Comment on above: Method: Oral 02-01-2024 10:02-0400 Body weight 83.46 kg Obdulia Llanos RN [facility], [employer].; [facility] 02-01-2024 10:02-0400 Diastolic blood pressure 83 mm[Hg] Obdulia Llanos RN [facility], [employer].; [employer] [facility] Comment on above: Patient Position: Sitting; Cuff Location : Left Arm; Cuff Size: Large 02-01-2024 10:02-0400 Heart rate 81 /min Obdulia Llanos RN [facility], [employer].; [employer] [facility] Comment on above: Pattern: Regular 02-01-2024 10:02-0400 Systolic blood pressure 124 mm[Hg] Obdulia Llanos RN [facility], [employer] [facility], [employer]. Comment on above: Patient Position: Sitting; Cuff Location : Left Arm; Cuff Size: Large 01-15-2024 09:36-0400 Body height 163.83 cm ROBERT RUCKER RN [facility], [facility].; [employer] [facility] 01-15-2024 09:36-0400 Body mass index (BMI) [Ratio] 30.89 kg/m2 ROBERT RUCKER RN [facility].; [facility] 01-15-2024 09:36-0400 Body surface area Derived from formula 1.89 m2 ROBERT GRATE GALDYS [facility].; [employer] [facility] 01-15-2024 09:36-0400 Body weight 82.92 kg ROBERT GRATE GLADYS [facility], [employer].; [employer] [facility] [employer]. 01-15-2024 09:36-0400 Diastolic blood pressure 73 mm[Hg] ROBERT GRATE GLADYS [facility], [employer] [facility] [employer] [facility], [employer]. Comment on above: Patient Position: Sitting; Cuff Location : Left Arm; Cuff Size: Standard 01-15-2024 09:36-0400 Heart rate 73 /min ROBERT RUCKER RN [facility], [employer] [facility] [employer]. Comment on above: Pattern: Regular 01-15-2024 09:36-0400 Systolic blood pressure 106 mm[Hg] ROBERT RUCKER RN [facility], [employer].; [employer] [facility], [employer]. Comment on above: Patient Position: Sitting; Cuff Location : Left Arm; Cuff Size: Standard 01-03-2024 15:30-0400 Body height 163.83 cm Ramona Duran RN [facility], [facility].; [facility] [place], [employer] 01-03-2024 15:30-0400 Body mass index (BMI) [Ratio] 30.93 kg/m2 Ramona Duran RN [facility], [facility].; [facility] [place], [employer] 01-03-2024 15:30-0400 Body surface area Derived from formula 1.89 m2 Ramona Duran RN [facility], [facility].; [facility] [place], [employer] 01-03-2024 15:30-0400 Body temperature 97.8 [degF] [facility] [employer] [facility], [employer]. Comment on above: Method: Oral 01-03-2024 15:30-0400 Body weight 83.01 kg Ramona Duran RN [facility], [facility].; [facility] [place], [employer] 01-03-2024 15:30-0400 Diastolic blood pressure 77 mm[Hg] Ramona [facility] [employer] [facility], [employer]. Comment on above: Patient Position: Standing; Cuff Locatio n: Left Arm; Cuff Size: Standard 01-03-2024 15:30-0400 Heart rate 72 /min Ramona Duran RN [facility], [employer].; [employer] [facility], [employer]. Comment on above: Pattern: Regular 01-03-2024 15:30-0400 Systolic blood pressure 116 mm[Hg] Ramona Duran RN [facility], [facility].; [employer] [facility], [employer]. Comment on above: Patient Position: Standing; Cuff Locatio n: Left Arm; Cuff Size: Standard 07-09-2023 10:11-0500 Body height 163.83 cm ARTHUR GANN MD Work Phone: [facility]; [facility] 07-09-2023 10:11-0500 Body mass index (BMI) [Ratio] 30.93 kg/m2 ARTHUR GANN MD Work Phone: [facility]; [facility] 07-09-2023 10:11-0500 Body surface area Derived from formula 1.89 m2 ARTHUR GANN MD Work Phone: [facility]; [employer] [facility] 07-09-2023 10:11-0500 Body weight 83.01 kg ARTHUR GANN MD Work Phone: [facility]; [facility]. 07-09-2023 10:11-0500 Diastolic blood pressure 84 mm[Hg] ARTHUR GANN MD Work Phone: [facility]; [facility]. Comment on above: Patient Position: Sitting; Cuff Location : Left Arm; Cuff Size: Standard 07-09-2023 10:11-0500 Heart rate 80 /min ARTHUR GANN MD Work Phone: [facility]; [facility] Comment on above: Pattern: Regular 07-09-2023 10:11-0500 Systolic blood pressure 134 mm[Hg] ARTHUR GANN MD Work Phone: [facility]; [facility] Comment on above: Patient Position: Sitting; Cuff Location : Left Arm; Cuff Size: Standard 05-02-2023 13:36-0500 Body temperature 97.7 [degF] ROBERT RUCKER RN [facility]; [facility], [facility] Comment on above: Method: Oral 05-02-2023 13:36-0500 Body weight 82.56 kg ROBERT RUCKER RN [facility], [employer].; [facility], [employer]. 05-02-2023 13:36-0500 Diastolic blood pressure 77 mm[Hg] ROBERT RUCKER RN [facility], [employer].; [facility]. Comment on above: Patient Position: Sitting; Cuff Location : Right Arm; Cuff Size: Large 05-02-2023 13:36-0500 Heart rate 86 /min ROBERT RUCKER RN [facility], [employer].; [facility], [employer]. Comment on above: Pattern: Regular 05-02-2023 13:36-0500 Inhaled oxygen concentration 21 % ROBERT RUCKER RN [facility], [employer].; [facility]. Comment on above: Room air 05-02-2023 13:36-0500 SaO2% (BldA) [Mass fraction] 98 % ROBERT RUCKER RN [facility], [employer].; [facility], [employer]. 05-02-2023 13:36-0500 Systolic blood pressure 115 mm[Hg] ROBERT RUCKER RN [facility], [employer].; [facility]. Comment on above: Patient Position: Sitting; Cuff Location : Right Arm; Cuff Size: Large 04-06-2023 09:45-0500 Body temperature 97.5 [degF] Kassy Galo RN [facility], [employer].; [facility] [place], [employer]. Comment on above: Method: Oral 04-06-2023 09:45-0500 Body weight 81.76 kg Kassy Galo RN [facility], [employer].; [facility] [place], [employer] 04-06-2023 09:45-0500 Diastolic blood pressure 75 mm[Hg] Kassy Galo RN [facility], [facility].; [facility], [employer]. Comment on above: Patient Position: Sitting; Cuff Location : Left Arm; Cuff Size: Large 04-06-2023 09:45-0500 Heart rate 75 /min Kassy Galo RN [facility], [facility].; [facility] [place], [employer]. Comment on above: Pattern: Regular 04-06-2023 09:45-0500 Systolic blood pressure 108 mm[Hg] Kassy Galo RN [facility], [facility].; [facility] [place], [employer]. Comment on above: Patient Position: Sitting; Cuff Location : Left Arm; Cuff Size: Large 01-15-2023 13:48-0400 Body height 163.83 cm ROBERT RUCKER RN [facility], [facility].; [facility], [employer] 01-15-2023 13:48-0400 Body mass index (BMI) [Ratio] 30.42 kg/m2 ROBERT RUCKER RN [facility], Inc.; [facility], [employer] 01-15-2023 13:48-0400 Body surface area Derived from formula 1.88 m2 ROBERT RUCKER RN [facility], [facility].; [facility], [employer]. 01-15-2023 13:48-0400 Body temperature 97.7 [degF] ROBERT RUCKER RN [facility], [employer].; [facility]. Comment on above: Method: Oral 01-15-2023 13:48-0400 Body weight 81.65 kg ROBERT RUCKER RN [facility], [facility].; [facility], [employer] 01-15-2023 13:48-0400 Diastolic blood pressure 71 mm[Hg] ROBERT RUCKER RN [facility], [facility].; [facility]. Comment on above: Patient Position: Sitting; Cuff Location : Right Arm; Cuff Size: Standard 01-15-2023 13:48-0400 Heart rate 73 /min ROBERT RUCKER RN [facility], [employer].; [email or web address]. Comment on above: Pattern: Regular 01-15-2023 13:48-0400 Systolic blood pressure 151 mm[Hg] ROBERT RUCKER RN [facility], [facility].; [facility], [employer] Comment on above: Patient Position: Sitting; Cuff Location : Right Arm; Cuff Size: Standard 01-01-2023 10:58-0400 Body height 163.83 cm Marga Emmanuel [facility], [facility].; [facility] 01-01-2023 10:58-0400 Body mass index (BMI) [Ratio] 30.59 kg/m2 Marga Emmanuel [facility], [facility].; [facility], [employer] 01-01-2023 10:58-0400 Body surface area Derived from formula 1.89 m2 Marga F [facility].; [facility], [facility]. 01-01-2023 10:58-0400 Body weight 82.1 kg Marga Hall Lien [facility], [facility].; [facility], [facility]. 01-01-2023 10:58-0400 Diastolic blood pressure 71 mm[Hg] Marga Hall Lien [facility].; [facility] Comment on above: Patient Position: Sitting; Cuff Location : Left Arm; Cuff Size: Standard 01-01-2023 10:58-0400 Heart rate 69 /min Marga Emmanuel [facility].; [facility] Comment on above: Pattern: Regular 01-01-2023 10:58-0400 Systolic blood pressure 124 mm[Hg] Marga Emmanuel [facility].; [facility], [employer] Comment on above: Patient Position: Sitting; Cuff Location : Left Arm; Cuff Size: Standard 11-12-2022 14:29-0400 Body height 163.83 cm [facility], [facility].; [facility], [facility]. 11-12-2022 14:29-0400 Body mass index (BMI) [Ratio] 30.08 kg/m2 [facility], [facility].; [facility], [facility]. 11-12-2022 14:29-0400 Body surface area Derived from formula 1.87 m2 [facility], [facility]. 11-12-2022 14:29-0400 Body temperature 98.5 [degF] [facility].; [facility], [facility]. Comment on above: Method: Oral 11-12-2022 14:29-0400 Body weight 80.74 kg [facility].; [facility], [facility]. 11-12-2022 14:29-0400 Diastolic blood pressure 85 mm[Hg] [facility].; [facility], [facility]. Comment on above: Patient Position: Sitting; Cuff Location : Left Arm; Cuff Size: Standard 11-12-2022 14:29-0400 Heart rate 92 /min [facility].; [facility], [facility]. Comment on above: Pattern: Regular 11-12-2022 14:29-0400 Inhaled oxygen concentration 21 % [facility].; [facility], [facility]. Comment on above: Room air 11-12-2022 14:29-0400 SaO2% (BldA) [Mass fraction] 98 % [facility].; [facility], [facility]. 11-12-2022 14:29-0400 Systolic blood pressure 127 mm[Hg] [facility].; [facility], [facility]. Comment on above: Patient Position: Sitting; Cuff Location : Left Arm; Cuff Size: Standard 09-05-2022 12:59-0400 Body height 163.83 cm ROBERT RUCKER RN [facility], [facility].; [facility], [facility]. 09-05-2022 12:59-0400 Body mass index (BMI) [Ratio] 30.25 kg/m2 ROBERT RUCKER RN [facility], [facility].; [facility], [facility]. 09-05-2022 12:59-0400 Body surface area Derived from formula 1.88 m2 ROBERT GRATE GLADYS [facility], [facility].; [facility], [facility]. 09-05-2022 12:59-0400 Body weight 81.19 kg ROBERT [employer] [facility], [facility].; [facility], [facility]. 09-05-2022 12:59-0400 Diastolic blood pressure 70 mm[Hg] ROBERT RUCKER RN [facility], [facility].; [facility], [employer]. Comment on above: Patient Position: Sitting; Cuff Location : Right Arm; Cuff Size: Standard 09-05-2022 12:59-0400 Heart rate 71 /min ROBERT RUCKER [facility], [facility].; [facility], [employer]. Comment on above: Pattern: Regular 09-05-2022 12:59-0400 Systolic blood pressure 128 mm[Hg] ROBERT RUCKER RN [facility], [facility].; [facility], [employer]. Comment on above: Patient Position: Sitting; Cuff Location : Right Arm; Cuff Size: Standard 08-16-2022 14:51-0400 Body height 163.83 cm Obdulia Llanos RN [facility], [facility].; [facility] [place], [facility]. 08-16-2022 14:51-0400 Body mass index (BMI) [Ratio] 29.91 kg/m2 Obdulia Llanos RN [facility], [facility].; [facility] [place], [facility]. 08-16-2022 14:51-0400 Body surface area Derived from formula 1.87 m2 Obdulia Llanos RN [facility], [facility].; [facility] [place], [facility]. 08-16-2022 14:51-0400 Body temperature 97.4 [degF] Obdulia Llanos RN [facility], [facility].; [facility] [place], [employer]. Comment on above: Method: Oral 08-16-2022 14:51-0400 Body weight 80.29 kg Obdulia Llanos RN [facility], [facility].; [facility] [place], [facility]. 08-16-2022 14:51-0400 Diastolic blood pressure 80 mm[Hg] Obdulia Llanos RN [facility], [facility].; [facility] [place], [employer]. Comment on above: Patient Position: Sitting; Cuff Location : Left Arm; Cuff Size: Large 08-16-2022 14:51-0400 Heart rate 65 /min Obdulia Llanos RN [facility], [facility].; [facility] [place], [employer] Comment on above: Pattern: Regular 08-16-2022 14:51-0400 Inhaled oxygen concentration 21 % Obdulia Llanos RN [facility], [facility].; [facility] [place], [facility]. Comment on above: Room air 08-16-2022 14:51-0400 SaO2% (BldA) [Mass fraction] 98 % Obdulia Llanos RN [facility], [facility].; [facility] [place], [facility]. 08-16-2022 14:51-0400 Systolic blood pressure 136 mm[Hg] Obdulia Llanos RN [facility], [facility].; [facility] [place], [employer]. Comment on above: Patient Position: Sitting; Cuff Location : Left Arm; Cuff Size: Large 07-24-2022 10:10-0500 Body height 163.83 cm Ramona Duran RN [facility], [facility].; [facility]. 07-24-2022 10:10-0500 Body mass index (BMI) [Ratio] 30.42 kg/m2 Ramona Duran RN [facility], [facility].; [facility], [facility]. 07-24-2022 10:10-0500 Body surface area Derived from formula 1.88 m2 Ramona Duran RN [facility], [facility].; [facility], [facility]. 07-24-2022 10:10-0500 Body temperature 97.7 [degF] Ramona Duran RN [facility], [facility].; [facility], [facility]. Comment on above: Method: Oral 07-24-2022 10:10-0500 Body weight 81.65 kg Ramona Duran RN [facility].; [facility] 07-24-2022 10:10-0500 Diastolic blood pressure 77 mm[Hg] Ramona Duran RN [facility], [facility].; [facility], [facility] Comment on above: Patient Position: Sitting; Cuff Location : Left Arm; Cuff Size: Standard 07-24-2022 10:10-0500 Heart rate 79 /min Ramona Duran RN [facility], [facility].; [facility], [employer] Comment on above: Pattern: Regular 07-24-2022 10:10-0500 Inhaled oxygen concentration 21 % Ramona Duran RN [facility], [facility].; [facility], [employer] Comment on above: Room air 07-24-2022 10:10-0500 SaO2% (BldA) [Mass fraction] 98 % Ramona Duran RN [facility], [facility].; [facility], [facility]. 07-24-2022 10:10-0500 Systolic blood pressure 121 mm[Hg] Ramona Duran RN [facility], [facility].; [facility], [employer] Comment on above: Patient Position: Sitting; Cuff Location : Left Arm; Cuff Size: Standard 01-26-2022 09:55-0400 Body height 163.83 cm Kassy Galo RN [facility], [facility].; [facility], [facility]. 01-26-2022 09:55-0400 Body mass index (BMI) [Ratio] 28.9 kg/m2 Kassy Galo RN [facility], [facility].; [facility], [employer] 01-26-2022 09:55-0400 Body surface area Derived from formula 1.84 m2 Kassy Galo RN [facility], [facility].; [facility], [facility]. 01-26-2022 09:55-0400 Body temperature 99.2 [degF] Kassy Galo RN [facility], [facility].; [facility], [employer]. Comment on above: Method: Oral 01-26-2022 09:55-0400 Body weight 77.57 kg Kassy Galo RN [facility], [facility].; [facility], [facility] 01-26-2022 09:55-0400 Diastolic blood pressure 80 mm[Hg] Kassy Galo RN [facility], [facility].; [facility], [employer]. Comment on above: Patient Position: Sitting; Cuff Location : Left Arm; Cuff Size: Large 01-26-2022 09:55-0400 Heart rate 88 /min Kassy Galo RN [facility], [facility].; [facility], [employer]. Comment on above: Pattern: Regular 01-26-2022 09:55-0400 Inhaled oxygen concentration 21 % Kassy Galo RN [facility], [facility].; [facility], [employer]. Comment on above: Room air 01-26-2022 09:55-0400 SaO2% (BldA) [Mass fraction] 98 % Kassy Galo RN [facility], [facility].; [facility], [employer] 01-26-2022 09:55-0400 Systolic blood pressure 112 mm[Hg] Kassy Galo RN [facility], [facility].; [facility], [employer]. Comment on above: Patient Position: Sitting; Cuff Location : Left Arm; Cuff Size: Large 10-17-2021 09:45-0400 Body height 163.83 cm Kassy Galo RN [facility], [facility].; [facility] [place], [facility]. 10-17-2021 09:45-0400 Body mass index (BMI) [Ratio] 28.9 kg/m2 Kassy Galo RN [facility], [facility].; [facility] [place], [employer] 10-17-2021 09:45-0400 Body surface area Derived from formula 1.84 m2 Kassy Gal[facility] [place], [employer]. 10-17-2021 09:45-0400 Body temperature 97.9 [degF] Kassy [facility], [employer]. Comment on above: Method: Oral 10-17-2021 09:45-0400 Body weight 77.57 kg Kassy Galo RN [facility], [employer].; [facility] [place], [employer] 10-17-2021 09:45-0400 Diastolic blood pressure 86 mm[Hg] Kassy [facility], [employer]. Comment on above: Patient Position: Sitting; Cuff Location : Left Arm; Cuff Size: Large 10-17-2021 09:45-0400 Heart rate 69 /min Kassy Gal[facility]. Comment on above: Pattern: Regular 10-17-2021 09:45-0400 Systolic blood pressure 122 mm[Hg] Kassy Gal[facility], [employer]. Comment on above: Patient Position: Sitting; Cuff Location : Left Arm; Cuff Size: Large 04-24-2021 10:33-0500 Body height 163.83 cm ROBERT RUCKER RN [facility], [employer].; [facility], [employer]. 04-24-2021 10:33-0500 Body mass index (BMI) [Ratio] 29.24 kg/m2 ROBERT RUCKER RN [facility], [employer].; [facility], [employer]. 04-24-2021 10:33-0500 Body surface area Derived from formula 1.85 m2 ROBERT RUCKER RN [facility], [employer].; [facility], [employer]. 04-24-2021 10:33-0500 Body temperature 98.4 [degF] ROBERT RUCKER RN [facility], [employer].; [facility], [employer]. Comment on above: Method: Temporal 04-24-2021 10:33-0500 Body weight 78.47 kg ROBERT RUCKER RN [facility] [employer] [employer], [facility] 01-27-2021 15:03-0400 Body height 163.83 cm Obdulia Llanos RN [facility], [facility].; [facility] [place], [employer] 01-27-2021 15:03-0400 Body mass index (BMI) [Ratio] 29.24 kg/m2 Obdulia Llanos RN [facility], [facility].; [facility] [place], [employer] 01-27-2021 15:03-0400 Body surface area Derived from formula 1.85 m2 Obdulia Llanos RN [facility], [facility].; [facility] [place], [employer] 01-27-2021 15:03-0400 Body weight 78.47 kg Obdulia Llanos RN [facility], [facility].; [facility] [place], [facility]. 01-27-2021 15:03-0400 Diastolic blood pressure 81 mm[Hg] Obdulia Llanos RN [facility], [facility].; [facility] [place], [employer] Comment on above: Patient Position: Sitting; Cuff Location : Left Arm; Cuff Size: Large 01-27-2021 15:03-0400 Heart rate 98 /min Obdulia Llanos RN [facility], [facility].; [facility] [place], [employer] Comment on above: Pattern: Regular 01-27-2021 15:03-0400 Systolic blood pressure 127 mm[Hg] Obdulia Llanos RN [facility], [facility].; [facility] [place], [employer] Comment on above: Patient Position: Sitting; Cuff Location : Left Arm; Cuff Size: Large 08-04-2020 [id number] Body height 163.83 cm Kassy Galo RN [facility], [facility].; [facility] [place], [employer] 08-04-2020 11:28-0400 Body mass index (BMI) [Ratio] 30.27 kg/m2 Kassy Galo RN [facility], [facility].; [facility] [place], [employer] 08-04-2020 [id number] Body surface area Derived from formula 1.88 m2 Kassy Galo RN [facility], [facility].; [employer] [facility] 08-04-2020 11:28-0400 Body weight 81.25 kg Kassy Galo RN [facility], [facility].; [employer] [facility], [employer] 08-04-2020 11:28-0400 Diastolic blood pressure 85 mm[Hg] Kassy Galo RN [facility] Comment on above: Patient Position: Sitting; Cuff Location : Left Arm; Cuff Size: Large 08-04-2020 11:28-0400 Heart rate 82 /min Kassy Galo RN [facility] Comment on above: Pattern: Regular 08-04-2020 11:28-0400 Systolic blood pressure 138 mm[Hg] Kassy Galo RN [facility] [employer] [facility] Comment on above: Patient Position: Sitting; Cuff Location : Left Arm; Cuff Size: Large 04-15-2020 15:47-0500 Body height 163.83 cm Ramona Duran RN [facility] 04-15-2020 15:47-0500 Body mass index (BMI) [Ratio] 28.39 kg/m2 Ramona Duran RN [facility] 04-15-2020 15:47-0500 Body surface area Derived from formula 1.83 m2 Ramona Duran RN [facility] 04-15-2020 15:47-0500 Body temperature 97.6 [degF] Ramona Duran RN [facility] [employer] [facility] Comment on above: Method: Oral 04-15-2020 15:47-0500 Body weight 76.2 kg Ramona Duran RN [facility] [employer] [facility] 04-15-2020 15:47-0500 Diastolic blood pressure 84 mm[Hg] Ramona Duran RN [facility].; [facility], [employer]. Comment on above: Patient Position: Sitting; Cuff Location : Left Arm; Cuff Size: Standard 04-15-2020 15:47-0500 Heart rate 67 /min Ramona Duran RN [facility], [employer].; [facility] Comment on above: Pattern: Regular 04-15-2020 15:47-0500 Systolic blood pressure 145 mm[Hg] Ramona Duran RN [facility], Inc.; [facility] [place], Inc. Comment on above: Patient Position: Sitting; Cuff Location : Left Arm; Cuff Size: Standard 03-29-2020 16:19-0500 Body height 163.83 cm Kassy Galo RN [facility], [employer] [facility] [place], Inc. 03-29-2020 16:19-0500 Body mass index (BMI) [Ratio] 28.53 kg/m2 Kassy Galo RN [facility], Inc.; [facility] [place], [facility]. 03-29-2020 16:19-0500 Body surface area Derived from formula 1.83 m2 Kassy Galo RN [facility], Inc.; [facility] [place], Inc. 03-29-2020 16:19-0500 Body weight 76.57 kg Kassy Galo RN [facility], [facility].; [facility] [place], Inc. 03-29-2020 16:19-0500 Diastolic blood pressure 85 mm[Hg] Kassy Galo RN [facility], Inc.; [facility] Comment on above: Patient Position: Sitting; Cuff Location : Left Arm; Cuff Size: Large 03-29-2020 16:19-0500 Heart rate 76 /min Kassy Galo RN [facility], Inc.; [facility] Comment on above: Pattern: Regular 03-29-2020 16:19-0500 Systolic blood pressure 130 mm[Hg] Kassy Galo RN [facility], Inc.; [facility] Comment on above: Patient Position: Sitting; Cuff Location : Left Arm; Cuff Size: Large 03-11-2020 13:36-0400 Body height 163.83 cm Obdulia Llanos RN [facility], Inc.; [facility] [place], Inc. 03-11-2020 13:36-0400 Body mass index (BMI) [Ratio] 28.56 kg/m2 Obdulia Llanos RN [facility], Inc.; [facility] [place], Inc. 03-11-2020 13:36-0400 Body surface area Derived from formula 1.83 m2 Obdulia Llanos RN [facility], Inc.; [facility] [place], Inc. 03-11-2020 13:36-0400 Body weight 76.66 kg Obdulia Llanos RN [facility], [facility].; [facility] [place], Inc. 03-11-2020 13:36-0400 Diastolic blood pressure 81 mm[Hg] Obdulia Llanos RN [facility], Inc.; [facility] [place], Inc. Comment on above: Patient Position: Sitting; Cuff Location : Left Arm; Cuff Size: Large 03-11-2020 13:36-0400 Heart rate 70 /min Obdulia Llanos RN [facility], Inc.; [facility] [place], Inc. Comment on above: Pattern: Regular 03-11-2020 13:36-0400 Systolic blood pressure 142 mm[Hg] Obdulia Llanso RN [facility], [facility].; [facility] [place], Inc. Comment on above: Patient Position: Sitting; Cuff Location : Left Arm; Cuff Size: Large 12-23-2019 12:55-0400 Body height 163.83 cm Lyubov Dwayne [facility], Inc.; [email or web address] 12-23-2019 12:55-0400 Body mass index (BMI) [Ratio] 34.48 kg/m2 Lyubov A [facility], Inc.; [facility], Inc. 12-23-2019 12:55-0400 Body surface area Derived from formula 1.98 m2 Lyubov Dwayne [facility], Inc.; [email or web address] Inc[facility] 12-23-2019 12:55-0400 Body weight 92.53 kg Lyubov Rice [facility], Inc.; [facility], [facility]. 12-23-2019 12:55-0400 Diastolic blood pressure 79 mm[Hg] Lyubov Rice [facility], Inc.; [facility], Inc[facility] Comment on above: Patient Position: Sitting; Cuff Location : Left Arm; Cuff Size: Standard 12-23-2019 12:55-0400 Heart rate 101 /min Lyubov Rice [facility], Inc.; [facility], Inc[facility] Comment on above: Pattern: Regular 12-23-2019 12:55-0400 Systolic blood pressure 122 mm[Hg] Lyubov Rice [facility], Inc.; [facility], Inc. Comment on above: Patient Position: Sitting; Cuff Location : Left Arm; Cuff Size: Standard 09-21-2019 15:25-0400 Body height 163.83 cm Obdulia Llanos RN [facility], [facility].; [facility] [place], Inc. 09-21-2019 15:25-0400 Body mass index (BMI) [Ratio] 32.28 kg/m2 Obdulia Llanos RN [facility], [facility].; [facility] [place], [facility]. 09-21-2019 15:25-0400 Body surface area Derived from formula 1.93 m2 Obdulia Llanos RN [facility], Inc.; [facility] [place], [facility]. 09-21-2019 15:25-0400 Body weight 86.64 kg Obdulia Llanos RN [facility], [facility].; [facility] [place], Inc. 09-21-2019 15:25-0400 Diastolic blood pressure 81 mm[Hg] Obdulia Llanos RN [facility], [facility].; [facility] [place], Inc. Comment on above: Patient Position: Sitting; Cuff Location : Left Arm; Cuff Size: Large 09-21-2019 15:25-0400 Heart rate 99 /min Obdulia Llanos RN [facility], Inc.; [facility] Comment on above: Pattern: Regular 09-21-2019 15:25-0400 Systolic blood pressure 132 mm[Hg] Obdulia Llanos RN [facility], Inc.; [facility] Comment on above: Patient Position: Sitting; Cuff Location : Left Arm; Cuff Size: Large 08-11-2019 13:02-0400 Body height 163.83 cm Ramona Duran RN [facility], Inc.; [facility] 08-11-2019 13:02-0400 Body mass index (BMI) [Ratio] 30.93 kg/m2 Ramona Duran RN [facility], Inc.; [facility] 08-11-2019 13:02-0400 Body surface area Derived from formula 1.89 m2 Ramona Duran RN [facility], Inc.; [facility] 08-11-2019 13:02-0400 Body temperature 97.5 [degF] Ramona Duran RN [facility] [employer] [facility] Comment on above: Method: Oral 08-11-2019 13:02-0400 Body weight 83.01 kg Ramona Duran RN [facility].; [facility] 08-11-2019 13:02-0400 Diastolic blood pressure 78 mm[Hg] Ramona Duran RN [facility] Comment on above: Patient Position: Sitting; Cuff Location : Left Arm; Cuff Size: Standard 08-11-2019 13:02-0400 Heart rate 97 /min Ramona Duran RN [facility] [employer] [facility] [employer], [employer] Comment on above: Pattern: Regular 08-11-2019 13:02-0400 Systolic blood pressure 128 mm[Hg] Ramona Duran RN [facility] [employer] [facility] [employer], [employer] Comment on above: Patient Position: Sitting; Cuff Location : Left Arm; Cuff Size: Standard 05-08-2019 08:58-0500 Body height 163.83 cm Obdulia Llanos RN [facility].; [facility], [employer]. 05-08-2019 08:58-0500 Body mass index (BMI) [Ratio] 28.39 kg/m2 Obdulia Llanos RN [facility] 05-08-2019 08:58-0500 Body surface area Derived from formula 1.83 m2 Obdulia Llanos RN [facility] 05-08-2019 08:58-0500 Body temperature 98.6 [degF] Obdulia Llanos RN [facility], [employer]. Comment on above: Method: Oral 05-08-2019 08:58-0500 Body weight 76.2 kg Obdulia Llanos RN [facility].; [facility], [employer]. 05-08-2019 08:58-0500 Diastolic blood pressure 90 mm[Hg] Obdulia Llanos RN [facility] [employer]. Comment on above: Patient Position: Sitting; Cuff Location : Left Arm; Cuff Size: Large 05-08-2019 08:58-0500 Heart rate 105 /min Obdulia [facility] [employer], [employer]. Comment on above: Pattern: Regular 05-08-2019 08:58-0500 Systolic blood pressure 131 mm[Hg] Obdulia [facility]lanos [facility], [employer]. Comment on above: Patient Position: Sitting; Cuff Location : Left Arm; Cuff Size: Large 02-26-2019 13:00-0400 Body height 163.83 cm Obdulia Llanos [facility].; [facility], [employer]. 02-26-2019 13:00-0400 Body mass index (BMI) [Ratio] 28.73 kg/m2 Obdulia Llanos RN [facility].; [facility] 02-26-2019 13:00-0400 Body surface area Derived from formula 1.84 m2 Obdulia Llanos RN [facility].; [facility], [facility] 02-26-2019 13:00-0400 Body temperature 97.6 [degF] Obdulia Llanos RN [facility], [employer].; [facility], [employer]. Comment on above: Method: Oral 02-26-2019 13:00-0400 Body weight 77.11 kg Obdulia Llanos RN [facility].; [facility] 02-26-2019 13:00-0400 Diastolic blood pressure 84 mm[Hg] Obdulia Llanos RN [facility] [facility].; [facility] [employer], [employer] Comment on above: Patient Position: Sitting; Cuff Location : Left Arm; Cuff Size: Large 02-26-2019 13:00-0400 Heart rate 92 /min Obdulia Llanos RN [facility] [employer], [employer]. Comment on above: Pattern: Regular 02-26-2019 13:00-0400 Systolic blood pressure 129 mm[Hg] Obdulia Llanos RN [facility] [facility] Inc.; [employer] [facility] Comment on above: Patient Position: Sitting; Cuff Location : Left Arm; Cuff Size: Large 05-27-2018 11:05-0500 Body height 163.83 cm ELDA [facility] [employer] [facility] [employer], [employer]. 05-27-2018 11:05-0500 Body mass index (BMI) [Ratio] 26.4 kg/m2 ELDA [facility] [employer] [facility] [employer] [facility] [employer], [employer] 05-27-2018 11:05-0500 Body surface area Derived from formula 1.77 m2 ELDA [facility] [employer] [employer] [facility] [employer], [employer] 05-27-2018 11:05-0500 Body weight 70.85 kg ELDA [facility] [employer], [employer] [facility] [employer] [facility] [employer], [employer] 05-27-2018 11:05-0500 Diastolic blood pressure 80 mm[Hg] ELDA [facility] [employer]. Comment on above: Patient Position: Sitting; Cuff Location : Left Arm; Cuff Size: Standard 05-27-2018 11:05-0500 Heart rate 78 /min ELDA [facility], [employer] [facility] Comment on above: Pattern: Regular 05-27-2018 11:05-0500 Systolic blood pressure 120 mm[Hg] ELDA [facility], Inc.; [facility] [employer]. Comment on above: Patient Position: Sitting; Cuff Location : Left Arm; Cuff Size: Standard 02-11-2018 11:04-0400 Body height 163.83 cm ROBERT RUCKER RN [facility], [employer].; [facility] 02-11-2018 11:04-0400 Body mass index (BMI) [Ratio] 26.75 kg/m2 ROBERT RUCKER RN [facility], Inc.; [facility], Inc[facility] 02-11-2018 11:04-0400 Body surface area Derived from formula 1.78 m2 ROBERT RUCKER RN [facility], [employer].; [facility] 02-11-2018 11:04-0400 Body weight 71.8 kg ROBERT RUCKER RN [facility], Inc.; [facility] 02-11-2018 11:04-0400 Diastolic blood pressure 76 mm[Hg] ROBERT RUCKER RN [facility], [employer].; [facility] Hospital[facility]. Comment on above: Patient Position: Sitting; Cuff Location : Right Arm; Cuff Size: Standard 02-11-2018 11:04-0400 Heart rate 77 /min ROBERT RUCKER RN [facility], [employer].; [facility] [employer]. Comment on above: Pattern: Regular 02-11-2018 11:04-0400 Systolic blood pressure 120 mm[Hg] ROBERT RUCKER RN [facility], Inc.; [facility] Inc. Comment on above: Patient Position: Sitting; Cuff Location : Right Arm; Cuff Size: Standard 01-07-2018 11:00-0400 Body height 163.83 cm ROBERT [employer] [facility], Inc.; [facility] Inc[facility] 01-07-2018 11:00-0400 Body mass index (BMI) [Ratio] 27.07 kg/m2 ROBERT [employer] [facility], Inc.; [facility], Inc[facility] 01-07-2018 11:00-0400 Body surface area Derived from formula 1.79 m2 ROBERT [employer] [facility], Inc.; [facility], Inc[facility] 01-07-2018 11:00-0400 Body weight 72.67 kg ROBERT [employer] [facility], Inc.; [facility], Inc[facility] 01-07-2018 11:00-0400 Diastolic blood pressure 85 mm[Hg] ROBERT [employer] [facility], Inc.; [facility], [employer]. Comment on above: Patient Position: Sitting; Cuff Location : Right Arm; Cuff Size: Standard 01-07-2018 11:00-0400 Heart rate 83 /min ROBERT [employer] [facility], Inc.; [facility], [employer]. Comment on above: Pattern: Regular 01-07-2018 11:00-0400 Systolic blood pressure 124 mm[Hg] ROBERT [employer] [facility], Inc.; [facility], Inc. Comment on above: Patient Position: Sitting; Cuff Location : Right Arm; Cuff Size: Standard 12-11-2017 11:32-0400 Body height 163.83 cm [facility], Inc.; [facility], Inc[facility] 12-11-2017 11:32-0400 Body mass index (BMI) [Ratio] 26.87 kg/m2 [facility].; [facility], Inc[facility] 12-11-2017 11:32-0400 Body surface area Derived from formula 1.78 m2 [facility], [facility].; [facility], Inc[facility] 12-11-2017 11:32-0400 Body weight 72.12 kg ELDA [facility].; [facility]ALTH[facility] [employer] [facility] [employer], [employer] 12-11-2017 11:32-0400 Diastolic blood pressure 80 mm[Hg] ELDA [facility].; [employer] [facility] Comment on above: Patient Position: Sitting; Cuff Location : Left Arm; Cuff Size: Standard 12-11-2017 11:32-0400 Heart rate 84 /min ELDA [facility].; [employer] [facility] [employer], [employer] Comment on above: Pattern: Regular 12-11-2017 11:32-0400 Systolic blood pressure 114 mm[Hg] ELDA [facility].; [employer] [facility] [employer], [employer] Comment on above: Patient Position: Sitting; Cuff Location : Left Arm; Cuff Size: Standard 02-05-2017 15:16-0400 Body height 163.83 cm [facility].; [facility]ALTH[facility] Six[facility]K [employer] [facility] [employer] 02-05-2017 15:16-0400 Body mass index (BMI) [Ratio] 28.56 kg/m2 [facility].; [email or web address] Bianchi [employer], [employer] 02-05-2017 15:16-0400 Body surface area Derived from formula 1.83 m2 [facility].; [email or web address] [place] [employer] [facility] [employer], [employer] 02-05-2017 15:16-0400 Body weight 76.66 kg [facility].; [email or web address] [place] [employer] [facility] [employer], [employer] 02-05-2017 15:16-0400 Diastolic blood pressure 85 mm[Hg] [facility] [employer] [place] [employer] [facility] [employer], [employer] Comment on above: Patient Position: Sitting; Cuff Location : Left Arm; Cuff Size: Standard 02-05-2017 15:16-0400 Heart rate 70 /[facility].; [facility], [employer]. Comment on above: Pattern: Regular 02-05-2017 15:16-0400 Systolic blood pressure 121 mm[Hg] DANY JAMESON [facility], Inc.; [facility], [employer]. Comment on above: Patient Position: Sitting; Cuff Location : Left Arm; Cuff Size: Standard 10-05-2016 09:22-0400 Body height 163.83 cm ROBERT RUCKER RN [facility], Inc.; [facility] [place], Inc[facility] 10-05-2016 09:22-0400 Body mass index (BMI) [Ratio] 31.77 kg/m2 ROBERT RUCKER RN [facility], Inc.; [facility] [place], Inc. 10-05-2016 09:22-0400 Body surface area Derived from formula 1.92 m2 ROBERT RUCKER RN [facility], Inc.; [facility] [place], Inc. 10-05-2016 09:22-0400 Body temperature 98.1 [degF] ROBERT RUCKER RN [facility], Inc.; [facility] [employer]. Comment on above: Method: Oral 10-05-2016 09:22-0400 Body weight 85.28 kg ROBERT RUCKER RN [facility], Inc.; [facility] 10-05-2016 09:22-0400 Diastolic blood pressure 83 mm[Hg] ROBERT [employer] [facility], Inc.; [facility] Comment on above: Patient Position: Sitting; Cuff Location : Left Arm; Cuff Size: Standard 10-05-2016 09:22-0400 Heart rate 103 /min ROBERT [employer] [facility].; [facility], [employer]. Comment on above: Pattern: Regular 10-05-2016 09:22-0400 Systolic blood pressure 134 mm[Hg] ROBERT [employer] [facility].; [facility], [employer]. Comment on above: Patient Position: Sitting; Cuff Location : Left Arm; Cuff Size: Standard 07-23-2016 14:03-0500 Body height 165.1 cm Ramona Duran RN [facility], Inc.; [facility] 07-23-2016 14:03-0500 Body mass index (BMI) [Ratio] 29.29 kg/m2 Ramona Duran RN [facility], Inc.; [facility] 07-23-2016 14:03-0500 Body surface area Derived from formula 1.87 m2 Ramona Duran RN [facility], Inc.; [facility] 07-23-2016 14:03-0500 Body temperature 98 [degF] Ramona Duran RN [facility], Inc.; [facility] Comment on above: Method: Oral 07-23-2016 14:030500 Body weight 79.83 kg Ramona Duran RN [facility], Inc.; [facility] 07-23-2016 14:03-0500 Diastolic blood pressure 81 mm[Hg] Ramona Duran RN [facility], Inc.; [facility] Comment on above: Patient Position: Sitting; Cuff Location : Left Arm; Cuff Size: Standard 07-23-2016 14:03-0500 Heart rate 91 /min Ramona Duran RN [facility], Inc.; [facility] Comment on above: Pattern: Regular 07-23-2016 14:03-0500 Systolic blood pressure 124 mm[Hg] Ramona Duran RN [facility] [employer] [facility] Comment on above: Patient Position: Sitting; Cuff Location : Left Arm; Cuff Size: Standard 01-28-2015 11:090400 Body height 163.83 cm Ramona Duran RN [facility] [employer] [facility] 01-28-2015 11:09-0400 Body mass index (BMI) [Ratio] 27.21 kg/m2 Ramona Duran RN [facility].; [employer] [facility] 01-28-2015 11:090400 Body surface area Derived from formula 1.79 m2 Ramona Duran RN [facility], [facility].; [employer] [facility] 01-28-2015 11:09-0400 Body temperature 97.6 [degF] Ramona Duran RN [facility].; [employer] [facility] Comment on above: Method: Oral 01-28-2015 11:09-0400 Body weight 73.03 kg Ramona Duran RN [facility].; [facility] 01-28-2015 11:09-0400 Diastolic blood pressure 75 mm[Hg] Ramona Duran RN [facility].; [employer] [facility] Comment on above: Patient Position: Sitting; Cuff Location : Left Arm; Cuff Size: Standard 01-28-2015 11:090400 Heart rate 78 /min Ramona Duran RN [facility] [employer] [facility] Comment on above: Pattern: Regular 01-28-2015 11:09-0400 Systolic blood pressure 126 mm[Hg] Ramona Duran RN [facility] [employer] [facility] Comment on above: Patient Position: Sitting; Cuff Location : Left Arm; Cuff Size: Standard 01-25-2015 16:09-0400 Body height 163.83 cm ELDA [facility], [employer] [facility] 01-25-2015 16:09-0400 Body mass index (BMI) [Ratio] 26.87 kg/m2 ELDA [facility], [employer] 01-25-2015 16:09-0400 Body surface area Derived from formula 1.78 m2 ELDA [facility].; [facility] [facility] [employer], [employer] 01-25-2015 16:09-0400 Body weight 72.12 kg ELDA [facility] [employer], [employer].; [employer], [employer] 01-25-2015 16:09-0400 Diastolic blood pressure 96 mm[Hg] ELDA [facility] [employer] [place] [facility] Comment on above: Patient Position: Sitting; Cuff Location : Left Arm; Cuff Size: Standard 01-25-2015 16:09-0400 Heart rate 79 /min ELDA [facility] [employer] [facility] Comment on above: Pattern: Regular 01-25-2015 16:09-0400 Systolic blood pressure 140 mm[Hg] [facility] [employer] [facility] Comment on above: Patient Position: Sitting; Cuff Location : Left Arm; Cuff Size: Standard 12-06-2014 11:37-0400 Body height 163.83 cm Obdulia Llanos [facility] [facility] 12-06-2014 11:37-0400 Body mass index (BMI) [Ratio] 26.87 kg/m2 Obdulia Llanos RN [facility].; [employer] [facility], Inc[facility] 12-06-2014 11:37-0400 Body surface area Derived from formula 1.78 m2 Obdulia Llanos RN [facility].; [employer] [facility] 12-06-2014 11:37-0400 Body temperature 97.5 [degF] Obdulia Llanos RN [facility] [facility] Comment on above: Method: Oral 12-06-2014 11:37-0400 Body weight 72.12 kg Obdulia Llanos RN [facility] [employer] [facility] 12-06-2014 11:37-0400 Diastolic blood pressure 80 mm[Hg] Obdulia Llanos RN [facility] [employer] [facility] Comment on above: Patient Position: Sitting; Cuff Location : Left Arm; Cuff Size: Large 12-06-2014 11:37-0400 Heart rate 84 /min Obdulia Llanos RN [facility], [employer] [facility] Comment on above: Pattern: Regular 12-06-2014 11:37-0400 Systolic blood pressure 117 mm[Hg] Obdulia Llanos RN [facility] [employer] [facility] Comment on above: Patient Position: Sitting; Cuff Location : Left Arm; Cuff Size: Large 02-09-2014 16:10-0400 Body height 163.83 cm Kassy Galo RN [facility] [employer] [facility] 02-09-2014 16:10-0400 Body mass index (BMI) [Ratio] 26.53 kg/m2 Kassy Galo RN [facility].; [facility] [place], Inc. 02-09-2014 16:10-0400 Body surface area Derived from formula 1.77 m2 Kassy Galo RN [facility] [place], Inc. 02-09-2014 16:10-0400 Body temperature 97.6 [degF] Kassy Galo RN [facility] [employer] [facility] Comment on above: Method: Oral 02-09-2014 16:10-0400 Body weight 71.22 kg Kassy Galo RN [facility] [employer] [facility] 02-09-2014 16:10-0400 Diastolic blood pressure 85 mm[Hg] Kassy aGlo RN [facility] [facility] Comment on above: Patient Position: Sitting; Cuff Location : Left Arm; Cuff Size: Standard 02-09-2014 16:10-0400 Heart rate 85 /min Kassy Galo RN [facility] [employer] [facility] Comment on above: Pattern: Regular 02-09-2014 16:10-0400 Systolic blood pressure 127 mm[Hg] Kassy Galo RN [facility] [facility] Comment on above: Patient Position: Sitting; Cuff Location : Left Arm; Cuff Size: Standard 09-23-2013 10:28-0400 Body height 163.83 cm ELDA BACON [facility] [employer] [facility] 09-23-2013 10:28-0400 Body mass index (BMI) [Ratio] 25.35 kg/m2 ELDA [facility].; [facility] [place], Inc. 09-23-2013 10:28-0400 Body surface area Derived from formula 1.74 m2 [facility] [place], Inc. 09-23-2013 10:28-0400 Body temperature 97.6 [degF] [facility] [place], Inc. Comment on above: Method: Oral 09-23-2013 10:28-0400 Body weight 68.04 kg ELDA [facility] [place], Inc. 09-23-2013 10:28-0400 Diastolic blood pressure 67 mm[Hg] ELDA [facility].; [employer] [facility] Comment on above: Patient Position: Sitting; Cuff Location : Left Arm; Cuff Size: Standard 09-23-2013 10:28-0400 Heart rate 57 /min ELDA [facility].; [employer] [facility], [employer]. Comment on above: Pattern: Regular 09-23-2013 10:28-0400 Systolic blood pressure 119 mm[Hg] ELDA [facility].; [facility] Comment on above: Patient Position: Sitting; Cuff Location : Left Arm; Cuff Size: Standard 05-25-2013 13:31-0500 Body height 163.83 cm Obdulia Llanos RN [facility].; [facility] [facility] 05-25-2013 13:31-0500 Body mass index (BMI) [Ratio] 26.03 kg/m2 Obdulia Llanos RN [facility].; [facility] 05-25-2013 13:31-0500 Body surface area Derived from formula 1.76 m2 Obdulia Llanos RN [facility], [employer] [facility] 05-25-2013 13:31-0500 Body temperature 97.5 [degF] Obdulia Llanos RN [facility] Comment on above: Method: Oral 05-25-2013 13:31-0500 Body weight 69.85 kg Obdulia Llanos RN [facility].; [facility] 05-25-2013 13:31-0500 Diastolic blood pressure 84 mm[Hg] Obdulia Llanos RN [facility] Comment on above: Patient Position: Sitting; Cuff Location : Left Arm; Cuff Size: Large 05-25-2013 13:31-0500 Heart rate 82 /min Obdulia Llanos RN [facility] Comment on above: Pattern: Regular 05-25-2013 13:31-0500 Systolic blood pressure 131 mm[Hg] Obdulia Llanos RN [facility] [employer] [facility] Comment on above: Patient Position: Sitting; Cuff Location : Left Arm; Cuff Size: Large 06-24-2012 16:03-0500 Body height 163.83 cm Obdulia Llanos RN [facility] [place], Inc. 06-24-2012 16:03-0500 Body mass index (BMI) [Ratio] 25.86 kg/m2 Obdulia Llanos RN [facility].; [facility] [place], Inc. 06-24-2012 16:03-0500 Body surface area Derived from formula 1.76 m2 Obdulia Llanos RN [facility].; [facility] [facility] 06-24-2012 16:03-0500 Body temperature 97.4 [degF] Obdulia Llanos RN [facility].; [employer] [facility] Comment on above: Method: Oral 06-24-2012 16:03-0500 Body weight 69.4 kg Obdulia Llanos RN [facility].; [facility] 06-24-2012 16:03-0500 Diastolic blood pressure 81 mm[Hg] Obdulia Llanos RN [facility] [employer] [facility] Comment on above: Patient Position: Sitting; Cuff Location : Left Arm; Cuff Size: Large 06-24-2012 16:03-0500 Heart rate 57 /min Obdulia Llanos RN [facility] [employer] [facility] Comment on above: Pattern: Regular 06-24-2012 16:03-0500 Systolic blood pressure 119 mm[Hg] Obdulia Llanos RN [facility] [employer] [facility] Comment on above: Patient Position: Sitting; Cuff Location : Left Arm; Cuff Size: Large 08-09-2011 09:50-0400 Body height 163.83 cm Obdulia Llanos RN [facility].; [employer] [facility], [facility] 08-09-2011 09:50-0400 Body mass index (BMI) [Ratio] 27.72 kg/m2 Obdulia Llanos RN [facility], [facility].; [facility] [place], Inc. 08-09-2011 09:50-0400 Body surface area Derived from formula 1.81 m2 Obdulia Llanos RN [facility], [facility].; [facility] [place], Inc. 08-09-2011 09:50-0400 Body temperature 97.8 [degF] Obdulia Llanos RN [facility].; [facility] [facility] Comment on above: Method: Oral 08-09-2011 09:50-0400 Body weight 74.39 kg Obdulia Llanos RN [facility].; [facility] [facility] 08-09-2011 09:50-0400 Diastolic blood pressure 61 mm[Hg] Obdulia Llanos RN [facility].; [facility] [facility] Comment on above: Patient Position: Sitting; Cuff Location : Left Arm; Cuff Size: Large 08-09-2011 09:50-0400 Heart rate 82 /min Obdulia Llanos RN [facility], [facility].; [employer] [facility]. Comment on above: Pattern: Regular 08-09-2011 09:50-0400 Systolic blood pressure 105 mm[Hg] Obdulia Llanos RN [facility].; [employer] [facility], [employer]. Comment on above: Patient Position: Sitting; Cuff Location : Left Arm; Cuff Size: Large 03-24-2011 09:51-0400 Body height 163.83 cm Kassy Galo RN [facility], [employer] [facility] 03-24-2011 09:51-0400 Body mass index (BMI) [Ratio] 28.73 kg/m2 Kassy Galo RN [facility].; [facility] [facility] 03-24-2011 09:51-0400 Body surface area Derived from formula 1.84 m2 Kassy Galo RN [facility], [employer] [facility] [facility] 03-24-2011 09:51-0400 Body temperature 97.8 [degF] Kassy Galo RN [facility].; [employer] [facility] [employer] Comment on above: Method: Oral 03-24-2011 09:51-0400 Body weight 77.11 kg Kassy Galo RN [facility].; [facility] [facility] 03-24-2011 09:51-0400 Diastolic blood pressure 85 mm[Hg] Kassy Galo RN [facility].; [facility] [employer], [employer] Comment on above: Patient Position: Sitting; Cuff Location : Left Arm; Cuff Size: Large 03-24-2011 09:51-0400 Heart rate 73 /min Kassy Galo RN [facility] [employer] [facility] [employer], [employer]. Comment on above: Pattern: Regular 03-24-2011 09:51-0400 Systolic blood pressure 134 mm[Hg] Kassy Galo RN [facility], [employer] [facility] [employer], [employer] Comment on above: Patient Position: Sitting; Cuff Location : Left Arm; Cuff Size: Large 02-08-2011 15:15-0400 Body height 163.83 cm Obdulia Llanos RN [facility] [place], Inc. 02-08-2011 15:15-0400 Body mass index (BMI) [Ratio] 29.07 kg/m2 Obdulia Llanos RN [facility].; [facility] [place], Inc. 02-08-2011 15:15-0400 Body surface area Derived from formula 1.85 m2 Obdulia Llanos RN [facility].; [employer] [facility] 02-08-2011 15:15-0400 Body temperature 97.7 [degF] Obdulia Llanos RN [facility], [employer] [facility] Comment on above: Method: Oral 02-08-2011 15:15-0400 Body weight 78.02 kg Obdulia Llanos RN [facility].; [employer] [facility] 02-08-2011 15:15-0400 Diastolic blood pressure 68 mm[Hg] Obdulia Llanos RN [facility] [employer] [facility] Comment on above: Patient Position: Sitting; Cuff Location : Left Arm; Cuff Size: Large 02-08-2011 15:15-0400 Heart rate 50 /min Obdulia Llanos RN [facility], [employer] [facility] Comment on above: Pattern: Regular 02-08-2011 15:15-0400 Systolic blood pressure 118 mm[Hg] Obdulia Llanos RN [facility] [facility], [employer]. Comment on above: Patient Position: Sitting; Cuff Location : Left Arm; Cuff Size: Large 12-25-2010 16:01-0400 Body weight 77.57 kg Obdulia Llanos RN [facility] [employer] [facility] 12-25-2010 16:01-0400 Diastolic blood pressure 73 mm[Hg] Obdulia Llanos RN [facility], [employer] [facility] Comment on above: Patient Position: Sitting; Cuff Location : Left Arm; Cuff Size: Large 12-25-2010 16:01-0400 Heart rate 40 /min Obdulia Llanos [facility] [employer] [facility], [employer]. Comment on above: Pattern: Regular 12-25-2010 16:01-0400 Systolic blood pressure 113 mm[Hg] Obdulia Llanos RN [facility] [employer].; [facility] [facility] Comment on above: Patient Position: Sitting; Cuff Location : Left Arm; Cuff Size: Large 03-27-2010 13:08-0500 Body height 163.83 cm [facility] [place], Inc[facility] 03-27-2010 13:08-0500 Body mass index (BMI) [Ratio] 28.9 kg/m2 [facility] [place], Inc[facility] 03-27-2010 13:08-0500 Body surface area Derived from formula 1.84 m2 [facility].; [facility], [facility]. 03-27-2010 13:08-0500 Body weight 77.57 kg [facility].; [facility] [place], [facility]. 03-27-2010 13:08-0500 Diastolic blood pressure 70 mm[Hg] ELDA [facility].; [employer] [facility] Comment on above: Patient Position: Sitting; Cuff Location : Left Arm; Cuff Size: Standard 03-27-2010 13:08-0500 Heart rate 71 /min ELDA [facility].; [employer] [facility] Comment on above: Pattern: Regular 03-27-2010 13:08-0500 Systolic blood pressure 108 mm[Hg] ELDA [facility].; [facility] [facility] Comment on above: Patient Position: Sitting; Cuff Location : Left Arm; Cuff Size: Standard Encounters Encounter Date Encounter Type Care Provider Facility Start: 02-01-2024 End: 02-01-2024 Office outpatient visit 15 minutes ARTHUR GANN MD Work Phone: [employer] Start: 01-15-2024 End: 01-15-2024 Office outpatient visit 10 minutes ARTHUR GANN MD Work Phone: [employer]. Start: 01-03-2024 End: 01-03-2024 Office outpatient visit 15 minutes ARTHUR GANN MD Work Phone: [employer]. Start: 07-09-2023 End: 07-09-2023 Office outpatient visit 10 minutes ARTHUR GANN MD Work Phone: [place] [employer] Start: 05-03-2023 End: 05-03-2023 Results Review ARTHUR GANN MD Work Phone: [employer] [place] [employer] Start: 05-02-2023 End: 05-02-2023 ambulatory R [facility] Start: 05-02-2023 End: 05-02-2023 Office outpatient visit 15 minutes ARTHUR GANN MD Work Phone: [employer] [place] Start: 04-23-2023 End: 04-23-2023 Medication Refill/Order ARTHUR GANN MD Work Phone: [employer] Start: 04-09-2023 End: 04-09-2023 Office outpatient visit 5 minutes ARTHUR GANN MD Work Phone: [employer]. Start: 04-06-2023 End: 04-06-2023 Office outpatient visit 15 minutes ARTHUR GANN MD Work Phone: [employer]. Start: 01-15-2023 End: 01-15-2023 Office outpatient visit 10 minutes ARTHUR GANN MD Work Phone: [employer] Start: 01-01-2023 End: 01-01-2023 Medication Refill/Order ARTHUR GANN MD Work Phone: [employer] [place] [facility] Start: 01-01-2023 End: 01-01-2023 Office outpatient visit 10 minutes ARTHUR GANN MD Work Phone: [employer] [place] [employer] [facility]. Start: 11-16-2022 End: 11-16-2022 Medication Refill/Order ARTHUR GANN MD [facility] Start: 11-12-2022 End: 11-12-2022 Office outpatient visit 15 minutes ARTHUR GANN MD Work Phone: [email or web address] [place] [employer] [facility] Start: 09-05-2022 End: 09-05-2022 Office outpatient visit 15 minutes ARTHUR GANN MD Work Phone: [employer] [place] [employer] Start: 08-16-2022 End: 08-16-2022 Office outpatient visit 10 minutes ARTHUR GANN MD Work Phone: [employer] [facility]. Start: 07-25-2022 End: 07-25-2022 Results Review ARTHUR GANN MD Work Phone: [employer] [place] [employer] Start: 07-24-2022 End: 07-24-2022 ambulatory GATO ROMAN [facility] Start: 07-24-2022 End: 07-24-2022 Office outpatient visit 15 minutes ARTHUR GANN MD Work Phone: [employer] Start: 02-02-2022 End: 02-02-2022 Medication Refill/Order ARTHUR GANN MD Work Phone: [employer] [facility]. Start: 01-26-2022 End: 01-26-2022 Office outpatient visit 10 minutes ARTHUR GANN MD Work Phone: [facility]. Start: 01-10-2022 End: 01-10-2022 Medication Refill/Order ARTHUR GANN MD Work Phone: [facility]. Start: 10-17-2021 End: 10-17-2021 Office outpatient visit 15 minutes ARTHUR GANN MD Work Phone: [facility] [place] Start: 04-25-2021 End: 04-25-2021 Medication Refill/Order [facility]ANN [facility] Start: 04-24-2021 End: 04-24-2021 Office outpatient visit 10 minutes [facility]THUR [facility]ANN MD [facility] Phone: [facility] Start: 02-01-2021 End: 02-01-2021 Medication Refill/Order ARTHUR GANN MD Work Phone: [facility] Start: 01-27-2021 End: 01-27-2021 Office outpatient visit 15 minutes ARTHUR GANN MD Work Phone: [facility] Start: 09-14-2020 End: 09-14-2020 Medication Refill/Order ARTHUR GANN MD Work Phone: [facility] Start: 08-04-2020 End: 08-04-2020 Office outpatient visit 10 minutes ARTHUR GANN MD Work Phone: [facility] [place]. Start: 06-03-2020 End: 06-03-2020 Medication Refill/Order ARTHUR GANN MD Work Phone: [facility] Start: 04-15-2020 End: 04-15-2020 Office outpatient visit 10 minutes ARTHUR GANN MD Work Phone: [employer] Start: 04-13-2020 End: 04-13-2020 Medication Refill/Order ARTHUR GANN MD Work Phone: [employer] [place] [employer] Start: 03-29-2020 End: 03-29-2020 Office outpatient visit 15 minutes ARTHUR GANN MD Work Phone: [employer]. Start: 03-11-2020 End: 03-11-2020 Office outpatient visit 15 minutes ARTHUR GANN MD Work Phone: [employer]. Start: 02-17-2020 End: 02-17-2020 Medication Refill/Order ARTHUR GANN MD Work Phone: [employer] [place] [employer] Start: 12-23-2019 End: 12-23-2019 Historical Summary ARTHUR GANN MD Work Phone: [employer] [place] [employer] Start: 12-23-2019 End: 12-23-2019 Office outpatient visit 15 minutes ARTHUR GANN MD Work Phone: [employer] [place] [employer] Start: 09-21-2019 End: 09-21-2019 Office outpatient visit 15 minutes ARTHUR GANN MD Work Phone: [employer] Start: 08-11-2019 End: 08-11-2019 Office outpatient visit 10 minutes ARTHUR GANN MD Work Phone: [employer]. Start: 05-25-2019 End: 05-25-2019 Injection/immunization only ARTHUR GANN MD Work Phone: [employer] Start: 05-08-2019 End: 05-08-2019 Office outpatient visit 10 minutes ARTHUR GANN MD Work Phone: [employer] Start: 03-05-2019 End: 03-05-2019 Medication Refill/Order ARTHUR GANN MD Work Phone: [facility] Start: 02-26-2019 End: 02-26-2019 Office outpatient visit 10 minutes ARTHUR GANN MD Work Phone: [facility] Start: 09-30-2018 End: 09-30-2018 Medication Refill/Order ARTHUR GANN MD Work Phone: [facility] [employer] Start: 05-27-2018 End: 05-27-2018 Office outpatient visit 10 minutes ARTHUR GANN MD Work Phone: [facility] Start: 05-01-2018 Patient encounter procedure REJI PENG Facility:[facility] Start: 04-11-2018 Patient encounter procedure DORIS DAO Facility:[facility] Start: 03-25-2018 End: 03-25-2018 Medication Refill/Order ARTHUR GANN MD Work Phone: [facility] [employer] Start: 03-14-2018 End: 03-14-2018 Historical Summary ARTHUR GANN MD Work Phone: [facility] [employer] Start: 03-09-2018 End: 03-09-2018 Historical Summary ARTHUR GANN MD Work Phone: [facility] Start: 03-03-2018 Patient encounter procedure DORIS DAO Facility:[facility] Start: 02-26-2018 Patient encounter DORIS DAO Facility:[facility] Start: 02-11-2018 End: 02-11-2018 Office outpatient visit 10 minutes ARTHUR GANN MD [facility] Phone[email or web address] Start: 01-07-2018 End: 01-07-2018 Office outpatient visit 10 minutes ARTHUR GANN MD Work Phone: [facility] Start: 12-31-2017 End: 12-31-2017 Transition of Care ARTHUR GANN MD Work Phone: [facility] Start: 12-27-2017 End: 12-27-2017 Results Review [facility] Start: 12-13-2017 End: 12-13-2017 Results Review ARTHUR GANN MD Work Phone: [facility] Start: 12-13-2017 End: 12-13-2017 Historical Summary ARTHUR GANN MD Work Phone: [facility] Start: 12-11-2017 End: 12-11-2017 Office outpatient visit 10 minutes ARTHUR GANN MD [facility] Start: 04-05-2017 End: 04-05-2017 Injection/immunization only ARTHUR GANN MD Work Phone: [facility] Start: 02-05-2017 End: 02-05-2017 Office outpatient visit 15 minutes ARTHUR GANN MD Work Phone: [facility] Start: 12-31-2016 End: 12-31-2016 Historical Summary ARTHUR GANN MD Work Phone: [facility] Start: 10-05-2016 End: 10-05-2016 Office outpatient visit 15 minutes ARTHUR GANN MD Work Phone: [facility] [employer] Start: 07-23-2016 End: 07-23-2016 Office outpatient visit 15 minutes ARTHUR GANN MD Work Phone: [employer] [facility] Start: 05-10-2016 End: 05-10-2016 Medication Refill/Order ARTHUR GANN MD Work Phone: [facility] [place]. Start: 05-17-2015 End: 05-17-2015 Medication Refill/Order ARTHUR GANN MD Work Phone: [facility] [place]. Start: 01-28-2015 End: 01-28-2015 Office outpatient visit 10 minutes ARTHUR GANN MD Work Phone: [facility] [place] Start: 01-25-2015 End: 01-25-2015 Office outpatient visit 15 minutes ARTHUR GANN MD Work Phone: [facility] [place] Start: 12-06-2014 End: 12-06-2014 Office outpatient visit 15 minutes ARTHUR GANN MD Work Phone: [facility] [place] Start: 05-17-2014 End: 05-17-2014 Medication Refill/Order ARTHUR GANN MD Work Phone: [facility] Start: 02-09-2014 End: 02-09-2014 Office outpatient visit 15 minutes ARTHUR GANN MD Work Phone: [facility] Start: 09-23-2013 End: 09-23-2013 Patient encounter procedure ARTHUR GANN MD Work Phone: [facility] Start: 07-07-2013 End: 07-07-2013 Injection/immunization only ARTHUR GANN MD Work Phone: [facility] Start: 05-25-2013 End: 05-25-2013 Patient encounter procedure ARTHUR GANN MD Work Phone: [facility] Start: 05-19-2013 End: 05-19-2013 Medication Refill/Order ARTHUR GANN MD Work Phone: [facility] [employer] [facility]. Start: 04-08-2013 End: 04-08-2013 Injection/immunization only ARTHUR GANN MD Work Phone: [facility] [place]. Start: 04-02-2013 End: 04-02-2013 Injection/immunization only ARTHUR GANN MD Work Phone: [facility] [place]. Start: 03-25-2013 End: 03-25-2013 Injection/immunization only ARTHUR GANN MD Work Phone: [facility] [place]. Start: 03-11-2013 End: 03-11-2013 Injection/immunization only ARTHUR GANN MD Work Phone: [facility] [place] Start: 03-04-2013 End: 03-04-2013 Injection/immunization only ARTHUR GANN MD Work Phone: [facility] [place]. Start: 02-25-2013 End: 02-25-2013 Injection/immunization only ARTHUR GANN MD Work Phone: [facility] [place]. Start: 02-18-2013 End: 02-18-2013 Injection/immunization only ARTHUR GANN MD Work Phone: [facility] [place] Start: 02-11-2013 End: 02-11-2013 Nursing evaluation of patient and report ARTHUR GANN MD Work Phone: [facility] [place]. Start: 02-04-2013 End: 02-04-2013 Injection/immunization only ARTHUR GANN MD Work Phone: [facility] [place]. Start: 01-27-2013 End: 01-27-2013 Injection/immunization only ARTHUR GANN MD Work Phone: [facility] Start: 01-14-2013 End: 01-14-2013 Injection/immunization only ARTHUR GANN MD Work Phone: [facility] [place]. Start: 12-31-2012 End: 12-31-2012 Injection/immunization only ARTHUR GANN MD Work Phone: [facility] [place]. Start: 12-24-2012 End: 12-24-2012 Injection/immunization only ARTHUR GANN MD Work Phone: [facility] [place]. Start: 12-17-2012 End: 12-17-2012 Injection/immunization only ARTHUR GANN MD Work Phone: [facility] [place]. Start: 12-10-2012 End: 12-10-2012 Injection/immunization only ARTHUR GANN MD Work Phone: [facility] [place] Start: 12-03-2012 End: 12-03-2012 Injection/immunization only ARTHUR GANN MD Work Phone: [facility] [place]. Start: 11-19-2012 End: 11-19-2012 Injection/immunization only ARTHUR GANN MD Work Phone: [facility] [place]. Start: 11-12-2012 End: 11-12-2012 Injection/immunization only ARTHUR GANN MD Work Phone: [facility] [place] Start: 10-22-2012 End: 10-22-2012 Injection/immunization only ARTHUR GANN MD Work Phone: [facility] [place]. Start: 10-08-2012 End: 10-08-2012 Injection/immunization only ARTHUR GANN MD Work Phone: [facility] [place]. Start: 09-10-2012 End: 09-10-2012 Injection/immunization only ARTHUR GANN MD Work Phone: [facility] Start: 09-03-2012 End: 09-03-2012 Injection/immunization only ARTHUR GANN MD Work Phone: [facility] Start: 08-20-2012 End: 08-20-2012 Injection/immunization only ARTHUR GANN MD Work Phone: [facility] [place]. Start: 08-14-2012 End: 08-14-2012 Injection/immunization only ARTHUR GANN MD Work Phone: [facility] [place]. Start: 07-29-2012 End: 07-29-2012 Injection/immunization only ARTHUR GANN MD Work Phone: [facility]. Start: 07-16-2012 End: 07-16-2012 Injection/immunization only ARTHUR GANN MD Work Phone: [facility] [place] Start: 07-09-2012 End: 07-09-2012 Injection/immunization only ARTHUR GANN MD Work Phone: [facility] [place] Start: 07-02-2012 End: 07-02-2012 Injection/immunization only ARTHUR GANN MD Work Phone: [facility] Start: 06-24-2012 End: 06-24-2012 Patient encounter procedure ARTHUR GANN MD Work Phone: [facility] Start: 06-11-2012 End: 06-11-2012 Injection/immunization only ARTHUR GANN MD Work Phone: [facility]. Start: 06-04-2012 End: 06-04-2012 Injection/immunization only ARTHUR GANN MD Work Phone: [facility]. Start: 06-02-2012 End: 06-02-2012 Medication Refill/Order ARTHUR GANN MD Work Phone: [facility]. Start: 05-28-2012 End: 05-28-2012 Injection/immunization only ARTHUR GANN MD Work Phone: [facility]. Start: 05-21-2012 End: 05-21-2012 Injection/immunization only ARTHUR GANN MD Work Phone: [facility] [place]. Start: 04-23-2012 End: 04-23-2012 Injection/immunization only ARTHUR GANN MD Work Phone: [facility] [place]. Start: 04-17-2012 End: 04-17-2012 Injection/immunization only ARTHUR GANN MD Work Phone: [facility] [place]. Start: 04-09-2012 End: 04-09-2012 Injection/immunization only ARTHUR GANN MD Work Phone: [facility] [place] Start: 03-27-2012 End: 03-27-2012 Injection/immunization only ARTHUR GANN MD Work Phone: [facility] [place] Start: 03-19-2012 End: 03-19-2012 Injection/immunization only ARTHUR GANN MD Work Phone: [facility] [place] Start: 02-20-2012 End: 02-20-2012 Injection/immunization only ARTHUR GANN MD Work Phone: [facility] [place] Start: 02-13-2012 End: 02-13-2012 Injection/immunization only ARTHUR GANN MD Work Phone: [facility] [place] Start: 02-06-2012 End: 02-06-2012 Injection/immunization only ARTHUR GANN MD Work Phone: [facility] [place] Start: 01-30-2012 End: 01-30-2012 Injection/immunization only ARTHUR GANN MD Work Phone: [facility] Start: 01-23-2012 End: 01-23-2012 Injection/immunization only ARTHUR GANN MD Work Phone: [facility] [place] Start: 01-16-2012 End: 01-16-2012 Injection/immunization only ARTHUR GANN MD Work Phone: [facility] [place] Start: 10-29-2011 End: 10-29-2011 Medication Refill/Order ARTHUR GANN MD Work Phone: [facility] [place] Start: 10-08-2011 End: 10-08-2011 Medication Refill/Order ARTHUR GANN MD Work Phone: [facility] [place] Start: 08-09-2011 End: 08-09-2011 Patient encounter procedure ARTHUR GANN MD Work Phone: [facility] [place] Start: 06-07-2011 End: 06-07-2011 Medication Refill/Order ARTHUR GANN MD Work Phone: [facility] [place] Start: 05-07-2011 End: 05-07-2011 Medication Refill/Order ARTHUR GANN MD Work Phone: [facility] [place] Start: 03-24-2011 End: 03-24-2011 Patient encounter procedure ARTHUR GANN MD Work Phone: [facility] [place] Start: 02-08-2011 End: 02-08-2011 Patient encounter procedure ARTHUR GANN MD Work Phone: [facility] [place] Start: 12-25-2010 End: 12-25-2010 Patient encounter procedure ARTHUR GANN MD Work Phone: [facility] [place] Start: 11-29-2010 End: 11-29-2010 Medication Refill/Order ARTHUR GANN MD Work Phone: [facility] [place] Start: 10-17-2010 End: 10-17-2010 Medication Refill/Order ARTHUR GANN MD Work Phone: [facility] [place]. Start: 2010 End: 2010 Medication Refill/Order ARTHUR GANN MD Work Phone: [facility] [place]. Start: 07-13-2010 End: 07-13-2010 Medication Refill/Order ARTHUR GANN MD Work Phone: [facility] [place]. Start: 06-05-2010 End: 06-12-2010 Results Review ARTHUR GANN MD Work Phone: [facility] [place]. Start: 05-16-2010 End: 05-16-2010 Results Review ARTHUR GANN MD Work Phone: [facility] [place]. Start: 04-24-2010 End: 04-24-2010 Results Review ARTHUR GANN MD Work Phone: [facility] Start: 04-21-2010 End: 04-21-2010 Patient encounter procedure ARTHUR GANN MD Work Phone: [facility] [place]. Start: 04-18-2010 End: 04-18-2010 Results Review ARTHUR GANN MD Work Phone: [facility] Start: 03-27-2010 End: 03-27-2010 Patient encounter procedure ARTHUR GANN MD Work Phone: [facility] Start: 03-25-2010 End: 03-25-2010 Historical Summary ARTHUR GANN MD Work Phone: [facility]. Start: 03-06-2010 End: 03-06-2010 Nursing evaluation of patient and report ARTHUR GANN MD Work Phone: [facility] [place]. Procedures Date Procedure Procedure Detail Performing Clinician Start: 01-15-2024 End: 01-15-2024 Dischrg meds reconciled w/current med list MICHAEL DICKSON [facility] Work Phone: Start: 01-03-2024 End: 01-03-2024 Dischrg meds reconciled w/current med list WILBER SMITH [employer] Work Phone: Start: 07-09-2023 End: 07-09-2023 Depression Screening (PHQ-9 ROBERT RUCKER RN Start: 07-09-2023 End: 07-09-2023 Dischrg meds reconciled w/current med list MICHAEL DICKSON [facility] Work Phone: Start: 07-09-2023 End: 07-09-2023 Behav assmt w/score & docd/stand instrument MICHAEL DICKSON [facility]- Work Phone: Start: 05-02-2023 End: 05-02-2023 Dischrg meds reconciled w/current med list Jennifer FLORES MD Work Phone: Start: 04-06-2023 End: 04-06-2023 Dischrg meds reconciled w/current med list ARTHUR GANN MD Work Phone: Start: 01-15-2023 End: 01-15-2023 Dischrg meds reconciled w/current med list MICHAEL DICKSON [facility]- Work Phone: Start: 01-01-2023 End: 01-01-2023 Depression Screening (PHQ-9 ROBERT RUCKER RN Start: 01-01-2023 End: 01-01-2023 Dischrg meds reconciled w/current med list MICHAEL DICKSON [facility]- Work Phone: Start: 01-01-2023 End: 01-01-2023 Behav assmt w/score & docd/stand instrument MICHAEL DICKSON [facility]- Work Phone: Start: 11-12-2022 End: 11-12-2022 Dischrg meds reconciled w/current med list MICHAEL DICKSON [employer] Work Phone: Start: 09-05-2022 End: 09-05-2022 Dischrg meds reconciled w/current med list W[employer]BER [employer] Work Phone: Start: 07-24-2022 End: 07-24-2022 Dischrg meds reconciled w/current med list Karlene DICKSON MD Work Phone: Start: 01-26-2022 End: 01-26-2022 Dischrg meds reconciled w/current med list ARTHUR GANN MD Work Phone: Start: 10-31-2021 End: 10-31-2021 Arthroscopic knee operation ROBERT RUCKER RN Comment on above: meniscus repair Start: 10-17-2021 End: 10-17-2021 Dischrg meds reconciled w/current med list Jennifer FLORES MD Work Phone: Start: 08-04-2020 End: 08-04-2020 Dischrg meds reconciled w/current med list ARTHUR GANN MD Work Phone: Start: 08-04-2020 End: 08-04-2020 Urinary Incontinence MICHAEL DICKSON [employer] Work Phone: Comment on above: Negative. Start: 04-15-2020 End: 04-15-2020 Dischrg meds reconciled w/current med list W[employer]BER [employer] Work Phone: Start: 04-15-2020 End: 04-15-2020 Therapeutic prophylactic/dx injection subq/im W[employer]BER [employer] Work Phone: Start: 04-15-2020 End: 04-15-2020 Triamcinolone acet inj NOS WILBER [employer]ITH [employer] Work Phone: Start: 03-29-2020 End: 03-29-2020 Dischrg meds reconciled w/current med list Jennifer FLORES MD Work Phone: Start: 01-24-2020 Antibody screen ARTHUR GANN MD Work Phone: Start: 12-23-2019 End: 12-23-2019 Injection single tendon origin/insertion Karlene DICKSON MD Work Phone: Start: 10-08-2019 Antibody screen ARTHUR GANN MD Work Phone: Start: 09-21-2019 End: 09-21-2019 Dischrg meds reconciled w/current med list Jennifer FLORES MD Work Phone: Start: 08-11-2019 End: 08-11-2019 Dischrg meds reconciled w/current med list Karlene DICKSON MD Work Phone: Start: 07-31-2019 Antibody screen ARTHUR GANN MD Work Phone: Start: 03-07-2018 End: 03-07-2018 [facility] Work Phone: Comment on above: Dr. Glynn. Likely IBS. Start: 03-03-2018 End: 03-03-2018 Radionuclide biliary patency study [facility] Work Phone: Comment on above: Normal. EF 84% (Katherine) Start: 03-07-2017 End: 03-07-2017 Esophagogastroduodenoscopy MICHAEL DICKSON [facility]- Work Phone: Comment on above: Hiatal hernia, gastritis; Dr Pierce Start: 03-07-2017 End: 03-07-2017 Screening colonoscopy ROBERT RUCKER RN Comment on above: hemorrhoids; Dr Pierce Start: 12-25-2016 Antibody screen ARTHUR GANN MD Work Phone: Start: 12-25-2016 End: 12-25-2016 section ROBERT RUCKER RN Comment on above: for breech. Start: 04-08-2013 End: 04-08-2013 Prof svcs allg immntx x w/prv allgic xtrcs 1 njx ARTHUR GANN MD Work Phone: Start: 04-02-2013 End: 04-02-2013 Prof svcs allg immntx x w/prv allgic xtrcs 1 njx ARDEN GANN MD Work Phone: Start: 03-25-2013 End: 03-25-2013 Prof svcs allg immntx x w/prv allgic xtrcs 1 njx CONCEPCIÓN RIOS MD Work Phone: Start: 03-11-2013 End: 03-11-2013 Prof svcs allg immntx x w/prv allgic xtrcs 1 njx CONCEPCIÓN RIOS MD Work Phone: Start: 03-04-2013 End: 03-04-2013 Prof svcs allg immntx x w/prv allgic xtrcs 1 aleksandrax CONCEPCIÓN RIOS MD Work Phone: Start: 02-25-2013 End: 02-25-2013 Prof svcs allg immntx x w/prv allgic xtrcs 1 njx CONCEPCIÓN RIOS MD Work Phone: Start: 02-18-2013 End: 02-18-2013 Prof svcs allg immntx x w/prv allgic xtrcs 1 aleksandrax CONCEPCIÓN RIOS MD Work Phone: Start: 02-11-2013 End: 02-11-2013 Prof svcs allg immntx x w/prv allgic xtrcs 1 njx CONCEPCIÓN RIOS MD Work Phone: Start: 02-04-2013 End: 02-04-2013 Prof svcs allg immntx x w/prv allgic xtrcs 1 njx Jennifer FLORES MD Work Phone: Start: 01-27-2013 End: 01-27-2013 Prof svcs allg immntx x w/prv allgic xtrcs 1 njx Karlene DICKSON MD Work Phone: Start: 01-14-2013 End: 01-14-2013 Prof svcs allg immntx x w/prv allgic xtrcs 1 njx CLARA DICKSON Start: 12-31-2012 End: 12-31-2012 Prof svcs allg immntx x w/prv allgic xtrcs 1 njx CONCEPCIÓN RIOS MD Work Phone: Start: 12-24-2012 End: 12-24-2012 Prof svcs allg immntx x w/prv allgic xtrcs 1 njx CARLYNE Jim DICKSON Start: 12-17-2012 End: 12-17-2012 Prof svcs allg immntx x w/prv allgic xtrcs 1 njx Jennifer FLORES MD Work Phone: Start: 12-10-2012 End: 12-10-2012 Prof svcs allg immntx x w/prv allgic xtrcs 1 njx CONCEPCIÓN RIOS MD Work Phone: Start: 12-03-2012 End: 12-03-2012 Prof svcs allg immntx x w/prv allgic xtrcs 1 njx CONCEPCIÓN RIOS MD Work Phone: Start: 11-19-2012 End: 11-19-2012 Prof svcs allg immntx x w/prv allgic xtrcs 1 njx Jennifer FLORES MD Work Phone: Start: 11-12-2012 End: 11-12-2012 Prof svcs allg immntx x w/prv allgic xtrcs 1 njx CONCEPCIÓN RIOS MD Work Phone: Start: 10-22-2012 End: 10-22-2012 Prof svcs allg immntx x w/prv allgic xtrcs 1 njx CONCEPCIÓN RIOS MD Work Phone: Start: 10-08-2012 End: 10-08-2012 Prof svcs allg immntx x w/prv allgic xtrcs 1 njx CONCEPCIÓN RIOS MD Work Phone: Start: 09-10-2012 End: 09-10-2012 Prof svcs allg immntx x w/prv allgic xtrcs 1 njx CONCEPCIÓN L BLANCA MD Work Phone: Start: 09-03-2012 End: 09-03-2012 Prof svcs allg immntx x w/prv allgic xtrcs 1 njx CARLYNE Jim DICKSON Start: 08-20-2012 End: 08-20-2012 Prof svcs allg immntx x w/prv allgic xtrcs 1 njx CONCEPCIÓN RIOS MD Work Phone: Start: 08-14-2012 End: 08-14-2012 Prof svcs allg immntx x w/prv allgic xtrcs 1 njx CLARA DICKSON Start: 07-29-2012 End: 07-29-2012 Prof svcs allg immntx x w/prv allgic xtrcs 1 njx Jennifer FLORES MD Work Phone: Start: 07-16-2012 End: 07-16-2012 Prof svcs allg immntx x w/prv allgic xtrcs 1 njx CLARA DICKSON Start: 07-09-2012 End: 07-09-2012 Prof svcs allg immntx x w/prv allgic xtrcs 1 njx CONCEPCIÓN RIOS MD Work Phone: Start: 07-02-2012 End: 07-02-2012 Prof svcs allg immntx x w/prv allgic xtrcs 1 njx CONCEPCIÓN RIOS MD Work Phone: Start: 06-24-2012 End: 06-24-2012 Prof svcs allg immntx x w/prv allgic xtrcs 1 njx Karlene DICKSON MD Work Phone: Start: 06-11-2012 End: 06-11-2012 Prof svcs allg immntx x w/prv allgic xtrcs 1 njx CLARA DICKSON Start: 06-04-2012 End: 06-04-2012 Prof svcs allg immntx x w/prv allgic xtrcs 1 njx CONCEPCIÓN IROS MD Work Phone: Start: 05-28-2012 End: 05-28-2012 Prof svcs allg immntx x w/prv allgic xtrcs 1 njx CONCEPCIÓN RIOS MD Work Phone: Start: 05-21-2012 End: 05-21-2012 Prof svcs allg immntx x w/prv allgic xtrcs 1 njx CLARA DICKSON Start: 04-23-2012 End: 04-23-2012 Prof svcs allg immntx x w/prv allgic xtrcs 1 njx CONCEPCIÓN RIOS MD Work Phone: Start: 04-17-2012 End: 04-17-2012 Prof svcs allg immntx x w/prv allgic xtrcs 1 njx ARDEN GANN MD Work Phone: Start: 04-09-2012 End: 04-09-2012 Prof svcs allg immntx x w/prv allgic xtrcs 1 njx CONCEPCIÓN ROIS MD Work Phone: Start: 03-27-2012 End: 03-27-2012 Prof svcs allg immntx x w/prv allgic xtrcs 1 njx ARDEN GANN MD Work Phone: Start: 03-19-2012 End: 03-19-2012 Prof svcs allg immntx x w/prv allgic xtrcs 1 aleksandrax CONCEPCIÓN RIOS MD Work Phone: Start: 02-20-2012 End: 02-20-2012 Prof svcs allg immntx x w/prv allgic xtrcs 1 njx CLARA DICKSON Start: 02-13-2012 End: 02-13-2012 Prof svcs allg immntx x w/prv allgic xtrcs 1 njx CONCEPCIÓN RIOS MD Work Phone: Start: 02-06-2012 End: 02-20-2012 Prof svcs allg immntx x w/prv allgic xtrcs 1 njx CLARA DICKSON Start: 01-30-2012 End: 01-30-2012 Prof svcs allg immntx x w/prv allgic xtrcs 1 njx CONCEPCIÓN RIOS MD Work Phone: Start: 01-23-2012 End: 01-23-2012 Prof svcs allg immntx x w/prv allgic xtrcs 1 njx CARLYNDorian Fernandez DICKSON Start: 01-16-2012 End: 01-16-2012 Prof svcs allg immntx x w/prv allgic xtrcs 1 njx CARLYNDorian Fernandez DICKSON Start: 06-12-2010 End: 06-12-2010 Upper gastrointestinal tract series MICHAEL DICKSON [employer]PER[employer] Work Phone: Comment on above: Normal. Start: 03-27-2010 End: 03-27-2010 Prof svcs allg immntx x w/prv allgic xtrcs 1 njx ARDEN GANN MD Work Phone: Start: 11-01-2005 End: 11-01-2005 Td MICHAEL DICKSON [employer] SUPERVISORDragonfly Work Phone: Tonsillectomy ROBERT RUCKER R N Tonsillectomy ARTHUR Fernandez Work Phone: Tonsillectomy ROBERT GRATE R N Plan of Treatment Date Care Activity Detail Author Start: 01-15-2024 [facility] [place] Start: 07-09-2023 [facility] visit, [facility]; ESTABLISHED PATIENT ROUTINE VISIT - [facility] Start: 09-Jul-2023 10:00 [facility]ANDOLPH [facility] Rodriguez Appointment Request [facility] Start: 05-02-2023 Tympanometry TYMPANOMETRY ( [id number]) Start: 02-May-2023 [facility]; [facility] [employer]. Start: 12-11-2017 Us abdominal real ti me w/image documentation US LIVER OR GALLBLADDER COMPLETE ([id number]) Start: 11-Dec-2017 [facility]; [facility] [employer]. Start: 09-23-2013 Patient Education [facility]; [facility] Work Phone: Start: 03-24-2011 Patient Education BRAT DIET In dication: Gastroenteritis, acute Start: 24-Mar-2011 Instruction Type: Patient Education [facility] [employer]; [employer] [facility] Start: 03-06-2010 End: 03-06-2010 Prof gerson allg immntx x w/prv allgic xtrcs 1 njx ALLERGY SHOT - ONE INJECTION ([id number]) Date: 06-Mar-2010 [facility]; [employer] [facility]. Immunizations Immunization Date Immunization Notes Care Provider Fa cility 03-11-2020 influenza virus vaccine, unspecified formulation ARTHUR GANN MD Work Phone: [facility]; [employer] [facility] 03-11-2020 influenza, injectabl e, quadrivalent, contains preservative ARTHUR GANN MD Work Phone: [facility]; [employer] [facility] [employer]. Comment on above: Site: Left ArmVIS Gi serena: * Influenza - Inactivated (01/01/2019) 05-25-2019 influenza virus vaccine, unspecified formulation ARTHUR GANN MD Work Phone: [facility]; [employer] [facility] [employer] 05-25-2019 influenza, injectabl e, quadrivalent, contains preservative ARTHUR GANN MD Work Phone: [facility]; [employer] [facility] [employer]. Comment on above: Site: Left DeltoidVI S Given: * Influenza - Inactivated (01/01/2019) 04-05-2017 unknown vaccine or immune globulin ARTHUR GANN MD Work Phone: [facility]; [employer] [facility] [employer]. 04-05-2017 influenza, injectabl e, quadrivalent, contains preservative ARTHUR GANN MD Work Phone: [facility]; [employer] [facility] [employer] Comment on above: Site: Deltoid (Left) VIS Given: * Influenza - Inactivated (12/24/14) 07-07-2013 human papilloma viru s vaccine, quadrivalent ARTHUR GANN MD Work Phone: [facility]; [employer] [facility] [employer] Comment on above: Site: Deltoid (Left) 07-07-2013 *IMMUNIZATION ADMIN ([id number]) ARTHUR GANN MD Work Phone: [facility]; [employer] [facility] [employer] 03-04-2013 human papilloma viru s vaccine, quadrivalent ARTHUR GANN MD Work Phone: [employer]; [employer] [facility] [employer] Comment on above: Site: Deltoid (Right )Pt brought vaccine from [facility]. 03-04-2013 *IMMUNIZATION ADMIN ([id number]) ARTHUR GANN MD Work Phone: [facility]; [employer] [facility] [employer] 12-31-2012 human papilloma viru s vaccine, quadrivalent ARTHUR GANN MD Work Phone: [employer]; [employer] [facility] [employer]. Comment on above: Site: Deltoid (Left) [facility] [id number] 12-31-2012 *IMMUNIZATION ADMIN ([id number]) ARTHUR GANN MD Work Phone: [facility]; [employer] [facility] [employer] 11-01-2005 tetanus and diphther ia toxoids, adsorbed, preservative free, for adult use (2 Lf of tetanus toxoid and 2 Lf of diphtheria toxoid) ARTHUR GANN MD Work Phone: [employer]; [employer] [facility] [employer] Payers Date Payer Category Payer Unknown [id number] [id number] Self-pay Unknown [id number] [id number] Unknown [id number] [id number] Unknown [id number] [id number] Unknown [id number] [id number] [id number] Unknown [id number] Social History Date Type Detail Facility Alcohol Use: Alcohol Use: ; 1 to 7 drinks per week. [facility] Current Work/Study Status Current Work/St udy Status [facility]; [facility] Tobacco use: Tobacco use: ; Never smoker. [facility] Work Phone: Occasional alcohol use [facility]; [facility] Work Phone: Never smoked tobacco [facility]; [facility] Work Phone: Summary Purpose Family History No Family History Records FoundNo Family History Records FoundNo Family History Records FoundNo Family History Records FoundNo Family History Records Found Advance Directives No Advanced Directives Records FoundNo Advanced Directives Records FoundNo Advanced Directives Records FoundNo Advanced Directives Records FoundNo Advanced Directives Records Found Additional Source Comments INFORMATION SOURCE (unrecogn ized section and content) DATE CREATED AUTHOR 04/08/2018 [facility] DATE CREATED AUTHOR AUTHOR'S ORGANIZ ATION 05/12/2018 [facility] DATE CREATED AUTHOR AUTHOR'S ORGANIZ ATION 05/22/2018 [facility] DATE CREATED AUTHOR AUTHOR'S ORGANIZ ATION 06/10/2020 [facility] DATE CREATED AUTHOR AUTHOR'S ORGANIZ ATION 05/04/2023 [facility] FOR RECORDS PERTAINING TO PATIENTS WHO ARE OR HAVE BEEN ENROLLED IN A CHEMICAL DEPENDENCY/SUBSTANCEABUSE PROGRAM, SOME INFORMATION MAY BE OMITTED. This clinical summary was aggregated from multiple sources. Caution should be exercised in using it in the provision of clinical care. This summary normalizes information from multiple sources, and as a consequence, information in this document may materially change the coding, format and clinical context of patient data. In addition, data may be omitted in some cases. CLINICAL DECISIONS SHOULD BE BASED ON THE PRIMARY CLINICAL RECORDS. [facility], [facility]. provides no warranty or guarantee of the accuracy or completeness of information in this document.
[2024-03-11 08:13] LABS: PROGESTERONE 4.2 ng/mL (.)
== END | disposition home or self-care (01) ==
PROVIDERS: PCP Family Medicine; Referring Provider Nurse Practitioner Women's Health; Visit Provider Nurse Practitioner Women's Health
DX: N97.0 Female infertility associated with anovulation (principal)
CPT/HCPCS: 36415; 84144